=== PATIENT | male | born 1945 | race Caucasian/White ===

== ENCOUNTER 2017-07-11 09:25 | Inpatient (IN) | payer MEDICARE, BC ==
[2017-07-11 11:57] LABS: ABS Basophils 0 10^3/ul (0-0.2); ABS Eosinophils 0 10^3/ul (0-0.6); ABS Lymphocytes 0.8 10^3/ul (1.0-4.8); ABS Monocytes 0.7 10^3/ul (0-0.8); ABS Neutrophils 6.5 10^3/ul (1.5-7.7); ABS Nucleated RBC 0 10^3/ul; Eosinophil % 0.5 % (0-6); Hematocrit 43 % (42-52); Hemoglobin 14.5 g/dl (14.0-18.0); Lymphocyte % 9.9 % (25-47); Mean Corpuscular HGB Conc 34 g/dl (31-36); Mean Corpuscular Hemoglobin 29 pg (27-31); Mean Corpuscular Volume 85 fL (80-94); Mean Platelet Volume 8 um3 (7.4-10.4); Nucleated Red Blood Cells % 0.1; Platelet Count 181 10^3/ul (150-450); Red Blood Count 5.05 10^6/ul (4.0-5.4); Red Cell Distribution Width 15 % (10.5-15); White Blood Count 8.1 10^3/ul (3.5-10.8)
--- NOTE | 2017-07-11 11:59 | RAD ---
HISTORY: Altered mental status, slurred speech COMPARISONS: MRI dated March 06, 2015 TECHNIQUE: Multiple contiguous axial CT scans were obtained of the head without intravenous contrast. FINDINGS: HEMORRHAGE/INFARCT: There is no hemorrhage or acute infarct. MASSES/SHIFT: There is no parenchymal mass or shift. EXTRA-AXIAL SPACES: Again noted is a partially calcified CP angle mass on the right. SULCI AND VENTRICLES: The sulci and ventricles are normal in size and position for the patient's stated age. CEREBRUM: There is hypoattenuation of the periventricular and subcortical white matter. BRAINSTEM: There are no focal parenchymal abnormalities. CEREBELLUM: There is a chronic infarct of the left inferior cerebellum. VESSELS: The vessels are grossly normal. PARANASAL SINUSES: The paranasal sinuses are clear. ORBITS: The orbits are unremarkable. BONES AND SOFT TISSUE: There is post surgical change to the skull. OTHER: None IMPRESSION: 1. POSTSURGICAL CHANGE WITH A PARTIALLY CALCIFIED RIGHT CP ANGLE MASS, SIMILAR TO THE PREVIOUS EXAMINATION. 2. NO ACUTE INTRACRANIAL PATHOLOGY.
[2017-07-11 12:21] LABS: Urine Appearance Clear; Urine Blood Negative (Negative); Urine Color Yellow; Urine Ketones Trace (Negative); Urine Protein Negative (Negative); Urine Specific Gravity 1.023 (1.010-1.030); Urine Urobilinogen Negative (Negative)
[2017-07-11] MEDS ORDERED: Aspirin SUPP* 300 MG PR ONE (12:25)
[2017-07-11] MEDS ORDERED: Iohexol 350* (CONTRAST) 500 ML MDV IV ONE (12:29)
[2017-07-11] MEDS ORDERED: Aspirin TAB* 325 MG PO ONE (12:41)
[2017-07-11] MEDS ORDERED: Ondansetron INJ* 2 MG/ML VIAL IV PRN (13:38)
--- NOTE | 2017-07-11 13:57 | RAD ---
INDICATION: Confusion began yesterday morning. Slurred speech. History of Parkinson's disease. COMPARISON: Noncontrast CT of the same date. TECHNIQUE: Multidetector CT images were obtained from the aortic arch to the vertex of the head with 80 mL Omnipaque 350 IV contrast. Arterial phase of enhancement. Multiplanar reformation including maximum intensity projection. 3-D arterial volume rendering. Stenosis estimations based on denominator of distal arterial diameter. NECK ANGIOGRAM REPORT: Normal configuration of the branch vessels at the aortic arch. Mild atherosclerotic plaque at the RIGHT brachiocephalic and LEFT subclavian origins without hemodynamic significant stenosis resulting. Mild calcific plaque at the RIGHT carotid bulb and proximal internal carotid artery without significant stenosis by NASCET criteria. Mild calcific plaque at the LEFT carotid bulb without significant stenosis by NASCET criteria. Calcific and noncalcific plaque results in approximate 80% short segment ostial stenosis at the LEFT vertebral artery. The proximal LEFT vertebral artery is tortuous. Dominant LEFT vertebral artery and diminutive RIGHT vertebral artery both contribute to the basilar artery. Multilevel cervical degenerative spondylosis and facet joint osteoarthritis. Uncinate process spurring results in osseous foraminal stenosis at C3-C4 through C6-C7 on the RIGHT. Dorsal spondylitic ridging results in mild acquired central canal stenosis at C4-C5 and C5-C6. NECK ANGIOGRAM IMPRESSION: 1. Mild atherosclerotic plaque without significant RIGHT or LEFT carotid stenosis by NASCET criteria. 2. Approximate 80% short segment ostial stenosis at the origin of the LEFT and dominant vertebral artery. HEAD ANGIOGRAM REPORT: Mild calcific plaque at the carotid siphons without hemodynamic significant stenosis resulting. Unremarkable M1 and M2 segments of the middle cerebral arteries. Unremarkable A1 and A2 segments of the anterior cerebral arteries and patent diminutive anterior communicating artery. Unremarkable cerebellar artery origins and basilar artery. Patent posterior cerebral arteries are primarily supplied by the posterior circulation with normal variant hypoplastic posterior communicating arteries. No intracranial aneurysm or vascular malformation evident. No arterial phase enhancing intra or extra-axial lesions evident. HEAD ANGIOGRAM IMPRESSION: No large vessel intracranial arterial stenosis or occlusion. CPT II: CPT II Codes: 3100F
--- NOTE | 2017-07-11 16:28 | RAD ---
Indication: Question CVA. Slurred speech and increased tremors since yesterday morning. History of acoustic neuroma. Comparison: July 11, 2017 CT. March 06, 2015 MRI. Technique: Mobi[employer] 1.5 Chayito [id number] with GEM suite. MRI brain without contrast. Report: There is restricted diffusion at the LEFT precentral gyrus with corresponding decreased signal on ADC map. Negative for appreciable mass effect. The cerebral sulci, ventricles, and basal cisterns are within normal limits. Bilateral periventricular and subcortical white matter T2 hyperintensities are most consistent with chronic small vessel ischemic disease. Old lacunar infarcts noted at the LEFT inferior cerebellar hemisphere. 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 Negative for LEFT side cerebellopontine angle mass. Unremarkable orbital contents. Preserved major intracranial flow-voids. Postsurgical change of RIGHT occipital craniectomy. No suspicious calvarial or skull base lesions evident. Clear paranasal sinuses and mastoid air spaces. IMPRESSION: 1. Restricted diffusion at the LEFT frontal lobe precentral gyrus most consistent with subacute ischemic stroke given presence of corresponding T2 hyperintensity. Negative for significant associated mass effect. 2. Stigmata of chronic small vessel ischemic disease. Old lacunar infarcts at the LEFT inferior cerebellar hemisphere. 3. 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
[2017-07-11] MEDS: Heparin VIAL(*) 5000 UNITS/ML VIAL (FIVE THOUSAND) SUBCUT SCH ×2 (16:43→21:12)
[2017-07-11] MEDS: Carbidopa/Levodop CR 50/200(*) TAB.CR PO SCH (16:44)
[2017-07-11] MEDS: carBAMazepine TAB(*) 200 MG PO SCH (17:47)
[2017-07-11] MEDS: Metoprolol Succinate XL TAB* 200 MG TAB.XL PO SCH (17:47)
--- NOTE | 2017-07-11 20:24 | HP ---
CC: Dr. Beaulieu; Dr. Scruggs; Dr. Grady * HISTORY AND PHYSICAL: DATE OF ADMISSION: 07/11/17 PRIMARY CARE PROVIDER: Dr. Beaulieu. CONSULTING NEUROLOGIST: Dr. Scruggs. ATTENDING PROVIDER: Dr. Kennedy * (DICTATED BY LACEY GREENFIELD NP) CHIEF COMPLAINT: 1. Altered mental status. 2. Slurred speech. HISTORY OF PRESENT ILLNESS: Mr. Monge is a 71-year-old male patient. He has a history of Parkinson's disease, history of skin cancer, he has a history of an acoustic neuroma, hypertension, hyperlipidemia. He comes in to our ER today. It was noticed in the last couple days that the patient has had intermittent confusion and over the last 24 hours, the family and the patient have noted that his speech has been slurred, he has been having difficulty with words, which is not his baseline. There have been no reports of fevers, chills , nausea, or vomiting. No chest pain. There were no reports of a facial droop. No reports of weakness to one side or trouble with his gait. Actually, the family says now while being in the ER, his speech has improved and he is returning to his baseline. There have been no reports of vision changes, double vision, blurry vision. The patient says he has not been having any chest pain. There have been no URI symptoms. No coughing and no trouble with urination. He was concerned, came in to the ED. There was concern for possible TIA versus CVA and we were asked to evaluate for admission. PAST MEDICAL HISTORY: Significant for: 1. Parkinson's disease. 2. Hypertension. 3. Hyperlipidemia. 4. Skin cancer. 5. Acoustic neuroma. PAST SURGICAL HISTORY: 1. He has had acoustic neuroma removed. 2. He has had heart catheterization with no stents. MEDICATIONS: Home meds according to their list include: 1. Crestor, which is new medication in the last 10 days, 20 mg daily. 2. Amlodipine 10 mg daily. 3. Selegiline 5 mg daily. 4. Lisinopril 10 mg daily. 5. Avapro 300 mg daily. 6. Carbidopa and levodopa, he takes one tablet in the morning, he takes one tablet at bedtime around 2200, and he takes one tablet around 1700. 7. Aspirin 81 mg daily. 8. Amantadine 100 mg p.o. b.i.d. 9. Tegretol 200 mg daily. 10. Metoprolol XL 200 mg p.o. q.p.m. ALLERGIES TO MEDICATIONS: Include no known drug allergies. FAMILY HISTORY: His mother had a history of leukemia. Father of a heart attack. SOCIAL HISTORY: He is a former smoker. He quit in 1968. He does not drink alcohol. Surrogate decision maker is his . REVIEW OF SYSTEMS: There is no documented fever. He denied having any significant weight change. There was no double vision. There is no ear discharge. Denied having any rhinorrhea. No sore throat. No thyroid enlargement. Denies having any chest pain. There is no orthopnea. There is no nocturnal dyspnea. There is no abdominal pain. There is no nausea, no vomiting. There is no dysuria, there is no frequency. No seizure, no loss of consciousness. No pruritus and no skin ulcerations. Review of 14 systems completed, all others negative. PHYSICAL EXAMINATION GENERAL: At this time, Mr. Monge is a 71-year-old male patient. He is sitting in the ED stretcher. He does not appear to be in any acute distress. VITAL SIGNS: Blood pressure 111/73, pulse 73, respirations were 20, O2 sat 95% , temperature 98.3. HEENT: Head: Atraumatic. Eyes: EOMs are intact. Sclerae anicteric, not pale. Throat: Oral mucosa appears to be moist. No oropharyngeal erythema. NECK: Supple. LUNGS: Clear to auscultation. No wheezes, rales, or rhonchi. HEART: Sounds S1, S2. Regular rate and rhythm. No murmurs, rubs, or gallops. ABDOMEN: Soft, flat, nontender. Bowel sounds are present. EXTREMITIES: Pulses were 2+ throughout. He does have a resting tremor noted, but he is moving all 4 extremities with 5/5 strength. NEUROLOGIC: The patient is awake. He is alert. Cranial nerves II through XII were intact. His speech to me sounded clear. His family says it is at his baseline. His tongue is midline. He had no facial drooping. Jvrftd-[id number] was intact bilaterally. [id number]-vg-[id number] was intact bilaterally. Sensation intact. No gross focal deficits. SKIN: Intact. DIAGNOSTIC STUDIES/LAB DATA: WBC of 8.1, RBC of 5.05, hemoglobin of 14.5, hematocrit of 43, platelet count of 181. Sodium was 138, potassium 4.2, chloride of 104, bicarb 29, BUN 21, creatinine 1.02, glucose of 113, lactate 1.3 , calcium 9.4. Total bili 0.4, AST 14, ALT 4, alk phos 96. Ammonia 41. Troponin 0. Albumin 4.1. Urine showed trace ketones, 2+ glucose. The patient did have a brain CT obtained today, impression: Postsurgical change with a partially calcified right CP angle mass similar to previous examination, no acute intracranial pathology. He had an EKG obtained today, it is a difficult tracing, it is read as aflutter ; however, the patient was tremulous during exam. He had a lot of artifact. In the telemetry, he was noted to be in sinus rhythm and all the leads in this EKG are showing aflutter, V2, V4, clearly sinus rhythm. So, again, I think this is a normal sinus rhythm, rate of 74, no ST elevations, T-wave inversions. Old medical records were reviewed. ASSESSMENT AND PLAN: Mr. Monge is a 71-year-old male patient with multiple medical problems coming in to our ER today with complaints of troubled speech. He will be admitted under observation status for: 1. Transient ischemic attack versus cerebrovascular accident. Again, at this point, he will continue aspirin. I am going to hold the Crestor, as certainly the Crestor may have been contributing the altered mental status. So, we will hold this. We will go ahead and check neuro checks every 4 hours. We will check an MRI of the brain. CTA is pending. Dr. Scruggs will evaluate. We will get the echo with bubble study. The patient can eat. He passed the bedside swallow eval. I ordered PT/OT. We will get lipid panel and an A1c in the morning and we will follow closely. 2. Hypertension. In the setting of a possible acute cerebrovascular accident and transient ischemic attack, I will allow for permissive hypertension, I am just going to continue the beta nicole for the time being. 3. Parkinson's. Continue meds as prescribed. 4. Hyperlipidemia. Checking lipid panel. May consider going back on the simvastatin as he tolerated this well, but we will hold off on statins for the time being. 5. History of schwannoma and acoustic neuroma. He can follow with his primary. 6. DVT prophylaxis. He will be placed on heparin subcu. 7. Code status. He is a DNR. 8. Fluid, electrolytes, and nutrition. Heart-healthy diet. TIME SPENT: On admission 60 minutes, greater than half of the time spent face- to- face with the patient obtaining my history and physical, the other half of the time was spent going over the plan of care with the patient and implementing the plan of care. I did discuss the plan of care with my attending, Dr. Kennedy; she is in agreement. LACEY GREENFIELD NP [id number]/[facility] #: [id number] DAMARI
[2017-07-11] MEDS: Amantadine CAP* 100 MG PO SCH (21:11)
[2017-07-11] MEDS ORDERED: Carbidopa/Levodop CR 50/200(*) TAB.CR PO SCH (22:00)
--- NOTE | 2017-07-11 22:39 | CONS ---
CC: Dr. Grady * CONSULTATION REPORT: DATE OF CONSULT: 07/11/17 PATIENT OF: Dr. Beaulieu. HISTORY OF PRESENT ILLNESS: This is a 71-year-old man who I am asked to evaluate for a possible stroke. The symptoms have been present since Monday, where he had difficulty speaking, confused, and he had significant problems with word finding, this has improved to some degree, but he is still having trouble with word finding and fluidity of speech, this is a change he had. No change in his medicines other than he was switched to Crestor about 10 days ago and they stopped this yesterday. He has had no weakness, numbness. No headache. No droopy mouth. No visual symptoms. There is no family history for stroke. His father has had an NC. He has been followed by Dr. Grady for ongoing Parkinson's symptoms, which has not changed recently. He also has hypertension, status post an acoustic neuroma with surgery in 2012 and stereotactic radiotherapy the following year. He has some mild cognitive disorder. 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 He has benign essential hypertension, hyperlipidemia, and coronary atherosclerosis. He quit smoking in 1968. He drinks an occasional beer. He has no insomnia. His Parkinson's has been unchanged recently and there has been no recent change in his Parkinson's medications. MEDICATIONS: Include: 1. Amantadine 100 mg twice a day. 2. At home, he was on 81 mg of aspirin. 3. Tegretol 200 mg at bedtime. 4. Carbidopa/levodopa 5200 CR 3 times a day. 5. Metoprolol 200 mg a day. 6. Selegiline 5 mg a day. REVIEW OF SYSTEMS: Negative in all 14 spheres other than the HPI. PHYSICAL EXAM: Temperature 98.6, pulse 78, respirations 20, blood pressure 147/ 91. He was alert and oriented x3. He had some naming difficulties. He could not name knuckles, but could name elbow. He could have relatively good spontaneous generation of speech, but his speech was somewhat hesitant and he had hypophonia. The hypophonia was old, but his hesitancy in his speech and his mild word-finding problems was new. Cranial nerves II through XII were intact. There was no facial droop. No visual field deficit noted. Discs were sharp. Motor exam revealed cogwheeling bilaterally with rapid tremor. There was bradykinesia. There was no pronator drift and strength was 5/5 and symmetric. Reflexes 1 and equal. Toes were downgoing. Chest: Clear. Cardiovascular: Regular rate. Abdomen: Soft with positive bowel sounds. DIAGNOSTIC STUDIES/LAB DATA: I reviewed his studies. His MRI scan shows a small subacute left precentral gyrus, probable stroke. There is some diffuse small- vessel chronic white matter disease. His CTA showed some mild plaque, but without any stenosis in his carotids. He had 80% stenosis of his left vertebral artery. Head angiogram showed some plaque, but no major stenosis. CT scan showed no acute findings. His EKG showed atrial flutter. Labs include normal CBC. Chemistry shows a glucose of 113. UA was negative. His ammonia was normal. IMPRESSION: Kavon has had a subacute stroke in his speech area, which is mostly likely secondary to his atrial flutter. For now, he will be on aspirin, but in about a week he will need a repeat scan to make sure there is no bleeding and then would be started on anticoagulation. He also has some white matter disease, most likely secondary to his hypertension. Fasting lipids and PT/PTT need to be done and I will speak to Himanshu Heller about these things. [id number]/[facility] #: [id number] [facility] CENTERRickey
[2017-07-12] MEDS: Heparin VIAL(*) 5000 UNITS/ML VIAL (FIVE THOUSAND) SUBCUT SCH ×2 (05:07→14:14)
[2017-07-12 05:27] LABS: ABS Basophils 0.1 10^3/ul (0-0.2); ABS Eosinophils 0.1 10^3/ul (0-0.6); ABS Lymphocytes 1.2 10^3/ul (1.0-4.8); ABS Monocytes 0.6 10^3/ul (0-0.8); ABS Neutrophils 5.2 10^3/ul (1.5-7.7); ABS Nucleated RBC 0 10^3/ul; Eosinophil % 1.1 % (0-6); Hematocrit 44 % (42-52); Hemoglobin 14.9 g/dl (14.0-18.0); Lymphocyte % 16.7 % (25-47); Mean Corpuscular HGB Conc 34 g/dl (31-36); Mean Corpuscular Hemoglobin 29 pg (27-31); Mean Corpuscular Volume 85 fL (80-94); Mean Platelet Volume 8 um3 (7.4-10.4); Nucleated Red Blood Cells % 0.1; Platelet Count 174 10^3/ul (150-450); Red Blood Count 5.21 10^6/ul (4.0-5.4); Red Cell Distribution Width 15 % (10.5-15); White Blood Count 7.2 10^3/ul (3.5-10.8)
[2017-07-12 05:43] LABS: EGFR Non-African American 75.4 (>60)
[2017-07-12] MEDS: Amantadine CAP* 100 MG PO SCH (08:18)
[2017-07-12] MEDS ORDERED: amLODIPine TAB* 5 MG PO SCH (09:00)
[2017-07-12] MEDS ORDERED: Carbidopa/Levodop CR 50/200(*) TAB.CR PO SCH (09:00)
[2017-07-12] MEDS ORDERED: Selegiline TAB* 5 MG PO SCH (09:00)
[2017-07-12] MEDS ORDERED: Aspirin Low Dose CHEW TAB* 81 MG PO SCH (09:00)
--- NOTE | 2017-07-12 14:17 | ECHO ---
Patient: EBENEZER CLEANING [facility] Rec#: [id number] : 1945 Date: 07/12/2017 Age: 71y Height: 182.88 cm / 72.0 in Weight: 92.53 kg / 203.9 lbs Sex: M BSA: 2.17 Room#: [facility] Admit Date#: 07/11/2017 Type: Inpatient Referring: Himanshu Heller NP Reading: Yi Ng MD [employer] Director: Chantell Escobar,WADECS,RDMS CC: Darin Beaulieu MD Transthoracic Echocardiogram Indication: TIA BP: 126/79 HR: 63 Rhythm: NSR Findings History: HTN, HLD, Parkinsons Technical Comments: The study quality is good. Left Ventricle: The left ventricular chamber size is normal. Mild concentric left ventricular hypertrophy is observed. There is a prominent septal knuckle. Global left ventricular wall motion and contractility are within normal limits. There is normal left ventricular systolic function. The estimated ejection fraction is 55-60%. There is an E to A reversal in the mitral valve flow pattern suggestive of diastolic dysfunction. Left Atrium: The left atrial chamber size is normal. Right Ventricle: The right ventricular chamber size and systolic function are within normal limits. Right Atrium: The right atrial cavity size is normal. A patent foramen ovale is not demonstrated with color Doppler and agitated contrast. Aortic Valve: The aortic valve structure is not well visualized. There is no evidence of aortic valve thickening. There is a trace of aortic regurgitation. There is no evidence of aortic stenosis. Mitral Valve: There is mitral annular calcification. The mitral valve leaflets are mildly thickened. There is a trace of mitral regurgitation. There is no evidence of mitral stenosis. Tricuspid Valve: The tricuspid valve leaflets are normal. There is no evidence of tricuspid valve regurgitation. Unable to estimate the right ventricular systolic pressure. Pulmonic Valve: There is no evidence of pulmonic valve thickening. There is no evidence of pulmonic regurgitation. Pericardium: There is no significant pericardial effusion. Aorta: The aortic root appears normal. There is no dilatation of the aortic arch. Pulmonary Artery: The main pulmonary artery is not well visualized. Venous: The inferior vena cava appears normal in size. There is a greater than 50% respiratory change in the inferior vena cava dimension. Contrast: Intravenous agitated saline contrast was used to assess intracardiac shunting. Images 1 and 2 Conclusions Mild concentric left ventricular hypertrophy is observed. Global left ventricular wall motion and contractility are within normal limits. The estimated ejection fraction is 55-60%. There is an E to A reversal, e' and and E/e' suggestive of diastolic dysfunction. The right ventricular chamber size and systolic function are within normal limits. A patent foramen ovale is not demonstrated with color Doppler and agitated contrast. All valves show good excursion and function. There is a trace of aortic regurgitation. There is a trace of mitral regurgitation. No prior study to compare. Measurements Name Value Normal Range RVIDd (AP) 2D 2.5 cm (0.9 - 2.6) RVDdMajor (2D) 3.5 cm (2.2 - 4.4) RAd ISD 4CH 4.7 cm (3.4 - 4.9) RA (A4C)W 4.1 cm (2.9 - 4.6) IVSd (2D) 1.5 cm (0.6 - 1) LVPWd (2D) 1.2 cm (0.6 - 1) LVIDd (2D) 3.9 cm (3.6 - 5.4) LVIDs (2D) 3.1 cm - LV FS (2D) 20 % (25 - 45) Aortic Annulus 2 cm (1.4 - 2.6) Ao root diameter (2D) 3.4 cm (2.1 - 3.5) Ascending Ao 3 cm (2.1 - 3.4) LA dimension (AP) 2D 3.8 cm (2.3 - 3.8) LAd ISD 4CH 4.9 cm (2.9 - 5.3) LA ISD 4CH W 4.1 cm (2.5 - 4.5) Name Value Normal Range LA ESV SP 4CH (A/L) 39.84 ml - LA ESV SP 2CH (A/L) 45.15 ml - LA ESV BP (A/L) 43.29 ml - LA ESV BP (A/L) index 20 ml/m2 - LA ESV SP 4CH (MOD) 36.73 ml - LA ESV SP 2CH (MOD) 42.99 ml - LV EDV SP 4CH (MOD) 70.26 ml - LV ESV SP 4CH (MOD) 22.03 ml - EF SP 4CH (MOD) 68.64 % - LV EDV SP 2CH (MOD) 54.11 ml - LV ESV SP 2CH (MOD) 22.81 ml - EF SP 2CH (MOD) 57.84 % - LV EDV BP 61.94 ml - LV ESV BP 22.49 ml - BP EF (MOD) 64 % - Name Value Normal Range MV E-wave Vmax 0.8 m/sec - MV deceleration time 232 msec - MV A-wave Vmax 0.9 m/sec - MV E:A ratio 0.9 ratio - LV septal e' Vmax 0.06 m/sec - LV lateral e' Vmax 0.1 m/sec - LV E:e' septal ratio 13 ratio - LV E:e' lateral ratio 8 ratio - Name Value Normal Range AV Vmax 1 m/sec - AV VTI 25 cm - AV peak gradient 4 mmHg - AV mean gradient 2.6 mmHg - LVOT Vmax 0.8 m/sec - LVOT VTI 19 cm - LVOT peak gradient 2.6 mmHg - LVOT mean gradient 1.3 mmHg - Name Value Normal Range RAP 8 mmHg - IVC diameter 1.4 cm - Name Value Normal Range PV Vmax 0.7 m/sec - PV peak gradient 2 mmHg -
[2017-07-12 16:00] VITALS: BP 143/97
[2017-07-12] MEDS: carBAMazepine TAB(*) 200 MG PO SCH (16:18)
[2017-07-12] MEDS: Carbidopa/Levodop CR 50/200(*) TAB.CR PO SCH (16:18)
[2017-07-12] MEDS: Metoprolol Succinate XL TAB* 200 MG TAB.XL PO SCH (16:18)
--- NOTE | 2017-07-12 22:04 | PN ---
Subjective Date of Service: 07/12/17 Interval History: Patient states that his speech is improved. Denies and chest pain or shortness of breath. Denies abd pain or N/V/D. denies ext weakness Family History: Unchanged from Admission Social History: Unchanged from Admission Past Medical History: Unchanged from Admission Objective Vital Signs - 8 hr 07/12/17 15:15 Temperature 97.7 F Pulse Rate 72 Respiratory 14 Rate Blood Pressure 143/97 (mmHg) O2 Sat by Pulse 100 Oximetry Oxygen Devices in Use Now: None Appearance: appears comfortable Eyes: No Scleral Icterus Ears/Nose/Mouth/Throat: Clear Oropharnyx, Mucous Membranes Moist Neck: NL Appearance and Movements; NL JVP, Trachea Midline Respiratory: Symmetrical Chest Expansion and Respiratory Effort, Clear to Auscultation Cardiovascular: NL Sounds; No Murmurs; No JVD, RRR, No Edema Abdominal: NL Sounds; No Tenderness; No Distention Extremities: No Edema, No Clubbing, Cyanosis Skin: No Rash or Ulcers Neurological: Alert and Oriented x 3 Nutrition: Taking PO's Result Diagrams: 07/12/17 05:15 07/12/17 05:15 Assess/Plan/Problems-Billing Assessment: Mr. Monge is an 71 y.o male with a history Parkinson's disease, Hypertension , Hyperlipidemia., Skin cancer and Acoustic neuroma, who presented to the ER with difficulty with speech and confusion for 2-3 days . He was found to have CVA in the speech area.
--- NOTE | 2017-07-13 03:24 | PN ---
NEUROLOGY FOLLOWUP NOTE: DATE OF VISIT: 07/12/17 HISTORY: This is a neurological followup on this 71-year-old with Parkinson's and aphasia. His speech is somewhat better now and he has been walking in his usual ability. I have spoken to him and his , and they say he falls about once a month. MEDICATIONS: His medications continued to be: 1. Aspirin. 2. Tegretol. 3. Levodopa/carbidopa. 4. Metoprolol. PHYSICAL EXAMINATION: Temperature 97.7, pulse 72, respirations 14, blood pressure 143/97. He was alert and oriented. Cranial nerves II through XII were intact. He still had some minor word finding problems, but they were less pronounced than yesterday. He had his bilateral resting tremor and he has had a stigmata of Parkinson's. Chest: Clear. Cardiovascular: Regular rate and rhythm. His echo did not show PFO or other source of clot. Labs included LDL of 81 and he will need to be started on a statin. I reviewed his EKG with the hospitalist , who spoke to the javascript ui developer and I spoke to the javascript ui developer. The A-flutter that was read on his initial EKG was most likely artifact due to his tremor, but he is having some brief runs of SVT which puts him at risk for atrial arrhythmias according to Dr. Ng, who recommended cardiac followup as an outpatient, so at this point it is not clear how much of a risk he is at for having cardioembolic stroke and this needs to be sorted out further through his javascript ui developer. if the javascript ui developer thinks he is at risk for cardioembolic stroke. then if he is not a fall risk, this should be started within 7 to 10 days of the initial stroke or after once it is established that he is having atrial arrhythmia. I will be speaking with Dr. Grady today about his fall risk and the hospitalist will check with the physical therapist in terms of whether his gait can be improved so that he would be safe enough to receive anticoagulation if need be. Otherwise, he will be on aspirin and statin with followup with Dr. Grady. [id number]/[facility] #: [id number] [facility] CENTERRickey
--- NOTE | 2017-07-13 18:17 | DS ---
DISCHARGE SUMMARY: DATE OF ADMISSION: 07/11/17 DATE OF DISCHARGE: 07/12/17 ATTENDING PHYSICIAN WHILE IN THE HOSPITAL: Dr. Gabbie Nicholson * (dictated by Jessica Edouard NP). PRIMARY CARE PROVIDER: Dr. Beaulieu. PRIMARY DIAGNOSES: 1. Cerebrovascular accident. 2. Irregular heart rate. SECONDARY DIAGNOSES: 1. Parkinson's disease. 2. Hypertension. 3. Hyperlipidemia. 4. Skin cancer. 5. Acoustic neuroma. STUDIES WHILE IN THE HOSPITAL: He had a CT of the brain on 07/11/17. Radiologist's impression: 1. Postsurgical changes with partial calcified right CP angle mass similar to the previous examination. 2. No acute intracranial pathology. He had a CTA of the head, neck angiogram. Impression: 1. Mild atherosclerotic plaque without significant right or left carotid stenosis by NASCET criteria. 2. Approximately 80% short segment ostial stenosis at the origin of the left and dominant vertebral artery. angiogram: Mild calcific plaque at the carotid siphon without hemodynamic significant stenosis resulting. Head angiogram, impression: No large vessel intracranial arterial stenosis or occlusion. He had an MRI of the brain on 07/11/17. Radiologist's impression: 1. Restricted diffusion at the left frontal lobe precentral gyrus most consistent with subacute ischemic stroke given the presence of corresponding T2 hypersensitivity. Negative for significant associated mass effect. 2. Stigmata of chronic small vessel ischemic disease, old lacunar infarct at the left inferior cerebral hemisphere. 3. 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 He had an EKG on admission, which was sinus rhythm with a rate of 74. It did show some motion artifact due to his Parkinson's. DISCHARGE MEDICATIONS: He will continue his: 1. Crestor 20 mg p.o. daily. 2. Amlodipine 10 mg p.o. daily. 3. Lisinopril 10 mg p.o. daily. 4. Avapro 300 mg p.o. daily. 5. Eldepryl 5 mg p.o. q.a.m. 6. Lisinopril 10 mg p.o. daily. 7. Sinemet CR 50/200 one tab p.o. q.a.m. 8. Aspirin 81 mg p.o. daily. 9. Sinemet 50/200 one tab p.o. at bedtime. 10. Sinemet 50/200 mg 1 tablet p.o. in the evening. 11. Amantadine HCl 100 mg p.o. b.i.d. 12. Tegretol 200 mg p.o. q.p.m. 13. Metoprolol 200 mg p.o. q.p.m. 14. Aspirin 81 mg p.o. daily. HISTORY OF PRESENT ILLNESS AND HOSPITAL COURSE: Mr. Monge is a 71-year-old male with history of Parkinson's disease and history of skin cancer, and history of acoustic neuroma, hypertension, hyperlipidemia, he comes into the ER today. He noticed over the last couple of days that he had intermittent confusion over the last 24 hours. The family and patient have noted that his speech has been slurred and he has been having difficulty with his words, which is not his baseline. There have been no reports of fever, chills, nausea, or vomiting. No chest pain. There have been no reports of facial droop, no reports of weakness, one-sided trouble with his gait. Family actually noted that while the patient was in the emergency room that his speech was improving and returning to baseline. There have been no reports of visual changes, double vision, blurry vision. The patient says that he has not been having any chest pain. There have been no URI symptoms. No cough or trouble with urination. We were asked to evaluate for possible TIA versus CVA and the patient was admitted to the hospital. While in the hospital, the patient did receive a consult from Neurology, Dr. Scruggs. His impression was that Mr. Monge had a subacute stroke in his speech area, which is most likely secondary to his atrial flutter. For now, he will be on aspirin, but in about a week he needs to have a repeat scan to make sure there is no bleeding and then would be started on anticoagulation. He noted that he also had some white matter disease, most likely secondary to his hypertension, fasting lipids were completed as his recommendation. The patient was monitored during his hospitalization. He was found to have approximately 2 - to 3-second pauses. He also had an irregular rhythm throughout his stay. His rhythm appeared to be SVT and the possibility of having some atrial fibrillation. 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 He was generally in sinus rhythm during his hospitalization but did have these periods of arrhythmias. This case was discussed with Dr. Ng and due to neurology's recommendation of not placing the patient on anticoagulants at this time, she felt he could be managed as an outpatient with followup with his college administrator and neurologist. Routine laboratory work was obtained. His CBC was essentially normal. His BMP was also normal. His potassium was 4.0. His triglycerides were 172, cholesterol was 153, LDL was 82 , and HDL was 37.2. On evaluation of Mr. Monge, he states that he is feeling better, his speech has improved. He denies any difficulty swallowing. The patient was evaluated by Physical Therapy and was able to ambulate and perform all activities without assistance. He was also evaluated by Occupational Therapy, he was able to complete all tasks of daily living. At this time I feel that Mr. Monge is stable for discharge home. Mr. Monge will be discharged home with his . Vital signs are as follows : Temperature was 97.7, heart rate was 72, respirations 14, oxygen saturation was 100% on room air, blood pressure 143/97. DISCHARGE PLAN: 1. Mr. Monge will be discharged back home with his . Activity as tolerated. 2. He should follow up with Dr. Beaulieu in 4 to 7 days. He needs to have a repeat CAT scan of his brain in 1 week. He was given a prescription for the CAT scan and instructed to call central scheduling to schedule this CAT scan for 1 week. I contacted his primary care provider to obtain appointment and they will call the patient with appointment date and time. I have also instructed him to follow up with his college administrator, Dr. Martinez, in 1 to 2 weeks. He was also instructed to follow up with his neurologist, Dr. Grady, in 4 to 7 days to review his repeat CAT scan results and recommendations for anticoagulation. Mr. Monge and his were instructed to return to the emergency room if he developed any dizziness, severe headache, any one unilateral weakness, chest pain or shortness of breath. They both verbalized understanding. He was also instructed not to travel or fly for the next 2 to 3 weeks until his evaluation was completed by his neurologist, college administrator, and primary care provider. This is a summary of his hospitalization. For further details, please see the entire medical record. TIME SPENT: Time spent on this discharge was approximately 60 minutes, greater than half that time was spent with the patient and his discussing his discharge plans and implementing the instructions. CONDITION ON DISCHARGE: Stable. JESSICA EDOUARD, STEPHIE [id number]/[facility] #: [id number] DAMARI
== END 2017-07-12 18:00 | disposition home or self-care (01) | DRG 66 ==
LOC: ED 09:25 → MEDTELE 12:47
PROVIDERS: ADMIT Internal Medicine; ATTEND Internal Medicine
DX: I63.8 Other cerebral infarction (principal); G20 Parkinson's disease; I10 Essential (primary) hypertension; E78.5 Hyperlipidemia, unspecified; C44.90 Unspecified malignant neoplasm of skin, unspecified; Z66 Do not resuscitate; Z79.82 Long term (current) use of aspirin; Z79.899 Other long term (current) drug therapy; Z80.6 Family history of leukemia; Z82.49 Family history of ischemic heart disease and other diseases of the circulatory system; Z87.891 Personal history of nicotine dependence
CPT/HCPCS: 36415; 70450; 70496; 70498; 70551; 80048; 80053; 80061; 81003; 82140; 83036; 83605; 84484; 85025; 93005; 93306; A9270-GY; J1644; Q9967

== ENCOUNTER 2018-08-16 16:35 | Inpatient (IN) | payer MEDICARE, BC ==
--- OUTSIDE RECORDS SUMMARY | 2018-08-16 19:35 | XMS REPORT | Continuity of Care Document ---
:1945 External Reference #:[id number] Author Name Dinorah Dykes Care Team Providers Name Role Phone Darin Chew MD Primary Care Physician Unavailable Payers Type Date Identification Numbers Payment Provider Subscriber Policy Number: [id number] Medicare Ebenezer Monge PayID: [id number] [address] [place] [address] Policy Number: [id number] [facility] Sandra Monge PayID: [id number] [address] [place] [address] Advance Directives Description No Information Available Problems Date Description Provider Status Onset: 11/04/2011 Coronary arteriosclerosis Gabbi Rogel M.D. Onset: 11/04/2011 Hyperlipidemia Regi Martinez Active Jefry Onset: 11/04/2011 Benign essential hypertension Regi Martinez Active Jefry Onset: 11/04/2011 Tricuspid valve disorder, Regi Martinez Active non-rheumatic M.DAyleen Onset: 10/20/2014 Parkinson's disease Chantell Grady M.D. Active Onset: 10/20/2014 Seizure Chantell Grady M.D. Active Onset: 09/22/2015 Essential hypertension Gabbi Rogel M.D. 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 Polk; stereotactic radiotherapy 10/[address] Whipple ([facility]) Onset: 02/01/2017 Mild cognitive disorder Chantell Grady M.D. Active Note: MoCA 02/01/17: Onset: 02/01/2017 Dyskinesia Chantell Grady M.D. Active Note: jaw: on amantadine Family History Date Family Member(s) Problem(s) Comments : (age 63 Father due to [place] hypertension Years) : (age 70 Mother due to Leukemia Years) Paternal Uncles Coronary Artery Disease diabetes at age (CAD) 82 Social History Type Date Description Comments Sex Unknown Marital Status Lives With Occupation Retired Tobacco Use Start: Unknown End: Former Cigarette Smoker Unknown Smoking Status Reviewed: 07/20/18 Former Cigarette Smoker ETOH Use Denies alcohol use Tobacco Use Start: Unknown End: Patient is a former quit in 1968 Unknown smoker Recreational Drug Use Denies Drug Use Exercise Type/Frequency Exercises regularly physical therapy weekly and member of [employer] Allergies, Adverse Reactions, Alerts Date Description Reaction Status Severity Comments 07/13/2018 Lisinopril Cough Active 08/16/2005 NKDA Inactive Medications Medication Date Status Form Strength Qnty SIG Indications Ordering Provider Carbidopa-Levodopa 03/14 Active Tablets 25-100mg 720ta take 2 G20 bs tablets Cowdery, by mouth M.D. four times a day at: 8am, noon, 4pm, and 8 pm. Carbidopa-Levodopa 10/03 Active Tablets 50-200mg 90tab take 1 ER s tablet by Ysabel, mouth at M.D. bedtime as needed Eliquis 07/20 Active Tablets 5mg 180ta Take 1 po Merle S. bs bid (once Foster, Tegretol N.P. stopped) Amantadine HCL Active Capsules 100mg 270ca 1 cap by Chantell / ps mouth bid Jefry Grady Irbesartan Active Tablets 300mg 90tab 1/2 tab s po qd, Patient had been taking one tablet daily. Miralax Active Powder 3350NF 17 gm Unknown /0000 every day mixed w/ 8 oz water/jui ce Vimpat Active Tablets 100mg 90tab 1/2 tab Chantell /0000 s by mouth Ysabel, twice a M.D. day Code C Senna-Tabs Active Tablets 8.6mg 1 tabs Unknown /0000 by mouth twice a day Simvastatin 00 Active Tablets 40mg take 1 Unknown /0000 tablet by mouth at bedtime Levetiracetam 07/21 Hx Tablets 250mg 180ta take 1 by bs mouth Ysabel, - twice a M.D. (this replaces carbamaze pine) Carbidopa-Levodopa 09/28 Hx Tablets 25-100mg 90tab take 1 G20 s tablet by Ysabel, - mouth in M.D. 11/01 am ( extended release) Carbidopa-Levodopa 03/25 Hx Tablets 50-200mg 270ta 1 tab by Chantell ER bs mouth sYabel, - three M.D. 09/14 times day Selegiline 11/28 Hx Capsules 5mg 1cap po qd Ordering - Provider 09/14 Zocor 04/26 Hx Tablets 80mg 90tab 1 PO QHS Qutayb s S. - Maghaydah 07/11 , .D. Toprol XL 12/04 Hx Tablets 200mg 1 tab PO Qutayb ER 24HR qd S. - Maghaydah 03/13 , .D. Lisinopril 10/02 Hx Tablets 10mg 1 PO bid Qutayb S. - Maghaydah 10/02 , .D. Lisinopril 10/02 Hx Tablets 20mg 180ta 1 PO Qutayb bs daily S. - Maghaydah 07/11 , .D. Lisinopril 08/24 Hx Tablets 20mg 1 PO qd Qutayb S. - Maghaydah 10/02 , .D. Clonidine 07/31 Hx Tablets 0.3mg 1 po Qutaybeh S. - Maghaydah 10/02 , .D. Lisinopril 07/31 Hx Tablets 10mg 30tab 1 PO qd Qutayb s S. - Maghaydah 08/24 , .D. /2006 Clonidine 06/27 Hx Tablets 0.3mg 180ta 1 po bid Qutayb bs S. - Maghaydah 07/31 , M.D. /2006 Hydrochlorothiazide 05/30 Hx Tablets 25mg 90tab 1 po qd [facility] /2013 Tricor 05/22 Hx Tablets 145mg 30tab 1 PO qd [facility] /2006 Clonidine 05/22 Hx Tablets 0.2mg 60tab 1 po bid [facility]b [facility] , M.D[facility] /2006 Clonidine 01/18 Hx Tablets 0.2mg 1 po qd [facility] . [facility] , M.D. /2005 Avapro 10/31 Hx Tablets 300mg 90tab 1 po qd [facility]b [facility] , M.D. /2013 Norvasc 10/31 Hx Tablets 10mg 30tab 1 tab po Qutayb s qd S[facility] , M.D. /2016 Niaspan 10/31 Hx Capsules 500mg 30cap 1 po q pm Qutayb [facility] , M.D. /2005 Toprol XL 09/28 Hx Tablets 150mg 1 po qd [facility] S[facility] 12/04 , M.D. /2006 Clonidine 09/28 Hx Tablets 0.2mg 120ta 1 po bid [facility]b [facility] 01/18 , M.D. /2005 Clonidine 08/17 Hx Tablets 0.1mg 120ta 1 po bid [facility] , [facility] /2005 Tegretol 08/16 Hx Tablets 200mg 90tab 1 po qd Qutayb s . [facility] 07/11 , M.D. /2013 Zocor 08/16 Hx Tablets 40mg 90tab 1 PO qd Qutayb [facility] 04/26 , M.D. /2006 Toprol XL 08/16 Hx Tablets 100mg 30tab 1 po qd Qutaybeh 2006 s S[facility] , M.D. Avalide 08/16 Hx Tablets 300mg;12. 30tab 1 po qd 5 mg s S[facility] , M.D. [facility] CR 08/16 Hx Tablets 5mg 30tab 1 po tid [facility]b s S[facility] , M.D. [facility] CR 08/16 Hx Tablets 15mg 1 po qd Quta S. [facility] 10/[facility] , M.D. Selegiline HCL Hx Tablets 5mg 60tab 1 tab by Unknown /0000 s mouth - every 11/28 Zocor Hx Tablets 40mg 1 tab po Unknown /0000 qhs - 03/13 Lisinopril Hx Tablets 10mg 1 tab po Unknown /0000 qd - 09/14 Colace Hx Capsules 100mg 40cap 1cap po Unknown /0000 s bid prn - 09/[address] Hx Tablets 81mg 1 tab po Unknown /0000 DR qd - 07/20 Carbamazepine ER Hx Caps ER 200mg 60cap 1 cap po Unknown /0000 12HR s daily - 09/14 Pantoprazole Sodium Hx Tablets 40mg 90tab 1 po qd Unknown /0000 DR s - 10/17 Miralax Hx Powder 3350NF 500un 17 gm qd Unknown /0000 its mixed w/ - 8 oz 10/17 water/ ce Melatonin CR Hx Tablets 3mg 1 tablet Unknown /0000 ER po at - bedtime 09/27 prn Carbidopa/Levodopa Hx Tablets 50-200mg 90tab 1 tab po Unknown ER /0000 ER s bid - 03/25 Amlodipine Besylate Hx Tablets 10mg Take One Unknown /0000 Tablet By - Mouth 09/14 Every Day /2017 Mederma PM Hx Cream 2% use on Unknown /0000 feet bid - as needed 07/19 Benzonatate Hx Capsules 100mg one by Unknown /0000 mouth - three 09/14 daily as needed for cough Rytary 00 Hx Capsules 48.75-195 360ca 1 by G20 Chantell /0000 ER mg ps mouth 4 Cowdery, - times a M.D. Lorazepam 00 Hx Tablets 1mg 1 by Unknown /0000 mouth up - to three 10/29 times day as needed for anxiety.. Immunizations Description No Information Available Vital Signs Date Vital Result Comment 07/20/2018 2:59pm Height 73 inches 6'1" Weight 195.25 lb with shoes Heart Rate 68 /min BP Systolic 170 mmHg Lue BP Diastolic 100 mmHg Lue BP Systolic Sitting 160 mmHg Rue BP Diastolic Sitting 100 mmHg Rue BMI (Body Mass Index) 25.8 kg/m2 Ejection Fraction 55-60% ECHO 07/12/17 07/13/2018 2:08pm Height 73 inches 6'1" Weight 200.00 lb Heart Rate 64 /min BP Systolic Sitting 140 mmHg BP Diastolic Sitting 80 mmHg Respiratory Rate 18 /min BMI (Body Mass Index) 26.4 kg/m2 03/14/2018 11:33am Height 73 inches 6'1" Weight 194.50 lb Heart Rate 74 /min BP Systolic 124 mmHg BP Diastolic 78 mmHg BMI (Body Mass Index) 25.7 kg/m2 12/07/2017 9:30am Height 73 inches 6'1" Weight 190.00 lb Heart Rate 68 /min BP Systolic 108 mmHg BP Diastolic 60 mmHg Respiratory Rate 16 /min BMI (Body Mass Index) 25.1 kg/m2 10/30/2017 4:05pm Height 73 inches 6'1" Weight 190.25 lb w/shoes Heart Rate 72 /min BP Systolic Sitting 118 mmHg L/A Reg Cuff BP Diastolic Sitting 64 mmHg L/A Reg Cuff BMI (Body Mass Index) 25.1 kg/m2 Ejection Fraction 55-60% echo 07/12/2017 09/15/2017 11:43am Height 73 inches 6'1" Weight 187.00 lb Heart Rate 64 /min BP Systolic 126 mmHg BP Diastolic 68 mmHg Respiratory Rate 16 /min BMI (Body Mass Index) 24.7 kg/m2 07/20/2017 8:26am Height 73 inches 6'1" Weight 199.25 lb with shoes Heart Rate 70 /min BP Systolic Sitting 120 mmHg LA, reg cuff BP Diastolic Sitting 68 mmHg LA, reg cuff BMI (Body Mass Index) 26.3 kg/m2 Ejection Fraction 55%-60% echo 03/29/17 07/19/2017 8:09am Height 73 inches 6'1" Weight 201.38 lb Heart Rate 68 /min BP Systolic Sitting 140 mmHg BP Diastolic Sitting 72 mmHg Respiratory Rate 15 /min BMI (Body Mass Index) 26.6 kg/m2 03/01/2017 2:43pm Height 72 inches 6'0" Weight 200.00 lb with shoes Heart Rate 68 /min BP Systolic Sitting 124 mmHg LA reg cuff BP Diastolic Sitting 62 mmHg LA reg cuff BMI (Body Mass Index) 27.1 kg/m2 Ejection Fraction 55-60% date 08/08/13 ECHO 02/01/2017 8:35am Height 72 inches 6'0" Weight 200.00 lb Heart Rate 64 /min BP Systolic Sitting 122 mmHg BP Diastolic Sitting 64 mmHg Respiratory Rate 14 /min BMI (Body Mass Index) 27.1 kg/m2 09/28/2016 8:56am Height 72 inches 6'0" Weight 207.00 lb Heart Rate 56 /min BP Systolic Sitting 128 mmHg BP Diastolic Sitting 62 mmHg Respiratory Rate 14 /min BMI (Body Mass Index) 28.1 kg/m2 06/08/2016 1:39pm Height 72 inches 6'0" Weight 203.00 lb with shoes Heart Rate 72 /min BP Systolic Sitting 140 mmHg LA lrg cuff BP Diastolic Sitting 68 mmHg LA lrg cuff BMI (Body Mass Index) 27.5 kg/m2 Ejection Fraction 55% - 60% echo 08/08/13 10/21/2015 10:56am Height 72 inches 6'0" Weight 200.25 lb Heart Rate 74 /min BP Systolic Sitting 122 mmHg BP Diastolic Sitting 64 mmHg Respiratory Rate 16 /min BMI (Body Mass Index) 27.2 kg/m2 09/22/2015 1:29pm Height 72 inches 6'0" Weight 210.50 lb with shoes Heart Rate 66 /min apical BP Systolic Sitting 124 mmHg LA, regular BP Diastolic Sitting 80 mmHg LA, regular BMI (Body Mass Index) 28.5 kg/m2 Ejection Fraction 55-60% 08/08/13 echo 04/13/2015 11:18am Height 72 inches 6'0" Weight 205.00 lb Heart Rate 64 /min BP Systolic Sitting 122 mmHg BP Diastolic Sitting 80 mmHg Respiratory Rate 14 /min BMI (Body Mass Index) 27.8 kg/m2 10/28/2014 3:52pm Height 72 inches 6'0" Weight 206.75 lb w/ shoes Heart Rate 76 /min apical BP Systolic Sitting 130 mmHg LA, reg BP Diastolic Sitting 86 mmHg LA, reg BMI (Body Mass Index) 28.0 kg/m2 Ejection Fraction 55-60% 08/08/13 echo 10/20/2014 1:14pm Height 72 inches 6'0" Weight 209.00 lb Heart Rate 56 /min BP Systolic Sitting 122 mmHg BP Diastolic Sitting 64 mmHg Respiratory Rate 16 /min BMI (Body Mass Index) 28.3 kg/m2 07/09/2014 1:14pm Height 72 inches 6'0" Weight 204.00 lb Heart Rate 80 /min BP Systolic Sitting 110 mmHg BP Diastolic Sitting 60 mmHg Respiratory Rate 16 /min BMI (Body Mass Index) 27.7 kg/m2 04/03/2014 1:53pm Height 72 inches 6'0" Weight 204.00 lb Heart Rate 64 /min BP Systolic Sitting 124 mmHg BP Diastolic Sitting 72 mmHg Respiratory Rate 16 /min BMI (Body Mass Index) 27.7 kg/m2 03/06/2014 2:04pm Height 73 inches 6'1" Weight 201.12 lb Heart Rate 72 /min BP Systolic Sitting 118 mmHg BP Diastolic Sitting 62 mmHg Respiratory Rate 16 /min BMI (Body Mass Index) 26.5 kg/m2 10/30/2013 9:07am Height 73 inches 6'1" Weight 194.00 lb Heart Rate 60 /min BP Systolic Sitting 120 mmHg BP Diastolic Sitting 64 mmHg Respiratory Rate 16 /min BMI (Body Mass Index) 25.6 kg/m2 07/11/2013 3:24pm Height 73 inches 6'1" Weight 199.00 lb Heart Rate 80 /min BP Systolic Sitting 140 mmHg BP Diastolic Sitting 90 mmHg Respiratory Rate 16 /min BMI (Body Mass Index) 26.3 kg/m2 11/28/2012 8:37am Height 73 inches 6'1" Weight 209.00 lb Heart Rate 72 /min BP Systolic 128 mmHg BP Diastolic 70 mmHg BMI (Body Mass Index) 27.6 kg/m2 04/26/2012 10:25am Height 73 inches 6'1" Weight 208.00 lb Heart Rate 68 /min BP Systolic 142 mmHg BP Diastolic 80 mmHg Respiratory Rate 16 /min BMI (Body Mass Index) 27.4 kg/m2 11/04/2011 9:34am Height 73 inches 6'1" Weight 214.00 lb Heart Rate 79 /min BP Systolic 138 mmHg BP Diastolic 72 mmHg BMI (Body Mass Index) 28.2 kg/m2 11/01/2010 8:41am Height 73 inches 6'1" Weight 217.00 lb Heart Rate 88 /min BP Systolic Sitting 170 mmHg BP Diastolic Sitting 78 mmHg BP Diastolic Standing 0 mmHg BMI (Body Mass Index) 28.6 kg/m2 11/05/2009 2:51pm Height 73 inches 6'1" Weight 222.00 lb Heart Rate 78 /min BP Systolic Sitting 180 mmHg L BP Diastolic Sitting 72 mmHg L BMI (Body Mass Index) 29.3 kg/m2 12/25/2008 2:01pm Weight 224.00 lb Heart Rate 72 /min BP Systolic Sitting 122 mmHg BP Diastolic Sitting 66 mmHg Respiratory Rate 16 /min 05/20/2008 8:58am Height 73 inches 6'1" Weight 228.00 lb Heart Rate 76 /min BP Systolic Sitting 144 mmHg BP Diastolic Sitting 60 mmHg BMI (Body Mass Index) 30.1 kg/m2 10/11/2007 8:29am Height 73 inches 6'1" Weight 222.00 lb Heart Rate 72 /min BP Systolic Sitting 170 mmHg L BP Diastolic Sitting 64 mmHg L BMI (Body Mass Index) 29.3 kg/m2 04/11/2007 11:16am Height 73 inches 6'1" Weight 217.00 lb Heart Rate 62 /min BP Systolic Sitting 160 mmHg BP Diastolic Sitting 80 mmHg Respiratory Rate 16 /min BMI (Body Mass Index) 28.6 kg/m2 12/04/2006 8:55am Height 73 inches 6'1" Weight 200.00 lb Heart Rate 62 /min BP Systolic Sitting 160 mmHg BP Diastolic Sitting 70 mmHg Respiratory Rate 16 /min BMI (Body Mass Index) 26.4 kg/m2 10/02/2006 10:11am Height 73 inches 6'1" Weight 222.00 lb Heart Rate 85 /min BP Systolic Sitting 150 mmHg BP Diastolic Sitting 80 mmHg BMI (Body Mass Index) 29.3 kg/m2 08/24/2006 8:23am Height 73 inches 6'1" Weight 222.00 lb Heart Rate 80 /min BP Systolic Sitting 164 mmHg L BP Diastolic Sitting 80 mmHg L BMI (Body Mass Index) 29.3 kg/m2 07/31/2006 8:57am Height 73 inches 6'1" Heart Rate 78 /min BP Systolic Sitting 170 mmHg BP Diastolic Sitting 80 mmHg 06/27/2006 11:08am Height 73 inches 6'1" Weight 220.00 lb Heart Rate 70 /min reg BP Systolic Sitting 146 mmHg BP Diastolic Sitting 80 mmHg BMI (Body Mass Index) 29.0 kg/m2 05/30/2006 2:55pm Height 73 inches 6'1" Weight 219.00 lb Heart Rate 80 /min BP Systolic Sitting 170 mmHg BP Diastolic Sitting 80 mmHg BP Systolic Standing 170 mmHg BP Diastolic Standing 78 mmHg Respiratory Rate 18 /min BMI (Body Mass Index) 28.9 kg/m2 05/22/2006 1:26pm Height 73 inches 6'1" Weight 222.00 lb Heart Rate 84 /min BP Systolic Sitting 180 mmHg BP Diastolic Sitting 80 mmHg BMI (Body Mass Index) 29.3 kg/m2 01/18/2006 9:15am Height 73 inches 6'1" Heart Rate 72 /min reg BP Systolic Sitting 140 mmHg BP Diastolic Sitting 80 mmHg 12/26/2005 9:36am Height 73 inches 6'1" Weight 216.00 lb Heart Rate 68 /min BP Systolic Sitting 140 mmHg BP Diastolic Sitting 80 mmHg Respiratory Rate 18 /min BMI (Body Mass Index) 28.5 kg/m2 10/31/2005 8:43am Height 73 inches 6'1" Weight 222.00 lb Heart Rate 58 /min reg BP Systolic Sitting 146 mmHg BP Diastolic Sitting 70 mmHg BMI (Body Mass Index) 29.3 kg/m2 09/28/2005 8:51am Height 73 inches 6'1" Weight 224.00 lb Heart Rate 78 /min BP Systolic Sitting 150 mmHg BP Diastolic Sitting 80 mmHg BP Systolic Standing 154 mmHg BP Diastolic Standing 80 mmHg BMI (Body Mass Index) 29.6 kg/m2 08/16/2005 8:42am Height 73 inches 6'1" Weight 225.00 lb Heart Rate 86 /min BP Systolic Sitting 200 mmHg R 198/80 L BP Diastolic Sitting 80 mmHg R 198/80 L BP Systolic Standing 180 mmHg L BP Diastolic Standing 80 mmHg L BMI (Body Mass Index) 29.7 kg/m2 Results Test Date Facility Test Result H/L Range Note Urinalysis Profile 03/14/2018 [facility] Urine Color [place] [address] [place] [address] [phone] Urine Appearance Cloudy Urine Specific [place] 1.026 N 1.010-1.030 Urine pH 5.0 N 5-9 Urine Urobilinogen Positive Abnormal Negative Urine Ketones Trace Abnormal Negative Urine Protein Negative Negative Urine Leukocytes Negative Negative Urine Blood Negative Negative Urine Nitrite Negative Negative Urine Bilirubin Negative Negative Urine Glucose Negative Negative Urine Culture And 03/14/2018 [facility] Urine Culture SEE RESULT [address] [place] [address] [phone] Basic Metabolic 12/26/2005 [facility] One Over 1.[address] [place] [address] [phone] Anion Gap 5.0 mmol/L 2-11 2 BUN 19 mg/dL 6-24 Calcium 9.3 mg/dL 8.7-10.2 Chloride 105 mmol/L 101-111 Co2 (Carbon Dioxide) 28.0 mmol/L 22-32 Glucose 91 mg/dL 70-105 Potassium 4.3 mmol/L 3.5-5.0 Sodium 138 mmol/L 135-145 BUN/Creatinine Ratio 19.0 8-20 Creatinine 1.0 mg/dL 0.5-1.4 1 SEE RESULT BELOW Name: EBENEZER MONGE : [address]: Chantell Grady MD Acct: [id number] Unit: [id number] AGE: 72 Location: LAB Re03/14/18 SEX: M Status: REG REF SPEC: [id number] [place]: 03/14/18-1258 [facility] DR: Chantell Grady MD REQ: [id number] RECD: 03/14/18 STATUS: YAMILETH CARLSON DR: Darin Chew MD _ SOURCE: URINE SPDESC: ORDERED: Urine Culture COMMENTS: Copy Result to: DARIN CHEW ([id number]) Procedure Result Reported Site Urine Culture Final 03/15/18- 1255 ML Mixed khadijah; possible contamination. Suggest resubmission. * [facility] - Main Lab . END OF REPORT DEPARTMENT OF PATHOLOGY, [address] [place] [address] Singh Landaverde M.D. Director [facility] # [id number] 2 Anion gap measurement may be of limited value in the presence of any alkalosis, especially in a combined acid base disorder. . Procedures Date Code Description Status 07/20/2018 47237 EKG Tracing & Interpretation Completed 07/20/2017 51225 EKG Tracing & Interpretation Completed 07/12/2017 07322 ECHO Transthorasic Realtime 2D W Doppler & Color Flow Hosp Completed 03/29/2017 47733 ECHO Transthoracic, Real-Time 2D With Doppler And Color Completed Flow 03/29/2017 51764 ECHO Transthoracic, Real-Time 2D With Doppler And Color Completed Flow 03/01/2017 53698 EKG Tracing & Interpretation Completed 06/08/2016 17346 EKG Tracing & Interpretation Completed 09/22/2015 00436 EKG Tracing & Interpretation Completed 10/28/2014 86128 EKG Tracing & Interpretation Completed 06/23/2014 73658 EEG Recording Awake & Drowsy Completed 04/03/2014 95896 EKG Tracing & Interpretation Completed 03/18/2014 90615 EEG Recording Awake & Asleep Completed 08/08/2013 55664 ECHO Transthoracic, Real-Time 2D With Doppler And Color Completed Flow 07/11/2013 68461 EKG Tracing & Interpretation Completed 11/04/2011 45254 EKG Tracing & Interpretation Completed 11/05/2009 68020 EKG Tracing & Interpretation Completed 08/25/2009 13463 ECHO Stress Test Incl Perf Contiuous ekg Monitoring W/Phys Completed Superv 08/25/2009 41283 ECHO Transthoracic, Real-Time 2D With Doppler And Color Completed Flow 08/25/2009 46400 ECHO Transthoracic, Real-Time 2D With Doppler And Color Completed Flow 12/25/2008 37708 EKG Tracing & Interpretation Completed 05/20/2008 22194 EKG Tracing & Interpretation Completed 04/15/2008 64906 Stress Test Completed 04/15/2008 42303 Stress Test Completed 04/15/2008 36282 ECHO/Stress Completed 04/15/2008 81991 ECHO/Stress Completed 04/15/2008 00775 ECHO/Stress Completed 03/07/2008 77124 Color Doppler Completed 03/07/2008 00090 Color Doppler Completed 03/07/2008 41039 Pulse Doppler & Continuous Wave Completed 03/07/2008 33804 Pulse Doppler & Continuous Wave Completed 03/07/2008 72053 Pulse Doppler & Continuous Wave Completed 03/07/2008 73594 Echocardiogram Completed 03/07/2008 60535 Echocardiogram Completed 05/24/2006 54059 Left Heart Catheterization Completed 05/24/2006 19739 Left Heart Catheterization Completed 05/24/2006 41256 Inj Proc LFT Vent/LFT Atrl Angio Completed 05/24/2006 97597 Coronary Angiography Completed 05/24/2006 05387 Coronary Angiography Completed 05/24/2006 56975 S/I/R Inj Proc Vent And Or Atrial Completed 05/24/2006 49018 Selective Coronary Angioplasty Completed 05/24/2006 53213 Selective Coronary Angioplasty Completed 05/22/2006 82357 EKG Tracing & Interpretation Completed 12/26/2005 14480 EKG Tracing & Interpretation Completed 08/30/2005 74390 ECHO/Stress Completed 08/30/2005 57681 Stress Test Completed 08/24/2005 95219 Color Doppler Completed 08/24/2005 40916 Pulse Doppler & Continuous Wave Completed 08/24/2005 41043 Echocardiogram Completed 08/17/2005 54790 EKG Tracing & Interpretation Completed Encounters Type Date Location Provider Dx Diagnosis Office Visit 07/13/2018 [facility] Sonu Cooper Parkinson's 2:30p [facility] disease D33.3 Benign neoplasm of cranial nerves G40.89 Other seizures Office Visit 03/14/2018 [facility] Sonu Cooper Parkinson's 11:15a [facility] Jefry disease D33.3 Benign neoplasm of cranial nerves R35.0 Frequency of micturition Z86.73 Prsnl hx of TIA (TIA), and cereb infrc w/o resid deficits I48.91 Unspecified atrial fibrillation Z79.01 [facility] (current) use of anticoagulants Office Visit 12/07/2017 9:30a [facility] Sonu Cooper [facility] disease Z86.73 Prsnl hx of TIA (TIA), and cereb infrc w/o resid deficits D33.3 Benign neoplasm of cranial nerves G40.89 Other seizures Office Visit 10/30/2017 4:00p [facility] Regi SAyleen I10 Essential Jefry Martinez (primary) hypertension I25.10 Athscl heart disease of ione coronary artery w/o ang pctrs I48.91 Unspecified atrial fibrillation I51.7 Cardiomegaly Z86.73 Prsnl hx of TIA (TIA), and cereb infrc w/o resid deficits Office Visit 09/15/2017 11:30a [facility] Chantell Grady, G20 [facility] Jefry disease D33.3 Benign neoplasm of cranial nerves G40.89 Other seizures Office Visit 07/20/2017 8:30a [facility] Merle SAyleen I63.9 Cerebral Foster, N.P. 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 infarction, Hospitalists unspecified G20 Parkinson's disease I10 Essential (primary) hypertension E78.5 Hyperlipidemia, unspecified Office Visit 07/11/2017 [facility] Ebenezer I63.9 Cerebral 7:00a Clinic MD Kael infarction, unspecified I10 Essential (primary) hypertension I48.92 Unspecified atrial flutter G20 Parkinson's disease Office Visit 03/01/2017 3:00p [facility] Regi Aguayo I10 Essential Jefry Martinez (primary) hypertension I25.10 Athscl heart disease of ione coronary artery w/o ang pctrs E78.4 Other hyperlipidemia I36.1 Nonrheumatic tricuspid (valve) insufficiency I34.0 Nonrheumatic mitral (valve) insufficiency R06.02 Shortness of breath Office Visit 02/01/2017 8:30a [facility] Chantell Grady, G20 [facility] Jefry disease R29.6 Repeated falls D33.3 Benign neoplasm of cranial nerves G40.909 Epilepsy, unsp, not intractable, without status epilepticus G31.84 Mild cognitive impairment, so stated Office Visit 09/28/2016 9:00a [facility] Chantell Grady, G20 [facility] Jefry disease G40.909 Epilepsy, unsp, not intractable, without status epilepticus D33.3 Benign neoplasm of cranial nerves Office Visit 06/08/2016 2:00p [facility] Qutaybeh S. I10 Ramos Martinez M.D. (primary) hypertension I25.10 Athscl heart disease of ione coronary artery w/o ang pctrs E78.4 Other hyperlipidemia I36.1 Nonrheumatic tricuspid (valve) insufficiency Office Visit 10/21/2015 11:00a [facility] Chantell Grady G20 [facility] Jefry disease G40.909 Epilepsy, unsp, not intractable, without status epilepticus D33.3 Benign neoplasm of cranial nerves Office Visit 09/22/2015 1:40p [facility] Regi S. I10 Essential Jefry Martinez (primary) hypertension I25.10 Athscl heart disease of ione coronary artery w/o ang pctrs E78.4 Other hyperlipidemia I36.1 Nonrheumatic tricuspid (valve) insufficiency Office Visit 04/13/2015 11:00a [facility] Chantell Grady G20 [facility] Jefry disease G40.909 Epilepsy, unsp, not intractable, without status epilepticus D33.3 Benign neoplasm of cranial nerves R20.2 Paresthesia of skin Office Visit 10/28/2014 [facility] Regi S. 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 401.1 Hypertension 2:20p Cardiology Victorino Martinez M.D. 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 401.1 Hypertension 3:00p Cardiology Jefry Martinez Benign 272.4 Hyperlipidemia Other Unspec 414.01 Coronary Atherosclerosis [place] Office Visit 11/28/2012 [facility] Ramirezybeh S. 414.01 Coronary 9:00a Cardiology Jefry Martinez Atherosclerosis [place] 401.1 Hypertension Benign 272.4 Hyperlipidemia Other Unspec 424.2 Tricuspid Valve Disorder Spec as Nonrheumatic Office Visit 04/26/2012 Negro Abdul 414.01 Coronary 10:30a Cardiology Jeff, N.PAyleen Atherosclerosis [place] 401.1 Hypertension Benign 272.4 Hyperlipidemia Other Unspec Office Visit 11/04/2011 [facility] Deluna S. 414.01 Coronary 10:00a Cardiology eJfry Martinez Atherosclerosis [place] 272.4 Hyperlipidemia Other Unspec 401.1 Hypertension Benign 424.2 Tricuspid Valve Disorder Spec as Nonrheumatic Office Visit 11/01/2010 [facility] Deluna S. 414.01 Coronary 9:00a Cardiology Jefry Martinez Atherosclerosis [place] 272.4 Hyperlipidemia Other Unspec 401.1 Hypertension Benign Office Visit 11/05/2009 [facility] Qubessyybeh S. 414.01 Coronary 3:00p Cardiology Jefry Martinez Atherosclerosis [place] 401.1 Hypertension Benign 272.4 Hyperlipidemia Other Unspec Office Visit 12/25/2008 [facility] Qutaybeh S. 414.01 Coronary 2:00p Violet Martinez M.D. Atherosclerosis [place] 272.4 Hyperlipidemia Other Unspec 401.1 Hypertension Benign Office Visit 05/20/2008 [facility] Qutaybeh S. 401.0 Hypertension 9:00a Violet Martinez M.D. Malignant 414.01 Coronary Atherosclerosis [place] 272.4 Hyperlipidemia Other Unspec Office Visit 10/11/2007 [facility] Qutaybeh S. 401.0 Hypertension 8:40a Violet Martinez M.D. Malignant 414.01 Coronary Atherosclerosis [place] 272.4 Hyperlipidemia Other Unspec Office Visit 04/11/2007 [facility] Qutaybeh S. 401.0 Hypertension 11:20a Violet Martinez M.D. Malignant 414.01 Coronary Atherosclerosis [place] 272.4 Hyperlipidemia Other Unspec 427.69 Premature Beats Other Office Visit 12/04/2006 [facility] Qutaybeh S. 401.0 Hypertension 9:00a Violet Martinez M.D. Malignant 414.01 Coronary Atherosclerosis [place] 272.4 Hyperlipidemia Other Unspec Office Visit 10/02/2006 [facility] Qutaybeh S. 401.0 Hypertension 10:00a Violet Martinez M.D. 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 401.0 Hypertension 8:20a Violet Martinez M.D. Malignant 414.01 Coronary Atherosclerosis [place] 272.4 Hyperlipidemia Other Unspec Office Visit 07/31/2006 [facility] Qutaybeh S. 401.0 Hypertension 9:00a Violet Martinez M.D. Malignant 414.01 Coronary Atherosclerosis [place] 272.4 Hyperlipidemia Other Unspec Office Visit 06/27/2006 [facility] Qutaybeh S. 401.0 Hypertension 11:10a Violet Martinez M.D. Malignant 414.01 Coronary Atherosclerosis [place] 272.4 Hyperlipidemia Other Unspec Office Visit 05/30/2006 [facility] Qutaybeh S. 401.0 Hypertension 3:00p Violet Martinez M.D. Malignant Office Visit 05/22/2006 [facility] Qutaybeh S. 786.50 Pain Chest Unspec 1:20p Violet Martinez M.D. 401.0 Hypertension Malignant 272.4 Hyperlipidemia Other Unspec Office Visit 01/18/2006 9:00a [facility] Regi S. 786.50 Pain Chest Jefry Martinez Unspec 427.69 Premature Beats Other 401.0 Hypertension Malignant Office Visit 12/26/2005 [facility] Qutaybeh S. 401.0 Hypertension 9:20a Cardiology Jefry Martinez Malignant 427.69 Premature Beats Other 794.31 Electrocardiogram (ECG) (EKG) Abnormal Office Visit 10/31/2005 [facility] Qubessyybeh S. 401.0 Hypertension 8:40a Cardiology Jefry Martinez Malignant 272.4 Hyperlipidemia Other Unspec Office Visit 09/28/2005 [facility] Qujackelin S. 401.0 Hypertension 8:40a Cardiology Jefry Martinez Malignant 272.4 Hyperlipidemia Other Unspec Office Visit 08/17/2005 9:00a [facility] Regi S. 786.50 Pain Chest Jefry Martinez Unspec 401.0 Hypertension Malignant 272.4 Hyperlipidemia Other Unspec Plan of Treatment Future Appointment(s):01/18/2019 1:30 pm - Chantell Grady M.D. at [facility]07/20/2018 - Regi Martinez M.D.I10 Essential (primary) [id number] Unspecified atrial fibrillationFollow up:9 months ov
[2018-08-16] MEDS ORDERED: NS 0.9% 1000 ML** 1,000 ML IV SCH ×2 (20:00→23:45)
[2018-08-16] MEDS ORDERED: Ondansetron INJ* 2 MG/ML VIAL IV PRN (20:00)
[2018-08-16] MEDS ORDERED: Acetaminophen SUPP* 650 MG SUPP PR PRN (20:35)
[2018-08-16] MEDS ORDERED: cefTRIAXone(*) 1 GM in NS 0.9% 50 ML* 50 ML IVPB SCH (21:00)
[2018-08-16] MEDS ORDERED: Lacosamide TAB* 100 MG TAB PO SCH (21:00)
[2018-08-16] MEDS ORDERED: LEVODOPA PO ONE (21:00)
[2018-08-16] MEDS ORDERED: CARBIDOPA PO ONE (21:00)
[2018-08-16] MEDS ORDERED: Azithromycin IV(*) 500 MG in NS 0.9% 250 ML* 250 ML IVPB SCH (22:00)
[2018-08-16] MEDS ORDERED: Heparin VIAL(*) 5000 UNITS/ML VIAL (FIVE THOUSAND) SUBCUT SCH (22:00)
[2018-08-16 22:32] LABS: Influenza A Molecular NEGATIVE (Negative); Influenza B Molecular NEGATIVE (Negative)
[2018-08-16 22:58] LABS: Urine Appearance Cloudy; Urine Bacteria Absent (Absent); Urine Bilirubin Negative (Negative); Urine Blood 3+ (Negative); Urine Color Amber; Urine Glucose Negative (Negative); Urine Ketones Trace (Negative); Urine Nitrite Negative (Negative); Urine Protein 1+(30 mg/dL) (Negative); Urine Red Blood Cell 3+(>10/hpf) (Absent); Urine Specific Gravity 1.027 (1.010-1.030); Urine Urobilinogen Positive (Negative); Urine White Blood Cell 1+(6-10/hpf) (Absent)
[2018-08-16] MEDS: Lacosamide TAB* 50 MG TAB PO SCH (23:02)
[2018-08-16] MEDS: oxyCODONE/Acetamin 5/325 MG* TAB PO PRN (23:20)
[2018-08-16] MEDS ORDERED: Enoxaparin(*) 100 MG/ML SYR SUBCUT SCH (23:30)
[2018-08-16] MEDS ORDERED: Metoprolol Tartrate IV* 1 MG/ML 5 ML VIAL IV ONE (23:55)
[2018-08-16] MEDS ORDERED: Metoprolol Tartrate IV* 1 MG/ML 5 ML VIAL ONE (23:55)
[2018-08-16] MEDS ORDERED: NS 0.9% 1000 ML** 1,000 ML IV.FLUID IV ONE (23:57)
--- NOTE | 2018-08-17 00:10 | HP ---
CC: Dr. Darin Beaulieu; Dr. Chantell Grady; Dr. Regi Martinez * HISTORY AND PHYSICAL: DATE OF ADMISSION: 08/16/18 PRIMARY CARE PROVIDER: Dr. Darin Beaulieu. NEUROLOGIST: Dr. Chantell Grady. SPRAY DYER: Dr. Regi Martinez. ATTENDING PHYSICIAN: Dr. Monalisa Merrill * (dictated by Ella Azevedo NP). CHIEF COMPLAINT: 1. Left hip fracture. 2. Spastic movements. HISTORY OF PRESENT ILLNESS: Mr. Spencer is a 73-year-old male with past medical history of Parkinson's, atrial fibrillation, CVA in 2018, hypertension, hyperlipidemia and seizure disorder who presents to [facility] today as a direct admission from [facility]. The patient is unable to provide any history at this time and so all the history is obtained from his and from records from [facility]. According to the patient's , the patient was leaving a restaurant earlier this week when he slipped on the ice and fell on his left hip. They presented to [facility] ER, where he was found to have a displaced left femoral neck fracture. He was admitted to [facility] with plans for surgery. The patient had been on Eliquis for his atrial fibrillation, so surgery was postponed for washout. His last dose was reportedly on 08/14/18 in the a.m. According to the discharge summary from [facility], the provider was called this afternoon due to concerns from nursing of seizure-like activity. The patient was noted to be having very spastic movements with severe rigidity in flexing of all 4 extremities. He was alert and conscious through these episodes and was able to speak during at least one of the episodes. The case was discussed with [facility] Neurology who advised that the patient should be transferred to [facility] for further neurological evaluation prior to the surgery. The discharge summary also notes that the patient developed a fever earlier this morning around 3 a.m. of 101.6. He had blood cultures drawn at that point. He did have a chest x-ray on admission to [facility] on 08/14/18, which did not show any pneumonia. He was given a dose of ceftriaxone in the retail merchandising specialist hours. The patient's reports that he typically has tremors at baseline, which are relatively mild. She notes that he has had spastic movements like this in the past, notably when he was hospitalized at this facility in 2018 when he had a stroke. She reports occasional confusion, though is usually oriented and able to verbalize his needs. She is concerned because the patient did not receive any of his typical medications today such as his Sinemet or Vimpat. On my exam, the patient was noted to have an episode of spastic movement, which lasted less than 5 seconds. He was conscious during this episode and able to maintain eye contact with his nurse. On arrival, he was noted to be febrile with a temp of 101.5. Initially, he was thought to be tachycardic, though once a tele pack was placed, he appears to be in normal sinus rhythm in the 90s. Because of his neurological concerns and the need for orthopedic surgery, he was referred to the hospitalist service. PAST MEDICAL HISTORY: 1. Parkinson's. 2. Atrial fibrillation, on chronic anticoagulation with Eliquis. 3. CVA in 2018 without residual deficits. 4. Hypertension. 5. Hyperlipidemia. 6. Seizure disorder. PAST SURGICAL HISTORY: 1. Acoustic neuroma removal. 2. Cardiac catheterization with no stents placed. HOME MEDICATIONS: His home medication list is not entirely clear as the records from [facility] are somewhat confusing, though from what I can decipher the patient was taking the following medications prior to hospitalization: 1. Amantadine 100 mg p.o. at 0800 and 1200. 2. Eliquis 5 mg p.o. b.i.d. 3. Sinemet 25/100 2 tablets p.o. 4 times a day. 4. Irbesartan 150 mg p.o. daily. 5. Lacosamide 50 mg p.o. b.i.d. 6. Metoprolol succinate 100 mg p.o. daily. 7. Simvastatin 40 mg p.o. daily. ALLERGIES: No known drug allergies. FAMILY HISTORY: Reportedly, the patient's mother of leukemia and his father of an HI. SOCIAL HISTORY: The patient is a former smoker. His denies any alcohol or recreational drug use. He lives at home with his Sandra, who will be his surrogate decision maker in the event he is unable to make his own decisions. REVIEW OF SYSTEMS: An 11-point review of systems was performed to the best of my ability and all the pertinent positive and negative findings are in the HPI. All other systems are negative. PHYSICAL EXAMINATION GENERAL: Mr. Monge is a well-developed, well-nourished elderly white male, lying in bed, tremorous, but in no acute distress. He appears his stated age. VITAL SIGNS: Undocumented at this time, but nursing reports they are stable. HEENT: Head is atraumatic, normocephalic. Pupils are equal, round, and reactive to light and accommodation. Hearing grossly intact. Oral mucous membranes are moist. NECK: Full range of motion. Trachea midline. RESPIRATORY: Symmetrical chest expansion. No chest wall deformities. Lungs clear to auscultation throughout. No rhonchi, wheezes, or rubs. CARDIOVASCULAR: Regular rate and rhythm. S1, S2 present. No murmurs, rubs, or gallops. No JVD. ABDOMEN: Soft, slightly tender to palpation throughout. Bowel sounds normoactive. EXTREMITIES: Skin warm and smooth bilaterally. No edema. No clubbing or cyanosis. Pedal pulses 1+ bilaterally. NEURO: Awake, alert. Orientation is unable to be determined. Moves all extremities. He is noted to have a moderate baseline tremor and occasional episodes of significant spastic movements, during which he is conscious. SKIN: Grossly intact without lesions. There is a bruise to the left hip. DIAGNOSTIC STUDIES/LABORATORY DATA: According to records from [facility], lab work this morning is as follows. WBC 6.9, RBC 5.31, hemoglobin 15.1, hematocrit 45, platelets 163,000. INR 1.1. Sodium 134, potassium 4.0, chloride 101, carbon dioxide 25, BUN 30, creatinine 1.3, glucose 159. There was reportedly a lacosamide level pending as well as pending blood cultures at [facility]. Pelvis x-ray on 08/14/18 at [facility] reads as left femoral neck fracture deformity is seen with moderate displacement. No additional fracture is identified. Mild osteoarthritic changes are noted in bilateral hips. Chest x-ray on 08/14/18 at [facility] reads as there is no focal lung consolidation, pneumothorax or pleural effusion seen. The cardiac and mediastinal silhouettes are unremarkable. ASSESSMENT AND PLAN: Mr. Monge is a 73-year-old male with past medical history of Parkinson's, atrial fibrillation, cerebrovascular accident, hypertension, hyperlipidemia and seizures who presents to [facility] today with a known left hip fracture and concern for spastic movements and need for neurology consultation. The patient will be admitted inpatient for: 1. Spastic episodes. The patient's reports that she has seen with one episode like this in the past around the time when the patient had his stroke, though she notes that he is definitely worse than his baseline. This certainly does not appear to be seizure-like activity as the patient is conscious and able to follow direction during these episodes including maintaining eye contact. There is no postictal state. I think it is likely that this represents a flare of his Parkinson's symptoms. According to records from [facility], the patient last received his Sinemet on 08/15/18 at 2100, so he has not received any Sinemet today and I feel as though this could certainly be a contributing factor to these spastic movements as he typically takes Sinemet 4 times a day. The patient unfortunately is unable to swallow safely at this point. I spoke with the pharmacy and was able to secure 1 dose of orally disintegrating Sinemet, which the patient will get tonight. I would hope that this improves his symptoms to some extent and hopefully, he would be able to tolerate p.o. meds at that point so that he can take his other medications such as Vimpat. Dr. Scruggs from Neurology is aware of this case and will consult on the patient. 2. Sepsis. The patient is meeting sepsis criteria on admission with fever, leukocytosis and tachycardia. The source is unclear at this point. The patient did have clear chest x-ray on 08/14/18 at [facility]. At this point, I will repeat the chest x-ray and check a urinalysis. As noted above, he did receive a dose of ceftriaxone around 3 a.m. this morning. Tentatively, I will start the patient on ceftriaxone and azithromycin, which would cover for pneumonia and urinary tract infection. I have timed the ceftriaxone to start tomorrow at 3 a.m. and he will receive a dose of azithromycin now. I will also start him on IV fluids and we will check a flu swab. 3. Left hip fracture. As noted above, the patient has a displaced left femoral neck fracture. At this point, pain appears to be well controlled. The patient has been off of his Eliquis since 08/14/18 a.m. Orthopedics will be consulted, though I will not call them tonight as these neurological issues will need to be evaluated prior to proceeding with any surgical intervention. 4. Parkinson's disease. I will continue the patient's amantadine and Sinemet as noted above. I hope that he is able to swallow later tonight after a dose of Sinemet so that he is able to take his other medications. Otherwise, we will await recommendations from Neurology. I have asked pharmacy to order additional ODT Sinemet in the event that his swallowing abilities remain an issue. 5. Atrial fibrillation. I have ordered an EKG, which is pending at this point. The patient has been placed on telemetry and at this point, he is in normal sinus rhythm in the 90s. There was some concern when he arrived here about tachycardia, though, again, the patient did not receive any of his typical medications this morning, so he did miss a dose of metoprolol. We will continue to monitor him on telemetry and resume his metoprolol tomorrow. As noted above, his Eliquis will be held at this point. He does have a CHADS2- VASc score of 4 and was started on full dose Lovenox at [facility] for bridging. I have spoken with my attending, and we will continue Lovenox at 1mg per kg every 12 hours at this point. 6. Hypertension. At this point, nursing reports that the patient's pressure is soft. We will continue to monitor this, though we will continue his irbesartan and metoprolol if blood pressure is improved. 7. Hyperlipidemia. I will continue simvastatin. 8. Seizure disorder. The patient reports that he has had one seizure in his lifetime, though he does typically take Vimpat. Again, I do not think that these spastic episodes represent seizure activity. I will continue the patient on his typical dosing of Vimpat and await any further recommendations from Neurology. 9. FEN: As noted above, I will rehydrate the patient with IV fluids. Electrolytes this morning in [facility] were within normal limits. I will recheck tomorrow. I have ordered a regular diet if and when the patient is able to swallow safely. 10. Code status: The patient will be a full code. 11. DVT prophylaxis: According to the DVT Risk Assessment, the patient scores a 3, putting him at high risk. I have placed him on Lovenox as discussed above. TIME SPENT: Approximately 75 minutes were spent on this admission, greater than half of that time spent [id number] with the patient and his obtaining my history, performing my physical exam, and reviewing the plan of care. This case has been reviewed with my attending, Dr. Merrill, who is in agreement with the plan of care. ELLA AZEVEDO, PRE SALES TECHNICAL ENGINEER [id number]/[facility] #: [id number] DAMARI
[2018-08-17 02:27] LABS: ABS Basophils 0.1 10^3/ul (0-0.2); ABS Eosinophils 0 10^3/ul (0-0.6); ABS Lymphocytes 0.7 10^3/ul (1.0-4.8); ABS Monocytes 1.2 10^3/ul (0-0.8); ABS Neutrophils 11.3 10^3/ul (1.5-7.7); ABS Nucleated RBC 0 10^3/ul; Eosinophil % 0.1 %; Hematocrit 41 % (42-52); Hemoglobin 13.2 g/dl (14.0-18.0); Lymphocyte % 5.4 %; Mean Corpuscular HGB Conc 33 g/dl (31-36); Mean Corpuscular Hemoglobin 28 pg (27-31); Mean Corpuscular Volume 85 fL (80-94); Mean Platelet Volume 8.6 fL (7.4-10.4); Nucleated Red Blood Cells % 0; Platelet Count 123 10^3/ul (150-450); Red Blood Count 4.75 10^6/ul (4.00-5.40); Red Cell Distribution Width 16 % (10.5-15); White Blood Count 13.3 10^3/ul (3.5-10.8)
[2018-08-17 02:31] LABS: INR 1.35 (0.77-1.02)
[2018-08-17 02:48] LABS: Albumin 3.2 g/dL (3.2-5.2); Albumin/Globulin Ratio 1.3 (1-3); BUN/Creatinine Ratio 28.4 (8-20); Calcium 8.3 mg/dL (8.6-10.3); EGFR African American 41.3 (>60); EGFR Non-African American 34.1 (>60); Globulin 2.5 g/dL (2-4); Potassium 4.4 mmol/L (3.5-5.0); Total Bilirubin 0.8 mg/dL (0.2-1.0); Total Protein 5.7 g/dL (6.4-8.9)
[2018-08-17] MEDS ORDERED: cefTRIAXone(*) 1 GM in NS 0.9% 50 ML* 50 ML IVPB SCH (03:00)
[2018-08-17] MEDS: NS 0.9% 1000 ML** 1,000 ML IV SCH ×3 (06:50→21:44)
[2018-08-17] MEDS ORDERED: Vancomycin per Pharmacy* NOTE FOLLOW UP PRN (07:07)
[2018-08-17] MEDS ORDERED: cefTRIAXone(*) 2 GM in NS 0.9% 50 ML* 50 ML IVPB SCH (07:30)
[2018-08-17] MEDS ORDERED: cefTRIAXone(*) 1 GM in NS 0.9% 50 ML* 50 ML IVPB ONE (07:30)
[2018-08-17] MEDS: Amantadine CAP* 100 MG PO SCH ×2 (07:40→12:30)
[2018-08-17] MEDS: Metoprolol Succinate XL TAB* 100 MG PO SCH (07:40)
[2018-08-17] MEDS: Lacosamide TAB* 50 MG TAB PO SCH ×2 (07:40→21:40)
[2018-08-17] MEDS: LEVODOPA PO SCH ×4 (07:40→21:35)
[2018-08-17] MEDS: CARBIDOPA PO SCH ×4 (07:40→21:35)
[2018-08-17] MEDS: oxyCODONE/Acetamin 5/325 MG* TAB PO PRN ×2 (07:40→22:13)
[2018-08-17] MEDS ORDERED: Vancomycin(*) 1,250 MG in NS 0.9% 250 ML* 250 ML IVPB ONE (08:00)
[2018-08-17] MEDS ORDERED: Atorvastatin* 20 MG TAB PO SCH (09:00)
[2018-08-17] MEDS ORDERED: Losartan TAB* 25 MG PO SCH (09:00)
[2018-08-17] MEDS: NS 0.9% IVPB SCH ×2 (11:24→22:11)
[2018-08-17] MEDS: ACYCLOVIR IVPB SCH ×2 (11:24→22:11)
--- NOTE | 2018-08-17 11:39 | CONS ---
CONSULTATION REPORT: DATE OF CONSULT: 08/17/18 HISTORY OF PRESENT ILLNESS: Mr. Monge is a very pleasant 73-year-old gentleman who has had long-term and quite aggressive parkinsonism. He fell exiting the [employer] on Monday, which is basically 3 days ago in [place]. He fell and broke his right femoral neck. He was admitted to [facility]. They noted that he had AFib and some increased involuntary spastic behavior and some loss of verbal expression, which may represent stroke versus some underlying seizure activity, so he has been transferred here to [facility] for more intensive neurological evaluation, which the admitting team feels needs to have some resolution prior to fixing the hip. In the meantime, Mr. Monge is lying in bed, having excellent nursing care, and really does not have any significant complaints of hip pain even when I lightly move the hip in the bed. He is seen today with the who is very supportive, very knowledgeable. He is otherwise in good health. The AFib is newly diagnosed, but she denies smoking, significant chest pain, history of heart attack, and again of course has been on the medications for the Parkinson's on an ongoing basis. PHYSICAL EXAMINATION: Mr. Monge is in bed for the examination. He has difficulty expressing himself, so there is a mechanical component slurring his speech and being very faint of voice. He is really unintelligible, but the reinforces the observation that he is also not thinking clearly and that what he is trying to say does not make any sense as well. He does have involuntary tremor of both upper extremities. Lower extremities are quiet. He has a thready pulse of his right foot and is able to move the toes up and down. He does have some fixed hammertoe deformity, but the skin is intact. He has minimal pain in the right lower extremity with logroll. DIAGNOSTIC STUDIES: His films are reported to display a femoral neck fracture of the right side, but we do not have those films from [place], so we will be ordering new hip films. PLAN: He has been on Eliquis and this is being transitioned to heparin subcutaneous, so in a day or so he should be able to go to the operating room if neurology is comfortable with that plan. Plan at this point tentatively would be a right hemiarthroplasty. [id number]/[facility] #: [id number] [facility]
[2018-08-17] MEDS: Vancomycin(*) 750 MG in NS 0.9% 250 ML* 250 ML IVPB SCH (19:35)
--- NOTE | 2018-08-17 19:52 | CONS ---
NEUROLOGICAL CONSULTATION REPORT: DATE OF CONSULT: 08/17/18 PATIENT OF: Dr. Beaulieu, Dr. Grady, and hospitalist. HISTORY: This is a 73-year-old man whom I asked to evaluate for both altered mental status with Parkinson's and abnormal movements. He also has a remote history of seizures as well as prior stroke. He on this Monday, 3 days ago, while leaving a diner with his brother, he fell and he broke his right femoral neck. He was admitted to the [facility], but then he developed worsening confusion over Monday, he was speaking incoherently on , and early Monday morning, he was not speaking at all, but saying at least back to his baseline. His notes that he has been somewhat confused at home in the past few months time, but nothing where his daily routine has been affected by his confusion. He also had some quick jerks when he was at [place]. Apparently, the [place] attending who saw him described to me that he was awake and alert while he was having these jerks and it did not look rhythmic and did not appear to be seizures, but he was not 100% sure. Of note, his states that he is much more awake and alert this morning when I saw him than he had been in the past day or two. He follows with Dr. Grady, last seen on 07/13/18, and again, he follows up for his Parkinson's. He is on Eliquis for atrial fibrillation with a left precentral gyral stroke; remote history of seizures, on Vimpat; and a history of a right acoustic neuroma. At that visit, he was felt to be medically stable and Dr. Grady only made adjustment with his amantadine, moving his dosages around but not changing dose of his anti-Parkinson medicine otherwise. PAST MEDICAL HISTORY: His medical problems included hypertension, seizure disorder, hypercholesterolemia, diverticulosis, prostatic hypertrophy, melanoma , hemorrhoids, Parkinson disease, stroke, atrial fibrillation, acoustic neuroma , coronary atherosclerosis. MEDICATIONS: Medicines at home include: 1. Simvastatin 40 mg at bedtime. 2. Senna 8.6 one tablet twice a day. 3. Vimpat 100 mg half pill twice a day. 4. MiraLAX 17 g every day. 5. Irbesartan 300 mg pill half a tablet daily. 6. Amantadine 100 mg b.i.d. 7. Eliquis 5 mg twice a day. 8. Carbidopa/levodopa 25/100 two tabs 4 times a day and additional 50/200 as needed at bedtime. 9. He has been started on vancomycin, ceftriaxone, and acyclovir given his confusion and fever that he had at the outside hospital. ALLERGIES: He is allergic to LISINOPRIL. REVIEW OF SYSTEMS: Per is negative other than his HPI. PHYSICAL EXAM: Temperature 100.1 currently, pulse 86, respirations 16, blood pressure 120/50. He was resting when I saw him, but he opened his eyes quickly and he knew his name, that he lived in [place]. He knew the month, knew Junior Pinto is president. He spoke in short explosive speech, which is his typical with a soft voice consistent with his Parkinson's. He had diffuse cogwheel rigidity. He had some mild dyskinesias. At this point, gait was not tested. Tone is 1+. He moves both extremities with good strength 5/5. Reflexes were 1. Chest: Clear. Cardiovascular: Regular rate and rhythm. Abdomen: Soft. DIAGNOSTIC STUDIES/LAB DATA: His CT scan is reviewed and is negative for acute findings, it was done at 3:00 this morning and he had no symptoms . His labs include the white count is 13.3, platelets of 123, hematocrit of 41. INR is 1.35. Chemistries were normal other than BUN of 55, creatinine 1.94, calcium of 8.3, AST of 62, total protein of 5.7. UA had 1+ protein, 3+ blood, white cells 1+, hyaline casts present, leukocyte esterase is negative. Influenza A and B serologies were negative. IMPRESSION: I discussed with Dr. Merrill earlier this morning that he should be treated with meningitic doses of antibiotics until a source is identified or it could be tapped. I discussed at that time that if she thought speech was effective clinically herpes was a concern that acyclovir could be considered. I do not think that his fever and change in mental status is due to herpes because within less than 6 hours of getting his initial acyclovir, he was clinically back to his normal mental status. I think that most likely this happened as he has had a systemic infection, in that he had some baseline cognitive issues that worsened when he developed this infection from a systemic effect and that is unlikely that this is primary [employer] problem. I think that as described his twitching does not like seizures but he is to get an EEG, is conceivable that he had a stroke. In addition, I think is unlikely since I think it is more likely that his infection caused change in his speech. It would be reasonable to get an echo and carotid Doppler at this point, but I would not change his therapy. When he could be more cooperative, sitting still for an MRI scan, then we can get that to see his baseline. Dr. Gutierrez will be following him up tomorrow. Thank you for sharing his case. [id number]/[facility] #: [id number] DAMARI
--- NOTE | 2018-08-17 20:17 | PN ---
Subjective Date of Service: 08/17/18 Interval History: Patient seen this morning in the room with his at bedside. He is responding appropriately to all questions. His agrees that his mentation improved and his "shaking" has subsided. His fever improved was 101.2 on presentations down to 99.2 this morning. Neurology input appreciated. Ortho consult appreciated Past Medical History: Unchanged from Admission Objective Active Medications: Acetaminophen (Tylenol Tab*) 650 mg PO Q4H PRN PRN Reason: FEVER/PAIN Acetaminophen (Tylenol Supp*) 650 mg DE Q4H PRN PRN Reason: FEVER/PAIN Amantadine HCl (Symmetrel Cap*) 100 mg PO 0800,1200 [facility] Last Admin: 08/17/18 12:30 Dose: 100 mg Atorvastatin Calcium (Lipitor*) 20 mg PO DAILY [facility] Last Admin: 08/17/18 07:40 Dose: 20 mg Carbidopa/Levodopa (Carbidopa/Levodopa Odt (Nf)) 2 tab PO QID [facility] Last Admin: 08/17/18 17:18 Dose: 2 tab Sodium Chloride (Ns 0.9% 1000 Ml) 1,000 mls @ 75 mls/hr IV PER RATE [facility] Last Admin: 08/16/18 20:53 Dose: 75 mls/hr Acyclovir Sodium 770 mg/ (Sodium Chloride) 265.4 mls @ 0 mls/hr IVPB Q12H [facility] Last Admin: 08/17/18 11:24 Dose: 265 mls/hr Sodium Chloride (Ns 0.9% 1000 Ml) 1,000 mls @ 150 mls/hr IV PER RATE [facility] Last Admin: 08/17/18 17:57 Dose: 150 mls/hr Ceftriaxone Sodium 2 gm/ (Sodium Chloride) 100 mls @ 200 mls/hr IVPB Q24H [facility] Vancomycin HCl 750 mg/ Sodium (Chloride) 250 mls @ 166.667 mls/hr IVPB Q12H [facility] Last Admin: 08/17/18 19:35 Dose: 166.667 mls/hr Lacosamide (Vimpat Tab*) 50 mg PO BID [facility] Last Admin: 08/17/18 07:40 Dose: 50 mg Metoprolol Succinate (Toprol Xl Tab*) 100 mg PO DAILY [facility] Last Admin: 08/17/18 07:40 Dose: 100 mg Ondansetron HCl (Zofran Inj*) 4 mg IV Q4H PRN PRN Reason: NAUSEA/VOMITING Oxycodone/Acetaminophen (Percocet 5/325 Tab*) 1 tab PO Q4H PRN PRN Reason: Pain Last Admin: 08/17/18 07:40 Dose: 1 tab Pharmacy Consult (Vancomycin Per Pharmacy*) 1 note FOLLOW UP . PRN PRN Reason: PER PROTOCOL Pharmacy Profile Note (Vancomycin Trough Check) 1 note FOLLOW UP ONCE ONE Stop: 08/18/18 07:31 Vital Signs - 8 hr 08/17/18 08/17/18 08/17/18 15:39 15:51 19:38 Temperature 98.4 F Pulse Rate 75 Respiratory 20 18 Rate Blood Pressure 97/41 112/64 (mmHg) O2 Sat by Pulse 89 Oximetry 08/17/18 19:50 Temperature Pulse Rate Respiratory Rate Blood Pressure 124/56 (mmHg) O2 Sat by Pulse Oximetry Oxygen Devices in Use Now: None Appearance: Awake, alert. respond to questions appropriately. Eyes: No Scleral Icterus Ears/Nose/Mouth/Throat: NL Teeth, Lips, Gums Neck: NL Appearance and Movements; NL JVP, Trachea Midline Respiratory: Symmetrical Chest Expansion and Respiratory Effort, Clear to Auscultation Cardiovascular: NL Sounds; No Murmurs; No JVD Abdominal: NL Sounds; No Tenderness; No Distention Extremities: No Edema, - - increase rigidity and tonicity Neurological: - - oriented to place, person not to time Result Diagrams: 08/17/18 02:18 08/17/18 02:18 Microbiology and Other Data: Microbiology 08/16/18 21:28 Influenza Types A,B Antigen - Final Nasal Specimen received for Influenza A/B Molecular testing Assess/Plan/Problems-Billing Assessment: 73 year old male admitted from [facility] for altered mental status, with fever after a fall with left femur fracture and increase involuntary muscular movement transferred to our facility for neuro service - Patient Problems (1) Parkinson disease Current Visit: Yes Status: Acute Code(s): G20 - PARKINSON'S DISEASE SNOMED Code(s): 94032820 Comment: - Continue Amantadine 100 mg bid, and sinemet 2 tabs QID (2) Altered mental status Current Visit: Yes Status: Acute Code(s): R41.82 - ALTERED MENTAL STATUS, UNSPECIFIED SNOMED Code(s): 697531711 Comment: - Etiology unclear. - Neurology on board. at this time the theory to treat for meningitis given his fever. He is currently covered with Vanco/Ceftriazone/Acyclovir - I will defer LP at this time as he was on eliquis. - I think his altered mental status and his involuntary movement could have been due to a systemic infectins (follow up BC, UC) and in addition to that his movement could have been worsened by delay in his parkinsons's medication, with fall. - I will continue with neurology recommendations (3) Femoral neck fracture Current Visit: Yes Status: Acute Code(s): S72.009A - FRACTURE OF UNSP PART OF NECK OF UNSP FEMUR, INIT SNOMED Code(s): 6448666 Comment: - Ortho consult appreciated - Hold Eliquis. - Heparin SQ for DVT prophylaxis (4) Hypertension Current Visit: No Status: Acute Code(s): I10 - ESSENTIAL (PRIMARY) HYPERTENSION SNOMED Code(s): 96846652 Comment: - continue metoprolol 100 mg daily (5) History of atrial fibrillation Current Visit: No Status: Acute Code(s): Z86.79 - PERSONAL HISTORY OF OTHER DISEASES OF THE CIRCULATORY SYSTEM SNOMED Code(s): 436520161 Comment: - history for a-fib - continue metoprolol 100 mg daily - Eliquis on hold - Will repeat EKG in am as he is having intermittent RVR (6) DVT prophylaxis Current Visit: No Status: Acute Code(s): QCN6770 - SNOMED Code(s): 746911592 Comment: - heparin SQ now that Eliquis is on hold
[2018-08-18] MEDS: oxyCODONE/Acetamin 5/325 MG* TAB PO PRN ×3 (04:09→23:15)
[2018-08-18] MEDS: NS 0.9% 1000 ML** 1,000 ML IV SCH (06:08)
[2018-08-18 06:10] LABS: ABS Basophils 0 10^3/ul (0-0.2); ABS Eosinophils 0.2 10^3/ul (0-0.6); ABS Lymphocytes 0.6 10^3/ul (1.0-4.8); ABS Monocytes 0.9 10^3/ul (0-0.8); ABS Neutrophils 7.9 10^3/ul (1.5-7.7); ABS Nucleated RBC 0 10^3/ul; Eosinophil % 1.9 %; Hematocrit 36 % (42-52); Lymphocyte % 6.2 %; Mean Corpuscular HGB Conc 34 g/dl (31-36); Mean Corpuscular Hemoglobin 28 pg (27-31); Mean Corpuscular Volume 85 fL (80-94); Mean Platelet Volume 8.4 fL (7.4-10.4); Nucleated Red Blood Cells % 0; Platelet Count 131 10^3/ul (150-450); Red Blood Count 4.22 10^6/ul (4.00-5.40); Red Cell Distribution Width 15 % (10.5-15); White Blood Count 9.7 10^3/ul (3.5-10.8)
[2018-08-18 06:26] LABS: BUN/Creatinine Ratio 27.8 (8-20); Calcium 8.1 mg/dL (8.6-10.3); EGFR African American 100.1 (>60); EGFR Non-African American 82.7 (>60); Magnesium 1.8 mg/dL (1.9-2.7); Phosphorus 2.6 mg/dL (2.5-5.0)
[2018-08-18] MEDS: Metoprolol Succinate XL TAB* 100 MG PO SCH (07:09)
[2018-08-18] MEDS: cefTRIAXone(*) 2 GM in NS 0.9% 100 ML* 100 ML IVPB SCH (07:11)
[2018-08-18] MEDS: Amantadine CAP* 100 MG PO SCH ×2 (08:35→12:44)
[2018-08-18] MEDS: Lacosamide TAB* 50 MG TAB PO SCH ×2 (08:35→21:13)
[2018-08-18] MEDS: CARBIDOPA PO SCH ×4 (09:35→21:02)
[2018-08-18] MEDS: LEVODOPA PO SCH ×4 (09:35→21:02)
[2018-08-18] MEDS: Vancomycin(*) 750 MG in NS 0.9% 250 ML* 250 ML IVPB SCH (09:35)
[2018-08-18] MEDS: Vancomycin(*) 1,000 MG in NS 0.9% 250 ML* 250 ML IVPB SCH ×2 (09:35→20:58)
[2018-08-18] MEDS: Acetaminophen TAB* 325 MG PO PRN (10:32)
[2018-08-18] MEDS ORDERED: Metoprolol Tartrate IV* 1 MG/ML 5 ML VIAL IV ONE (10:46)
--- NOTE | 2018-08-18 11:18 | PN ---
Subjective Date of Service: 08/18/18 Interval History: Patient seen, at bedside with and other family member in the room. He is much more awake and alert. Oriented to time and person. He is little confused in regard to time. But able to converse and he is less tremulous as per family and staff. He did have brief episode of Afib resolved with his po troprol and IV Lopressor. He remains afebrile. No events overnight Past Medical History: Unchanged from Admission Objective Active Medications: Acetaminophen (Tylenol Tab*) 650 mg PO Q4H PRN PRN Reason: FEVER/PAIN Last Admin: 08/18/18 10:32 Dose: 650 mg Acetaminophen (Tylenol Supp*) 650 mg [place] Q4H PRN PRN Reason: FEVER/PAIN Amantadine HCl (Symmetrel Cap*) 100 mg PO 0800,1200 [facility] Last Admin: 08/18/18 08:35 Dose: 100 mg Carbidopa/Levodopa (Carbidopa/Levodopa Odt (Nf)) 2 tab PO QID [facility] Last Admin: 08/18/18 09:35 Dose: 2 tab Acyclovir Sodium 770 mg/ (Sodium Chloride) 265.4 mls @ 0 mls/hr IVPB Q12H [facility] Last Admin: 08/17/18 22:11 Dose: 265 mls/hr Ceftriaxone Sodium 2 gm/ (Sodium Chloride) 100 mls @ 200 mls/hr IVPB Q24H [facility] Last Admin: 08/18/18 07:11 Dose: 200 mls/hr Sodium Chloride (Ns 0.9% 1000 Ml) 1,000 mls @ 75 mls/hr IV PER RATE [facility] Last Admin: 08/18/18 06:08 Dose: 75 mls/hr Vancomycin HCl 1,000 mg/ (Sodium Chloride) 250 mls @ 166.667 mls/hr IVPB Q12H [facility] Last Admin: 08/18/18 09:35 Dose: 166.667 mls/hr Lacosamide (Vimpat Tab*) 50 mg PO BID [facility] Last Admin: 08/18/18 08:35 Dose: 50 mg Metoprolol Succinate (Toprol Xl Tab*) 100 mg PO DAILY [facility] Last Admin: 08/18/18 07:09 Dose: 100 mg Ondansetron HCl (Zofran Inj*) 4 mg IV Q4H PRN PRN Reason: NAUSEA/VOMITING Oxycodone/Acetaminophen (Percocet 5/325 Tab*) 1 tab PO Q4H PRN PRN Reason: Pain Last Admin: 08/18/18 04:09 Dose: 1 tab Pharmacy Consult (Vancomycin Per Pharmacy*) 1 note FOLLOW UP . PRN PRN Reason: PER PROTOCOL Pharmacy Profile Note (Vancomycin Trough Check) 1 note FOLLOW UP ONCE ONE Stop: 08/19/18 07:31 Vital Signs - 8 hr 08/18/18 08/18/18 08/18/18 03:43 04:09 06:14 Temperature 99.2 F Pulse Rate 90 Respiratory 17 18 16 Rate Blood Pressure 141/65 (mmHg) O2 Sat by Pulse 94 Oximetry 08/18/18 08:15 Temperature 98.7 F Pulse Rate 86 Respiratory 18 Rate Blood Pressure 132/72 (mmHg) O2 Sat by Pulse 93 Oximetry Oxygen Devices in Use Now: None, Nasal Cannula Appearance: awake alert no distress Eyes: No Scleral Icterus, - - EOMI Ears/Nose/Mouth/Throat: Clear Oropharnyx, - - dry oral mucosa Neck: NL Appearance and Movements; NL JVP Respiratory: Symmetrical Chest Expansion and Respiratory Effort Cardiovascular: RRR, No Edema Abdominal: NL Sounds; No Tenderness; No Distention Extremities: No Edema, - - Left lower extremety, shortened and laterally rotated Result Diagrams: 08/18/18 05:55 08/18/18 05:55 Microbiology and Other Data: Microbiology 08/16/18 21:28 Influenza Types A,B Antigen - Final Nasal Specimen received for Influenza A/B Molecular testing Assess/Plan/Problems-Billing Assessment: 73 year old male admitted from [facility] for altered mental status, with fever after a fall with left femur fracture and increase involuntary muscular movement transferred to our facility for neuro service - Patient Problems (1) Femoral neck fracture Current Visit: Yes Status: Acute Code(s): S72.009A - FRACTURE OF UNSP PART OF NECK OF UNSP FEMUR, INIT SNOMED Code(s): 8697999 Comment: - Ortho consult appreciated - Hold Eliquis. - Heparin SQ for DVT prophylaxis - Medically is optimized to proceed for surgery pending neuro clearance. - I do recommend to continue his broad spectrum coverage gita-op and minimize anesthesia as he is at very high risk for post op/anesthesia delerium. family are aware of that (2) Altered mental status Current Visit: Yes Status: Acute Code(s): R41.82 - ALTERED MENTAL STATUS, UNSPECIFIED SNOMED Code(s): 290605535 Comment: - Etiology is unclear, however Neurology on board. - At this time; I strongly believe that he does not have any evidence of meningitis and or encephalitis. His altered mental status on presentation to the outside facility could have been triggered by lack of taking his parkinson' s medication as scheduled, exacerbated by the fall and the trauma itself, Rhabdomyolysis (I ordered CPK added on and it was elevated in our facility) - I am not sure if they did check CPK at the outside facility which can also cause fever. - I agreed with broad spectrum antibiotics gita-op due to several variable and the benefit of antibiotic/Ativiral coverage outweight the risk. Will continue his Vanco; Ceftriazone and Acyclovir - I do not think LP at this time is warranted. I did reach out to neurology for further discussion and input - I will continue with neurology recommendations (3) Parkinson disease Current Visit: Yes Status: Acute Code(s): G20 - PARKINSON'S DISEASE SNOMED Code(s): 33193011 Comment: - Continue Amantadine 100 mg bid, and sinemet 2 tabs QID - I explained to his family that despite maximal effort to minimize altered mental status, given the current situation and the possible general anesthesia, I did alert them to expect some degree of post op and post anesthesia Delerium "altered mental status" which is normally short lived. not to be alarmed for the first 24-48 hrs post anesthesia if his mentations would be altered. They verbalized understanding. (4) Hypertension Current Visit: No Status: Acute Code(s): I10 - ESSENTIAL (PRIMARY) HYPERTENSION SNOMED Code(s): 14432488 Comment: - Continue Metoprolol-XL 100 mg daily - I will add Tropol 50 at HS due to his intermittent afib (5) History of atrial fibrillation Current Visit: No Status: Acute Code(s): Z86.79 - PERSONAL HISTORY OF OTHER DISEASES OF THE CIRCULATORY SYSTEM SNOMED Code(s): 064617384 Comment: - History for A-fib, he did have intermittent afib reverted into sinus. - Continue Metoprolol-XL 100 mg daily - I will add Tropol 50 at HS due to his intermittent afib - Eliquis on hold - Will repeat EKG in am as he is having intermittent RVR (6) Rhabdomyolysis Current Visit: Yes Status: Acute Code(s): M62.82 - RHABDOMYOLYSIS SNOMED Code(s): 246088084 Comment: - I did check CPK this morning labs given fall, and fever and it was reported at 1431 (day # 4 post fall). I asked to add CPK from yesterday. - I am not sure if they did have CPK at his outisde facility. - continue IVF and I held his statins (7) DVT prophylaxis Current Visit: No Status: Acute Code(s): DYW6031 - SNOMED Code(s): 021676653 Comment: - heparin SQ now that Eliquis is on hold
[2018-08-18] MEDS ORDERED: Magnesium Sulfate 1 GM IV* 1 GM/100 ML BAG IV ONE (11:30)
[2018-08-18] MEDS: ACYCLOVIR IVPB SCH ×2 (12:06→23:15)
[2018-08-18] MEDS: NS 0.9% IVPB SCH ×2 (12:06→23:15)
[2018-08-19] MEDS: NS 0.9% 1000 ML** 1,000 ML IV SCH ×2 (03:06→23:27)
[2018-08-19] MEDS ORDERED: Vancomycin Trough Check NOTE FOLLOW UP ONE (07:30)
[2018-08-19 07:49] LABS: EGFR African American 119.8 (>60)
--- NOTE | 2018-08-19 08:53 | PN ---
Progress Note - Progress Note Date of Service: 08/19/18 SOAP: Subjective: [Pt was seen laying in bed this am. Pt was slow to respond. Did not answer questions directly this morning. States that he does not have any chest pain or SOB. ] Objective: [General: Awake and alert. Does not appear oriented to place. MSK, LLE: inspection reveals no erythema present. +df/pf. calf is soft and non tender. Sensation intact distally to touch. 2+ DP pulse present. ] Vital Signs Temp 98.9 F 08/19/18 07:45 Pulse 101 08/19/18 07:45 Resp 16 08/19/18 07:45 BP 152/80 08/19/18 07:45 Pulse Ox 93 08/19/18 03:22 Intake & Output 08/18/18 08/19/18 08/19/18 18:59 06:59 18:59 Intake Total 290 540 Output Total 750 850 Balance -460 -310 Intake: Oral 290 540 Output: [place] 750 850 Assessment: [Left femoral neck fracture ] Plan: NPO after midnight tonight. We are medically optimized according to hospitalist medicine but are currently awaiting neuro clearance. Heparin SQ for DVT prophylaxis Per hospitalists will continue with broad spectrum abx and acyclovir, although low possibility of meningitis or encephalitis is being covered We will await neuro clearance for possible surgical intervention.
[2018-08-19] MEDS: cefTRIAXone(*) 2 GM in NS 0.9% 100 ML* 100 ML IVPB SCH (09:42)
[2018-08-19] MEDS: LEVODOPA PO SCH ×4 (09:52→20:52)
[2018-08-19] MEDS: CARBIDOPA PO SCH ×4 (09:52→20:52)
[2018-08-19] MEDS: Amantadine CAP* 100 MG PO SCH (09:52)
[2018-08-19] MEDS: Acetaminophen TAB* 325 MG PO PRN ×2 (09:53→16:27)
[2018-08-19] MEDS: Lacosamide TAB* 50 MG TAB PO SCH ×2 (09:53→20:52)
[2018-08-19] MEDS: Vancomycin(*) 1,000 MG in NS 0.9% 250 ML* 250 ML IVPB SCH ×3 (09:54→17:31)
[2018-08-19] MEDS: Metoprolol Succinate XL TAB* 100 MG PO SCH (09:55)
[2018-08-19] MEDS ORDERED: Heparin VIAL(*) 5000 UNITS/ML VIAL (FIVE THOUSAND) SUBCUT SCH ×2 (10:24→18:00)
[2018-08-19 11:07] LABS: ABS Basophils 0 10^3/ul (0-0.2); ABS Eosinophils 0.1 10^3/ul (0-0.6); ABS Lymphocytes 0.5 10^3/ul (1.0-4.8); ABS Monocytes 0.6 10^3/ul (0-0.8); ABS Neutrophils 7.7 10^3/ul (1.5-7.7); ABS Nucleated RBC 0 10^3/ul; Eosinophil % 0.8 %; Hematocrit 37 % (42-52); Hemoglobin 12.4 g/dl (14.0-18.0); Lymphocyte % 5.7 %; Mean Corpuscular HGB Conc 34 g/dl (31-36); Mean Corpuscular Hemoglobin 28 pg (27-31); Mean Corpuscular Volume 84 fL (80-94); Mean Platelet Volume 8.4 fL (7.4-10.4); Nucleated Red Blood Cells % 0; Platelet Count 157 10^3/ul (150-450); Red Blood Count 4.43 10^6/ul (4.00-5.40); Red Cell Distribution Width 15 % (10.5-15); White Blood Count 8.9 10^3/ul (3.5-10.8)
[2018-08-19 11:17] LABS: Activated Partial Thrombo Time 27.7 seconds (26.0-36.3); INR 1.16 (0.77-1.02)
[2018-08-19 11:27] LABS: EGFR African American 123.5 (>60); EGFR Non-African American 102.1 (>60)
--- NOTE | 2018-08-19 15:35 | PN ---
Subjective Date of Service: 08/19/18 Interval History: Patient seen today, He was awake, had his glasses on. I did speak with neurology Dr. Gutierrez and he is in agreement that the patient is neurological stable and can proceed with surgery. It was advised to stop the acyclovir which I did this morning. I placed him on heparin SQ for DVT prophylaxis to stop at midnight. NPO after midnight for surgery in am pending OR schedule. Past Medical History: Unchanged from Admission Objective Active Medications: Acetaminophen (Tylenol Tab*) 650 mg PO Q4H PRN PRN Reason: FEVER/PAIN Last Admin: 08/19/18 09:53 Dose: 650 mg Acetaminophen (Tylenol Supp*) 650 mg IL Q4H PRN PRN Reason: FEVER/PAIN Carbidopa/Levodopa (Carbidopa/Levodopa Odt (Nf)) 2 tab PO QID [facility] Last Admin: 08/19/18 13:45 Dose: 2 tab Heparin Sodium (Porcine) (Heparin Vial(*)) 5,000 units SUBCUT Q8H [facility] Stop: 08/20/18 00:00 Ceftriaxone Sodium 2 gm/ (Sodium Chloride) 100 mls @ 200 mls/hr IVPB Q24H [facility] Last Admin: 08/19/18 09:42 Dose: 200 mls/hr Sodium Chloride (Ns 0.9% 1000 Ml) 1,000 mls @ 75 mls/hr IV PER RATE [facility] Last Admin: 08/19/18 03:06 Dose: 75 mls/hr Vancomycin HCl 1,000 mg/ (Sodium Chloride) 250 mls @ 166.667 mls/hr IVPB Q8H [facility] Last Admin: 08/19/18 10:57 Dose: 166.667 mls/hr Lacosamide (Vimpat Tab*) 50 mg PO BID [facility] Last Admin: 08/19/18 09:53 Dose: 50 mg Metoprolol Succinate (Toprol Xl Tab*) 100 mg PO DAILY [facility] Last Admin: 08/19/18 09:55 Dose: 100 mg Ondansetron HCl (Zofran Inj*) 4 mg IV Q4H PRN PRN Reason: NAUSEA/VOMITING Oxycodone/Acetaminophen (Percocet 5/325 Tab*) 1 tab PO Q4H PRN PRN Reason: Pain Last Admin: 08/18/18 23:15 Dose: 1 tab Pharmacy Consult (Vancomycin Per Pharmacy*) 1 note FOLLOW UP . PRN PRN Reason: PER PROTOCOL Pharmacy Profile Note (Vancomycin Trough Check) 1 note FOLLOW UP ONCE ONE Stop: 08/21/18 09:31 Vital Signs - 8 hr 08/19/18 08/19/18 08/19/18 07:45 08:00 11:49 Temperature 98.9 F 98.6 F Pulse Rate 101 84 Respiratory 16 16 16 Rate Blood Pressure 152/80 145/71 (mmHg) O2 Sat by Pulse 95 Oximetry Oxygen Devices in Use Now: None Appearance: Awake, drowzy but he was seen at 8:30 this am. no distress. Ears/Nose/Mouth/Throat: Mucous Membranes Moist Neck: NL Appearance and Movements; NL JVP Respiratory: Symmetrical Chest Expansion and Respiratory Effort, Clear to Auscultation Cardiovascular: NL Sounds; No Murmurs; No JVD, - - irregularly irregular Extremities: No Edema Result Diagrams: 08/19/18 10:58 08/19/18 10:58 Microbiology and Other Data: Microbiology 08/16/18 21:28 Influenza Types A,B Antigen - Final Nasal Specimen received for Influenza A/B Molecular testing Assess/Plan/Problems-Billing Assessment: 73 year old male admitted from [facility] for altered mental status, with fever after a fall with left femur fracture and increase involuntary muscular movement transferred to our facility for neuro service - Patient Problems (1) Femoral neck fracture Current Visit: Yes Status: Acute Code(s): S72.009A - FRACTURE OF UNSP PART OF NECK OF UNSP FEMUR, INIT SNOMED Code(s): 6501164 Comment: - Ortho consult appreciated - Hold Eliquis. - Heparin SQ for DVT prophylaxis until midnight, off at midgnight for OR in am - Medically is optimized to proceed for surgery. I spoke to Dr. Gutierrez and he is in agreement. Acyclovir off - I do recommend to continue his broad spectrum coverage gita-op and minimize anesthesia as he is at very high risk for post op/anesthesia delerium. family are aware of that. continue Rocephin and vanco and re-evaluate 24-48 hrs post. - He needs to get his parkinsons and toprol in am with sip of water. Not to be witheld (2) Altered mental status Current Visit: Yes Status: Acute Code(s): R41.82 - ALTERED MENTAL STATUS, UNSPECIFIED SNOMED Code(s): 101405857 Comment: - Etiology is unclear, however Neurology on board. - At this time; I strongly believe that he does not have any evidence of meningitis and or encephalitis. His altered mental status on presentation to the outside facility could have been triggered by lack of taking his parkinson' s medication as scheduled, exacerbated by the fall and the trauma itself, Rhabdomyolysis (I ordered CPK added on and it was elevated in our facility) - I am not sure if they did check CPK at the outside facility which can also cause fever. - I agreed with broad spectrum antibiotics gita-op due to several variable and the benefit of antibiotic coverage outweight the risk. Will continue his Vanco ; Ceftriazone - I do not think LP at this time is warranted. I did reach out to neurology (3) Parkinson disease Current Visit: Yes Status: Acute Code(s): G20 - PARKINSON'S DISEASE SNOMED Code(s): 72312534 Comment: - Continue Amantadine 100 mg bid, and sinemet 2 tabs QID - I explained to his family that despite maximal effort to minimize altered mental status, given the current situation and the possible general anesthesia, I did alert them to expect some degree of post op and post anesthesia Delerium "altered mental status" which is normally short lived. not to be alarmed for the first 24-48 hrs post anesthesia if his mentations would be altered. They verbalized understanding. (4) Hypertension Current Visit: No Status: Acute Code(s): I10 - ESSENTIAL (PRIMARY) HYPERTENSION SNOMED Code(s): 54733927 Comment: - Continue Metoprolol-XL 100 mg daily - I will add Tropol 50 at HS due to his intermittent afib (5) History of atrial fibrillation Current Visit: No Status: Acute Code(s): Z86.79 - PERSONAL HISTORY OF OTHER DISEASES OF THE CIRCULATORY SYSTEM SNOMED Code(s): 238752116 Comment: - History for A-fib, he did have intermittent afib reverted into sinus. - Continue Metoprolol-XL 100 mg daily - I will add Tropol 50 at HS due to his intermittent afib - Eliquis on hold (6) Rhabdomyolysis Current Visit: Yes Status: Acute Code(s): M62.82 - RHABDOMYOLYSIS SNOMED Code(s): 145788836 Comment: - I did check CPK this morning labs given fall, and fever and it was reported at 1431 (day # 4 post fall). I asked to add CPK from yesterday. - I am not sure if they did have CPK at his outisde facility. - continue IVF and I held his statins (7) DVT prophylaxis Current Visit: No Status: Acute Code(s): NLH9081 - SNOMED Code(s): 494435214 Comment: - heparin SQ now that Eliquis is on hold
[2018-08-19] MEDS: oxyCODONE/Acetamin 5/325 MG* TAB PO PRN (16:28)
[2018-08-19] MEDS ORDERED: Metoprolol Succinate XL TAB* 50 MG PO ONE (19:00)
[2018-08-19] MEDS ORDERED: Metoprolol Tartrate IV* 1 MG/ML 5 ML VIAL IV ONE (19:01)
[2018-08-19] MEDS: Metoprolol Succinate XL TAB* 50 MG PO SCH (19:09)
--- NOTE | 2018-08-19 20:22 | CONS ---
CC: Dr. Grady; Dr. Beaulieu * NEUROLOGY CONSULTATION: DATE OF FOLLOWUP: 08/19/18 HOSPITALIST: Dr. Gardiner. LOCATION: He is an inpatient in room 349. CHIEF COMPLAINT: Femur fracture, Parkinson disease. INTERVAL HISTORY: Since Dr. Scruggs's initial consultation on 08/16/18, Kavon is doing somewhat better. He remains confused, but he is interactive. He is not having the excessive movements that were reported when he first came here. His and 2 daughters are present today. They report that he fell on Monday and spent 2 days at [facility]. He did not get any of his Parkinson medications. He developed a fever and excessive movements. He was transferred here on . He had a temperature of about 100 degrees which was pretty persistent. Dr. Scruggs's examination noted diffuse cogwheel rigidity and some mild dyskinesias. He was on Eliquis and a lumbar puncture was not performed. He was treated with antibiotics as well as as acyclovir for possible meningitis or encephalitis. He had been doing quite well on Monday having breakfast or lunch at the local diner with his brother and apparently his too. He was in good spirits and ambulated independently into the diner. Coming out, he slipped in the parking lot and fell. It took several men to get him into the car. When they got him home, they could not get him out of the car. He had a lot of leg pain. Ambulance was summoned. He was taken to [facility] where the femur fracture was diagnosed. In reviewing records, also Dr. Scruggs noted that after 6 hours of getting his first acyclovir, his mental status was pretty close to normal. PAST MEDICAL HISTORY: Also notable for seizures and prior left hemisphere stroke, presenting with language difficulties. He has had an acoustic neuroma resected many years ago. MEDICATIONS: Medications are reviewed and he is currently on, 1. Amantadine 100 mg twice per day at 8 a.m. and noon. 2. Carbidopa/levodopa 25/100 two tablets 4 times per day. 3. Ceftriaxone 2 g IV q.24 hours. 4. Subcutaneous heparin 5000 units q.8 hours. 5. Lacosamide 50 mg p.o. b.i.d. 6. Metoprolol 100 mg p.o. daily. 7. Zofran 4 mg IV q.4 hours p.r.n. nausea. 8. Percocet 5/325 one p.o. q.4 hours as needed for pain. 9. Vancomycin per pharmacy protocol. ALLERGIES: He has no known drug allergies. PHYSICAL EXAM: He is awake and alert. Most recent temperature is 98.9, it was 100.4 early this morning. Blood pressure is running about 150/80, heart rate is in the 90s and irregular, respiratory rate is 16, and oxygen saturation is 93 % on room air. Heart tones are distant and sound to be fairly regular to me. His neck is supple. Oral mucosa is moist, and there is no oral trauma. Eye movements are bit jerky but full. Visual zaman are full to confrontation. Facial musculature is symmetric with grade 3 hypomimia. Speech is soft and a little bit stuttering, but intelligible. He has some myoclonic twitching in the upper extremities and trunk intermittently. He has modest cogwheel rigidity of both arms. He has symmetrical strength in both arms. I did not test his legs. Finger taps are irregular but symmetrical in the hands. DIAGNOSTIC STUDIES/LAB DATA: Reviewed from today notable for a stable CBC with mild anemia with hemoglobin 12.4. His INR this morning is 1.16 and PTT 27.7. Chemistries today notable for BUN 13 and creatinine 0.77. I should note his creatinine when he came in on 08/17/18 was 1.94. Glucose 104 yesterday. His CPK yesterday was 1431, and there were no prior values to compare it to. AST on 08/17/18 was 62, which is a little bit high while ALT was low at 4. His calcium is a little bit low at 8.1 yesterday, albumin 3.2 the day before. Urinalysis on 08/16/18 was 3+ blood, 3+ red blood cells, 1+ white blood cells, positive urobilinogen but negative esterase and nitrite. Blood cultures day 2 are no growth. Influenza A and B testing was negative. Urine culture, no growth from 08/16/18. IMPRESSION AND PLAN: CT scan of the brain was interpreted as showing old craniotomy changes and some microvascular changes. To my review, there is clearly an old left parietal infarction as well. I do not see any acute changes. Impression is that of Parkinson disease with a fall and fracture. He developed delirium and abnormal movements probably in part because of Sinemet withdrawal as well as pain medications. He developed fever and there is no source. The likelihood of him developing viral encephalitis while in the hospital after falling and fracturing his femur seems extremely unlikely. I recommended stopping acyclovir to Dr. Gardiner yesterday. I think continuing broad spectrum antibiotics is fine, but it is possible his fever is actually from levodopa withdrawal. I think he should go ahead tomorrow and have his surgery. I explained to the family there is a pretty high likelihood of postoperative delirium, but if we do not do something about his fracture, we will never get him on his feet again. They asked questions and understand and agree. I would recommend stopping amantadine for now as well. It is the agent most likely to cause hallucinations and increased risk of delirium that we used to treat Parkinson disease. We will continue Sinemet right up to and after the surgery. A nasogastric tube needs to be placed and it should be done. His anticonvulsant lacosamide can be given intravenously at the same milligram dosage as the oral dose if he is otherwise not taking oral medications. In regards to stroke prophylaxis, he should be put back on his anticoagulant as soon as he is cleared by Surgery. With his atrial fibrillation and history of prior stroke, he is clearly at risk of stroke the longer he is not anticoagulated. I will sign him off to Dr. Maza who will be on service next week to follow up on him postoperatively. I will discuss my impression with Dr. Gardiner today. [id number]/[facility] #: [id number] DAMARI
[2018-08-20] MEDS: Vancomycin(*) 1,000 MG in NS 0.9% 250 ML* 250 ML IVPB SCH ×3 (02:38→18:23)
[2018-08-20 05:07] LABS: ABS Basophils 0 10^3/ul (0-0.2); ABS Eosinophils 0.2 10^3/ul (0-0.6); ABS Lymphocytes 0.6 10^3/ul (1.0-4.8); ABS Monocytes 0.7 10^3/ul (0-0.8); ABS Neutrophils 6.7 10^3/ul (1.5-7.7); ABS Nucleated RBC 0 10^3/ul; Hematocrit 38 % (42-52); Hemoglobin 12.3 g/dl (14.0-18.0); Mean Corpuscular HGB Conc 33 g/dl (31-36); Mean Corpuscular Hemoglobin 28 pg (27-31); Mean Corpuscular Volume 84 fL (80-94); Mean Platelet Volume 8.2 fL (7.4-10.4); Nucleated Red Blood Cells % 0; Platelet Count 155 10^3/ul (150-450); Red Blood Count 4.46 10^6/ul (4.00-5.40); Red Cell Distribution Width 15 % (10.5-15); White Blood Count 8.1 10^3/ul (3.5-10.8)
[2018-08-20 05:43] LABS: BUN/Creatinine Ratio 15.4 (8-20); EGFR African American 118.1 (>60); EGFR Non-African American 97.6 (>60); Phosphorus 2.7 mg/dL (2.5-5.0); Potassium 4.2 mmol/L (3.5-5.0)
[2018-08-20] MEDS: cefTRIAXone(*) 2 GM in NS 0.9% 100 ML* 100 ML IVPB SCH (07:59)
[2018-08-20] MEDS: Metoprolol Succinate XL TAB* 100 MG PO SCH (08:00)
[2018-08-20] MEDS: LEVODOPA PO SCH ×5 (08:00→22:05)
[2018-08-20] MEDS: CARBIDOPA PO SCH ×5 (08:00→22:05)
[2018-08-20] MEDS: Lacosamide TAB* 50 MG TAB PO SCH ×2 (08:00→22:04)
--- NOTE | 2018-08-20 08:45 | ECHO ---
Patient: EBENEZER CLEANING [facility] Rec#: [id number] : 1945 Date: 08/20/2018 Age: 73y Height: 185 cm / 72.8 in Weight: 90 kg / 198.4 lbs Sex: M BSA: 2.14 Room#: [facility] Admit Date#: 08/16/2018 Type: Inpatient Referring: Brad Gardiner MD Reading: Blade Bhagat MD Senior Hr Manager: Krysten RestrepoCORY CC: Darin Beaulieu MD Transthoracic Echocardiogram Indication: TIA BP: 164/86 HR: 91 Rhythm: A-Fib Findings History: Parkinson's, CVA, A-fib, HTN, HLD, former smoker. Technical Comments: The study quality is fair. Completed at 0800. Left Ventricle: The left ventricular chamber size is normal. Mild to moderate concentric left ventricular hypertrophy is observed. Global left ventricular wall motion and contractility are within normal limits. Left ventricular systolic function is at the lower limits of normal. The estimated ejection fraction is 50-55%. There is a left ventricular septal wall motion abnormality observed, possibly due to the presence of a right bundle branch block. The assessment of diastolic function is non-diagnostic. Left Atrium: The left atrial chamber size is normal. Right Ventricle: Moderator Band present. The right ventricle is mild to moderately dilated. The right ventricular global systolic function is mildly reduced. Right Atrium: The right atrium is mildly dilated. A patent foramen ovale is not demonstrated by color Doppler. Aortic Valve: The aortic valve is trileaflet. The aortic valve leaflets are mildly thickened. There is a trace of aortic regurgitation. There is no evidence of aortic stenosis. Mitral Valve: There is mitral annular calcification. The mitral valve leaflets are mildly thickened. There is trace to mild mitral regurgitation. There is no evidence of mitral stenosis. Tricuspid Valve: The tricuspid valve leaflets are normal. There is trace tricuspid regurgitation. The right ventricular systolic pressure is estimated at 26 mmHg. There is evidence that pulmonary hypertension may be underestimated. There is no tricuspid stenosis. Pulmonic Valve: The pulmonic valve structure is not well visualized. There is no pulmonic stenosis. Pericardium: There is no significant pericardial effusion. A pericardial fat pad is visualized. Aorta: There is mild dilatation of the ascending aorta.3.8 cm The aortic arch is not well visualized. There is mild dilatation of the aortic root. Pulmonary Artery: The main pulmonary artery is not well visualized. Venous: The inferior vena cava is dilated. There is a greater than 50% respiratory change in the inferior vena cava dimension. Summary: There are no significant changes when compared to the previous study done on 07/12/17 Conclusions Mild to moderate concentric left ventricular hypertrophy is observed. Global left ventricular wall motion and contractility are within normal limits. Left ventricular systolic function is at the lower limits of normal. The estimated ejection fraction is 50-55%. There is a left ventricular septal wall motion abnormality observed, possibly due to the presence of a right bundle branch block. The right ventricular global systolic function is mildly reduced. A patent foramen ovale is not demonstrated by color Doppler. There is a trace of aortic regurgitation. There is trace to mild mitral regurgitation. There is trace tricuspid regurgitation. The right ventricular systolic pressure is estimated at 26 mmHg. There is mild dilatation of the ascending aorta.3.8 cm There are no significant changes when compared to the previous study done on 07/12/17 Measurements Name Value Normal Range RVIDd (AP) 2D 2.8 cm (0.9 - 2.6) RVDdMajor (2D) 5.3 cm (2.2 - 4.4) RAd ISD 4CH 5.1 cm (3.4 - 4.9) RA (A4C)W 4.3 cm (2.9 - 4.6) IVSd (2D) 1.3 cm (0.6 - 1) LVPWd (2D) 1.2 cm (0.6 - 1) LVIDd (2D) 4 cm (3.6 - 5.4) LVIDs (2D) 2.6 cm - LV FS (2D) 35 % (25 - 45) Aortic Annulus 2.2 cm (1.4 - 2.6) Ao root diameter (2D) 3.8 cm (2.1 - 3.5) Ascending Ao 3.8 cm (2.1 - 3.4) LA dimension (AP) 2D 3.6 cm (2.3 - 3.8) LAd ISD 4CH 5.3 cm (2.9 - 5.3) LA ISD 4CH W 4.1 cm (2.5 - 4.5) Name Value Normal Range LA ESV BP (A/L) index 25 ml/m2 - Name Value Normal Range MV E-wave Vmax 0.9 m/sec - MV deceleration time 173 msec - LV septal e' Vmax 0.09 m/sec - LV lateral e' Vmax 0.13 m/sec - LV E:e' septal ratio 10 ratio - LV E:e' lateral ratio 6.9 ratio - Name Value Normal Range AV Vmax 1.1 m/sec - AV VTI 21 cm - AV peak gradient 5 mmHg - AV mean gradient 3 mmHg - LVOT Vmax 0.9 m/sec - LVOT VTI 18 cm - LVOT peak gradient 4 mmHg - LVOT mean gradient 2 mmHg - RAHEEL Vmax 0.5 m/sec - Name Value Normal Range TR Vmax 2.1 m/sec - TR peak gradient 18 mmHg - RAP 8 mmHg - RVSP 26 mmHg - IVC diameter 2.2 cm - Name Value Normal Range PV Vmax 0.8 m/sec - PV peak gradient 3 mmHg -
[2018-08-20] MEDS ORDERED: Buffered Lidocaine 1% SYRIN* 1 ML/SYRINGE INTRADERM ONE (10:48)
[2018-08-20] MEDS ORDERED: Lactated Ringers 1000 ML Bag* 1,000 ML IV SCH (11:00)
[2018-08-20] MEDS ORDERED: fentaNYL* 50 MCG/ML 2 ML VIAL (100 MCG VIAL) ONE (11:31)
[2018-08-20] MEDS ORDERED: LORazepam INJ* 2 MG/ML 1 ML VIAL IV PUSH ONE (14:22)
--- NOTE | 2018-08-20 14:53 | PN ---
Subjective Date of Service: 08/20/18 Length of Stay: 4 Days Neurology is following Mr. Monge for the evaluation and management of acute encephalopathy. Interval History: Review of the medical history: Mr. Monge was seen and evaluated by Dr. Scruggs on 08/17/[address] Gutierrez on 08/19/2018. He has history of Parkinson's disease and remote history of abnormal movements, thought to be related to seizures. The patient has never had an actual convulsion according to Dr. Grady and Ayleen Saleem. The patient was in normal state of health Monday08/14/2018. He fell after coming out of the diner and was hospitalized at [place]. He was found to have broken his right femoral neck. He became confused on Monday, speaking incoherently on and early Monday. As a result, he did not take his Sinemet for about 24 hours. He was transferred to [facility] [place] and orthopedic intervention. He was given his Sinemet last night and this morning. Yesterday, he was evaluated by Dr. Gutierrez who noted the patient's delirium and abnormal movements. It was thought the patient may have been in Sinimet withdrawal. He also had developed fevers and elevated CK level. 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 His anti-viral medication was discontinued because viral encephalitis after the patient's fall is unlikely to happen. He was cleared for hip surgery. Today, the patient was awake and took his Sinemet PO this morning. He took 2 tablets of 25-100 mg tablets. He usually takes 1 tablet four times daily. S: At approximately 11 a.m. today, I was contacted by the anesthesia team as the patient is unresponsive, has his eyes closed, and will not participate with the examiner. I evaluated the patient at 1310 today. The patient has high amplitude tremors of both upper extremity, closing his eyes tightly, and is not verbalizing. He would not open his eyes. According to the bedside nurse, the patient was able to cooperate and take his Sinemet this morning at 8 A.M. The patient does not verbalize. His daughter and spouse are at bedside extremely concerned. There has been no sedation on narcotics provided this morning. Amantadine is the only medication the patient has not received since the hospitalization. He was taking amantadine 100 mg twice daily. Review of Systems: Unable to participate in a ROS. Past Medical History: Unchanged from Admission Objective Active Medications: Acetaminophen (Tylenol Tab*) 650 mg PO Q4H PRN PRN Reason: FEVER/PAIN Last Admin: 08/19/18 16:27 Dose: 650 mg Acetaminophen (Tylenol Supp*) 650 mg CA Q4H PRN PRN Reason: FEVER/PAIN Amantadine HCl (Symmetrel Cap*) 100 mg PO DAILY [facility] Carbidopa/Levodopa (Carbidopa/Levodopa Odt (Nf)) 2 tab PO QID [facility] Last Admin: 08/20/18 08:00 Dose: 2 tab Ceftriaxone Sodium 2 gm/ (Sodium Chloride) 100 mls @ 200 mls/hr IVPB Q24H [facility] Last Admin: 08/20/18 07:59 Dose: 200 mls/hr Sodium Chloride (Ns 0.9% 1000 Ml) 1,000 mls @ 75 mls/hr IV PER RATE [facility] Last Admin: 08/19/18 23:27 Dose: 75 mls/hr Vancomycin HCl 1,000 mg/ (Sodium Chloride) 250 mls @ 166.667 mls/hr IVPB Q8H [facility] Last Admin: 08/20/18 10:13 Dose: 166.667 mls/hr Lactated Ringer's (Lactated Ringers 1000 Ml Bag*) 1,000 mls @ 125 mls/hr IV PER RATE [facility] Lacosamide (Vimpat Tab*) 50 mg PO BID [facility] Last Admin: 08/20/18 08:00 Dose: 50 mg Metoprolol Succinate (Toprol Xl Tab*) 100 mg PO DAILY [facility] Last Admin: 08/20/18 08:00 Dose: 100 mg Metoprolol Succinate (Toprol Xl Tab*) 50 mg PO BEDTIME [facility] Last Admin: 08/19/18 19:09 Dose: 50 mg Ondansetron HCl (Zofran Inj*) 4 mg IV Q4H PRN PRN Reason: NAUSEA/VOMITING Oxycodone/Acetaminophen (Percocet 5/325 Tab*) 1 tab PO Q4H PRN PRN Reason: Pain Last Admin: 08/19/18 16:28 Dose: 1 tab Pharmacy Consult (Vancomycin Per Pharmacy*) 1 note FOLLOW UP . PRN PRN Reason: PER PROTOCOL Pharmacy Profile Note (Vancomycin Trough Check) 1 note FOLLOW UP ONCE ONE Stop: 03/05/19 09:31 Vital Signs 08/19/18 08/19/18 08/19/18 16:07 16:28 19:33 Temperature 99.3 F Pulse Rate 96 104 Respiratory 22 18 20 Rate Blood Pressure 147/77 125/65 (mmHg) O2 Sat by Pulse 94 95 Oximetry 08/19/18 08/19/18 08/20/18 20:50 23:26 03:13 Temperature 99.3 F 99.4 F Pulse Rate 94 105 Respiratory 18 16 18 Rate Blood Pressure 126/62 123/65 (mmHg) O2 Sat by Pulse 96 94 Oximetry 08/20/18 08/20/18 08/20/18 07:58 08:00 14:15 Temperature 98.2 F Pulse Rate 78 85 Respiratory 16 16 18 Rate Blood Pressure 127/56 167/72 (mmHg) O2 Sat by Pulse 90 97 Oximetry Intake and Output Last 24 Hours 08/18/18 08/19/18 08/20/18 08/21/18 06:59 06:59 06:59 06:59 Intake Total 4510 830 1591 437 Output Total 202 1600 2500 Balance 2085 770 -909 437 Intake: IV Fluids 3440 1541 437 ABX - CEFTRIAXONE 110 ABX - VANCOMYCIN 260 529 327 NS (0.9%) 2915 1012 acyclovir 265 Oral 1070 830 50 Output: Urine 1375 900 Clancy 650 1600 1600 Other: Estimated Void Small # Bowel Movements 0 0 Oxygen Devices in Use Now: None Neurology Exam: General: Ill appearing elderly man in no distress. Forceful eye closure. HEENT: Normocephelic/atraumatic, sclera anicteric, mucous membranes moist Neck: Supple Chest: Clear to auscultation bilaterally Cardiovascular: Regular rate and rhythm without murmurs, rubs, gallops Extremities: no hammer toes or high arches Neurological Findings: Seems to be awake but unresponsive. He does not open eyes or follow simple commands. Cannot assess for aphasia or dysarthria. He moved towards the contralateral side with nasal stimulation Cranial Nerve: PERRL, EOM intact, VFF, no nystagmus, face symmetric bilaterally , facial sensation intact, hearing intact to finger rub bilaterally, palate elevates symmetrically, tongue midline, SCM and Trapezius s/s. Motor: high amplitude, resting tremor involving the right > left upper extremities. Tremors reduce when patient falls asleep but return with stimuli. He withdrew to distal noxious stimuli. He does not follow command. Sensation: does not localize to pain Deep Tendon Reflex: 1+ throughout, absent at the ankles bilaterally. Coordination: n/a Gait: n/a Result Diagrams: 08/20/18 05:02 08/20/18 05:02 Microbiology and Other Data: Microbiology 08/16/18 21:28 Influenza Types A,B Antigen - Final Nasal Specimen received for Influenza A/B Molecular testing Assessment/Plan 1. Acute encephalopathy manifesting as hypoactive delirium- The etiology is unclear. His cognition seems to have rapidly deteriorated within hours. Rapid neurological changes are typically associated with stroke or seizures. I don't think he had a vascular phenomenon such as stroke since his examination is non-focal, although he is at risk since he's off anti- coagulation therapy. We will evaluate for non-convulsive seizures. Other differential diagnosis include Amantadine withdrawal syndrome or still dopamine withdrawal since he still has significant tremors and rigidity despite being back on a higher dose of Sinemet for the past 3 days (less likely). I don't think he has meningo-encephalitis given the clinical history but he may need to have a lumbar puncture if he does not improve. Recommendation: 1. Small dose of Ativan 0.5 mg IV to help his rigidity 2. Continue Sinemet and restart Amantadine 100 mg daily via NG tube 3. Ordered a CT head without contrast to assess for any intracranial lesions, mass effect, stroke. 4. Obtain an EEG to evaluate for non-convulsive status epilepticus 5. Continue neuro-checks every 1 hour. He may need to be transferred to the ICU for closer monitoring 6. Continue supportive care Time spent: 40 minutes of which > 50 % was spent reviewing the history, examining the patient, and discussing the treatment plan with the patient's spouse, daughter, and bedside nurse.
[2018-08-20 16:35] LABS: TSH (Thyroid Stimulating Horm) 1.77 mcIU/mL (0.34-5.60)
[2018-08-20] MEDS: NS 0.9% 1000 ML** 1,000 ML IV SCH (17:17)
[2018-08-20] MEDS: Amantadine CAP* 100 MG PO SCH (18:03)
[2018-08-20] MEDS: Acetaminophen TAB* 325 MG PO PRN ×2 (18:25→22:12)
--- NOTE | 2018-08-20 18:31 | PN ---
Subjective Date of Service: 08/20/18 Interval History: Seen this AM Lethargic, hard to wake, mostly grunts or groans Decision to hold off on surgery until mental status is further evaluated/stable NG placed after seen by neurology Receive ativan later in day per neurology and mental status improved Past Medical History: Unchanged from Admission Objective Active Medications: Acetaminophen (Tylenol Tab*) 650 mg PO Q4H PRN PRN Reason: FEVER/PAIN Last Admin: 08/19/18 16:27 Dose: 650 mg Acetaminophen (Tylenol Supp*) 650 mg MD Q4H PRN PRN Reason: FEVER/PAIN Amantadine HCl (Symmetrel Cap*) 100 mg PO DAILY [facility] Last Admin: 08/20/18 18:03 Dose: Not Given Carbidopa/Levodopa (Carbidopa/Levodopa Odt (Nf)) 1 tab PO QID [facility] Ceftriaxone Sodium 2 gm/ (Sodium Chloride) 100 mls @ 200 mls/hr IVPB Q24H [facility] Last Admin: 08/20/18 07:59 Dose: 200 mls/hr Sodium Chloride (Ns 0.9% 1000 Ml) 1,000 mls @ 75 mls/hr IV PER RATE [facility] Last Admin: 08/20/18 17:17 Dose: 75 mls/hr Vancomycin HCl 1,000 mg/ (Sodium Chloride) 250 mls @ 166.667 mls/hr IVPB Q8H [facility] Last Admin: 08/20/18 10:13 Dose: 166.667 mls/hr Lacosamide (Vimpat Tab*) 50 mg PO BID [facility] Last Admin: 08/20/18 08:00 Dose: 50 mg Metoprolol Succinate (Toprol Xl Tab*) 100 mg PO DAILY [facility] Last Admin: 08/20/18 08:00 Dose: 100 mg Metoprolol Succinate (Toprol Xl Tab*) 50 mg PO BEDTIME [facility] Last Admin: 08/19/18 19:09 Dose: 50 mg Ondansetron HCl (Zofran Inj*) 4 mg IV Q4H PRN PRN Reason: NAUSEA/VOMITING Oxycodone/Acetaminophen (Percocet 5/325 Tab*) 1 tab PO Q4H PRN PRN Reason: Pain Last Admin: 08/19/18 16:28 Dose: 1 tab Pharmacy Consult (Vancomycin Per Pharmacy*) 1 note FOLLOW UP . PRN PRN Reason: PER PROTOCOL Pharmacy Profile Note (Vancomycin Trough Check) 1 note FOLLOW UP ONCE ONE Stop: 08/21/18 09:31 Vital Signs - 8 hr 08/20/18 08/20/18 08/20/18 14:15 16:04 16:14 Temperature 98.2 F 99.2 F Pulse Rate 85 81 Respiratory 18 15 18 Rate Blood Pressure 167/72 166/82 (mmHg) O2 Sat by Pulse 97 100 Oximetry 08/20/18 18:03 Temperature Pulse Rate Respiratory 18 Rate Blood Pressure (mmHg) O2 Sat by Pulse Oximetry Oxygen Devices in Use Now: None Appearance: lying flat, NAD Eyes: PERRLA Ears/Nose/Mouth/Throat: NL Teeth, Lips, Gums, Clear Oropharnyx Neck: NL Appearance and Movements; NL JVP, Trachea Midline Respiratory: Symmetrical Chest Expansion and Respiratory Effort, Clear to Auscultation Cardiovascular: RRR Abdominal: NL Sounds; No Tenderness; No Distention, No Hepatosplenomegaly Lymphatic: No Cervical Adenopathy Extremities: - - pain in right leg if moved Neurological: - - AOx0 this AM, withdraws and localize to pain, moves all extremities; oriented to self after receiving ativan Result Diagrams: 08/20/18 05:02 08/20/18 05:02 Microbiology and Other Data: Microbiology 08/16/18 21:28 Influenza Types A,B Antigen - Final Nasal Specimen received for Influenza A/B Molecular testing Assess/Plan/Problems-Billing 73 yo M admitted from [facility] for femural fracture and AMS - Patient Problems (1) Altered mental status Comment: Decline in level of alertness today Agree hypoactive delerium is high on the differential Pt improved throughout the day and with ativan this evening EEG report from neuro pending repeat CTH wnl (2) Femoral neck fracture Current Visit: Yes Status: Acute Code(s): S72.009A - FRACTURE OF UNSP PART OF NECK OF UNSP FEMUR, INIT SNOMED Code(s): 2264206 Comment: - Ortho consult appreciated - Hold Eliquis. - on broad spectrum abx gita op plan to narrow soon if no other source of infection (3) Parkinson disease Comment: - Continue Amantadine 100 mg bid, and sinemet 2 tabs QID -NG in place and verified by this author to administer medications above (4) Rhabdomyolysis Comment: repeat CK in AM (5) History of atrial fibrillation Status: Acute Comment: - History for A-fib, he did have intermittent afib reverted into sinus. - Continue Metoprolol-XL 100 mg daily - added Tropol 50 at HS due to his intermittent afib - Eliquis on hold -hep gtt tomorrow if no surgery (6) Hypertension Comment: metoprolol (7) DVT prophylaxis Comment: - heparin SQ now that Eliquis is on hold
[2018-08-20] MEDS: Metoprolol Succinate XL TAB* 50 MG PO SCH (22:04)
--- NOTE | 2018-08-20 23:09 | EEG ---
ELECTROENCEPHALOGRAPHY: DATE OF STUDY: 08/20/18 - ROOM #349 DATE READ: 08/20/18 ORDERING PROVIDER: Donald Maza M.D. CLINICAL PROBLEM: Mr. Monge is a 73-year-old man with a history of Parkinson disease, who is status post fall with right hip fracture, who developed sudden onset unresponsive state. This EEG was obtained to evaluate for epileptiform abnormalities or electrographic seizures. MEDICATIONS: 1. Carbidopa/levodopa. 2. Vancomycin. 3. Vimpat. 4. Toprol. 5. Rocephin. 6. Tylenol. 7. Zofran. 8. Percocet. CLINICAL STATE: Walking and drowsy. REPORT: The background lacked organization of clearly defined anterior- posterior voltage and frequency gradients. There was no discernible posterior dominant rhythm. Instead the background consisted of diffuse medium amplitude, polymorphic, 3-6 Hz delta and theta range slowing. At times, the delta slowing became sharply contoured and took on a triphasic morphology. There was some emergence of faster frequencies with verbal and tactile stimulation. Attenuation of occipital rhythm also accompanied drowsiness. There was some reported right arm twitching and head movements throughout the recording that did not correlate with any electrographic seizures. However, the most prominent feature of this recording were sharply contoured waves in the left temporal region that accompanied predominantly drowsy state. This was maximum seen at T5. There were no clear electrographic seizures. I should say the epileptiform discharges were rarely seen at T5. Hyperventilation and photic stimulation were not performed. Single electrode EKG showed an irregular rate and rhythm suggestive of atrial fibrillation. Throughout the recording, there were no electrographic seizures. CLINICAL IMPRESSION: This is an abnormal EEG due to the presence of diffuse, but reactive slowing with sharply contoured waves in the left temporal region and rare triphasic waves seen throughout the recording. These findings are suggestive of a nonspecific, moderate diffuse encephalopathy with potential increase epileptogenic potentials emanating from the left temporal region. Clinical correlation is recommended. [id number]/[facility] #: [id number] [facility]
[2018-08-21] MEDS: Vancomycin(*) 1,000 MG in NS 0.9% 250 ML* 250 ML IVPB SCH ×2 (02:28→10:40)
[2018-08-21 05:59] LABS: EGFR African American 119.8 (>60)
[2018-08-21] MEDS: cefTRIAXone(*) 2 GM in NS 0.9% 100 ML* 100 ML IVPB SCH (07:35)
[2018-08-21] MEDS ORDERED: Vancomycin Trough Check NOTE FOLLOW UP ONE (09:30)
[2018-08-21] MEDS: Amantadine CAP* 100 MG PO SCH (10:03)
[2018-08-21] MEDS: Metoprolol Succinate XL TAB* 100 MG PO SCH (10:04)
[2018-08-21] MEDS: CARBIDOPA PO SCH ×4 (10:04→21:31)
[2018-08-21] MEDS: Lacosamide TAB* 50 MG TAB PO SCH ×2 (10:04→21:31)
[2018-08-21] MEDS: LEVODOPA PO SCH ×4 (10:04→21:31)
[2018-08-21] MEDS: oxyCODONE/Acetamin 5/325 MG* TAB PO PRN ×3 (10:05→21:31)
[2018-08-21] MEDS: NS 0.9% 1000 ML** 1,000 ML IV SCH (10:11)
[2018-08-21] MEDS: Acetaminophen TAB* 325 MG PO PRN (13:11)
--- NOTE | 2018-08-21 14:43 | PN ---
Subjective Date of Service: 08/21/18 Length of Stay: 5 Days Neurology is following Mr. Monge for episode of encephalopathy. Interval History: He is awake and cooperative this morning. He is eager to have the right hip surgery. Family at bedside were updated that the surgery won't take place until tomorrow afternoon. His diet was advanced. He pulled out the NG tube overnight, which he clearly did not need. He is tolerating his medication PO. He has no evidence of aspiration. Review of Systems: Denied CP, SOB, or palpitations. Past Medical History: Unchanged from Admission Objective Active Medications: Acetaminophen (Tylenol Tab*) 650 mg PO Q4H PRN PRN Reason: FEVER/PAIN Last Admin: 08/21/18 13:11 Dose: 650 mg Acetaminophen (Tylenol Supp*) 650 mg [place] Q4H PRN PRN Reason: FEVER/PAIN Amantadine HCl (Symmetrel Cap*) 100 mg PO DAILY [facility] Last Admin: 08/21/18 10:03 Dose: 100 mg Carbidopa/Levodopa (Carbidopa/Levodopa Odt (Nf)) 1 tab PO QID [facility] Last Admin: 08/21/18 13:11 Dose: 1 tab Ceftriaxone Sodium 2 gm/ (Sodium Chloride) 100 mls @ 200 mls/hr IVPB Q24H [facility] Last Admin: 08/21/18 07:35 Dose: 200 mls/hr Sodium Chloride (Ns 0.9% 1000 Ml) 1,000 mls @ 75 mls/hr IV PER RATE [facility] Last Admin: 08/21/18 10:11 Dose: 75 mls/hr Vancomycin HCl 1,000 mg/ (Sodium Chloride) 250 mls @ 166.667 mls/hr IVPB Q8H [facility] Last Admin: 08/21/18 10:40 Dose: 166.667 mls/hr Lacosamide (Vimpat Tab*) 50 mg PO BID [facility] Last Admin: 08/21/18 10:04 Dose: 50 mg Metoprolol Succinate (Toprol Xl Tab*) 100 mg PO DAILY [facility] Last Admin: 08/21/18 10:04 Dose: 100 mg Metoprolol Succinate (Toprol Xl Tab*) 50 mg PO BEDTIME [facility] Last Admin: 08/20/18 22:04 Dose: 50 mg Ondansetron HCl (Zofran Inj*) 4 mg IV Q4H PRN PRN Reason: NAUSEA/VOMITING Oxycodone/Acetaminophen (Percocet 5/325 Tab*) 1 tab PO Q4H PRN PRN Reason: Pain Last Admin: 08/21/18 14:17 Dose: 1 tab Pharmacy Consult (Vancomycin Per Pharmacy*) 1 note FOLLOW UP . PRN PRN Reason: PER PROTOCOL Vital Signs 08/20/18 08/20/18 08/20/18 16:04 16:14 18:03 Temperature 99.2 F Pulse Rate 81 Respiratory 15 18 18 Rate Blood Pressure 166/82 (mmHg) O2 Sat by Pulse 100 Oximetry 08/20/18 08/20/18 08/20/18 19:47 20:18 20:20 Temperature 97.2 F Pulse Rate 78 Respiratory 15 20 Rate Blood Pressure 152/60 (mmHg) O2 Sat by Pulse 99 Oximetry 08/20/18 08/21/18 08/21/18 23:42 04:31 08:00 Temperature 99.2 F 98.9 F Pulse Rate 79 81 Respiratory 17 17 19 Rate Blood Pressure 139/67 126/64 (mmHg) O2 Sat by Pulse 93 96 Oximetry 08/21/18 08/21/18 08/21/18 08:01 10:05 11:33 Temperature 99 F 98.8 F Pulse Rate 79 78 Respiratory 19 16 20 Rate Blood Pressure 146/58 145/74 (mmHg) O2 Sat by Pulse 95 95 Oximetry 08/21/18 08/21/18 13:10 14:17 Temperature Pulse Rate Respiratory 16 18 Rate Blood Pressure (mmHg) O2 Sat by Pulse Oximetry Intake and Output Last 24 Hours 08/19/18 08/20/18 08/21/18 08/22/18 06:59 06:59 06:59 06:59 Intake Total 830 1591 1164 1393 Output Total 1600 2500 1925 900 Balance -770 -909 -761 493 Intake: IV Fluids 1541 1014 1393 ABX - CEFTRIAXONE 110 105 ABX - VANCOMYCIN 529 582 530 LR 322 NS (0.9%) 1012 758 Oral 830 50 150 Output: Urine 900 0 Clancy 1600 1600 1925 900 Other: Estimated Void Small # Bowel Movements 0 Oxygen Devices in Use Now: None Neurology Exam: General: Ill-appearing frail man in no distress. HEENT: Normocephelic/atraumstic, sclera anicteric, mucous membranes moist Neck: Supple Chest: Clear to auscultation bilaterally Cardiovascular: Regular rate and rhythm without murmurs, rubs, gallops Abdomen: Soft, nontender/nondistended Extremities: No clubbing, cyanosis, or edema Neurological Findings: Awake, alert, and oriented to person, place, and time. He has hypophonia, hypokinesia, but no aphasia. Masked facies. Cranial Nerve: PERRL, EOM intact, VFF, no nystagmus, face symmetric bilaterally , facial sensation intact, hearing intact to finger rub bilaterally, palate elevates symmetrically, tongue midline, SCM and Trapezius s/s. Motor: mild bilateral cogwheel rigidity. Mild resting tremor, right more than left hand. He moves all extremities against gravity (except for the right lower extremity which was not assessed). Sensation: intact to LT/PP bilaterally upper and lower extremities Deep Tendon Reflex: 1+ symmetric in the upper/lower extremities, Babinski - down going Finger to nose, rapid alternating movements intact without tremor, no dysdiadochokinesia Gait: not assessed Result Diagrams: 08/20/18 05:02 08/21/18 05:15 Microbiology and Other Data: Microbiology 08/16/18 21:28 Influenza Types A,B Antigen - Final Nasal Specimen received for Influenza A/B Molecular testing Assessment/Plan Assessment/Plan 1. Acute encephalopathy manifesting as hypoactive delirium- much improved. I suspect he was most likely receiving a higher dose of Sinemet as he typically takes 1 tablet four times a day, but was taking 2 tablets 4 times a day (double his home dose). Another possible cause would be amantadine withdrawal. He seems to be tolerating the current regiment. Recommendation: 1 Continue Sinemet and amantadine with the current dose 2. Neuro checks every 4 hour 3. Monitor for post-op delirium (hip surgery to hopefully be done tomorrow). 4. Supportive care d/w the bedside nurse.
--- NOTE | 2018-08-21 16:50 | PN ---
Progress Note - Progress Note Date of Service: 08/21/18 Note: Patient was seen at bedside. He is somewhat more coherent than he was yesterday , he is able to provide location but unable to identify year. . He is unable to follow commands. He does DF/PF though not on demand. DP2+. He will require a hemiarthroplasty for fixation of left femoral neck fracture. This is scheduled for tomorrow with Dr Platt at 4 pm. His family is at bedside and understands and agrees to hemiarthroplasty.
--- NOTE | 2018-08-21 17:10 | PN ---
Subjective Date of Service: 08/21/18 Interval History: Seen with family at bedside Events from last 24 hrs reviewed Pt much more alert since yesterday afternoon, at least aox2 Everyone in agreement pt is close to baseline mental status NG out overnight Past Medical History: Unchanged from Admission Objective Active Medications: Acetaminophen (Tylenol Tab*) 650 mg PO Q4H PRN PRN Reason: FEVER/PAIN Last Admin: 08/21/18 13:11 Dose: 650 mg Acetaminophen (Tylenol Supp*) 650 mg CO Q4H PRN PRN Reason: FEVER/PAIN Amantadine HCl (Symmetrel Cap*) 100 mg PO DAILY [facility] Last Admin: 08/21/18 10:03 Dose: 100 mg Carbidopa/Levodopa (Carbidopa/Levodopa Odt (Nf)) 1 tab PO QID [facility] Last Admin: 08/21/18 13:11 Dose: 1 tab Ceftriaxone Sodium 2 gm/ (Sodium Chloride) 100 mls @ 200 mls/hr IVPB Q24H [facility] Last Admin: 08/21/18 07:35 Dose: 200 mls/hr Lacosamide (Vimpat Tab*) 50 mg PO BID [facility] Last Admin: 08/21/18 10:04 Dose: 50 mg Metoprolol Succinate (Toprol Xl Tab*) 100 mg PO DAILY [facility] Last Admin: 08/21/18 10:04 Dose: 100 mg Metoprolol Succinate (Toprol Xl Tab*) 50 mg PO BEDTIME [facility] Last Admin: 08/20/18 22:04 Dose: 50 mg Ondansetron HCl (Zofran Inj*) 4 mg IV Q4H PRN PRN Reason: NAUSEA/VOMITING Oxycodone/Acetaminophen (Percocet 5/325 Tab*) 1 tab PO Q4H PRN PRN Reason: Pain Last Admin: 08/21/18 14:17 Dose: 1 tab Vital Signs - 8 hr 08/21/18 08/21/18 08/21/18 10:05 11:33 13:10 Temperature 98.8 F Pulse Rate 78 Respiratory 16 20 16 Rate Blood Pressure 145/74 (mmHg) O2 Sat by Pulse 95 Oximetry 08/21/18 14:17 Temperature Pulse Rate Respiratory 18 Rate Blood Pressure (mmHg) O2 Sat by Pulse Oximetry Oxygen Devices in Use Now: None Appearance: NAD, sitting up Eyes: No Scleral Icterus Ears/Nose/Mouth/Throat: NL Teeth, Lips, Gums, Clear Oropharnyx Neck: NL Appearance and Movements; NL JVP, Trachea Midline Respiratory: Symmetrical Chest Expansion and Respiratory Effort, Clear to Auscultation Cardiovascular: RRR Abdominal: NL Sounds; No Tenderness; No Distention, No Hepatosplenomegaly Lymphatic: No Cervical Adenopathy Neurological: - - Aox2 to self and hospital, year is 1899, follows simple commands Result Diagrams: 08/20/18 05:02 08/21/18 05:15 Microbiology and Other Data: Microbiology 08/16/18 21:28 Influenza Types A,B Antigen - Final Nasal Specimen received for Influenza A/B Molecular testing Assess/Plan/Problems-Billing 73 yo M transferred from [place] with hip fxr and fevers with stay complicated by acute encephalopathy - Patient Problems (1) Encephalopathy Comment: Acute Differential includes hypoactive delerium, amantadine withdrawal and/or toxic in setting of double home dose sinemet Improved with ativan x 1 then resumption of home doses of medications Discussed frequent reorientation and correction of underlying problem with family Narrow abx to CTX, d/c vanco (2) Femoral neck fracture Current Visit: Yes Status: Acute Code(s): S72.009A - FRACTURE OF UNSP PART OF NECK OF UNSP FEMUR, INIT SNOMED Code(s): 0392955 Comment: - Ortho consult appreciated - Hold Eliquis. - plan OR tomorrow -restart eliquis after surgery per primary team (3) Parkinson disease Comment: - Continue Amantadine 100 mg bid, and sinemet 1 tabs QID (4) Rhabdomyolysis Comment: resolved (5) History of atrial fibrillation Status: Acute Comment: - History for A-fib, he did have intermittent afib reverted into sinus. - Continue Metoprolol-XL 100 mg daily - added Tropol 50 at HS due to his intermittent afib - Eliquis on hold (6) Hypertension Comment: metoprolol (7) DVT prophylaxis Comment: - heparin SQ now that Eliquis is on hold
[2018-08-21] MEDS: Metoprolol Succinate XL TAB* 50 MG PO SCH (21:31)
[2018-08-22 05:43] LABS: Hematocrit 38 % (42-52); Mean Corpuscular HGB Conc 34 g/dl (31-36); Mean Corpuscular Hemoglobin 28 pg (27-31); Mean Corpuscular Volume 84 fL (80-94); Mean Platelet Volume 7.6 fL (7.4-10.4); Platelet Count 176 10^3/ul (150-450); Red Cell Distribution Width 15 % (10.5-15); White Blood Count 7.2 10^3/ul (3.5-10.8)
[2018-08-22 05:49] LABS: INR 1.16 (0.77-1.02)
[2018-08-22 06:00] LABS: BUN/Creatinine Ratio 20.5 (8-20); Calcium 8.1 mg/dL (8.6-10.3); EGFR African American 127.4 (>60); EGFR Non-African American 105.3 (>60); Potassium 3.8 mmol/L (3.5-5.0)
[2018-08-22 06:03] LABS: ABS Basophils 0.1 10^3/ul (0-0.2); ABS Eosinophils 0.2 10^3/ul (0-0.6); ABS Lymphocytes 0.5 10^3/ul (1.0-4.8); ABS Monocytes 0.5 10^3/ul (0-0.8); ABS Nucleated RBC 0 10^3/ul; Eosinophil % 2.4 %; Lymphocyte % 7.1 %; Nucleated Red Blood Cells % 0
[2018-08-22] MEDS: cefTRIAXone(*) 2 GM in NS 0.9% 100 ML* 100 ML IVPB SCH (07:13)
[2018-08-22] MEDS: Metoprolol Succinate XL TAB* 100 MG PO SCH ×2 (08:36→09:46)
[2018-08-22] MEDS ORDERED: Lactated Ringers 1000 ML Bag* 1,000 ML IV SCH ×2 (08:44→09:00)
[2018-08-22] MEDS ORDERED: Famotidine IV* 10 MG/ML 2 ML (20 mg) IV ONE (08:50)
[2018-08-22] MEDS ORDERED: Buffered Lidocaine 1% SYRIN* 1 ML/SYRINGE INTRADERM ONE (08:50)
[2018-08-22] MEDS: Amantadine CAP* 100 MG PO SCH (09:45)
[2018-08-22] MEDS: Lacosamide TAB* 50 MG TAB PO SCH ×2 (09:45→22:34)
[2018-08-22] MEDS: LEVODOPA PO SCH ×4 (09:46→22:34)
[2018-08-22] MEDS: CARBIDOPA PO SCH ×4 (09:46→22:34)
--- NOTE | 2018-08-22 13:18 | PN ---
Progress Note - Progress Note Date of Service: 08/22/18 SOAP: Subjective: []Pt seen at bedside. His communication with me is improved today. He answers questions approprately and follows commands. Denies CP, SOB, dizziness or nausea Objective: []General: Well appearing, NAD LLE: left thigh soft, DF/PF intact, DP2+, sensation intact to light touch distally Calves supple and nontender without erythema, edema or palpable cords Assessment: []Left femoral neck fracture Plan: []NWB LLE OR today for left hemiarthroplasty with Dr Platt. Family at bedside agreeable to stated procedure, all questions were answered Vital Signs Temp 99.2 F 08/22/18 11:20 Pulse 74 08/22/18 11:20 Resp 21 08/22/18 11:20 BP 161/73 08/22/18 11:20 Pulse Ox 97 08/22/18 11:20 Intake & Output 08/21/18 08/22/18 08/22/18 18:59 06:59 18:59 Intake Total 1972 350 Output Total 900 975 Balance 1072 -625 Intake: IV Fluids 1971 ABX - CEFTRIAXONE 105 ABX - VANCOMYCIN 530 NS (0.9%) 1337 Oral 350 Output: Urine 0 Clancy 900 975 Laboratory Last Values WBC 7.2 10^3/ul (3.5-10.8) 08/22/18 05:36 RBC 4.60 10^6/ul (4.00-5.40) 08/22/18 05:36 Hgb 13.0 g/dl (14.0-18.0) L 08/22/18 05:36 Hct 38 % (42-52) L 08/22/18 05:36 MCV 84 fL (80-94) 08/22/18 05:36 MCH 28 pg (27-31) 08/22/18 05:36 MCHC 34 g/dl (31-36) 08/22/18 05:36 RDW 15 % (10.5-15) 08/22/18 05:36 Plt Count 176 10^3/ul (150-450) 08/22/18 05:36 MPV 7.6 fL (7.4-10.4) 08/22/18 05:36 Neut % (Auto) 83.0 % 08/22/18 05:36 Lymph % (Auto) 7.1 % 08/22/18 05:36 [place] % (Auto) 6.6 % 08/22/18 05:36 Eos % (Auto) 2.4 % 08/22/18 05:36 Baso % (Auto) 0.9 % 08/22/18 05:36 Absolute Neuts (auto) 6.0 10^3/ul (1.5-7.7) 08/22/18 05:36 Absolute Lymphs (auto) 0.5 10^3/ul (1.0-4.8) L 08/22/18 05:36 Absolute Monos (auto) 0.5 10^3/ul (0-0.8) 08/22/18 05:36 Absolute Eos (auto) 0.2 10^3/ul (0-0.6) 08/22/18 05:36 Absolute Basos (auto) 0.1 10^3/ul (0-0.2) 08/22/18 05:36 Absolute Nucleated RBC 0 10^3/ul 08/22/18 05:36 Nucleated RBC % 0 08/22/18 05:36 INR (Anticoag Therapy) 1.16 (0.77-1.02) H 08/22/18 05:36 APTT 27.7 seconds (26.0-36.3) 08/19/18 10:58 Sodium 134 mmol/L (135-145) L 08/22/18 05:36 Potassium 3.8 mmol/L (3.5-5.0) 08/22/18 05:36 Chloride 104 mmol/L (101-111) 08/22/18 05:36 Carbon Dioxide 23 mmol/L (22-32) 08/22/18 05:36 Anion Gap 7 mmol/L (2-11) 08/22/18 05:36 BUN 15 mg/dL (6-24) 08/22/18 05:36 Creatinine 0.73 mg/dL (0.67-1.17) 08/22/18 05:36 Est GFR ( Amer) 127.4 (>60) 08/22/18 05:36 Est GFR (Non-Af Amer) 105.3 (>60) 08/22/18 05:36 BUN/Creatinine Ratio 20.5 (8-20) H 08/22/18 05:36 Glucose 101 mg/dL (70-100) H 08/22/18 05:36 Lactic Acid 0.8 mmol/L (0.5-2.0) 08/17/18 02:18 Calcium 8.1 mg/dL (8.6-10.3) L 08/22/18 05:36 Phosphorus 2.7 mg/dL (2.5-5.0) 08/20/18 05:02 Magnesium 2.0 mg/dL (1.9-2.7) 08/20/18 05:02 Total Bilirubin 0.80 mg/dL (0.2-1.0) 08/17/18 02:18 AST 62 U/L (13-39) H 08/17/18 02:18 ALT 4 U/L (7-52) L 08/17/18 02:18 Alkaline Phosphatase 64 U/L (34-104) 08/17/18 02:18 Ammonia 45 mcmol/L (16-53) 08/20/18 15:48 Total Creatine Kinase 180 U/L (10-223) 08/21/18 05:15 Total Protein 5.7 g/dL (6.4-8.9) L 08/17/18 02:18 Albumin 3.2 g/dL (3.2-5.2) 08/17/18 02:18 Globulin 2.5 g/dL (2-4) 08/17/18 02:18 Albumin/Globulin Ratio 1.3 (1-3) 08/17/18 02:18 Vitamin B12 477 pg/mL (180-914) 08/20/18 15:48 TSH 1.77 mcIU/mL (0.34-5.60) 08/20/18 15:48 Urine Color [place] 08/16/18 22:30 Urine Appearance Cloudy 08/16/18 22:30 Urine pH 5.0 (5-9) 08/16/18 22:30 Ur Specific [place] 1.027 (1.010-1.030) 08/16/18 22:30 Urine Protein 1+(30 mg/dl) (Negative) A 08/16/18 22:30 Urine Ketones Trace (Negative) A 08/16/18 22:30 Urine Blood 3+ (Negative) A 08/16/18 22:30 Urine Nitrate Negative (Negative) 08/16/18 22:30 Urine Bilirubin Negative (Negative) 08/16/18 22:30 Urine Urobilinogen Positive (Negative) A 08/16/18 22:30 Ur Leukocyte Esterase Negative (Negative) 08/16/18 22:30 Urine WBC (Auto) 1+(6-10/hpf) (Absent) A 08/16/18 22:30 Urine RBC (Auto) 3+(>10/hpf) (Absent) A 08/16/18 22:30 Urine Bacteria Absent (Absent) 08/16/18 22:30 Hyaline Casts Present (Absent) A 08/16/18 22:30 Urine Sperm Present (Absent) A 08/16/18 22:30 Urine Glucose Negative (Negative) 08/16/18 22:30 Vancomycin Trough 15.5 mcg/mL 08/21/18 09:38 Influenza A (Rapid) Negative (Negative) 08/16/18 22:20 Influenza B (Rapid) Negative (Negative) 08/16/18 22:20 Blood Type O Positive 08/22/18 05:33 Antibody Screen Negative 08/22/18 05:33
--- NOTE | 2018-08-22 14:07 | CONSULT ---
Subjective Date of Service: 08/22/18 Interval History: Mr. Monge is a 73 yo male with PMH significant for Parkinson's disease, afib , CVA, HTN, HLD, and seizure disorder. Mr. Monge presented to [facility] as a direct admission from [facility] for concerns of seizure. He initially presented to [facility] for a left hip pain after falling on ice. The fall resulted in a left femoral neck fracture. Mr. Monge is still awaiting surgery to repair his hip fracture. According to the NS notes, he presented to the hospital with bilateral buttock redness, that was blanchable. Patient seen and examined at bedside. Family History: Unchanged from Admission Social History: Unchanged from Admission Past Medical History: Unchanged from Admission Review of Systems - Measurements Intake and Output: Intake and Output Last 24 Hours 08/20/18 08/21/18 08/22/18 08/23/18 06:59 06:59 06:59 06:59 Intake Total 1591 1164 2322 Output Total 2500 1925 1875 Balance -909 -761 447 Intake: IV Fluids 1541 1014 1972 ABX - CEFTRIAXONE 110 105 ABX - VANCOMYCIN 529 582 530 LR 322 NS (0.9%) 1012 1337 Oral 50 150 350 Output: Urine 900 0 Clancy 1600 192 1875 Other: Estimated Void Small # Bowel Movements 0 - Review of Systems Constitutional Symptoms: Negative: Fever, Other - Chills Musculoskeletal: Positive: Other - Left hip pain Objective Active Medications: Acetaminophen (Tylenol Tab*) 650 mg PO Q4H PRN Reason: FEVER/PAIN Acetaminophen (Tylenol Supp*) 650 mg [place] Q4H PRN Reason: FEVER/PAIN Amantadine HCl (Symmetrel Cap*) 100 mg PO DAILY [facility] Carbidopa/Levodopa (Carbidopa/Levodopa Odt (Nf)) 1 tab PO QID [facility] Ceftriaxone Sodium 2 gm/ (Sodium Chloride) 100 mls @ 200 mls/hr IVPB Q24H [facility] Lactated Ringer's (Lactated Ringers 1000 Ml Bag*) 1,000 mls @ 80 mls/hr IV .PER RATE [facility] Lactated Ringer's (Lactated Ringers 1000 Ml Bag*) 1,000 mls @ 125 mls/hr IV PER RATE [facility] Lacosamide (Vimpat Tab*) 50 mg PO BID [facility] Metoprolol Succinate (Toprol Xl Tab*) 100 mg PO DAILY [facility] Metoprolol Succinate (Toprol Xl Tab*) 50 mg PO BEDTIME [facility] Ondansetron HCl (Zofran Inj*) 4 mg IV Q4H PRN Reason: NAUSEA/VOMITING Oxycodone/Acetaminophen (Percocet 5/325 Tab*) 1 tab PO Q4H PRN Reason: Pain Vital Signs - 8 hr 08/22/18 08/22/18 08/22/18 07:34 07:53 08:00 Temperature 97.3 F Pulse Rate 83 Respiratory 22 22 Rate Blood Pressure 152/70 (mmHg) O2 Sat by Pulse 92 Oximetry 08/22/18 08/22/18 08:59 11:20 Temperature 99.2 F Pulse Rate 77 74 Respiratory 21 Rate Blood Pressure 150/63 161/73 (mmHg) O2 Sat by Pulse 94 97 Oximetry Oxygen Devices in Use Now: None Appearance: NAD, laying in bed Ears/Nose/Mouth/Throat: Mucous Membranes Moist Skin: - - See skin note below Neurological: - - Alert and Oriented to Person Nutrition: Taking PO's Result Diagrams: 08/25/18 05:41 08/25/18 05:41 Additional Lab and Data: Laboratory Tests 08/17/18 02:18 Albumin 3.2 Microbiology and Other Data: Microbiology 08/16/18 21:28 Influenza Types A,B Antigen - Final Nasal Specimen received for Influenza A/B Molecular testing Skin Deviation Note - Skin Deviation Findings Right buttock - Deep purplish discoloration, area measures 1 cm x 3.2 cm. Left buttock with blister, area measures 0.5 cm x 2 cm. Surrounding skin to both areas with slight erythema, that is blanchable. Assessment/Plan: Mr. Monge is a 73 yo male with PMH significant for Parkinson's disease, afib , CVA, HTN, HLD, and seizure disorder. Mr. Monge presented to [facility] as a direct admission from [facility] for concerns of seizure and a left hip fracture. He presented to the hospital with bilateral buttock redness, that was blanchable. 1. Right buttock deep tissue injury. Frequent turn and repositioning. 2. Left buttock shearing injury. Frequent turn and repositioning. Caution should be used when moving in bed to prevent further injury to the skin. Barrier cream may be used for protection of the skin. Consider checking a prealbumin to evaluate nutritional status. 3. Left hip fracture. Management per Orthopedic surgery. 4. Diet. Regular diet. 5. Code Status. Full Code Status. 6. Disposition. Per Primary Medicine Team. TIME SPENT: Time for this wound consultation was 25 minutes, and 15 minutes was spent with the patient and discussing past medical history; assessing, measuring, and photographing the wounds. Wound Problem/Plan Is Patient a Wound Clinic Patient: No Attending: Ying Gonzalez
[2018-08-22] MEDS ORDERED: fentaNYL* 50 MCG/ML 2 ML VIAL (100 MCG VIAL) ONE ×2 (14:48→18:45)
[2018-08-22] MEDS ORDERED: Midazolam* 1 MG/ML 5 ML VIAL (5 MG) ONE (14:48)
[2018-08-22] MEDS ORDERED: KETAMINE HCL* 50 MG/ML 10 ML VIAL ONE (14:49)
[2018-08-22] MEDS: Lactated Ringers 1000 ML Bag* 1,000 ML IV SCH ×2 (17:38→22:56)
[2018-08-22] MEDS ORDERED: ceFAZolin 2 GM PREMIX in ORs 2 GM/50 ML BAG IVPB ONE (17:46)
--- NOTE | 2018-08-22 18:30 | PN ---
Subjective Date of Service: 08/22/18 Interval History: Seen with at bedside pt feels much better, closer to himself Pain well controlled feels his mental status is now baseline Past Medical History: Unchanged from Admission Objective Active Medications: Acetaminophen (Tylenol Tab*) 650 mg PO Q4H PRN PRN Reason: FEVER/PAIN Last Admin: 08/21/18 13:11 Dose: 650 mg Acetaminophen (Tylenol Supp*) 650 mg [place] Q4H PRN PRN Reason: FEVER/PAIN Amantadine HCl (Symmetrel Cap*) 100 mg PO DAILY [facility] Last Admin: 08/22/18 09:45 Dose: 100 mg Carbidopa/Levodopa (Carbidopa/Levodopa Odt (Nf)) 1 tab PO QID [facility] Last Admin: 08/22/18 15:47 Dose: Not Given Ceftriaxone Sodium 2 gm/ (Sodium Chloride) 100 mls @ 200 mls/hr IVPB Q24H [facility] Last Admin: 08/22/18 07:13 Dose: 200 mls/hr Lactated Ringer's (Lactated Ringers 1000 Ml Bag*) 1,000 mls @ 80 mls/hr IV .PER RATE [facility] Last Admin: 08/22/18 09:49 Dose: 80 mls/hr Lactated Ringer's (Lactated Ringers 1000 Ml Bag*) 1,000 mls @ 125 mls/hr IV PER RATE [facility] Last Admin: 08/22/18 17:38 Dose: 125 mls/hr Lacosamide (Vimpat Tab*) 50 mg PO BID [facility] Last Admin: 08/22/18 09:45 Dose: 50 mg Metoprolol Succinate (Toprol Xl Tab*) 100 mg PO DAILY [facility] Last Admin: 08/22/18 09:46 Dose: 100 mg Metoprolol Succinate (Toprol Xl Tab*) 50 mg PO BEDTIME [facility] Last Admin: 08/21/18 21:31 Dose: 50 mg Ondansetron HCl (Zofran Inj*) 4 mg IV Q4H PRN PRN Reason: NAUSEA/VOMITING Oxycodone/Acetaminophen (Percocet 5/325 Tab*) 1 tab PO Q4H PRN PRN Reason: Pain Last Admin: 08/21/18 21:31 Dose: 1 tab Vital Signs - 8 hr 08/22/18 08/22/18 11:20 15:07 Temperature 99.2 F 97.5 F Pulse Rate 74 80 Respiratory 21 20 Rate Blood Pressure 161/73 179/85 (mmHg) O2 Sat by Pulse 97 95 Oximetry Oxygen Devices in Use Now: None Appearance: NAD Eyes: No Scleral Icterus, PERRLA Ears/Nose/Mouth/Throat: NL Teeth, Lips, Gums, Clear Oropharnyx Neck: NL Appearance and Movements; NL JVP, Trachea Midline Respiratory: Symmetrical Chest Expansion and Respiratory Effort Cardiovascular: NL Sounds; No Murmurs; No JVD, RRR Abdominal: NL Sounds; No Tenderness; No Distention, No Hepatosplenomegaly Neurological: Alert and Oriented x 3 Result Diagrams: 08/22/18 05:36 08/22/18 05:36 Additional Lab and Data: Laboratory Tests 08/17/18 02:18 Albumin 3.2 Microbiology and Other Data: Microbiology 08/16/18 21:28 Influenza Types A,B Antigen - Final Nasal Specimen received for Influenza A/B Molecular testing Assess/Plan/Problems-Billing 73 yo M transferred from [place] with hip fxr and fevers with stay complicated by acute encephalopathy - Patient Problems (1) Encephalopathy Comment: Acute Differential includes hypoactive delerium, amantadine withdrawal and/or toxic in setting of double home dose sinemet Improved with ativan x 1 then resumption of home doses of medications Discussed frequent reorientation and correction of underlying problem with family d/c abx Rapid improvement argues against delerium. Suspect medication toxicity (2) Femoral neck fracture Current Visit: Yes Status: Acute Code(s): S72.009A - FRACTURE OF UNSP PART OF NECK OF UNSP FEMUR, INIT SNOMED Code(s): 7719348 Comment: - Ortho consult appreciated - Hold Eliquis. - plan OR this evening -restart eliquis after surgery as soon as possible (3) Parkinson disease Comment: - Continue Amantadine 100 mg bid, and sinemet 1 tabs QID (4) Rhabdomyolysis Comment: resolved (5) History of atrial fibrillation Status: Acute Comment: - History for A-fib, he did have intermittent afib reverted into sinus. - Continue Metoprolol-XL 100 mg daily - added Tropol 50 at HS due to his intermittent afib - Eliquis on hold (6) Hypertension Comment: metoprolol (7) DVT prophylaxis Comment: - heparin SQ now that Eliquis is on hold
[2018-08-22] MEDS ORDERED: Naloxone* 0.4 MG/ML 1 ML VIAL IV PRN (18:52)
[2018-08-22] MEDS ORDERED: HYDROmorphone INJ1* 1 MG/ML SYRINGE IV PRN (18:52)
[2018-08-22] MEDS ORDERED: Acetaminophen IV 1GM/100ML * 1,000 MG/100 ML VIAL IVPB ONE (18:52)
[2018-08-22] MEDS ORDERED: Ketorolac INJ* 30 MG/ML 1 ML VIAL ONE (19:05)
[2018-08-22] MEDS ORDERED: Propofol* 10 MG/ML 20 ML BTL ONE ×2 (19:05→19:06)
[2018-08-22] MEDS ORDERED: Lidocaine 2% PF * 5 ML VIAL ONE (19:05)
[2018-08-22] MEDS ORDERED: Dexamethasone IV* 4 MG/ML 1 ML (4 MG) ONE (19:05)
[2018-08-22] MEDS ORDERED: Succinylcholine* 20 MG/ML 10 ML VIAL ONE (19:05)
[2018-08-22] MEDS ORDERED: Ondansetron INJ* 2 MG/ML VIAL ONE (19:05)
[2018-08-22] MEDS ORDERED: Bupivacaine 0.5% W/EPI SDV* 30 ML VIAL ONE (20:18)
[2018-08-22] MEDS ORDERED: traMADol TAB* 50 MG PO PRN (20:45)
[2018-08-22] MEDS ORDERED: oxyCODONE/Acetamin 5/325 MG* TAB PO PRN (20:45)
[2018-08-22] MEDS ORDERED: Acetaminophen IV 1GM/100ML * 100 ML ONE (21:01)
[2018-08-22] MEDS ORDERED: HYDROmorphone INJ1* 1 MG/ML SYRINGE ONE (21:28)
[2018-08-22] MEDS: Metoprolol Succinate XL TAB* 50 MG PO SCH (22:34)
[2018-08-23] MEDS ORDERED: oxyCODONE TAB* 5 MG TAB PO PRN (00:14)
[2018-08-23] MEDS: ceFAZolin 1 GM in Dextrose (*) 1 GM/50 ML BAG IVPB SCH ×3 (02:08→18:40)
[2018-08-23] MEDS: Lactated Ringers 1000 ML Bag* 1,000 ML IV SCH ×2 (06:39→15:20)
[2018-08-23] MEDS: Amantadine CAP* 100 MG PO SCH ×2 (08:39→21:05)
[2018-08-23] MEDS: Metoprolol Succinate XL TAB* 100 MG PO SCH (08:39)
[2018-08-23] MEDS: Apixaban* 2.5 MG TAB PO SCH ×2 (08:39→21:04)
[2018-08-23] MEDS: Lacosamide TAB* 50 MG TAB PO SCH ×2 (08:39→21:05)
[2018-08-23] MEDS: LEVODOPA PO SCH ×4 (08:40→21:05)
[2018-08-23] MEDS: CARBIDOPA PO SCH ×4 (08:40→21:05)
--- NOTE | 2018-08-23 11:02 | PN ---
Subjective Date of Service: 08/23/18 Length of Stay: 7 Days Neurology is following for the treatment of Parkinson's disease. Interval History: He is s/p left hip replacement. He is doing well except for some mild drowsiness and left hip pain. He tolerated his breakfast this morning. He denied any worsening tremors. He denied any visual or auditory hallucination. He is receiving Toradol for pain. Review of Systems: Denied CP, SOB, or palpitations. Past Medical History: Unchanged from Admission Objective Active Medications: Acetaminophen (Tylenol Tab*) 650 mg PO Q4H PRN PRN Reason: FEVER/PAIN Last Admin: 08/21/18 13:11 Dose: 650 mg Acetaminophen (Tylenol Supp*) 650 mg [place] Q4H PRN PRN Reason: FEVER/PAIN Amantadine HCl (Symmetrel Cap*) 100 mg PO BID [facility] Apixaban (Eliquis*) 2.5 mg PO BID [facility] Last Admin: 08/23/18 08:39 Dose: 2.5 mg Carbidopa/Levodopa (Carbidopa/Levodopa Odt (Nf)) 1 tab PO QID [facility] Last Admin: 08/23/18 08:40 Dose: 1 tab Cefazolin Sodium/Dextrose (Kefzol 1 Gm In Dextrose Duplex (*)) 1 gm in 50 mls @ 200 mls/hr IVPB Q8H [facility] Stop: 08/23/18 18:44 Last Admin: 08/23/18 10:19 Dose: 200 mls/hr Lactated Ringer's (Lactated Ringers 1000 Ml Bag*) 1,000 mls @ 125 mls/hr IV PER RATE [facility] Last Admin: 08/23/18 06:39 Dose: 125 mls/hr Lacosamide (Vimpat Tab*) 50 mg PO BID [facility] Last Admin: 08/23/18 08:39 Dose: 50 mg Metoprolol Succinate (Toprol Xl Tab*) 100 mg PO DAILY [facility] Last Admin: 08/23/18 08:39 Dose: 100 mg Metoprolol Succinate (Toprol Xl Tab*) 50 mg PO BEDTIME [facility] Last Admin: 08/22/18 22:34 Dose: 50 mg Ondansetron HCl (Zofran Inj*) 4 mg IV Q4H PRN PRN Reason: NAUSEA/VOMITING Oxycodone HCl (Roxycodone Tab*) 10 mg PO Q4H PRN PRN Reason: PAIN - MODERATE TO SEVERE Last Admin: 08/23/18 08:26 Dose: 10 mg Oxycodone/Acetaminophen (Percocet 5/325 Tab*) 1 tab PO Q4H PRN PRN Reason: Pain Last Admin: 08/21/18 21:31 Dose: 1 tab Tramadol HCl (Ultram*) 50 mg PO Q4H PRN PRN Reason: PAIN - MILD Last Admin: 08/23/18 04:17 Dose: 50 mg Tramadol HCl (Ultram*) 100 mg PO Q4H PRN PRN Reason: PAIN - MODERATE Vital Signs 08/23/18 08/23/18 08/23/18 04:17 06:17 07:51 Temperature Pulse Rate 88 Respiratory 18 17 Rate Blood Pressure (mmHg) O2 Sat by Pulse 96 Oximetry 08/23/18 08/23/18 08:26 09:00 Temperature Pulse Rate Respiratory 20 Rate Blood Pressure 152/60 (mmHg) O2 Sat by Pulse 98 Oximetry Intake and Output Last 24 Hours 08/21/18 08/22/18 08/23/18 08/24/18 06:59 06:59 06:59 06:59 Intake Total 1164 2322 3402 Output Total 1925 1875 2835 Balance -761 447 567 Intake: IV Fluids 1014 1972 3250 ABX - CEFTRIAXONE 110 105 ABX - VANCOMYCIN 582 530 LR 322 3250 NS (0.9%) 1337 IVPB 52 ABX - CEFAZOLIN 52 Oral 150 350 100 Output: Urine 0 Clancy 1924 1875 2635 Estimated Blood Loss 200 Oxygen Devices in Use Now: Nasal Cannula Neurology Exam: General: Ill-appearing frail man in no distress. HEENT: Normocephelic/atraumstic, sclera anicteric, mucous membranes moist Extremities: No clubbing, cyanosis, or edema Neurological Findings: Awake, alert, and oriented to person, place, and time. He has hypophonia, hypokinesia, but no aphasia. Masked facies. Cranial Nerve: PERRL, EOM intact, VFF, no nystagmus. Motor: mild bilateral cogwheel rigidity. Mild resting tremor, right more than left hand. He moves all extremities against gravity (except for the right lower extremity which was not assessed). Sensation: intact to LT/PP bilaterally upper and lower extremities Deep Tendon Reflex: 1+ symmetric in the upper/lower extremities, Babinski - down going Gait: not assessed Result Diagrams: 08/22/18 05:36 08/22/18 05:36 Additional Lab and Data: Laboratory Tests 08/17/18 02:18 Albumin 3.2 Microbiology and Other Data: Microbiology 08/16/18 21:28 Influenza Types A,B Antigen - Final Nasal Specimen received for Influenza A/B Molecular testing Assessment/Plan Assessment/Plan 1. Acute encephalopathy manifesting as hypoactive delirium-improving but currently has drowsiness related to pain medications. 2. Parkinson's Disease 3. Left hip fracture s/p surgery Recommendation: 1. Continue Sinemet 1 tablet four times a day and amantadine 100 mg (increased to his home dose of twice daily). 2. Neuro checks every 4 hour 3. Pain control per primary team 4. Supportive care d/w the bedside nurse
[2018-08-23] MEDS: traMADol TAB* 50 MG PO PRN (11:32)
--- NOTE | 2018-08-23 12:50 | PN ---
Progress Note - Progress Note Date of Service: 08/23/18 SOAP: Subjective: []Pt seen at bedside. He is feeling well without report of left hip pain. Denies CP, SOB, dizziness, nausea. Objective: [] General: awake, alert, well appearing, NAD, able to answer questions appropriately today LLE: dressing CDI, left thigh soft, DF/PF intact, DP2+, sensation intact to light touch distally Calves supple and nontender without erythema, edema or palpable cords Assessment: []Left femoral neck fracture pod 1 sp hemiarthroplasty Plan: []WBAT LLE PT/OT eliquis 2.5 mg po bid x 30 days first dressing change 08/25/18 Vital Signs Temp 98.1 F 08/23/18 04:08 Pulse 88 08/23/18 07:51 Resp 16 08/23/18 11:32 BP 152/60 08/23/18 09:00 Pulse Ox 98 08/23/18 09:00 Intake & Output 08/22/18 08/23/18 08/23/18 18:59 06:59 18:59 Intake Total 3402 Output Total 1725 1110 Balance -1725 2292 Intake: IV Fluids 3250 LR 3250 IVPB 52 ABX - CEFAZOLIN 52 Oral 100 Output: Clancy 1725 910 Estimated Blood Loss 200 Laboratory Last Values WBC 7.2 10^3/ul (3.5-10.8) 08/22/18 05:36 RBC 4.60 10^6/ul (4.00-5.40) 08/22/18 05:36 Hgb 13.0 g/dl (14.0-18.0) L 08/22/18 05:36 Hct 38 % (42-52) L 08/22/18 05:36 MCV 84 fL (80-94) 08/22/18 05:36 MCH 28 pg (27-31) 08/22/18 05:36 MCHC 34 g/dl (31-36) 08/22/18 05:36 RDW 15 % (10.5-15) 08/22/18 05:36 Plt Count 176 10^3/ul (150-450) 08/22/18 05:36 MPV 7.6 fL (7.4-10.4) 08/22/18 05:36 Neut % (Auto) 83.0 % 08/22/18 05:36 Lymph % (Auto) 7.1 % 08/22/18 05:36 [place] % (Auto) 6.6 % 08/22/18 05:36 Eos % (Auto) 2.4 % 08/22/18 05:36 Baso % (Auto) 0.9 % 08/22/18 05:36 Absolute Neuts (auto) 6.0 10^3/ul (1.5-7.7) 08/22/18 05:36 Absolute Lymphs (auto) 0.5 10^3/ul (1.0-4.8) L 08/22/18 05:36 Absolute Monos (auto) 0.5 10^3/ul (0-0.8) 08/22/18 05:36 Absolute Eos (auto) 0.2 10^3/ul (0-0.6) 08/22/18 05:36 Absolute Basos (auto) 0.1 10^3/ul (0-0.2) 08/22/18 05:36 Absolute Nucleated RBC 0 10^3/ul 08/22/18 05:36 Nucleated RBC % 0 08/22/18 05:36 INR (Anticoag Therapy) 1.16 (0.77-1.02) H 08/22/18 05:36 APTT 27.7 seconds (26.0-36.3) 08/19/18 10:58 Sodium 134 mmol/L (135-145) L 08/22/18 05:36 Potassium 3.8 mmol/L (3.5-5.0) 08/22/18 05:36 Chloride 104 mmol/L (101-111) 08/22/18 05:36 Carbon Dioxide 23 mmol/L (22-32) 08/22/18 05:36 Anion Gap 7 mmol/L (2-11) 08/22/18 05:36 BUN 15 mg/dL (6-24) 08/22/18 05:36 Creatinine 0.73 mg/dL (0.67-1.17) 08/22/18 05:36 Est GFR ( Amer) 127.4 (>60) 08/22/18 05:36 Est GFR (Non-Af Amer) 105.3 (>60) 08/22/18 05:36 BUN/Creatinine Ratio 20.5 (8-20) H 08/22/18 05:36 Glucose 101 mg/dL (70-100) H 08/22/18 05:36 Lactic Acid 0.8 mmol/L (0.5-2.0) 08/17/18 02:18 Calcium 8.1 mg/dL (8.6-10.3) L 08/22/18 05:36 Phosphorus 2.7 mg/dL (2.5-5.0) 08/20/18 05:02 Magnesium 2.0 mg/dL (1.9-2.7) 08/20/18 05:02 Total Bilirubin 0.80 mg/dL (0.2-1.0) 08/17/18 02:18 AST 62 U/L (13-39) H 08/17/18 02:18 ALT 4 U/L (7-52) L 08/17/18 02:18 Alkaline Phosphatase 64 U/L (34-104) 08/17/18 02:18 Ammonia 45 mcmol/L (16-53) 08/20/18 15:48 Total Creatine Kinase 180 U/L (10-223) 08/21/18 05:15 Total Protein 5.7 g/dL (6.4-8.9) L 08/17/18 02:18 Albumin 3.2 g/dL (3.2-5.2) 08/17/18 02:18 Globulin 2.5 g/dL (2-4) 08/17/18 02:18 Albumin/Globulin Ratio 1.3 (1-3) 08/17/18 02:18 Vitamin B12 477 pg/mL (180-914) 08/20/18 15:48 TSH 1.77 mcIU/mL (0.34-5.60) 08/20/18 15:48 Urine Color Lore[place] 08/16/18 22:30 Urine Appearance Cloudy 08/16/18 22:30 Urine pH 5.0 (5-9) 08/16/18 22:30 Ur Specific [place] 1.027 (1.010-1.030) 08/16/18 22:30 Urine Protein 1+(30 mg/dl) (Negative) A 08/16/18 22:30 Urine Ketones Trace (Negative) A 08/16/18 22:30 Urine Blood 3+ (Negative) A 08/16/18 22:30 Urine Nitrate Negative (Negative) 08/16/18 22:30 Urine Bilirubin Negative (Negative) 08/16/18 22:30 Urine Urobilinogen Positive (Negative) A 08/16/18 22:30 Ur Leukocyte Esterase Negative (Negative) 08/16/18 22:30 Urine WBC (Auto) 1+(6-10/hpf) (Absent) A 08/16/18 22:30 Urine RBC (Auto) 3+(>10/hpf) (Absent) A 08/16/18 22:30 Urine Bacteria Absent (Absent) 08/16/18 22:30 Hyaline Casts Present (Absent) A 08/16/18 22:30 Urine Sperm Present (Absent) A 08/16/18 22:30 Urine Glucose Negative (Negative) 08/16/18 22:30 Vancomycin Trough 15.5 mcg/mL 08/21/18 09:38 Influenza A (Rapid) Negative (Negative) 08/16/18 22:20 Influenza B (Rapid) Negative (Negative) 08/16/18 22:20 Blood Type O Positive 08/22/18 05:33 Antibody Screen Negative 08/22/18 05:33
--- NOTE | 2018-08-23 13:17 | PN ---
Subjective Date of Service: 08/23/18 Interval History: Pt feels well. Limited conversation with pt with by the bedside. As per , pt is occasionally confused likely due to narcotic pain meds, but otherwise close to baseline Past Medical History: Unchanged from Admission Objective Active Medications: Acetaminophen (Tylenol Tab*) 650 mg PO Q4H PRN PRN Reason: FEVER/PAIN Last Admin: 08/21/18 13:11 Dose: 650 mg Acetaminophen (Tylenol Supp*) 650 mg [place] Q4H PRN PRN Reason: FEVER/PAIN Amantadine HCl (Symmetrel Cap*) 100 mg PO BID [facility] Apixaban (Eliquis*) 2.5 mg PO BID [facility] Last Admin: 08/23/18 08:39 Dose: 2.5 mg Carbidopa/Levodopa (Carbidopa/Levodopa Odt (Nf)) 1 tab PO QID [facility] Last Admin: 08/23/18 08:40 Dose: 1 tab Cefazolin Sodium/Dextrose (Kefzol 1 Gm In Dextrose Duplex (*)) 1 gm in 50 mls @ 200 mls/hr IVPB Q8H [facility] Stop: 08/23/18 18:44 Last Admin: 08/23/18 10:19 Dose: 200 mls/hr Lactated Ringer's (Lactated Ringers 1000 Ml Bag*) 1,000 mls @ 125 mls/hr IV PER RATE [facility] Last Admin: 08/23/18 06:39 Dose: 125 mls/hr Lacosamide (Vimpat Tab*) 50 mg PO BID [facility] Last Admin: 08/23/18 08:39 Dose: 50 mg Metoprolol Succinate (Toprol Xl Tab*) 100 mg PO DAILY [facility] Last Admin: 08/23/18 08:39 Dose: 100 mg Metoprolol Succinate (Toprol Xl Tab*) 50 mg PO BEDTIME [facility] Last Admin: 08/22/18 22:34 Dose: 50 mg Ondansetron HCl (Zofran Inj*) 4 mg IV Q4H PRN PRN Reason: NAUSEA/VOMITING Oxycodone HCl (Roxycodone Tab*) 10 mg PO Q4H PRN PRN Reason: PAIN - MODERATE TO SEVERE Last Admin: 08/23/18 08:26 Dose: 10 mg Oxycodone/Acetaminophen (Percocet 5/325 Tab*) 1 tab PO Q4H PRN PRN Reason: Pain Last Admin: 08/21/18 21:31 Dose: 1 tab Tramadol HCl (Ultram*) 50 mg PO Q4H PRN PRN Reason: PAIN - MILD Last Admin: 08/23/18 04:17 Dose: 50 mg Tramadol HCl (Ultram*) 100 mg PO Q4H PRN PRN Reason: PAIN - MODERATE Last Admin: 08/23/18 11:32 Dose: 100 mg Vital Signs - 8 hr 08/23/18 08/23/18 08/23/18 06:17 07:51 08:26 Pulse Rate 88 Respiratory 17 20 Rate Blood Pressure (mmHg) O2 Sat by Pulse 96 Oximetry 08/23/18 08/23/18 08/23/18 09:00 10:25 11:32 Pulse Rate Respiratory 16 16 Rate Blood Pressure 152/60 (mmHg) O2 Sat by Pulse 98 Oximetry Oxygen Devices in Use Now: Nasal Cannula Appearance: 73 yo M in nAD, AAOx2 Eyes: No Scleral Icterus, PERRLA Ears/Nose/Mouth/Throat: NL Teeth, Lips, Gums, Mucous Membranes Moist, - - mask facies Neck: NL Appearance and Movements; NL JVP Respiratory: Symmetrical Chest Expansion and Respiratory Effort Cardiovascular: NL Sounds; No Murmurs; No JVD, RRR Abdominal: NL Sounds; No Tenderness; No Distention, No Hepatosplenomegaly Lymphatic: No Cervical Adenopathy Extremities: No Clubbing, Cyanosis, - - left post op thigh-mild edema , post op dressings not removed Skin: No Nodules or Sclerosis Neurological: - - rigidity and mask facies noted, speech clear, problems recalling date Result Diagrams: 08/22/18 05:36 08/22/18 05:36 Additional Lab and Data: Laboratory Tests 08/17/18 02:18 Albumin 3.2 Microbiology and Other Data: Microbiology 08/16/18 21:28 Influenza Types A,B Antigen - Final Nasal Specimen received for Influenza A/B Molecular testing Assess/Plan/Problems-Billing 73 yo M transferred from [place] with hip fxr and fevers with stay complicated by acute encephalopathy - Patient Problems (1) Encephalopathy Comment: Acute, resolving with hypoactive delerium differential incudes: amantadine withdrawal and/or toxic in setting of double home dose sinemet Improved with ativan x 1 then resumption of home doses of medications (2) Femoral neck fracture Comment: - s/p left hip ORIF 08/22/18 (3) History of atrial fibrillation Comment: - History for A-fib, he did have intermittent afib reverted into sinus. - Continue Metoprolol-XL 100 mg daily - added Tropol 50 at HS due to his intermittent afib (4) Hypertension Comment: metoprolol (5) Parkinson disease Comment: - Continue Amantadine 100 mg bid, and sinemet 1 tabs QID (6) Rhabdomyolysis Current Visit: Yes Status: Acute Comment: resolved (7) DVT prophylaxis Comment: Eliquis Status and Disposition: inpatient
[2018-08-23] MEDS: Metoprolol Succinate XL TAB* 50 MG PO SCH (21:05)
--- NOTE | 2018-08-24 02:19 | OP ---
OPERATIVE REPORT: DATE OF OPERATION: 08/22/18 DATE OF : 45 SURGEON: Julio C Platt M.D. VB DEVELOPER: KSIP Shane. A physician assistance was required for the length of procedure for assistance with positioning, jonathan pulation, retraction, and closure. ANESTHESIOLOGIST: Nury Mancilla M.D. ANESTHESIA: General anesthesia, 10 cc of local anesthesia Marcaine 0.5% with epinephrine. PRE-OP DIAGNOSIS: Displaced left hip femoral neck fracture. POST-OP DIAGNOSIS: Displaced left hip femoral neck fracture. OPERATIVE PROCEDURE: Left hip bipolar hemiarthroplasty for fracture, open treatment of femoral neck fracture. ANTIBIOTICS: Ancef 2 g IV. IV FLUIDS: 2300 cc crystalloids. SKIN TO SKIN TIME: 93 minutes. SPECIMENS: Femoral head and neck. IMPLANTS: Shelby bipolar hemiarthroplasty, left. Stem was size 12.5, extended offset, M/L taper. I nternal diameter head 28 with a +35 mm in length. Outer bipolar head was size 52 mm. COMPLICATIONS: None. INDICATIONS FOR PROCEDURE: The patient is a 73-year-old man with alf, chronic and aggressive P arkinson's disease, who fell in a diner 8 days preoperatively on 08/14/18. The patient was first adm itted to [facility]. The patient had atrial fibrillation and there were concerns that the laurel ent had stroke symptoms versus seizure activity. The patient was transferred to [facility] for neurology arguelles pport. X-rays at [place] had demonstrated a left hip femoral neck fracture, displaced. Preoperative medical optimization and clearance was delayed for sometime and the patient was finally cleared and optimized for surgery on 08/21/18. The operating room was only available late that night , so we decided to take the patient to the operating room the following afternoon, 08/22/18. Because the patient was slightly confused, I obtained preoperative consent from his . Also, spok e to the patient's 2 daughters prior to the procedure. Discussed risks and protectional complications of both the surgery and of the postoperative course, r elated to surgery and related to accompanying medical problems that can occur with patients recoverin g from hip fracture and hip fracture surgery. The patient's and the patient opted to go forward with surgery. DESCRIPTION OF PROCEDURE: By telephone earlier in the day, the patient's had consented verbally to procedure. Again, later in the day, I discussed with the patient and his . I marked the pat dean's left hip when he was still on the floor. The patient was brought to the operating room and kept on stretcher. The patient was sedated and int ubated. The patient was transferred to the operating room table and positioned in the lateral decubi tus position on top of a peg-board. Axillary roll was placed. Four pegs were placed, 2 anterior and 2 posterior. An impermeable U drape was placed the left hip area from the perineum, anus and penis. Th e patient had previously had a Clancy catheter placed. It should be noted that prior to the procedure while positioning the patient, we noticed some dried s kin about his left buttock. We also noticed some slight darken discoloration to the left end to the right buttocks, which we thought might consist of some very early pressure damage to the subcutaneous tissue. The skin about the left lower extremity was noted to be very dry. This was prepped very thoroughly w ith a chlorhexidine scrub and then ChloraPrep. Left hip was then draped. A surgical time-out was pe rformed. I made a standard skin incision for a Villafana posterior approach to the hip. Dissected from skin to the iliotibial band and gluteus ruma fascia. I revealed that fascial layer. With the hip abducted, I incised this layer. This dissection curved posterior with the proximal end of the incision. I fol lowed the direction of the fibers of the underlying gluteus ruma muscle. I divided the gluteus ma ximus muscles then. There were no bleeders. I next placed a Charnley retractor to retract the fasci al layer. I next was exposed to the greater trochanter. I extended the hip and internally rotated it maximally. I removed bursal tissue with cautery and a Cherie pinzon tonsil pickup. I then placed 2 Cobra retractors for exposure. I identified the piriformis te ndon. I tagged that with a figure-of- eight stitch using the FiberWire #2 suture. I debrided the ex ternal rotators and then the capsule off of the bone with electrocautery. I have placed 3 additional tagging stitches to these tissues. This were all with #2 FiberWire. I next placed a vertical cut in the capsule from lateral to medial, which allowed excellent mobilizat ion of the posterior flap of capsule. I protected the sciatic nerve throughout the case and was able to nicely visualize it. I next flexed and internally rotated the hip, and used an oscillating saw to cut the femoral neck 1 c m proximal to the lesser trochanter. I removed the portion of the cut femoral neck. I placed and then extracted the femoral head. We sized the femoral head to be either 52 or 53 . I then used a sample size of femoral heads in the paimiut acetabulum and decided that a 52 was the best fit. I debrided a minimal amount of pulvinar. There was some bleeding and I stopped it with a Bovie elect rocautery. We placed the hip into a flexed internally rotated position. I removed with cookie cutters some bone from the femoral neck and then placed a canal finder and then used a lateralizing reamer. I next br oached the femur, slightly anteverting as compared to the paimiut anatomy. I broached up to a size 12 .5. I had excellent fit with the canal. I trialed with several head and neck sizes. I found there was too much shuck from medial to lateral, so I decided to use an extended offset stem. I used this extended offset setting. I trialed my trial trial implants and decided that this was a good start. We opened up the final implant 12.5 size femoral stem, extended offset. I placed that in the femur. I then re-trialed several different sizes. I decided that the +3.5 neck gave the proper length of t he lower extremity as compared to the contralateral. I found the hip was stable with 90 degrees of f lexion, 10 degrees of adduction, and up to approximately 70 degrees of internal rotation. I removed trials, irrigated, placed final inner and outer head implants. I irrigated. I located hip . I closed my posterior tissues using my stitches placed previously along with 2 holes in the posterior aspect of the greater trochanter made with a 2.0 mm drill bit. I tied my sutures that were placed t hrough those holes with a hip in an externally rotated extended position. Irrigation. I placed 1 ad ditional stitch through some distal external rotators and periosteum about the greater tuberosity dis tally. I next performed closure of the fascial layer with multiple running stitches using Ethibond 1 suture. Closure of the subcutaneous tissue was done in 2 discrete layers, deep and subcutaneous using burie d simple stitches using Vicryl 2-0 suture. Closure of the skin with lino. 10 cc of local was plac ed about the subcutaneous tissue. Xeroform, 4x4s, ABDs, foam tape. The patient was placed in an abd uction pillow. The patient was awakened and extubated, placed back on the stretcher and transferred to the PACU. DISPOSITION: The patient is readmitted to the medical service. The patient is to be weightbearing a s tolerated and start physical therapy on postoperative day 1. The patient is to be on posterior hip precautions. The patient is to receive Ancef 1 g IV q.8 hours x24 hours postoperatively in addition to any ceftriaxone he is being placed on by Internal Medicine. Physical therapy. Pain control with IV and oral narcotics. Neurology and medicine management of the patient's Parkinson's and any other medical problems. The patient will follow up with me approximately 17 days postoperatively for a wou nd check, staple removal, and x-rays of the left hip. The patient had x-rays of the left hip in the P ACU. These show components well placed. No fracture. Difficult to determine how much if at all the left lower extremity has been lengthened due to the poor quality of the AP of the pelvis. The patie nt, it would be my preference, will be placed on Eliquis for DVT prophylaxis. If the patient is on harpreetic Eliquis, I defer the dosing of that to medical staff as long as it is at or greater than the le cyn of Eliquis 2.5 mg p.o. b.i.d. [id number]/[facility] #: [id number]
[2018-08-24 05:57] LABS: Hematocrit 32 % (42-52); Hemoglobin 10.9 g/dl (14.0-18.0); Mean Corpuscular HGB Conc 34 g/dl (31-36); Mean Corpuscular Hemoglobin 29 pg (27-31); Mean Corpuscular Volume 84 fL (80-94); Mean Platelet Volume 7.7 fL (7.4-10.4); Platelet Count 195 10^3/ul (150-450); Red Blood Count 3.79 10^6/ul (4.00-5.40); Red Cell Distribution Width 15 % (10.5-15); White Blood Count 9.9 10^3/ul (3.5-10.8)
[2018-08-24 06:13] LABS: Calcium 7.7 mg/dL (8.6-10.3); EGFR African American 104.1 (>60)
[2018-08-24 06:24] LABS: Immature Granulocytes 3 % (0-9); Lymphocytes % 4 %; Monocytes % 6 %; Myelocytes % 2 % (0-1); Neutrophil % 85 %; Variant Lymph % 1 % (0-6)
[2018-08-24 06:25] LABS: ABS Neutrophils 8.71 10^3/ul (1.5-7.7)
[2018-08-24] MEDS: Amantadine CAP* 100 MG PO SCH ×2 (09:25→21:26)
[2018-08-24] MEDS: Metoprolol Succinate XL TAB* 100 MG PO SCH (09:25)
[2018-08-24] MEDS: Lacosamide TAB* 50 MG TAB PO SCH ×2 (09:26→21:29)
[2018-08-24] MEDS: Apixaban* 2.5 MG TAB PO SCH ×2 (09:26→21:25)
[2018-08-24] MEDS: LEVODOPA PO SCH ×4 (09:26→21:30)
[2018-08-24] MEDS: CARBIDOPA PO SCH ×4 (09:26→21:30)
[2018-08-24] MEDS: traMADol TAB* 50 MG PO PRN (09:27)
[2018-08-24] MEDS ORDERED: Magnesium Hydroxide LIQ* 30 ML UDC PO PRN (12:14)
[2018-08-24] MEDS: Acetaminophen TAB* 325 MG PO PRN ×2 (12:34→23:26)
[2018-08-24] MEDS: Polyethylene Glycol 3350* 17 GM PACKET PO PRN (12:34)
[2018-08-24] MEDS: Senna TAB PO PRN (12:34)
--- NOTE | 2018-08-24 14:38 | PN ---
Progress Note - Progress Note Date of Service: 08/24/18 SOAP: Subjective: []Patient seen this am. He is less drowsy, sitting in chair. present. Denies significant left hip pain. Objective: [] Vital Signs Temp 97.5 F 08/24/18 11:30 Pulse 77 08/24/18 11:30 Resp 16 08/24/18 12:12 BP 108/58 08/24/18 11:35 Pulse Ox 93 08/24/18 11:30 Intake & Output 08/23/18 08/24/18 08/24/18 18:59 06:59 18:59 Intake Total 1222 100 320 Output Total 375 450 450 Balance 847 -350 -130 Intake: IV Fluids 982 LR 982 Oral 240 100 320 Output: Urine 0 Clancy 375 450 450 Other: Date of Last Bowel 08/15/18 Movement Laboratory Results - last 24 hr 08/24/18 08/24/18 05:44 05:45 WBC 9.9 RBC 3.79 L Hgb 10.9 L Hct 32 L MCV 84 MCH 29 MCHC 34 RDW 15 Plt Count 195 MPV 7.7 Neut % (Auto) Not Reportable Lymph % (Auto) Not Reportable [place] % (Auto) Not Reportable Eos % (Auto) Not Reportable Baso % (Auto) Not Reportable Absolute Neuts (auto) Not Reportable Absolute Lymphs (auto) Not Reportable Absolute Monos (auto) Not Reportable Absolute Eos (auto) Not Reportable Absolute Basos (auto) Not Reportable Absolute Nucleated RBC Not Reportable Immature Gran % 3 Neutrophils % 85 Band Neutrophils % 1 Lymphocytes % 4 Reactive Lymphs % 1 Monocytes % 6 Eosinophils % 1 Myelocytes % 2 H Nucleated RBC % Not Reportable Abs Neuts (Manual) 8.71 H Abs Lymphs (Manual) 0.50 L Abs Monocytes (Manual) 0.59 Absolute Eos (Manual) 0.10 Normal RBC Morphology Normal Sodium 135 Potassium 4.0 Chloride 105 Carbon Dioxide 26 Anion Gap 4 BUN 27 H Creatinine 0.87 Est GFR ( Amer) 104.1 Est GFR (Non-Af Amer) 86.0 BUN/Creatinine Ratio 31.0 H Glucose 128 H Calcium 7.7 L Left hip dressings are clean and dry +DF left ankle sensation grossly intact distally Assessment: []s/p Left hip hemiarthroplasty for femoral neck fracture POD #2 Plan: []PT/OT WBAT LLE Posterior hip precautions Eliquis for DVT prophylaxis
[2018-08-24] MEDS ORDERED: traMADol TAB* 50 MG PO PRN (17:06)
--- NOTE | 2018-08-24 17:12 | PN ---
Subjective Date of Service: 08/24/18 Interval History: Pt was noted to be sedated after receiving 100 mg of PO Ultram , this PM more awake and conversational, but forgetful. Denies pain currently Family History: Unchanged from Admission Social History: Unchanged from Admission Past Medical History: Unchanged from Admission Objective Active Medications: Acetaminophen (Tylenol Tab*) 650 mg PO Q4H PRN PRN Reason: FEVER/PAIN Last Admin: 08/24/18 12:34 Dose: 650 mg Acetaminophen (Tylenol Supp*) 650 mg [place] Q4H PRN PRN Reason: FEVER/PAIN Amantadine HCl (Symmetrel Cap*) 100 mg PO BID [facility] Last Admin: 08/24/18 09:25 Dose: 100 mg Apixaban (Eliquis*) 2.5 mg PO BID [facility] Last Admin: 08/24/18 09:26 Dose: 2.5 mg Carbidopa/Levodopa (Carbidopa/Levodopa Odt (Nf)) 1 tab PO QID [facility] Last Admin: 08/24/18 12:33 Dose: 1 tab Docusate Sodium (Colace Cap*) 100 mg PO BID [facility] Lacosamide (Vimpat Tab*) 50 mg PO BID [facility] Last Admin: 08/24/18 09:26 Dose: 50 mg Magnesium Hydroxide (Milk Of Magnesia Liq*) 30 ml PO BID [facility] Magnesium Hydroxide (Milk Of Magnesia Liq*) 30 ml PO BID PRN PRN Reason: CONSTIPATION Metoprolol Succinate (Toprol Xl Tab*) 100 mg PO DAILY [facility] Last Admin: 08/24/18 09:25 Dose: 100 mg Metoprolol Succinate (Toprol Xl Tab*) 50 mg PO BEDTIME [facility] Last Admin: 08/23/18 21:05 Dose: 50 mg Ondansetron HCl (Zofran Inj*) 4 mg IV Q4H PRN PRN Reason: NAUSEA/VOMITING Oxycodone HCl (Roxycodone Tab*) 10 mg PO Q4H PRN PRN Reason: PAIN - MODERATE TO SEVERE Last Admin: 08/23/18 08:26 Dose: 10 mg Oxycodone/Acetaminophen (Percocet 5/325 Tab*) 1 tab PO Q4H PRN PRN Reason: Pain Last Admin: 08/21/18 21:31 Dose: 1 tab Polyethylene Glycol/Electrolytes (Miralax*) 17 gm PO DAILY PRN PRN Reason: CONSTIPATION Last Admin: 08/24/18 12:34 Dose: 17 gm Senna (Senokot Tab*) 1 tab PO BEDTIME PRN PRN Reason: CONSTIPATION Last Admin: 08/24/18 12:34 Dose: 1 tab Tramadol HCl (Ultram*) 25 mg PO Q4H PRN PRN Reason: PAIN - MILD Vital Signs - 8 hr 08/24/18 08/24/18 08/24/18 09:27 11:30 11:35 Temperature 97.5 F Pulse Rate 77 Respiratory 16 20 Rate Blood Pressure 108/58 (mmHg) O2 Sat by Pulse 93 Oximetry 08/24/18 08/24/18 12:12 16:24 Temperature 98.1 F Pulse Rate 77 Respiratory 16 16 Rate Blood Pressure 119/44 (mmHg) O2 Sat by Pulse Oximetry Oxygen Devices in Use Now: Nasal Cannula Appearance: 73 yo m in nAD, AAOx2 Eyes: No Scleral Icterus, PERRLA Ears/Nose/Mouth/Throat: NL Teeth, Lips, Gums, Mucous Membranes Moist Neck: NL Appearance and Movements; NL JVP, Trachea Midline Respiratory: Symmetrical Chest Expansion and Respiratory Effort Cardiovascular: NL Sounds; No Murmurs; No JVD, RRR Abdominal: NL Sounds; No Tenderness; No Distention Lymphatic: No Cervical Adenopathy Extremities: No Clubbing, Cyanosis, - - left thigh-mild edema Skin: No Nodules or Sclerosis, - - post op dressing on left thigh -not uncovered Neurological: - - mask facies noted, mild increased rigidity-at baseline Result Diagrams: 08/24/18 05:44 08/24/18 05:45 Additional Lab and Data: Laboratory Tests 08/17/18 02:18 Albumin 3.2 Microbiology and Other Data: Microbiology 08/16/18 21:28 Influenza Types A,B Antigen - Final Nasal Specimen received for Influenza A/B Molecular testing Assess/Plan/Problems-Billing 73 yo M transferred from [place] with hip fxr and fevers with stay complicated by acute encephalopathy - Patient Problems (1) Encephalopathy Comment: Acute, resolving with hypoactive delerium differential incudes: amantadine withdrawal and/or toxic in setting of double home dose sinemet Improved with ativan x 1 then resumption of home doses of medications (2) Femoral neck fracture Comment: - s/p left hip ORIF 08/22/18 (3) History of atrial fibrillation Comment: - History for A-fib, he did have intermittent afib reverted into sinus. - Continue Metoprolol-XL 100 mg daily - added Tropol 50 at HS due to his intermittent afib (4) Hypertension Comment: metoprolol (5) Parkinson disease Comment: - Continue Amantadine 100 mg bid, and sinemet 1 tabs QID (6) Rhabdomyolysis Current Visit: Yes Status: Acute Comment: resolved (7) DVT prophylaxis Comment: Eliquis Status and Disposition: inpatient, medically ready for STR
[2018-08-24] MEDS ORDERED: Docusate CAP* 100 MG PO SCH (21:00)
[2018-08-24] MEDS: Metoprolol Succinate XL TAB* 50 MG PO SCH (21:28)
[2018-08-24] MEDS: Magnesium Hydroxide LIQ* 30 ML UDC PO SCH (21:31)
[2018-08-25 06:35] LABS: ABS Neutrophils 8.9 10^3/ul (1.5-7.7); Hematocrit 31 % (42-52); Hemoglobin 10.3 g/dl (14.0-18.0); Mean Corpuscular HGB Conc 33 g/dl (31-36); Mean Corpuscular Hemoglobin 28 pg (27-31); Mean Corpuscular Volume 85 fL (80-94); Platelet Count 214 10^3/ul (150-450); Red Blood Count 3.65 10^6/ul (4.00-5.40); Red Cell Distribution Width 15 % (10.5-15); White Blood Count 10.9 10^3/ul (3.5-10.8)
[2018-08-25 07:10] LABS: ABS Basophils 0 10^3/ul (0-0.2); ABS Eosinophils 0.2 10^3/ul (0-0.6); ABS Lymphocytes 0.9 10^3/ul (1.0-4.8); ABS Monocytes 0.8 10^3/ul (0-0.8); ABS Nucleated RBC 0 10^3/ul; Eosinophil % 1.7 %; Lymphocyte % 8.3 %; Nucleated Red Blood Cells % 0
[2018-08-25 07:58] LABS: Calcium 7.9 mg/dL (8.6-10.3); EGFR African American 111.4 (>60); EGFR Non-African American 92.1 (>60); Potassium 4.1 mmol/L (3.5-5.0)
[2018-08-25] MEDS: Amantadine SOLN* ORALSYR 10 MG/ML ML PO SCH ×2 (08:33→21:32)
[2018-08-25] MEDS: Apixaban* 2.5 MG TAB PO SCH (08:34)
[2018-08-25] MEDS: Metoprolol Tartrate TAB* 50 mg PO SCH ×2 (08:35→21:31)
[2018-08-25] MEDS: CARBIDOPA PO SCH ×4 (08:35→21:32)
[2018-08-25] MEDS: LEVODOPA PO SCH ×4 (08:35→21:32)
[2018-08-25] MEDS: Senna TAB PO PRN (08:36)
[2018-08-25] MEDS: Lacosamide TAB* 50 MG TAB PO SCH ×2 (08:36→21:30)
[2018-08-25] MEDS: Polyethylene Glycol 3350* 17 GM PACKET PO PRN (08:37)
[2018-08-25] MEDS: Acetaminophen ADULT LIQ* 650 MG/20.3 ML UDC PO PRN (08:51)
[2018-08-25] MEDS: Docusate LIQ* 100 MG/10 ML UDC PO SCH ×2 (08:51→21:32)
[2018-08-25] MEDS: Magnesium Hydroxide LIQ* 30 ML UDC PO SCH (08:52)
--- NOTE | 2018-08-25 10:42 | PN ---
Progress Note - Progress Note Date of Service: 08/25/18 SOAP: Subjective: [Pt Denies significant L hip pain. Denies CP, SOB, nausea.] Objective: [Alert, seated in chair. NAD Nurses attending to bathe and change patient. L hip dressing changed. Incision benign. No drainage or erythema. Calf soft, [place]. Distal gross motor, NV function intact. Vital Signs: Temp Pulse Resp BP Pulse Ox 98.4 F 78 18 116/60 92 08/25/18 07:24 08/25/18 07:24 08/25/18 07:24 08/25/18 07:39 08/25/18 07:24 Laboratory Results - last 24 hr 08/25/18 08/25/18 05:41 05:41 WBC 10.9 H RBC 3.65 L Hgb 10.3 L Hct 31 L MCV 85 MCH 28 MCHC 33 RDW 15 Plt Count 214 MPV 8.0 Neut % (Auto) 82.2 Lymph % (Auto) 8.3 Howell % (Auto) 7.4 Eos % (Auto) 1.7 Baso % (Auto) 0.4 Absolute Neuts (auto) 8.9 H Absolute Lymphs (auto) 0.9 L Absolute Monos (auto) 0.8 Absolute Eos (auto) 0.2 Absolute Basos (auto) 0 Absolute Nucleated RBC 0 Nucleated RBC % 0 Sodium 137 Potassium 4.1 Chloride 105 Carbon Dioxide 27 Anion Gap 5 BUN 23 Creatinine 0.82 Est GFR ( Amer) 111.4 Est GFR (Non-Af Amer) 92.1 BUN/Creatinine Ratio 28.0 H Glucose 127 H Calcium 7.9 L ] Assessment: [s/p L hip hemiarthroplasty for femoral neck fx POD #3] Plan: [PT/OT WBAT LLE Posterior hip precautions Eliquis for DVT prophylaxis Likely PMRU placement]
--- NOTE | 2018-08-25 14:40 | PN ---
Subjective Date of Service: 08/25/18 Length of Stay: 9 Days Neurology is following for the management of Parkinson's disease. Interval History: He is more awake today. The family were concerned as he was drowsy and not making sense yesterday. He is much more clear today. He is able to converse with family. It may have been the higher dose of Tramadol that was causing his sedated state. He still has mild-moderate right upper extremity tremor. He would like to feel more loose and would be interested in raising the Sinemet. He is tolerating Amantadine without any evidence of hallucinations. He is not in pain. He is taking a lower dose of Eliquis for DVT but he has history of atrial fibrillation. Review of Systems: Denied CP, SOB, or palpitations. Family History: Unchanged from Admission Social History: Unchanged from Admission Past Medical History: Unchanged from Admission Objective Active Medications: Acetaminophen (Tylenol Supp*) 650 mg [place] Q4H PRN PRN Reason: FEVER/PAIN Acetaminophen (Tylenol Adult Liq*) 650 mg PO Q4H PRN PRN Reason: FEVER/PAIN Last Admin: 08/25/18 08:51 Dose: 650 mg Amantadine HCl (Symmetrel Liq*) 100 mg PO BID [facility] Last Admin: 08/25/18 08:33 Dose: 100 mg Apixaban (Eliquis*) 2.5 mg PO BID [facility] Last Admin: 08/25/18 08:34 Dose: 2.5 mg Carbidopa/Levodopa (Carbidopa/Levodopa Odt (Nf)) 1.5 tab PO QID [facility] Docusate Sodium (Colace Liq*) 100 mg PO BID [facility] Last Admin: 08/25/18 08:51 Dose: 100 mg Lacosamide (Vimpat Tab*) 50 mg PO BID [facility] Last Admin: 08/25/18 08:36 Dose: 50 mg Magnesium Hydroxide (Milk Of Magnesia Liq*) 30 ml PO BID [facility] Last Admin: 08/25/18 08:52 Dose: 30 ml Magnesium Hydroxide (Milk Of Magnesia Liq*) 30 ml PO BID PRN PRN Reason: CONSTIPATION Metoprolol Tartrate (Lopressor Tab*) 75 mg PO Q12HR [facility] Last Admin: 08/25/18 08:35 Dose: 75 mg Ondansetron HCl (Zofran Inj*) 4 mg IV Q4H PRN PRN Reason: NAUSEA/VOMITING Oxycodone HCl (Roxycodone Tab*) 10 mg PO Q4H PRN PRN Reason: PAIN - MODERATE TO SEVERE Last Admin: 08/23/18 08:26 Dose: 10 mg Oxycodone/Acetaminophen (Percocet 5/325 Tab*) 1 tab PO Q4H PRN PRN Reason: Pain Last Admin: 08/21/18 21:31 Dose: 1 tab Polyethylene Glycol/Electrolytes (Miralax*) 17 gm PO DAILY PRN PRN Reason: CONSTIPATION Last Admin: 08/25/18 08:37 Dose: 17 gm Senna (Senokot Tab*) 1 tab PO BEDTIME PRN PRN Reason: CONSTIPATION Last Admin: 08/25/18 08:36 Dose: 1 tab Tramadol HCl (Ultram*) 25 mg PO Q4H PRN PRN Reason: PAIN - MILD Vital Signs 08/25/18 08/25/18 08/25/18 07:50 12:16 12:18 Temperature 98.3 F Pulse Rate 65 Respiratory 16 16 Rate Blood Pressure 115/64 (mmHg) O2 Sat by Pulse 97 Oximetry Intake and Output Last 24 Hours 08/23/18 08/24/18 08/25/18 08/26/18 06:59 06:59 06:59 07:59 Intake Total 3402 1322 1310 710 Output Total 2835 825 450 Balance 567 497 860 710 Intake: IV Fluids 3250 982 LR 3250 982 IVPB 52 ABX - CEFAZOLIN 52 Oral 708 669 8968 710 Output: Urine 0 Clancy 2635 825 450 Estimated Blood Loss 200 Other: Estimated Void Large Medium Date of Last Bowel 08/15/18 08/25/18 Movement # Bowel Movements 1 Estimated Stool Amount Medium # Voids 1 Oxygen Devices in Use Now: None Neurology Exam: General: Well nourished man in no acute distress. He is sitting in a chair comfortably near family. HEENT: Normocephelic/atraumatic, sclera anicteric, mucous membranes moist Extremities: No clubbing, cyanosis, or edema Neurological Findings: Awake, alert, and oriented to person, place, and time. He has hypophonia, hypokinesia, but no aphasia. Masked facies. Cranial Nerve: PERRL, EOM intact, VFF, no nystagmus. Motor: Mod bilateral cogwheel rigidity. Mild resting tremor, right more than left hand. He moves all extremities against gravity (except for the right lower extremity which was not assessed). Sensation: intact to LT/PP bilaterally upper and lower extremities Deep Tendon Reflex: 1+ symmetric in the upper/lower extremities, Babinski - down going Gait: not assessed Result Diagrams: 08/25/18 05:41 08/25/18 05:41 Additional Lab and Data: Laboratory Tests 08/17/18 02:18 Albumin 3.2 Microbiology and Other Data: Microbiology 08/16/18 21:28 Influenza Types A,B Antigen - Final Nasal Specimen received for Influenza A/B Molecular testing Assessment/Plan Assessment/Plan 1. Parkinson's Disease- slight increase in tremor and rigidity today. 2. Left hip fracture s/p surgery 3. Parxoysmal atrial fibrillation Recommendation: - Increased Sinemet to 1.5 tablet four times a day. - Continue amantadine 100 mg twice daily - When can the patient be restarted on full dose Eliquis for atrial fibrillation ? - Continue supportive care - He will benefit from short term rehabilitation ( may be going tomorrow or Monday) - Neurology will sign off but please contact us for any questions or concerns. Discussed with the patient and spouse at bedside.
--- NOTE | 2018-08-25 15:02 | PN ---
Subjective Date of Service: 08/25/18 Interval History: pt is noted with increased tremor today. Sinemet was just increased Family History: Unchanged from Admission Social History: Unchanged from Admission Past Medical History: Unchanged from Admission Objective Active Medications: Acetaminophen (Tylenol Supp*) 650 mg [place] Q4H PRN PRN Reason: FEVER/PAIN Acetaminophen (Tylenol Adult Liq*) 650 mg PO Q4H PRN PRN Reason: FEVER/PAIN Last Admin: 08/25/18 08:51 Dose: 650 mg Amantadine HCl (Symmetrel Liq*) 100 mg PO BID [facility] Last Admin: 08/25/18 08:33 Dose: 100 mg Apixaban (Eliquis*) 5 mg PO BID [facility] Carbidopa/Levodopa (Carbidopa/Levodopa Odt (Nf)) 1.5 tab PO QID [facility] Docusate Sodium (Colace Liq*) 100 mg PO BID [facility] Last Admin: 08/25/18 08:51 Dose: 100 mg Lacosamide (Vimpat Tab*) 50 mg PO BID [facility] Last Admin: 08/25/18 08:36 Dose: 50 mg Magnesium Hydroxide (Milk Of Magnesia Liq*) 30 ml PO BID [facility] Last Admin: 08/25/18 08:52 Dose: 30 ml Magnesium Hydroxide (Milk Of Magnesia Liq*) 30 ml PO BID PRN PRN Reason: CONSTIPATION Metoprolol Tartrate (Lopressor Tab*) 75 mg PO Q12HR [facility] Last Admin: 08/25/18 08:35 Dose: 75 mg Ondansetron HCl (Zofran Inj*) 4 mg IV Q4H PRN PRN Reason: NAUSEA/VOMITING Oxycodone HCl (Roxycodone Tab*) 10 mg PO Q4H PRN PRN Reason: PAIN - MODERATE TO SEVERE Last Admin: 08/23/18 08:26 Dose: 10 mg Oxycodone/Acetaminophen (Percocet 5/325 Tab*) 1 tab PO Q4H PRN PRN Reason: Pain Last Admin: 08/21/18 21:31 Dose: 1 tab Polyethylene Glycol/Electrolytes (Miralax*) 17 gm PO DAILY PRN PRN Reason: CONSTIPATION Last Admin: 08/25/18 08:37 Dose: 17 gm Senna (Senokot Tab*) 1 tab PO BEDTIME PRN PRN Reason: CONSTIPATION Last Admin: 08/25/18 08:36 Dose: 1 tab Tramadol HCl (Ultram*) 25 mg PO Q4H PRN PRN Reason: PAIN - MILD Vital Signs - 8 hr 08/25/18 08/25/18 08/25/18 07:24 07:39 07:50 Temperature 98.4 F Pulse Rate 78 Respiratory 18 16 Rate Blood Pressure 116/60 (mmHg) O2 Sat by Pulse 92 Oximetry 08/25/18 08/25/18 12:16 12:18 Temperature 98.3 F Pulse Rate 65 Respiratory 16 Rate Blood Pressure 115/64 (mmHg) O2 Sat by Pulse 97 Oximetry Oxygen Devices in Use Now: None Appearance: 73 yo M in nAD, AAOx2 Eyes: No Scleral Icterus, PERRLA Ears/Nose/Mouth/Throat: NL Teeth, Lips, Gums, Mucous Membranes Moist Neck: NL Appearance and Movements; NL JVP, Trachea Midline Respiratory: Symmetrical Chest Expansion and Respiratory Effort, Clear to Auscultation Cardiovascular: NL Sounds; No Murmurs; No JVD, RRR Abdominal: NL Sounds; No Tenderness; No Distention Lymphatic: No Cervical Adenopathy Extremities: No Edema, No Clubbing, Cyanosis Skin: No Nodules or Sclerosis, - - left thigh dressings not removed Neurological: NL Muscle Strength and Tone, - - increased trmor in b/l UE's today Result Diagrams: 08/25/18 05:41 08/25/18 05:41 Additional Lab and Data: Laboratory Tests 08/17/18 02:18 Albumin 3.2 Microbiology and Other Data: Microbiology 08/16/18 21:28 Influenza Types A,B Antigen - Final Nasal Specimen received for Influenza A/B Molecular testing Assess/Plan/Problems-Billing 73 yo M transferred from [place] with hip fxr and fevers with stay complicated by acute encephalopathy - Patient Problems (1) Encephalopathy Comment: Acute, resolving with hypoactive delirium differential incuded: amantadine withdrawal and/or toxic in setting of double home dose sinemet Improved with ativan x 1 then resumption of home doses of medications (2) Femoral neck fracture Comment: - s/p left hip ORIF 08/22/18 (3) History of atrial fibrillation Comment: - History for A-fib, he did have intermittent afib reverted into sinus. - Continue Metoprolol-XL 100 mg daily - added Tropol 50 at HS due to his intermittent afib -eliquis restarted post op (4) Hypertension Comment: metoprolol (5) Parkinson disease Comment: - Continue Amantadine 100 mg bid, and sinemet was increased to 1.5 tabs QID on 08/25/18 due to increased tremor (6) Rhabdomyolysis Comment: resolved (7) Anemia Comment: acute post op , Hb as expected (8) DVT prophylaxis Comment: Eliquis Status and Disposition: inpatient, medically ready for STR
[2018-08-25] MEDS: Apixaban* 5 MG TAB PO SCH (21:30)
[2018-08-26] MEDS: oxyCODONE/Acetamin 5/325 MG* TAB PO PRN (04:22)
--- NOTE | 2018-08-26 08:04 | PN ---
Progress Note - Progress Note Date of Service: 08/26/18 SOAP: Subjective: [Pt reports minimal to no pain L hip. Denies CP, SOB, nausea] Objective: [Sleeping in bed, easily awakened. NAD L hip dressing C/D/I. Distal gross motor, NV function intact. calf soft, NT Vital Signs: Temp Pulse Resp BP Pulse Ox 99.3 F 73 15 128/46 94 08/26/18 07:40 08/26/18 07:40 08/26/18 07:40 08/26/18 07:40 08/26/18 07:40 Laboratory Results - last 24 hr 08/25/18 08/25/18 05:41 05:41 Neut % (Auto) 82.2 Lymph % (Auto) 8.3 Becker % (Auto) 7.4 Eos % (Auto) 1.7 Baso % (Auto) 0.4 Absolute Lymphs (auto) 0.9 L Absolute Monos (auto) 0.8 Absolute Eos (auto) 0.2 Absolute Basos (auto) 0 Absolute Nucleated RBC 0 Nucleated RBC % 0 Sodium 137 Potassium 4.1 Chloride 105 Carbon Dioxide 27 Anion Gap 5 BUN 23 Creatinine 0.82 Est GFR ( Amer) 111.4 Est GFR (Non-Af Amer) 92.1 BUN/Creatinine Ratio 28.0 H Glucose 127 H Calcium 7.9 L ] Assessment: [s/p L hip hemiarthroplasty POD #4 Parkinson's] Plan: [PT/OT - WBAT LLE Posterior hip precautions Pain management Eliquis for DVT prophylaxis Likely PMRU placement Neuro and medicine following ]
[2018-08-26] MEDS: LEVODOPA PO SCH ×2 (08:42→13:00)
[2018-08-26] MEDS: CARBIDOPA PO SCH ×2 (08:42→13:00)
[2018-08-26] MEDS: Amantadine SOLN* ORALSYR 10 MG/ML ML PO SCH (08:43)
[2018-08-26] MEDS: Lacosamide TAB* 50 MG TAB PO SCH (08:43)
[2018-08-26] MEDS: Docusate LIQ* 100 MG/10 ML UDC PO SCH (08:43)
[2018-08-26] MEDS: Apixaban* 5 MG TAB PO SCH (08:43)
[2018-08-26] MEDS: Metoprolol Tartrate TAB* 50 mg PO SCH (08:43)
--- NOTE | 2018-08-26 09:51 | PN ---
Subjective Date of Service: 08/26/18 Interval History: Pt feels well. still c/o hand tremor and needs to be fed. Family History: Unchanged from Admission Social History: Unchanged from Admission Past Medical History: Unchanged from Admission Objective Active Medications: Acetaminophen (Tylenol Supp*) 650 mg [place] Q4H PRN PRN Reason: FEVER/PAIN Acetaminophen (Tylenol Adult Liq*) 650 mg PO Q4H PRN PRN Reason: FEVER/PAIN Last Admin: 08/25/18 08:51 Dose: 650 mg Amantadine HCl (Symmetrel Liq*) 100 mg PO BID [facility] Last Admin: 08/26/18 08:43 Dose: 100 mg Apixaban (Eliquis*) 5 mg PO BID [facility] Last Admin: 08/26/18 08:43 Dose: 5 mg Carbidopa/Levodopa (Carbidopa/Levodopa Odt (Nf)) 1.5 tab PO QID [facility] Last Admin: 08/26/18 08:42 Dose: 1.5 tab Docusate Sodium (Colace Liq*) 100 mg PO BID [facility] Last Admin: 08/26/18 08:43 Dose: 100 mg Lacosamide (Vimpat Tab*) 50 mg PO BID [facility] Last Admin: 08/26/18 08:43 Dose: 50 mg Magnesium Hydroxide (Milk Of Magnesia Liq*) 30 ml PO BID PRN PRN Reason: CONSTIPATION Metoprolol Tartrate (Lopressor Tab*) 75 mg PO Q12HR [facility] Last Admin: 08/26/18 08:43 Dose: 75 mg Ondansetron HCl (Zofran Inj*) 4 mg IV Q4H PRN PRN Reason: NAUSEA/VOMITING Oxycodone HCl (Roxycodone Tab*) 10 mg PO Q4H PRN PRN Reason: PAIN - MODERATE TO SEVERE Last Admin: 08/23/18 08:26 Dose: 10 mg Oxycodone/Acetaminophen (Percocet 5/325 Tab*) 1 tab PO Q4H PRN PRN Reason: Pain Last Admin: 08/26/18 04:22 Dose: 1 tab Polyethylene Glycol/Electrolytes (Miralax*) 17 gm PO DAILY PRN PRN Reason: CONSTIPATION Last Admin: 08/25/18 08:37 Dose: 17 gm Senna (Senokot Tab*) 1 tab PO BEDTIME PRN PRN Reason: CONSTIPATION Last Admin: 08/25/18 08:36 Dose: 1 tab Tramadol HCl (Ultram*) 25 mg PO Q4H PRN PRN Reason: PAIN - MILD Vital Signs - 8 hr 08/26/18 08/26/18 08/26/18 03:10 04:22 06:19 Temperature 97.9 F Pulse Rate 76 Respiratory 17 18 17 Rate Blood Pressure 117/52 (mmHg) O2 Sat by Pulse 99 Oximetry 08/26/18 08/26/18 07:40 07:57 Temperature 99.3 F Pulse Rate 73 Respiratory 15 16 Rate Blood Pressure 128/46 (mmHg) O2 Sat by Pulse 94 Oximetry Oxygen Devices in Use Now: None Appearance: 73 yo M in nAD, aAOx2 Eyes: No Scleral Icterus, PERRLA Ears/Nose/Mouth/Throat: NL Teeth, Lips, Gums, Mucous Membranes Moist Neck: NL Appearance and Movements; NL JVP, Trachea Midline Respiratory: Symmetrical Chest Expansion and Respiratory Effort, Clear to Auscultation Cardiovascular: NL Sounds; No Murmurs; No JVD, RRR Abdominal: NL Sounds; No Tenderness; No Distention, No Hepatosplenomegaly Lymphatic: No Cervical Adenopathy Extremities: No Clubbing, Cyanosis Skin: No Rash or Ulcers, No Nodules or Sclerosis, - - post op left hip dressing not uncovered Neurological: - - resting tremor in b/l LE's, mask facies noted Result Diagrams: 08/25/18 05:41 08/25/18 05:41 Additional Lab and Data: Laboratory Tests 08/17/18 02:18 Albumin 3.2 Microbiology and Other Data: Microbiology 08/16/18 21:28 Influenza Types A,B Antigen - Final Nasal Specimen received for Influenza A/B Molecular testing Assess/Plan/Problems-Billing 73 yo M transferred from [place] with hip fxr and fevers with stay complicated by acute encephalopathy - Patient Problems (1) Encephalopathy Comment: Acute, resolved with hypoactive delirium differential incuded:amantadine withdrawal and/or toxic in setting of double home dose sinemet Improved with ativan x 1 then resumption of home doses of medications (2) Femoral neck fracture Comment: - s/p left hip ORIF 08/22/18 (3) History of atrial fibrillation Comment: - History for A-fib, he did have intermittent afib reverted into sinus. - Continue Metoprolol-XL 100 mg daily - added Tropol 50 at HS due to his intermittent afib -eliquis restarted post op (4) Hypertension Comment: metoprolol (5) Parkinson disease Comment: - Continue Amantadine 100 mg bid, and sinemet was increased to 1.5 tabs QID on 08/25/18 due to increased tremor (6) Rhabdomyolysis Comment: resolved (7) Anemia Comment: acute post op , Hb as expected (8) DVT prophylaxis Comment: Eliquis Status and Disposition: inpatient, medically ready for STR
[2018-08-26] MEDS: Acetaminophen ADULT LIQ* 650 MG/20.3 ML UDC PO PRN (14:46)
[2018-08-26 16:40] VITALS: BP 125/48
--- NOTE | 2018-08-26 22:51 | DS ---
CC: Dr. Darin Beaulieu; Dr. Maza, Neurology; Dr. Platt, Orthopedic Surgery; Dr. Gutierrez; Dr. Scruggs, Neurology; Dr. Martinez; Dr. Grady * DISCHARGE SUMMARY: DATE OF ADMISSION: 08/16/18 DATE OF DISCHARGE AND TRANSFER: To our physiotherapy unit at [facility] 08/26/18. PRIMARY CARE PROVIDER: Dr. Darin Beaulieu. DISCHARGE DIAGNOSES: 1. Status post fall and left hip fracture. The patient had a surgical repair of the left hip fracture on 08/23/[address] Platt and bipolar hemiarthroplasty was performed at that point. 2. Acute, likely medication related encephalopathy, possibly due to amantadine withdrawal and toxic encephalopathy in the setting of double dose of home dose Sinemet, that resolved. 3. Rhabdomyolysis, posttraumatic, postfall, that resolved. 4. Anemia, postoperative, stable. SECONDARY DIAGNOSES: 1. History of paroxysmal atrial fibrillation. 2. History of Parkinson's. 3. History of mild memory impairment. 4. History of cerebrovascular accident in 2018 without residual deficits. 5. Hypertension. 6. Hyperlipidemia. 7. History of seizure disorder. 8. Status post acoustic neuroma removal. MEDICATIONS AT DISCHARGE: Include: 1. Senna 1 tablet at bedtime. 2. MiraLAX 17 g daily. 3. Sinemet a tablet and a half 4 times a day. 4. Acetaminophen on a p.r.n. basis. 5. Zocor 40 mg daily. 6. Toprol-XL 100 mg daily. 7. Vimpat 50 mg b.i.d. 8. Eliquis 5 mg b.i.d. 9. Amantadine 100 mg b.i.d. LABORATORY DATA AND STUDIES PERFORMED DURING THE HOSPITAL STAY: Laboratory data obtained on 08/25/18 showed white blood cell count of 10.9, hemoglobin of 10.3, hematocrit of 31, and platelets 214. Sodium 137, potassium 4.1, chloride 105, carbon dioxide 27, BUN 26, creatinine 0.82. Blood cultures obtained at admission were negative. Transthoracic echocardiogram obtained on 08/18/18 showed mild to moderate LVH with EF of 55% to 60%, with left ventricular septal wall motion abnormality due to right bundle-branch block. There was no patent foramen ovale demonstrated. There was trace mitral regurgitation and mild dilatation of the ascending aorta at 3.8 cm. Carotid Dopplers obtained on 08/20/18, impression: "There is a mild to moderate plaque within the carotid bulbs and proximal internal carotid artery on both sides. There was no evidence for hemodynamically significant stenosis." Brain CT obtained on 08/20/18, impression: "No acute intracranial process evident. Stable exam." CONSULTATIONS DURING THE HOSPITAL STAY: Included Dr. Gutierrez, Dr. Maza, and Dr. Scruggs from Neurology and Dr. Platt from Orthopedic Surgery. HOSPITALIZATION COURSE: Mr. Monge is a 73-year-old male with history of Parkinson's who was transferred from [facility] to our facility on . The patient was admitted to [place] after a fall with a hip fracture couple of days prior. During those couple of days, his Eliquis was discontinued and the patient was being prepared for hip surgery. Apparently, he had been in his usual state of health for a couple of days at [facility] until 08/16/18 when he was noted to have generalized tremors and spastic movements of all of his extremities. The patient also appeared to be in hypoxic delirium. Due to no neurology service at [facility], the patient was transferred to our facility for further evaluation by neurologist. Here, he was seen by our neurology service and it was noted that his dose of Sinemet was inadvertently doubled at [facility] and the patient had not gotten his amantadine for a day or two. The patient's medications were restarted and he received a dose of Ativan, which improved his tremors greatly. Nevertheless, he continued to have hypoxic delirium with encephalopathy for the next few days. He was eventually able to have a surgery done on 08/23/[address] Platt performed ORIF of the left hip without any major difficulties. Postoperatively, the patient developed tremors, worse so than his baseline and his Sinemet was increased to a tablet and a half 4 times a day with improvement the patient still has tremors by the time of discharge to physiotherapy unit. Initially, the patient was febrile and he was placed on broad-spectrum antibiotics. No source of infection was identified and the patient's antibiotics were discontinued preoperatively. Please also note that the patient had rhabdomyolysis on admission to our facility and his CPK level on 08/18/18 was 1431. That improved after a couple of days and resolved. It was thought to be due to tremor sustained after the fall. Postoperatively, the patient did rather well. His mental state is almost back to his baseline. He is pleasant and cooperative, but with masked face noted due to his Parkinson's. Once again, he does have significant bilateral upper extremity tremors still and he is unable to feed himself. Our physiotherapy unit evaluated the patient and accepted the patient for admission on 08/26/18. For physical exam at discharge, please see daily progress notes. The patient's case was discussed with Dr. Martinez, our physiotherapy unit specialist, who accepted the patient for transfer. Please note that this is a short summary of the patient's hospitalization. Please refer to further medical records for details. TIME SPENT: Approximately 45 minutes was spent on the patient's discharge. [id number]/CPS #: [id number] MTDD
== END 2018-08-26 16:05 | DRG 981 ==
LOC: SSU 19:31
PROVIDERS: ADMIT Internal Medicine; ATTEND Internal Medicine
PROC: 4A00X4Z Measurement of Central Nervous Electrical Activity, External Approach (ICD-10-PCS; 2018-08-17)
PROC: 0SRS0JZ Replacement of Left Hip Joint, Femoral Surface with Synthetic Substitute, Open Approach (ICD-10-PCS; principal; 2018-08-22 16:15)
DX: G92 Toxic encephalopathy (principal); S72.002A Fracture of unspecified part of neck of left femur, initial encounter for closed fracture; F19.231 Other psychoactive substance dependence with withdrawal delirium; T79.6XXA Traumatic ischemia of muscle, initial encounter; W00.0XXA Fall on same level due to ice and snow, initial encounter; Y92.239 Unspecified place in hospital as the place of occurrence of the external cause; G20 Parkinson's disease; G40.909 Epilepsy, unspecified, not intractable, without status epilepticus; I48.0 Paroxysmal atrial fibrillation; E78.5 Hyperlipidemia, unspecified; I45.10 Unspecified right bundle-branch block; I77.819 Aortic ectasia, unspecified site; K57.90 Diverticulosis of intestine, part unspecified, without perforation or abscess without bleeding; N40.0 Benign prostatic hyperplasia without lower urinary tract symptoms; T42.8X5A Adverse effect of antiparkinsonism drugs and other central muscle-tone depressants, initial encounter; Y92.238 Other place in hospital as the place of occurrence of the external cause; G24.9 Dystonia, unspecified; I25.10 Atherosclerotic heart disease of native coronary artery without angina pectoris; K64.9 Unspecified hemorrhoids; D64.9 Anemia, unspecified; Z86.73 Personal history of transient ischemic attack (TIA), and cerebral infarction without residual deficits; Z85.820 Personal history of malignant melanoma of skin; Z88.8 Allergy status to other drugs, medicaments and biological substances; Z82.49 Family history of ischemic heart disease and other diseases of the circulatory system; Z80.6 Family history of leukemia; Z79.01 Long term (current) use of anticoagulants
CPT/HCPCS: 36415; 70450; 71045; 74018; 80048; 80053; 80202; 81003; 81015; 82140; 82550; 82565; 82607; 83605; 83735; 84100; 84443; 84520; 85025; 85610; 85730; 86850; 86900; 86901; 87040; 87086; 88305; 88311; 93005; 93306; 93880; 95816; A9270-GY; C1776; G8978-GP-CM; G8979-GP-CJ; G8987-GO-CN; G8988-GO-CK; J0133; J0330; J0456; J0690; J0696; J1100; J1170; J1644; J1650; J1885; J2060; J2250; J2405; J2704; J3010; J3370; J3475; J3490

== ENCOUNTER 2018-08-26 16:06 | Inpatient (IN) | payer MEDICARE, BC ==
--- OUTSIDE RECORDS SUMMARY | 2018-08-26 16:12 | XMS REPORT | Continuity of Care Document ---
:1945 External Reference #:[id number] Author Name Debra Regalado Care Team Providers Name Role Phone Darin Chew MD Primary Care Physician Unavailable Payers Date Identification Numbers Payment Provider Subscriber Policy Number: [id number] Medicare Ebenezer Monge PayID: [id number] [address] [place] [address] Policy Number: [id number] [facility] Sandra Monge PayID: [id number] [address] [place] [address] Advance Directives Description No Information Available Problems [...] [place]k; stereotactic radiotherapy 10/[address] Whipple ([facility]) Onset: 02/01/2017 Mild cognitive disorder Chantell Grady M.D. 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 Miralax Active Powder 3350NF 17 gm Unknown /0000 every day mixed w/ 8 oz water/jui ce Vimpat Active Tablets 100mg 90tab 1/2 tab Chantell /0000 s by mouth Ysabel, twice a M.D. day Code C Senna-Tabs Active Tablets 8.6mg 1 tabs Unknown /0000 by mouth twice a day Simvastatin 00/00 Active Tablets 40mg take 1 Unknown /0000 tablet by mouth at bedtime Levetiracetam 07/21 Hx Tablets 250mg 180ta take 1 by Chantell bs mouth Ysabel, - twice a M.D. (this replaces carbamaze pine) Carbidopa-Levodopa 09/28 Hx Tablets 25-100mg 90tab take 1 G20 s tablet by Ysabel, - mouth in M.D. 11/01 am (with extended release) Carbidopa-Levodopa 03/25 Hx Tablets 50-200mg 270ta 1 tab by Chantell ER bs mouth Ysabel, - three M.D. 09/14 times day Selegiline [...] qd Qutayb S. - Maghaydah 10/02 , M.D. /2006 Clonidine 07/31 Hx Tablets 0.3mg 1 po Qutayb S. - Maghaydah 10/02 , .D. /2006 Lisinopril 07/31 Hx Tablets 10mg 30tab 1 PO qd Qutaybeh s S. - Maghaydah 08/24 , M.D. /2006 Clonidine 06/27 Hx Tablets 0.3mg 180ta 1 po bid Qutayb bs S. - Maghaydah 07/31 , M.D. /2006 Hydrochlorothiazide 05/30 Hx Tablets 25mg 90tab 1 po qd Qutayb s S. - Maghayd[place] 10/17 , M.D. /2013 Tricor 05/22 Hx Tablets 145mg 30tab 1 PO qd Qutayb s S. - Maghayd[place] 12/04 , M.D. /2006 Clonidine 05/22 Hx Tablets 0.2mg 60tab 1 po bid Qutayb s S. - [place] 06/27 , M.D. /2006 Clonidine 01/18 Hx Tablets 0.2mg 1 po [facility]d [facility] /2005 Avapro 10/31 Hx Tablets 300mg 90tab 1 po qd [facility] 07[facility] , M.D. /2013 Norvasc 10/31 Hx Tablets 10mg 30tab 1 tab po Qutayb s qd S. - [place] 02/01 , M.D. /2016 Niaspan 10/31 Hx Capsules 500mg 30cap 1 po q pm [facility] 05[facility] , M.[facility]. /2005 Toprol XL 09/28 Hx Tablets 150mg 1 po qd Qutayb S. - Maghayd[place] 12/04 , M.D. /2006 Clonidine 09/28 Hx Tablets 0.2mg 120ta 1 po bid Qutayb [facility]. - Maghaydah 01/18 , M.D. /2005 Clonidine 08/17 Hx Tablets 0.1mg 120ta 1 po bid Qutayb S. - [place] 09/28 , M.D. /2005 Tegretol 08/16 Hx Tablets 200mg 90tab 1 po qd Qutayb s S. - [place] 07/11 , M.D. /2013 Zocor 08/16 Hx Tablets 40mg 90tab 1 PO qd [facility] 04/26 , M.D. /2006 Toprol XL 08/16 Hx Tablets 100mg 30tab 1 po qd [facility] 09/28 , M.D. Avalide 08/16 Hx Tablets 300mg;12. 30tab 1 po qd 5 mg s [facility] - [facility] 10[facility] , [facility]. [facility] 08/16 Hx Tablets 5mg 30tab 1 po tid s S. - [facility] 08/17 , [facility]. [facility] 08/16 Hx Tablets 15mg 1 po qd S. - [facility] 10/31 , M.D. Selegiline HCL Hx Tablets [...] /0000 ER po at - bedtime 09/27 pr Carbidopa/Levodopa Hx Tablets 50-200mg 90tab 1 tab po Unknown ER /0000 ER s bid - 03/25 Amlodipine Besylate Hx Tablets 10mg Take One Unknown /0000 Tablet By - Mouth 09/14 Every Day /2017 Mederma PM Hx Cream 2% use on Unknown /0000 feet bid - as needed 07/19 Benzonatate Hx Capsules 100mg one by Unknown /0000 mouth - three 09/14 times daily as needed for cough Rytary Hx Capsules 48.75-195 360ca 1 by G20 Chantell /0000 ER mg ps mouth 4 Cowdery, - times a M.D. Lorazepam Hx Tablets 1mg 1 by Unknown /0000 [...] Result H/L Range Note Urinalysis Profile 03/14/2018 [facility] Urine Color Lorena [address] [place] [address] [phone] Urine Appearance Cloudy Urine Specific [place] 1.026 N 1.010-1.030 Urine pH 5.0 N 5-9 Urine Urobilinogen Positive Abnormal Negative Urine Ketones Trace Abnormal Negative Urine Protein Negative Negative Urine Leukocytes Negative Negative Urine Blood Negative Negative Urine Nitrite Negative Negative Urine Bilirubin Negative Negative Urine Glucose Negative Negative Urine Culture And 03/14/2018 [facility] Urine Culture SEE RESULT [address] [place] [address] [phone] Basic Metabolic 12/26/2005 [facility] One Over 1.[address] [place] [address] [phone] Anion Gap 5.0 mmol/L 2-11 2 BUN 19 mg/dL 6-24 Calcium 9.3 mg/dL 8.7-10.2 Chloride 105 mmol/L 101-111 Co2 (Carbon Dioxide) 28.0 mmol/L 22-32 Glucose 91 mg/dL 70-105 Potassium 4.3 mmol/L 3.5-5.0 Sodium 138 mmol/L 135-145 BUN/Creatinine Ratio 19.0 8-20 Creatinine 1.0 mg/dL 0.5-1.4 1 SEE RESULT BELOW Name: EBENEZER MONGE : [address]: Chantell Grady MD Acct: [id number] Unit: [id number] AGE: 72 Location: LAB Re03/14/18 SEX: M Status: REG REF SPEC: [id number] MALCOLM: 03/14/18-[address]: Chantell Grady MD REQ: [id number] RECD: 03/14/18 STATUS: [facility] DR: Darin Chew MD _ SOURCE: URINE SPDESC: ORDERED: Urine Culture COMMENTS: Copy Result to: DARIN CHEW ([id number]) Procedure Result Reported Site Urine Culture Final 03/15/18- 1255 ML Mixed khadijah; possible contamination. Suggest resubmission. * ML - Main Lab . END OF REPORT DEPARTMENT OF PATHOLOGY, [address] [place] [address] Singh Landaverde M.D. Director [facility] # [id number] 2 Anion gap measurement may be of limited value in the presence of any alkalosis, especially in a combined acid base disorder. . Procedures Date Code Description Status 07/20/2018 25271 EKG Tracing & Interpretation Completed 07/20/2017 09251 EKG Tracing & Interpretation Completed 07/12/2017 78568 ECHO Transthorasic Realtime 2D W Doppler & Color Flow Hosp Completed 03/29/2017 22032 ECHO Transthoracic, Real-Time 2D With Doppler And Color Completed Flow 03/29/2017 62473 ECHO Transthoracic, Real-Time 2D With Doppler And Color Completed Flow 03/01/2017 37826 EKG Tracing & Interpretation Completed 06/08/2016 87994 EKG Tracing & Interpretation Completed 09/22/2015 87689 EKG Tracing & Interpretation Completed 10/28/2014 19552 EKG Tracing & Interpretation Completed 06/23/2014 26786 EEG Recording Awake & Drowsy Completed 04/03/2014 11519 EKG Tracing & Interpretation Completed 03/18/2014 27811 EEG Recording Awake & Asleep Completed 08/08/2013 60180 ECHO Transthoracic, Real-Time 2D With Doppler And Color Completed Flow 07/11/2013 16833 EKG Tracing & Interpretation Completed 11/04/2011 64208 EKG Tracing & Interpretation Completed 11/05/2009 60437 EKG Tracing & Interpretation Completed 08/25/2009 47926 ECHO Stress Test Incl Perf Contiuous ekg Monitoring W/Phys Completed Superv 08/25/2009 39392 ECHO Transthoracic, Real-Time 2D With Doppler And Color Completed Flow 08/25/2009 35992 ECHO Transthoracic, Real-Time 2D With Doppler And Color Completed Flow 12/25/2008 26611 EKG Tracing & Interpretation Completed 05/20/2008 71150 EKG Tracing & Interpretation Completed 04/15/2008 38424 Stress Test Completed 04/15/2008 27735 Stress Test Completed 04/15/2008 45558 ECHO/Stress Completed 04/15/2008 94496 ECHO/Stress Completed 04/15/2008 54955 ECHO/Stress Completed 03/07/2008 66468 Color Doppler Completed 03/07/2008 71958 Color Doppler Completed 03/07/2008 73907 Pulse Doppler & Continuous Wave Completed 03/07/2008 33095 Pulse Doppler & Continuous Wave Completed 03/07/2008 96480 Pulse Doppler & Continuous Wave Completed 03/07/2008 18053 Echocardiogram Completed 03/07/2008 58880 Echocardiogram Completed 05/24/2006 10685 Left Heart Catheterization Completed 05/24/2006 29700 Left Heart Catheterization Completed 05/24/2006 31190 Inj Proc LFT Vent/LFT Atrl Angio Completed 05/24/2006 20014 Coronary Angiography Completed 05/24/2006 20416 Coronary Angiography Completed 05/24/2006 60107 S/I/R Inj Proc Vent And Or Atrial Completed 05/24/2006 52021 Selective Coronary Angioplasty Completed 05/24/2006 12496 Selective Coronary Angioplasty Completed 05/22/2006 99018 EKG Tracing & Interpretation Completed 12/26/2005 21565 EKG Tracing & Interpretation Completed 08/30/2005 97883 ECHO/Stress Completed 08/30/2005 87566 Stress Test Completed 08/24/2005 78091 Color Doppler Completed 08/24/2005 98182 Pulse Doppler & Continuous Wave Completed 08/24/2005 96859 Echocardiogram Completed 08/17/2005 68683 EKG Tracing & Interpretation Completed Encounters Type Date Location Provider Dx Diagnosis Office Visit 07/20/2018 [facility] Regi SAyleen I10 Essential ( primary) 3:20p Jefry Martinez hypertension I51.7 Cardiomegaly I48.91 Unspecified atrial fibrillation Z98.890 Other specified postprocedural states R94.31 Abnormal electrocardiogram [ECG] [EKG] Office Visit 07/13/2018 2:30p [facility] Sonu Cooper [facility] Mary Capps disease D33.3 Benign neoplasm of cranial nerves G40.89 Other seizures Office Visit 03/14/2018 [facility] Sonu Cooper Parkinson's 11:15a [facility] Jefry disease D33.3 Benign neoplasm of cranial nerves R35.0 Frequency of micturition Z86.73 Prsnl hx of TIA (TIA), and cereb infrc w/o resid deficits I48.91 Unspecified atrial fibrillation 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 Office Visit 12/07/2017 9:30a [facility] Sonu Cooper [facility] Of Andrez Capps disease Z86.73 Prsnl hx of TIA (TIA), and cereb infrc w/o resid deficits D33.3 Benign neoplasm of cranial nerves G40.89 Other seizures Office Visit 10/30/2017 4:00p [facility] Regi SAyleen I10 Essential Jefry Martinez (primary) hypertension I25.10 Athscl heart disease of [place] coronary artery w/o ang pctrs I48.91 Unspecified atrial fibrillation I51.7 Cardiomegaly Z86.73 Prsnl hx of TIA (TIA), and cereb infrc w/o resid deficits Office Visit 09/15/2017 11:30a [facility] Chantell Grady, G20 [facility] Andrez Capps disease D33.3 Benign neoplasm of cranial nerves G40.89 Other seizures Office Visit 07/20/2017 8:30a [facility] Merle S. I63.9 Cerebral Foster, N.P. 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 infarction, Hospitalists unspecified G20 Parkinson's disease I10 Essential (primary) hypertension E78.5 Hyperlipidemia, unspecified Office Visit 07/11/2017 [facility] Ebenezer I63.9 Cerebral 7:00a Clinic MD Kael infarction, unspecified I10 Essential (primary) hypertension I48.92 Unspecified atrial flutter G20 Parkinson's disease Office Visit 03/01/2017 3:00p [facility] Regi Aguayo I10 Ramos Martinez M.D. (primary) hypertension I25.10 Athscl heart disease of [place] coronary artery w/o ang pctrs E78.4 Other hyperlipidemia I36.1 Nonrheumatic tricuspid (valve) insufficiency I34.0 Nonrheumatic mitral (valve) insufficiency R06.02 Shortness of breath Office Visit 02/01/2017 8:30a [facility] Chantell Grady, G20 [facility] M.Olya disease R29.6 Repeated falls D33.3 Benign neoplasm of cranial nerves G40.909 Epilepsy, unsp, not intractable, without status epilepticus G31.84 Mild cognitive impairment, so stated Office Visit 09/28/2016 9:00a [facility] Chantell Grady, G20 [facility] MValeri disease G40.909 Epilepsy, unsp, not intractable, without status epilepticus D33.3 Benign neoplasm of cranial nerves Office Visit 06/08/2016 2:00p [facility] Regi S. I10 Ramos Martinez M.D. (primary) hypertension I25.10 Athscl heart disease of [place] coronary artery w/o ang pctrs E78.4 Other hyperlipidemia I36.1 Nonrheumatic tricuspid (valve) insufficiency Office Visit 10/21/2015 11:00a [facility] Chantell Grady G2Gilson [facility] MValeri disease G40.909 Epilepsy, unsp, not intractable, without status epilepticus D33.3 Benign neoplasm of cranial nerves Office Visit 09/22/2015 1:40p [facility] Regi S. I10 Ramos Martinez M.D. (primary) hypertension I25.10 Athscl heart disease of [place] coronary artery w/o ang pctrs E78.4 Other hyperlipidemia I36.1 Nonrheumatic tricuspid (valve) insufficiency Office Visit 04/13/2015 11:00a [facility] Chantell Grady G2Gilson [facility] Jefry disease G40.909 Epilepsy, unsp, not intractable, without status epilepticus D33.3 Benign neoplasm of cranial nerves R20.2 Paresthesia of skin Office Visit 10/28/2014 [facility] Regi S. 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 401.1 Hypertension 2:20p Cardiology Victorino Martinez M.D. Benign [facility] 414.01 Coronary Atherosclerosis [place] 272.4 Hyperlipidemia Other Unspec Office Visit 03/06/2014 2:00p [facility] Chantell Dupontmichelle, 332.0 [facility] [employer] Driver GiorigValeri Flaquitojuanita 225.1 Benign Neoplasm Cranial Nerves 345.90 Epilepsy Unspec W/O Intractable Office Visit 10/30/2013 9:00a [facility] Chantell Dupontmichelle, 332.0 [facility] Andrez RandAyleenRickeyAyleen Flaquitojuanita 225.1 Benign Neoplasm Cranial Nerves Office Visit 07/11/2013 Negro Deluna S. 401.1 Hypertension 3:00p Cardiology Jefry Martinez Benign 272.4 Hyperlipidemia Other Unspec 414.01 Coronary Atherosclerosis [place] Office Visit 11/28/2012 Negro Deluna S. 414.01 Coronary 9:00a Cardiology Jefry Martinez Atherosclerosis [place] 401.1 Hypertension Benign 272.4 Hyperlipidemia Other Unspec 424.2 Tricuspid Valve Disorder Spec as Nonrheumatic Office Visit 04/26/2012 Negro Abdul 414.01 Coronary 10:30a Cardiology Jeff, N.PAyleen Atherosclerosis [place] 401.1 Hypertension Benign 272.4 Hyperlipidemia Other Unspec Office Visit 11/04/2011 [facility] Deluna S. 414.01 Coronary 10:00a Cardiology Jefry Martinez Atherosclerosis [place] 272.4 Hyperlipidemia Other Unspec 401.1 Hypertension Benign 424.2 Tricuspid Valve Disorder Spec as Nonrheumatic Office Visit 11/01/2010 Negro Deluna S. 414.01 Coronary 9:00a Cardiology Juna, M.D. Atherosclerosis [place] 272.4 Hyperlipidemia Other Unspec 401.1 Hypertension Benign Office Visit 11/05/2009 [facility] Qutaybeh S. 414.01 Coronary 3:00p Violet Martinez M.D. Atherosclerosis [place] 401.1 Hypertension Benign 272.4 Hyperlipidemia Other Unspec Office Visit 12/25/2008 [facility] Qutaybeh S. 414.01 Coronary 2:00p Violet Martinez M.D. Atherosclerosis [place] 272.4 Hyperlipidemia Other Unspec 401.1 Hypertension Benign Office Visit 05/20/2008 [facility] Qutaybeh S. 401.0 Hypertension 9:00a Violet Martinez M.D. Malignant 414.01 Coronary Atherosclerosis [place] 272.4 Hyperlipidemia Other Unspec Office Visit 10/11/2007 [facility] Qutaybeh S. 401.0 Hypertension 8:40a Violet Martinez M.D. Malignant 414.01 Coronary Atherosclerosis [place] 272.4 Hyperlipidemia Other Unspec Office Visit 04/11/2007 [facility] Qutaybeh S. 401.0 Hypertension 11:20a Violet Martinez M.D. Malignant 414.01 Coronary Atherosclerosis [place] 272.4 Hyperlipidemia Other Unspec 427.69 Premature Beats Other Office Visit 12/04/2006 [facility] Qutaybeh S. 401.0 Hypertension 9:00a Violet Martinez M.D. Malignant 414.01 Coronary Atherosclerosis [place] 272.4 Hyperlipidemia Other Unspec Office Visit 10/02/2006 [facility] Qutaybeh S. 401.0 Hypertension 10:00a Violet Martinez M.D. 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 401.0 Hypertension 8:20a Violet Martinez M.D. Malignant 414.01 Coronary Atherosclerosis [place] 272.4 Hyperlipidemia Other Unspec Office Visit 07/31/2006 [facility] Qutaybeh S. 401.0 Hypertension 9:00a Violet Martinez M.D. Malignant 414.01 Coronary Atherosclerosis [place] 272.4 Hyperlipidemia Other Unspec Office Visit 06/27/2006 [facility] Qutaybeh S. 401.0 Hypertension 11:10a Violet Martinez M.D. Malignant 414.01 Coronary Atherosclerosis [place] 272.4 Hyperlipidemia Other Unspec Office Visit 05/30/2006 [facility] Qutaybeh S. 401.0 Hypertension 3:00p Cardiology Jefry Martinez Malignant Office Visit 05/22/2006 [facility] Qutaybeh S. 786.50 Pain Chest Unspec 1:20p Violet Martinez M.D. 401.0 Hypertension Malignant 272.4 Hyperlipidemia Other Unspec Office Visit 01/18/2006 9:00a [facility] Regi S. 786.50 Pain Chest Jefry Martinez Unspec 427.69 Premature Beats Other 401.0 Hypertension Malignant Office Visit 12/26/2005 [facility] Qutaybeh S. 401.0 Hypertension 9:20a Violet Martinez M.D. Malignant 427.69 Premature Beats Other 794.31 Electrocardiogram (ECG) (EKG) Abnormal Office Visit 10/31/2005 [facility] Qutaybeh S. 401.0 Hypertension 8:40a Violet Martinez M.D. Malignant 272.4 Hyperlipidemia Other Unspec Office Visit 09/28/2005 [facility] Qutaybeh S. 401.0 Hypertension 8:40a Violet Martinez M.D. Malignant 272.4 Hyperlipidemia Other Unspec Office Visit 08/17/2005 9:00a [facility] Regi S. 786.50 Pain Chest Jefry Martinez Unspec 401.0 Hypertension Malignant 272.4 Hyperlipidemia Other Unspec Plan of Treatment Future Appointment(s):01/18/2019 1:30 pm - Chantell Grady M.D. at [facility]07/20/2018 - Regi Martinez M.D.I10 Essential (primary) ahkjucoqdfozM30.7 DfxvuuraffbzK40.91 Unspecified atrial fibrillationFollow up:9 months ovZ98.890 Other specified postprocedural lcgpvaI95.31 Abnormal electrocardiogram [ECG] [EKG]
--- OUTSIDE RECORDS SUMMARY | 2018-08-26 16:12 | XMS REPORT | Continuity of Care Document ---
:1945 External Reference #:[id number] Author Name Debra Regalado Care Team Providers Name Role Phone Darin Chew MD Primary Care Physician Unavailable Payers Date Identification Numbers Payment Provider Subscriber Policy Number: [id number] Medicare Ebenezer Monge PayID: [id number] [address] [place] [address] Policy Number: [id number] [facility] Sandra Monge PayID: [id number] [address] [place] [address] Advance Directives Description No Information Available Problems [...] Polk; stereotactic radiotherapy 10/[address] Whipple ([facility]) Onset: 02/01/2017 Mild cognitive disorder Chantell Grady M.D. 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. [facility]2005 Avapro 10/31 Hx Tablets 300mg 90tab 1 po qd [facility]. /2013 Norvasc 10/31 Hx Tablets 10mg 30tab 1 tab po Qutayb s qd S. - [facility] 02/01 , M.D. /2016 Niaspan 10/31 Hx Capsules 500mg 30cap 1 po q pm [facility] /2005 Toprol XL 09/28 Hx Tablets 150mg 1 po qd Qutayb S. - [facility] 12/04 , M.D. /2006 Clonidine 09/28 Hx Tablets 0.2mg 120ta 1 po bid Qutayb [facility]. - [place] 01/18 , M.D. /2005 Clonidine 08/17 Hx Tablets 0.1mg 120ta 1 po bid Qutayb S. - [place] 09/28 , M.D. /2005 Tegretol 08/16 Hx Tablets 200mg 90tab 1 po qd Qutayb s S. - [place] 07/11 , M.D. /2013 Zocor 08/16 Hx Tablets 40mg 90tab 1 PO qd [facility] , [facility] /2006 Toprol XL 08/16 Hx Tablets 100mg 30tab 1 po qd [facility] , M.D. Avalide 08/16 Hx Tablets 300mg;12. 30tab 1 po qd [facility] Hx Tablets 5mg 30tab 1 po tid [facility] Hx Tablets 15mg 1 po qd [facility] , [facility] Selegiline HCL Hx [...] Result H/L Range Note Urinalysis Profile 03/14/2018 [facility] Urine Color Lorena [address] [place] [address] [phone] Urine Appearance Cloudy Urine Specific [place] 1.026 N 1.010-1.030 Urine pH 5.0 N 5-9 Urine Urobilinogen Positive Abnormal Negative Urine Ketones Trace Abnormal Negative Urine Protein Negative Negative Urine Leukocytes Negative Negative Urine Blood Negative Negative Urine Nitrite Negative Negative Urine Bilirubin Negative Negative Urine Glucose Negative Negative Urine Culture And 03/14/2018 [facility] Urine Culture SEE RESULT [address] [place] [address] [phone] Basic Metabolic 12/26/2005 [facility] One Over 1.[address] [place] [address] [phone] Anion Gap 5.0 mmol/L 2-11 2 BUN 19 mg/dL 6-24 Calcium 9.3 mg/dL 8.7-10.2 Chloride 105 mmol/L 101-111 Co2 (Carbon Dioxide) 28.0 mmol/L 22-32 Glucose 91 mg/dL 70-105 Potassium 4.3 mmol/L 3.5-5.0 Sodium 138 mmol/L 135-145 BUN/Creatinine Ratio 19.0 8-20 Creatinine 1.0 mg/dL 0.5-1.4 1 SEE RESULT BELOW Name: EBENEZER MOGNE : [address]: Chantell Grady MD Acct: [id number] Unit: [id number] AGE: 72 Location: LAB Re03/14/18 SEX: M Status: REG REF SPEC: [id number] MALCLOM: 03/14/18-[address]: Chantell Grady MD REQ: [id number] RECD: 03/14/18 STATUS: [facility] DR: Darin Chew MD _ SOURCE: URINE SPDESC: ORDERED: Urine Culture COMMENTS: Copy Result to: DARIN CHEW ([id number]) Procedure Result Reported Site Urine Culture Final 03/15/18- 1255 ML Mixed khadijah; possible contamination. Suggest resubmission. * ML - Main Lab . END OF REPORT DEPARTMENT OF PATHOLOGY, [address] [place] [address] Singh Landaverde M.D. Director [facility] # [id number] 2 Anion gap measurement may be of limited value in the presence of any alkalosis, especially in a combined acid base disorder. . Procedures Date Code Description Status 07/20/2018 31665 EKG Tracing & Interpretation Completed 07/20/2017 16790 EKG Tracing & Interpretation Completed 07/12/2017 01890 ECHO Transthorasic Realtime 2D W Doppler & Color Flow Hosp Completed 03/29/2017 89694 ECHO Transthoracic, Real-Time 2D With Doppler And Color Completed Flow 03/29/2017 85441 ECHO Transthoracic, Real-Time 2D With Doppler And Color Completed Flow 03/01/2017 03494 EKG Tracing & Interpretation Completed 06/08/2016 62678 EKG Tracing & Interpretation Completed 09/22/2015 38110 EKG Tracing & Interpretation Completed 10/28/2014 48239 EKG Tracing & Interpretation Completed 06/23/2014 84760 EEG Recording Awake & Drowsy Completed 04/03/2014 94237 EKG Tracing & Interpretation Completed 03/18/2014 19346 EEG Recording Awake & Asleep Completed 08/08/2013 34321 ECHO Transthoracic, Real-Time 2D With Doppler And Color Completed Flow 07/11/2013 01293 EKG Tracing & Interpretation Completed 11/04/2011 95229 EKG Tracing & Interpretation Completed 11/05/2009 89165 EKG Tracing & Interpretation Completed 08/25/2009 70082 ECHO Stress Test Incl Perf Contiuous ekg Monitoring W/Phys Completed Superv 08/25/2009 88214 ECHO Transthoracic, Real-Time 2D With Doppler And Color Completed Flow 08/25/2009 09978 ECHO Transthoracic, Real-Time 2D With Doppler And Color Completed Flow 12/25/2008 88767 EKG Tracing & Interpretation Completed 05/20/2008 53870 EKG Tracing & Interpretation Completed 04/15/2008 76009 Stress Test Completed 04/15/2008 20674 Stress Test Completed 04/15/2008 44296 ECHO/Stress Completed 04/15/2008 06531 ECHO/Stress Completed 04/15/2008 40504 ECHO/Stress Completed 03/07/2008 65105 Color Doppler Completed 03/07/2008 16308 Color Doppler Completed 03/07/2008 29521 Pulse Doppler & Continuous Wave Completed 03/07/2008 02694 Pulse Doppler & Continuous Wave Completed 03/07/2008 47466 Pulse Doppler & Continuous Wave Completed 03/07/2008 26861 Echocardiogram Completed 03/07/2008 21134 Echocardiogram Completed 05/24/2006 38553 Left Heart Catheterization Completed 05/24/2006 14904 Left Heart Catheterization Completed 05/24/2006 08961 Inj Proc LFT Vent/LFT Atrl Angio Completed 05/24/2006 41887 Coronary Angiography Completed 05/24/2006 54070 Coronary Angiography Completed 05/24/2006 83225 S/I/R Inj Proc Vent And Or Atrial Completed 05/24/2006 67198 Selective Coronary Angioplasty Completed 05/24/2006 87364 Selective Coronary Angioplasty Completed 05/22/2006 49073 EKG Tracing & Interpretation Completed 12/26/2005 03651 EKG Tracing & Interpretation Completed 08/30/2005 53179 ECHO/Stress Completed 08/30/2005 88355 Stress Test Completed 08/24/2005 71342 Color Doppler Completed 08/24/2005 54699 Pulse Doppler & Continuous Wave Completed 08/24/2005 58753 Echocardiogram Completed 08/17/2005 82222 EKG Tracing & Interpretation Completed Encounters Type Date Location Provider Dx Diagnosis Office Visit 07/20/2018 [facility] Regi SAyleen I10 Essential ( primary) 3:20p Jefry Martinez hypertension I51.7 Cardiomegaly I48.91 Unspecified atrial fibrillation Z98.890 Other specified postprocedural states R94.31 Abnormal electrocardiogram [ECG] [EKG] Office Visit 07/13/2018 2:30p [facility] Sonu Cooper [facility] Mary Capps disease D33.3 Benign neoplasm of cranial nerves G40.89 Other seizures Office Visit 03/14/2018 [facility] Sonu Cooper Parkinson[facility] 11:15a [facility] Jefry disease D33.3 Benign neoplasm of cranial nerves R35.0 Frequency of micturition Z86.73 Prsnl hx of TIA (TIA), and cereb infrc w/o resid deficits I48.91 Unspecified atrial fibrillation 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 Office Visit 12/07/2017 9:30a [facility] Sonu Cooper [facility] Of Andrez Capps disease Z86.73 Prsnl hx of TIA (TIA), and cereb infrc w/o resid deficits D33.3 Benign neoplasm of cranial nerves G40.89 Other seizures Office Visit 10/30/2017 4:00p [facility] Regi SAyleen I10 Essential Jefry Martinez (primary) hypertension I25.10 Athscl heart disease of [place] coronary artery w/o ang pctrs I48.91 Unspecified atrial fibrillation I51.7 Cardiomegaly Z86.73 Prsnl hx of TIA (TIA), and cereb infrc w/o resid deficits Office Visit 09/15/2017 11:30a [facility] Chantell Grady, G20 [facility] Andrez Capps disease D33.3 Benign neoplasm of cranial nerves G40.89 Other seizures Office Visit 07/20/2017 8:30a [facility] Merle S. I63.9 Cerebral Foster, N.P. 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 infarction, Hospitalists unspecified G20 Parkinson's disease I10 Essential (primary) hypertension E78.5 Hyperlipidemia, unspecified Office Visit 07/11/2017 [facility] Ebenezer I63.9 Cerebral 7:00a Clinic MD Kael infarction, unspecified I10 Essential (primary) hypertension I48.92 Unspecified atrial flutter G20 Parkinson's disease Office Visit 03/01/2017 3:00p [facility] Regi Aguayo I10 Ramos Martinez M.D. (primary) hypertension I25.10 Athscl heart disease of [place] coronary artery w/o ang pctrs E78.4 Other hyperlipidemia I36.1 Nonrheumatic tricuspid (valve) insufficiency I34.0 Nonrheumatic mitral (valve) insufficiency R06.02 Shortness of breath Office Visit 02/01/2017 8:30a [facility] Chantell Grady, G20 [facility] M.Olya disease R29.6 Repeated falls D33.3 Benign neoplasm of cranial nerves G40.909 Epilepsy, unsp, not intractable, without status epilepticus G31.84 Mild cognitive impairment, so stated Office Visit 09/28/2016 9:00a [facility] Chantell Grady, G20 [facility] MValeri disease G40.909 Epilepsy, unsp, not intractable, without status epilepticus D33.3 Benign neoplasm of cranial nerves Office Visit 06/08/2016 2:00p [facility] Regi S. I10 Ramos Martinez M.D. (primary) hypertension I25.10 Athscl heart disease of [place] coronary artery w/o ang pctrs E78.4 Other hyperlipidemia I36.1 Nonrheumatic tricuspid (valve) insufficiency Office Visit 10/21/2015 11:00a [facility] Chantell Grady G2Gilson [facility] MValeri disease G40.909 Epilepsy, unsp, not intractable, without status epilepticus D33.3 Benign neoplasm of cranial nerves Office Visit 09/22/2015 1:40p [facility] Regi S. I10 Ramos Martinez M.D. (primary) hypertension I25.10 Athscl heart disease of [place] coronary artery w/o ang pctrs E78.4 Other hyperlipidemia I36.1 Nonrheumatic tricuspid (valve) insufficiency Office Visit 04/13/2015 11:00a [facility] Chantell Grady G2Gilson [facility] Jefry disease G40.909 Epilepsy, unsp, not intractable, without status epilepticus D33.3 Benign neoplasm of cranial nerves R20.2 Paresthesia of skin Office Visit 10/28/2014 [facility] Regi S. 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 401.1 Hypertension 2:20p Cardiology Victorino Martinez M.D. 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 401.1 Hypertension 3:00p Cardiology Jefry Martinez Benign 272.4 Hyperlipidemia Other Unspec 414.01 Coronary Atherosclerosis Sycuan Office Visit 11/28/2012 [facility] Deluna S. 414.01 Coronary 9:00a Cardiology Jefry Martinez Atherosclerosis Sycuan 401.1 Hypertension Benign 272.4 Hyperlipidemia Other Unspec 424.2 Tricuspid Valve Disorder Spec as Nonrheumatic Office Visit 04/26/2012 Negro Abdul 414.01 Coronary 10:30a Cardiology Jeff, N.PAyleen Atherosclerosis Sycuan 401.1 Hypertension Benign 272.4 Hyperlipidemia Other Unspec Office Visit 11/04/2011 [facility] Deluna S. 414.01 Coronary 10:00a Cardiology Jefry Martinez Atherosclerosis Sycuan 272.4 Hyperlipidemia Other Unspec 401.1 Hypertension Benign 424.2 Tricuspid Valve Disorder Spec as Nonrheumatic Office Visit 11/01/2010 [facility] Deluna S. 414.01 Coronary 9:00a Cardiology Juan, M.D. Atherosclerosis Sycuan 272.4 Hyperlipidemia Other Unspec 401.1 Hypertension Benign Office Visit 11/05/2009 [facility] Qutaybeh S. 414.01 Coronary 3:00p Violet Martinez M.D. Atherosclerosis Sycuan 401.1 Hypertension Benign 272.4 Hyperlipidemia Other Unspec Office Visit 12/25/2008 [facility] Qutaybeh S. 414.01 Coronary 2:00p Violet Martinez M.D. Atherosclerosis Sycuan 272.4 Hyperlipidemia Other Unspec 401.1 Hypertension Benign Office Visit 05/20/2008 [facility] Qutaybeh S. 401.0 Hypertension 9:00a Violet Martinez M.D. Malignant 414.01 Coronary Atherosclerosis Sycuan 272.4 Hyperlipidemia Other Unspec Office Visit 10/11/2007 [facility] Qutaybeh S. 401.0 Hypertension 8:40a Violet Martinez M.D. Malignant 414.01 Coronary Atherosclerosis Sycuan 272.4 Hyperlipidemia Other Unspec Office Visit 04/11/2007 [facility] Qutaybeh S. 401.0 Hypertension 11:20a Violet Martinez M.D. Malignant 414.01 Coronary Atherosclerosis Sycuan 272.4 Hyperlipidemia Other Unspec 427.69 Premature Beats Other Office Visit 12/04/2006 [facility] Qutaybeh S. 401.0 Hypertension 9:00a Violet Martinez M.D. Malignant 414.01 Coronary Atherosclerosis Sycuan 272.4 Hyperlipidemia Other Unspec Office Visit 10/02/2006 [facility] Qutaybeh S. 401.0 Hypertension 10:00a Violet Martinez M.D. 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 401.0 Hypertension 8:20a Violet Martinez M.D. Malignant 414.01 Coronary Atherosclerosis Sycuan 272.4 Hyperlipidemia Other Unspec Office Visit 07/31/2006 [facility] Qutaybeh S. 401.0 Hypertension 9:00a Violet Martinez M.D. Malignant 414.01 Coronary Atherosclerosis Sycuan 272.4 Hyperlipidemia Other Unspec Office Visit 06/27/2006 [facility] Qutaybeh S. 401.0 Hypertension 11:10a Violet Martinez M.D. Malignant 414.01 Coronary Atherosclerosis Sycuan 272.4 Hyperlipidemia Other Unspec Office Visit 05/30/2006 [facility] Qutaybeh S. 401.0 Hypertension 3:00p Cardiology Jefry Martinez Malignant Office Visit 05/22/2006 [facility] Qutaybeh S. 786.50 Pain Chest Unspec 1:20p Violet Martinez M.D. 401.0 Hypertension Malignant 272.4 Hyperlipidemia Other Unspec Office Visit 01/18/2006 9:00a [facility] Regi S. 786.50 Pain Chest Jefry Martinez Unspec 427.69 Premature Beats Other 401.0 Hypertension Malignant Office Visit 12/26/2005 [facility] Qutaybeh S. 401.0 Hypertension 9:20a Violet Martinez M.D. Malignant 427.69 Premature Beats Other 794.31 Electrocardiogram (ECG) (EKG) Abnormal Office Visit 10/31/2005 [facility] Qutaybeh S. 401.0 Hypertension 8:40a Violet Martinez M.D. Malignant 272.4 Hyperlipidemia Other Unspec Office Visit 09/28/2005 [facility] Qutaybeh S. 401.0 Hypertension 8:40a Violet Martinez M.D. Malignant 272.4 Hyperlipidemia Other Unspec Office Visit 08/17/2005 9:00a [facility] Regi S. 786.50 Pain Chest Jefry Martinez Unspec 401.0 Hypertension Malignant 272.4 Hyperlipidemia Other Unspec Plan of Treatment Future Appointment(s):01/18/2019 1:30 pm - Chantell [facility]ady M.D. at [facility]07/20/2018 - Regi Martinez M.D.I10 Essential (primary) mvzyqcdgywutZ97.7 NhchitrvfkhcK84.91 Unspecified atrial fibrillationFollow up:9 months ovZ98.890 Other specified postprocedural nicrooX66.31 Abnormal electrocardiogram [ECG] [EKG]
--- OUTSIDE RECORDS SUMMARY | 2018-08-26 16:12 | XMS REPORT | Continuity of Care Document ---
:1945 External Reference #:[id number] Author Name Debra Regalado Care Team Providers Name Role Phone Darin Chew MD Primary Care Physician Unavailable Payers Date Identification Numbers Payment Provider Subscriber Policy Number: [id number] Medicare Ebenezer Monge PayID: [id number] [address] [place] [address] Policy Number: [id number] [facility] Sandra Monge PayID: [id number] [address] [place] [address] Advance Directives Description No Information Available Problems [...] [place]; stereotactic radiotherapy 10/[address] Whipple ([facility]) Onset: 02/01/2017 Mild cognitive disorder Chantell Grady M.D. 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 - [facility] , M.[facility]. /2005 Avapro 10/31 Hx Tablets 300mg 90tab 1 po qd Qutayb s . - [facility] 07/11 , M.D. /2013 Norvasc 10/31 Hx Tablets 10mg 30tab 1 tab po Qutayb s qd S. - [place] 02/01 , M.D. /2016 Niaspan 10/31 Hx Capsules 500mg 30cap 1 po q pm Qutayb s . - [facility] 05/22 , M.D. /2005 Toprol XL 09/28 Hx Tablets 150mg 1 po qd Qutayb S. - [place] 12/04 , M.D. /2006 Clonidine 09/28 Hx Tablets 0.2mg 120ta 1 po bid Qutayb [facility]. - [place] 01/18 , M.D. /2005 Clonidine 08/17 Hx Tablets 0.1mg 120ta 1 po bid Qutayb S. - [place] 09/28 , M.D. /2005 Tegretol 08/16 Hx Tablets 200mg 90tab 1 po qd Qutayb s S. - [place] 07/11 , M.D. /2013 Zocor 08/16 Hx Tablets 40mg 90tab 1 PO qd Qutayb s . - [facility] 04/26 , M.D. /2006 Toprol XL 08/16 Hx Tablets 100mg 30tab 1 po qd Qutayb s S. - [facility] 09/28 , M.D. Avalide 08/16 Hx Tablets 300mg;12. 30tab 1 po qd 5 mg s S. - [facility] Hx Tablets 5mg 30tab 1 po tid s S. - [facility] 08/17 , [facility] 08[facility]16 Hx Tablets 15mg 1 po qd S. - [facility] 10/31 , M.D. Selegiline HCL Hx Tablets [...] Result H/L Range Note Urinalysis Profile 03/14/2018 [facility] Urine Color [place]orena [address] [place] [address] [phone] Urine Appearance Cloudy Urine Specific [place] 1.026 N 1.010-1.030 Urine pH 5.0 N 5-9 Urine Urobilinogen Positive Abnormal Negative Urine Ketones Trace Abnormal Negative Urine Protein Negative Negative Urine Leukocytes Negative Negative Urine Blood Negative Negative Urine Nitrite Negative Negative Urine Bilirubin Negative Negative Urine Glucose Negative Negative Urine Culture And 03/14/2018 [facility] Urine Culture SEE RESULT [address] [place] [address] [phone] Basic Metabolic 12/26/2005 [facility] One Over 1.[address] [place] [address] [phone] Anion Gap 5.0 mmol/L 2-11 2 BUN 19 mg/dL 6-24 Calcium 9.3 mg/dL 8.7-10.2 [facility] 105 mmol/L 101-111 Co2 (Carbon Dioxide) 28.0 mmol/L 22-32 Glucose 91 mg/dL 70-105 Potassium 4.3 mmol/L 3.5-5.0 Sodium 138 mmol/L 135-145 BUN/Creatinine Ratio 19.0 8-20 Creatinine 1.0 mg/dL 0.5-1.4 1 SEE RESULT BELOW Name: EBENEZER MONGE : [address]: Chantell Grady MD Acct: [id number] Unit: [id number] AGE: 72 Location: LAB Re03/14/18 SEX: M Status: REG REF SPEC: [id number] [place]: 03/14/18-[address]: Chantell Grady MD REQ: [id number] RECD: 03/14/18 [facility]US[facility]: Darin Chew MD _ SOURCE: URINE SPDESC: ORDERED: Urine Culture COMMENTS: Copy Result to: DARIN CHEW ([id number]) Procedure Result Reported Site Urine Culture Final 03/15/18- 1255 ML Mixed khadijah; possible contamination. Suggest resubmission. * ML - Main Lab . END OF REPORT DEPARTMENT OF PATHOLOGY, [address] [place] [address] Singh Landaverde M.D. Director [facility] # [id number] 2 Anion gap measurement may be of limited value in the presence of any alkalosis, especially in a combined acid base disorder. . Procedures Date Code Description Status 07/20/2018 10077 EKG Tracing & Interpretation Completed 07/20/2017 35004 EKG Tracing & Interpretation Completed 07/12/2017 22476 ECHO Transthorasic Realtime 2D W Doppler & Color Flow Hosp Completed 03/29/2017 51144 ECHO Transthoracic, Real-Time 2D With Doppler And Color Completed Flow 03/29/2017 80837 ECHO Transthoracic, Real-Time 2D With Doppler And Color Completed Flow 03/01/2017 05650 EKG Tracing & Interpretation Completed 06/08/2016 06310 EKG Tracing & Interpretation Completed 09/22/2015 56929 EKG Tracing & Interpretation Completed 10/28/2014 14582 EKG Tracing & Interpretation Completed 06/23/2014 02223 EEG Recording Awake & Drowsy Completed 04/03/2014 25741 EKG Tracing & Interpretation Completed 03/18/2014 94012 EEG Recording Awake & Asleep Completed 08/08/2013 31658 ECHO Transthoracic, Real-Time 2D With Doppler And Color Completed Flow 07/11/2013 16826 EKG Tracing & Interpretation Completed 11/04/2011 31950 EKG Tracing & Interpretation Completed 11/05/2009 63996 EKG Tracing & Interpretation Completed 08/25/2009 28207 ECHO Stress Test Incl Perf Contiuous ekg Monitoring W/Phys Completed Superv 08/25/2009 70918 ECHO Transthoracic, Real-Time 2D With Doppler And Color Completed Flow 08/25/2009 81368 ECHO Transthoracic, Real-Time 2D With Doppler And Color Completed Flow 12/25/2008 62021 EKG Tracing & Interpretation Completed 05/20/2008 77211 EKG Tracing & Interpretation Completed 04/15/2008 68831 Stress Test Completed 04/15/2008 90352 Stress Test Completed 04/15/2008 09309 ECHO/Stress Completed 04/15/2008 27063 ECHO/Stress Completed 04/15/2008 33110 ECHO/Stress Completed 03/07/2008 85921 Color Doppler Completed 03/07/2008 10077 Color Doppler Completed 03/07/2008 25006 Pulse Doppler & Continuous Wave Completed 03/07/2008 55416 Pulse Doppler & Continuous Wave Completed 03/07/2008 34066 Pulse Doppler & Continuous Wave Completed 03/07/2008 23426 Echocardiogram Completed 03/07/2008 25149 Echocardiogram Completed 05/24/2006 10108 Left Heart Catheterization Completed 05/24/2006 64959 Left Heart Catheterization Completed 05/24/2006 78165 Inj Proc LFT Vent/LFT Atrl Angio Completed 05/24/2006 66834 Coronary Angiography Completed 05/24/2006 09609 Coronary Angiography Completed 05/24/2006 48813 S/I/R Inj Proc Vent And Or Atrial Completed 05/24/2006 14480 Selective Coronary Angioplasty Completed 05/24/2006 89039 Selective Coronary Angioplasty Completed 05/22/2006 63836 EKG Tracing & Interpretation Completed 12/26/2005 54113 EKG Tracing & Interpretation Completed 08/30/2005 88270 ECHO/Stress Completed 08/30/2005 29739 Stress Test Completed 08/24/2005 53134 Color Doppler Completed 08/24/2005 39694 Pulse Doppler & Continuous Wave Completed 08/24/2005 94014 Echocardiogram Completed 08/17/2005 38424 EKG Tracing & Interpretation Completed Encounters Type Date Location Provider Dx Diagnosis Office Visit 07/20/2018 [facility] Regi SAyleen I10 Essential ( primary) 3:20p Jefry Martinez hypertension I51.7 Cardiomegaly I48.91 Unspecified atrial fibrillation Z98.890 Other specified postprocedural states R94.31 Abnormal electrocardiogram [ECG] [EKG] Office Visit 07/13/2018 2:30p [facility] Sonu Cooper [facility] Mary Capps disease D33.3 Benign neoplasm of cranial nerves G40.89 Other seizures Office Visit 03/14/2018 Neurohospitalist Sonu Cooper Parkinson's 11:15a [facility] Jefry disease D33.3 Benign neoplasm of cranial nerves R35.0 Frequency of micturition Z86.73 Prsnl hx of TIA (TIA), and cereb infrc w/o resid deficits I48.91 Unspecified atrial fibrillation 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 [employer]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 Office Visit 12/07/2017 9:30a [facility] Sonu Cooper [facility] Of Andrez Capps disease Z86.73 Prsnl hx of TIA (TIA), and cereb infrc w/o resid deficits D33.3 Benign neoplasm of cranial nerves G40.89 Other seizures Office Visit 10/30/2017 4:00p [facility] Regi SAyleen I10 Essential Jefry Martinez (primary) hypertension I25.10 Athscl heart disease [place] coronary artery w/o ang pctrs I48.91 Unspecified atrial fibrillation I51.7 Cardiomegaly Z86.73 Prsnl hx of TIA (TIA), and cereb infrc w/o resid deficits Office Visit 09/15/2017 11:30a [facility] Chantell Grady, G20 [facility] Of And[place] Capps disease D33.3 Benign neoplasm of cranial nerves G40.89 Other seizures Office Visit 07/20/2017 8:30a [facility] Merle S. I63.9 Cerebral Foster, N.P. 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 infarction, Hospitalists unspecified G20 Parkinson's disease I10 Essential (primary) hypertension E78.5 Hyperlipidemia, unspecified Office Visit 07/11/2017 Neurohospitalist Ebenezer I63.9 Cerebral 7:00a Clinic MD Kael infarction, unspecified I10 Essential (primary) hypertension I48.92 Unspecified atrial flutter G20 Parkinson's disease Office Visit 03/01/2017 3:00p [facility] Regi Aguayo I10 Ramos Martinez M.D. (primary) hypertension I25.10 Athscl heart disease of [place] coronary artery w/o ang pctrs E78.4 Other hyperlipidemia I36.1 Nonrheumatic tricuspid (valve) insufficiency I34.0 Nonrheumatic mitral (valve) insufficiency R06.02 Shortness of breath Office Visit 02/01/2017 8:30a [facility] Chantell Grady, G20 [facility] Of [facility] M.Olya disease R29.6 Repeated falls D33.3 Benign neoplasm of cranial nerves G40.909 Epilepsy, unsp, not intractable, without status epilepticus G31.84 Mild cognitive impairment, so stated Office Visit 09/28/2016 9:00a [facility] Chantell Grady, G20 [facility] MValeri disease G40.909 Epilepsy, unsp, not intractable, without status epilepticus D33.3 Benign neoplasm of cranial nerves Office Visit 06/08/2016 2:00p [facility] Regi S. I10 Ramos Martinez M.D. (primary) hypertension I25.10 Athscl heart disease of [place] coronary artery w/o ang pctrs E78.4 Other hyperlipidemia I36.1 Nonrheumatic tricuspid (valve) insufficiency Office Visit 10/21/2015 11:00a [facility] Chantell Grady G2Gilson [facility] MValeri disease G40.909 Epilepsy, unsp, not intractable, without status epilepticus D33.3 Benign neoplasm of cranial nerves Office Visit 09/22/2015 1:40p [facility] Regi S. I10 Ramos Martinez M.D. (primary) hypertension I25.10 Athscl heart disease of [place] coronary artery w/o ang pctrs E78.4 Other hyperlipidemia I36.1 Nonrheumatic tricuspid (valve) insufficiency Office Visit 04/13/2015 11:00a [facility] Chantell Grady G2Gilson [facility] Jefry disease G40.909 Epilepsy, unsp, not intractable, without status epilepticus D33.3 Benign neoplasm of cranial nerves R20.2 Paresthesia of skin Office Visit 10/28/2014 [facility] Regi S. 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 401.1 Hypertension 2:20p Cardiology Victorino Martinez M.D. Benign [facility] 414.01 Coronary Atherosclerosis [place] 272.4 Hyperlipidemia Other Unspec Office Visit 03/06/2014 2:00p [facility] Chantell Dupontmichelle, 332.0 Paralysis Services Of Backup Operator GiorgiValeri [place] 225.1 Benign Neoplasm Cranial Nerves 345.90 Epilepsy Unspec W/O Intractable Office Visit 10/30/2013 9:00a [facility] Chantell Dupontmichelle, 332.0 [facility] [place] RandAyleenRickeyAyleen Flaquitojuanita 225.1 Benign Neoplasm Cranial Nerves Office Visit 07/11/2013 Negro Deluna S. 401.1 Hypertension 3:00p Cardiology Jefry Martinez Benign 272.4 Hyperlipidemia Other Unspec 414.01 Coronary Atherosclerosis [place] Office Visit 11/28/2012 Negro Deluna S. 414.01 Coronary 9:00a Cardiology Jefry Martinez Atherosclerosis [place] 401.1 Hypertension Benign 272.4 Hyperlipidemia Other Unspec 424.2 Tricuspid Valve Disorder Spec as Nonrheumatic Office Visit 04/26/2012 Negro Abdul 414.01 Coronary 10:30a Cardiology Jeff, N.PAyleen Atherosclerosis [place] 401.1 Hypertension Benign 272.4 Hyperlipidemia Other Unspec Office Visit 11/04/2011 Negro Deluna S. 414.01 Coronary 10:00a Cardiology Jefry Martinez Atherosclerosis [place] 272.4 Hyperlipidemia Other Unspec 401.1 Hypertension Benign 424.2 Tricuspid Valve Disorder Spec as Nonrheumatic Office Visit 11/01/2010 Negro Deluna S. 414.01 Coronary 9:00a Cardiology Juan, M.D. Atherosclerosis [place] 272.4 Hyperlipidemia Other Unspec 401.1 Hypertension Benign Office Visit 11/05/2009 [facility] Qutaybeh S. 414.01 Coronary 3:00p Violet Martinez M.D. Atherosclerosis [place] 401.1 Hypertension Benign 272.4 Hyperlipidemia Other Unspec Office Visit 12/25/2008 [facility] Qutaybeh S. 414.01 Coronary 2:00p Violet Martinez M.D. Atherosclerosis [place] 272.4 Hyperlipidemia Other Unspec 401.1 Hypertension Benign Office Visit 05/20/2008 [facility] Qutaybeh S. 401.0 Hypertension 9:00a Violet Martinez M.D. Malignant 414.01 Coronary Atherosclerosis [place] 272.4 Hyperlipidemia Other Unspec Office Visit 10/11/2007 [facility] Qutaybeh S. 401.0 Hypertension 8:40a Violet Martinez M.D. Malignant 414.01 Coronary Atherosclerosis [place] 272.4 Hyperlipidemia Other Unspec Office Visit 04/11/2007 [facility] Qutaybeh S. 401.0 Hypertension 11:20a Violet Martinez M.D. Malignant 414.01 Coronary Atherosclerosis [place] 272.4 Hyperlipidemia Other Unspec 427.69 Premature Beats Other Office Visit 12/04/2006 [facility] Qutaybeh S. 401.0 Hypertension 9:00a Violet Martinez M.D. Malignant 414.01 Coronary Atherosclerosis [place] 272.4 Hyperlipidemia Other Unspec Office Visit 10/02/2006 [facility] Qutaybeh S. 401.0 Hypertension 10:00a Violet Martinez M.D. 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 401.0 Hypertension 8:20a Violet Martinez M.D. Malignant 414.01 Coronary Atherosclerosis [place] 272.4 Hyperlipidemia Other Unspec Office Visit 07/31/2006 [facility] Qutaybeh S. 401.0 Hypertension 9:00a Violet Martinez M.D. Malignant 414.01 Coronary Atherosclerosis [place] 272.4 Hyperlipidemia Other Unspec Office Visit 06/27/2006 [facility] Qutaybeh S. 401.0 Hypertension 11:10a Violet Martinez M.D. Malignant 414.01 Coronary Atherosclerosis [place] 272.4 Hyperlipidemia Other Unspec Office Visit 05/30/2006 [facility] Qutaybeh S. 401.0 Hypertension 3:00p Cardiology Jefry Martinez Malignant Office Visit 05/22/2006 [facility] Qutaybeh S. 786.50 Pain Chest Unspec 1:20p Violet Martinez M.D. 401.0 Hypertension Malignant 272.4 Hyperlipidemia Other Unspec Office Visit 01/18/2006 9:00a [facility] Regi S. 786.50 Pain Chest Jefry Martinez Unspec 427.69 Premature Beats Other 401.0 Hypertension Malignant Office Visit 12/26/2005 [facility] Qutaybeh S. 401.0 Hypertension 9:20a Violet Martinez M.D. Malignant 427.69 Premature Beats Other 794.31 Electrocardiogram (ECG) (EKG) Abnormal Office Visit 10/31/2005 [facility] Qutaybeh S. 401.0 Hypertension 8:40a Violet Martinez M.D. Malignant 272.4 Hyperlipidemia Other Unspec Office Visit 09/28/2005 [facility] Qutaybeh S. 401.0 Hypertension 8:40a Violet Martinez M.D. Malignant 272.4 Hyperlipidemia Other Unspec Office Visit 08/17/2005 9:00a [facility] Regi S. 786.50 Pain Chest Jefry Martinez Unspec 401.0 Hypertension Malignant 272.4 Hyperlipidemia Other Unspec Plan of Treatment Future Appointment(s):01/18/2019 1:30 pm - Chantell [facility]ady M.D. at [facility]07/20/2018 - Regi Martinez M.D.I10 Essential (primary) tdbkjrjtdqorM13.7 VpugjacisvtiA07.91 Unspecified atrial fibrillationFollow up:9 months ovZ98.890 Other specified postprocedural pqitxdM34.31 Abnormal electrocardiogram [ECG] [EKG]
[2018-08-26] MEDS ORDERED: oxyCODONE TAB* 5 MG TAB PO PRN (16:46)
[2018-08-26] MEDS: CARBIDOPA PO SCH ×2 (17:12→21:33)
[2018-08-26] MEDS: LEVODOPA PO SCH ×2 (17:12→21:33)
--- NOTE | 2018-08-26 20:46 | HP ---
ADMISSION HISTORY AND PHYSICAL: DATE OF ADMISSION: 08/26/18 REASON FOR ADMISSION: 1. Left hip fracture. 2. Parkinson disease. HISTORY OF PRESENT ILLNESS: Kavon Monge is a 73-year-old male. He has a medical history significant for Parkinson disease, which he has had for about [address] He sees [address] Grady, his neurologist. The patient has a history of seizure disorder as well and takes low-dose Vimpat for that, although he has never actually had a witnessed seizure. The patient apparently was in a diner in [place] on 08/14/18. He was coming out of the diner and walking back to his car when he slipped on some ice and fell. He was put back into his car and driven home to [place], but was unable to get out of the car. He was taken to [facility] and found to have a left femoral neck fracture. Apparently, his Parkinson meds were held while at [facility] and he developed temperatures and rigidity. There was also some concern for seizure activity, so he was transferred to [facility] on 08/16/18. He was transferred because they did not have a neurologist available at [place]. The patient was admitted and seen by Dr. Scruggs. Because of his fevers, there was some concern for viral meningitis and he was started on IV antibiotics as well as acyclovir. However, after his Parkinson meds were restarted, the patient seemed to be getting better. Dr. Gutierrez recommended stopping the acyclovir. His amantadine was held initially, but then restarted. He was taken to the operating room on 08/22/18. He had hemiarthroplasty performed by Dr. Platt. After surgery, there was again some difficulties with his mental status. It was felt that the tramadol may have been confusing him and so that was eliminated. His amantadine was restarted. His Sinemet was increased to 1-1/2 tablets from 1 tablet 4 times a day because he was having increased tremors after his surgery. He was felt to have physical therapy and occupational therapy needs. He is now being admitted for inpatient rehab so that he might return to independent living. PAST MEDICAL HISTORY: Significant for the aforementioned Parkinson disease. He has a history of atrial fibrillation and is on chronic anticoagulation with Eliquis. He had a CVA in 2018. He has a history of hypertension and hyperlipidemia as well as seizure disorder. He had an acoustic neuroma removal and apparently has had a cardiac cath in the past. MEDICATIONS: Current medications include: 1. Amantadine. 2. Tylenol. 3. Eliquis. 4. Sinemet. 5. Vimpat. 6. Lopressor. 7. Oxycodone. 8. Bowel medications. He may have been taking simvastatin at home prior to admission as well as irbesartan. ALLERGIES: No known drug allergies. SOCIAL HISTORY: He lives with his in a 2-story house. There are 13 steps to the second floor. His bedroom and full bathroom are on the second floor, half bath is downstairs. Prior to admission, he was able to ambulate up and down the stairs. There are 2 steps to enter the house. His is home with him full-time. He is a nonsmoker and nondrinker. PHYSICAL EXAMINATION VITAL SIGNS: The patient's temperature is 98.0, blood pressure is 125/48, pulse 72, respirations 22. HEENT: His extraocular movements were intact. He does have Parkinson's like facies. NECK: Supple. LUNGS: Sounded clear to auscultation bilaterally. HEART: Sounds are regular. S1 and S2 are audible. ABDOMEN: Soft and nontender. NEUROLOGIC: He was awake, alert. He was able to move his arms and his legs. He did have a resting tremor in both arms. SKIN: He has a small bed sore over his right butt-cheek. It is about the size of a dime. FUNCTIONAL: He transfers with 2 assists. ASSESSMENT: Left hip fracture, status post hemiarthroplasty of the same in a patient with Parkinson disease. PLAN: Integrate him into a comprehensive and therapeutic rehab program on the following goals: 1. Physical Therapy will work with the patient. They are going to work on functional transfer training, ambulation training with a walker. 2. Occupational Therapy will see the patient, work on his activities of daily living including toileting and toilet transfers. 3. We may have Speech Therapy assess the patient's swallowing. 4. For pain control, right now, we are going to avoid tramadol; we will continue oxycodone, which he was getting upstairs. 5. For his Parkinson's disease, we are going to continue his Sinemet as well as his amantadine. 6. Continue Vimpat for seizure disorder. 7. For atrial fibrillation, we are going to continue his Toprol as well as his Eliquis. 8. We will consider restarting his simvastatin and irbesartan. 9. patient services clerk will be closely involved to make sure that any services and equipment the patient requires are in place prior to discharge. 10. Family training as appropriate. 11. Home with appropriate services. ESTIMATED LENGTH OF STAY: 3 weeks. [id number]/CPS #: [id number] DAMARI
[2018-08-26] MEDS ORDERED: Amantadine LIQ* 50 MG/5 ML UDC PO SCH (21:00)
[2018-08-26] MEDS ORDERED: Metoprolol Tartrate TAB* 50 mg PO SCH (21:00)
[2018-08-26] MEDS: Docusate CAP* 100 MG PO SCH (21:33)
[2018-08-26] MEDS: Lacosamide TAB* 50 MG TAB PO SCH (21:33)
[2018-08-26] MEDS: Apixaban* 5 MG TAB PO SCH (21:33)
[2018-08-26] MEDS: Acetaminophen ADULT LIQ* 650 MG/20.3 ML UDC PO PRN (21:35)
[2018-08-26] MEDS: Amantadine SOLN* ORALSYR 10 MG/ML ML PO SCH (21:44)
[2018-08-27 04:59] LABS: Hematocrit 30 % (42-52); Hemoglobin 10.1 g/dl (14.0-18.0); Mean Corpuscular HGB Conc 33 g/dl (31-36); Mean Corpuscular Hemoglobin 28 pg (27-31); Mean Corpuscular Volume 84 fL (80-94); Mean Platelet Volume 7.7 fL (7.4-10.4); Platelet Count 284 10^3/ul (150-450); Red Cell Distribution Width 15 % (10.5-15); White Blood Count 10.4 10^3/ul (3.5-10.8)
[2018-08-27 05:12] LABS: Albumin 2.7 g/dL (3.2-5.2); Albumin/Globulin Ratio 1.1 (1-3); Calcium 7.9 mg/dL (8.6-10.3); EGFR African American 125.5 (>60); EGFR Non-African American 103.7 (>60); Globulin 2.4 g/dL (2-4); Potassium 4.4 mmol/L (3.5-5.0); Total Bilirubin 0.6 mg/dL (0.2-1.0); Total Protein 5.1 g/dL (6.4-8.9)
[2018-08-27 05:25] LABS: ABS Basophils 0.1 10^3/ul (0-0.2); ABS Eosinophils 0.2 10^3/ul (0-0.6); ABS Lymphocytes 0.9 10^3/ul (1.0-4.8); ABS Monocytes 0.6 10^3/ul (0-0.8); ABS Neutrophils 8.5 10^3/ul (1.5-7.7); ABS Nucleated RBC 0 10^3/ul; Eosinophil % 2.3 %; Lymphocyte % 9.1 %; Nucleated Red Blood Cells % 0
[2018-08-27] MEDS: Apixaban* 5 MG TAB PO SCH ×2 (08:23→21:01)
[2018-08-27] MEDS: Docusate CAP* 100 MG PO SCH ×2 (08:23→21:01)
[2018-08-27] MEDS: Losartan TAB* 25 MG PO SCH (08:23)
[2018-08-27] MEDS: Lacosamide TAB* 50 MG TAB PO SCH ×2 (08:23→21:01)
[2018-08-27] MEDS: CARBIDOPA PO SCH ×4 (08:25→21:01)
[2018-08-27] MEDS: Metoprolol Succinate XL TAB* 100 MG PO SCH (08:25)
[2018-08-27] MEDS: LEVODOPA PO SCH ×4 (08:25→21:01)
[2018-08-27] MEDS: Amantadine SOLN* ORALSYR 10 MG/ML ML PO SCH (08:26)
[2018-08-27] MEDS: Acetaminophen ADULT LIQ* 650 MG/20.3 ML UDC PO PRN ×2 (09:28→16:02)
[2018-08-27] MEDS: Atorvastatin* 20 MG TAB PO SCH (17:19)
--- NOTE | 2018-08-27 18:05 | PN ---
Progress Note Date of Service: 08/27/18 Note: EBENEZER CLEANING was visited. Therapy notes read and reviewed. He is fairly impaired but seems more cognitively intact. He seems to take pills ok. Will d/c liquid Tylenol and Amantadine Current Medications: Active Medications Generic Name Dose Route Start Last Admin Trade Name Freq PRN Reason Stop Dose Admin Acetaminophen 650 mg 08/27/18 18:00 Tylenol Tab* PO Q4H PRN FEVER/PAIN Amantadine HCl 100 mg 08/27/18 21:00 Symmetrel Cap* PO BID SATINDER Apixaban 5 mg 08/26/18 21:00 08/27/18 08:23 Eliquis* PO 5 mg BID SATINDER Administration Atorvastatin Calcium 20 mg 08/27/18 17:00 08/27/18 17:19 Lipitor* PO 20 mg 1700 SATINDER Administration Carbidopa/Levodopa 1.5 tab 08/26/18 17:00 08/27/18 17:19 Carbidopa/Levodopa Odt (Nf) PO 1.5 tab QID SATINDER Administration Docusate Sodium 100 mg 08/26/18 21:00 08/27/18 08:23 Colace Cap* PO 100 mg BID SATINDER Administration Lacosamide 50 mg 08/26/18 21:00 08/27/18 08:23 Vimpat Tab* PO 50 mg BID SATINDER Administration Losartan Potassium 50 mg 08/27/18 09:00 08/27/18 08:23 Cozaar Tab* PO 50 mg DAILY SATINDER Administration Magnesium Hydroxide 30 ml 08/26/18 16:36 Milk Of Magnesia Liq* PO Q6H PRN CONSTIPATION Metoprolol Succinate 100 mg 08/27/18 09:00 08/27/18 08:25 Toprol Xl Tab* PO 100 mg DAILY SATINDER Administration Oxycodone HCl 5 mg 08/26/18 16:45 Roxycodone Tab* PO Q4H PRN PAIN - MODERATE TO SEVERE Oxycodone HCl 10 mg 08/26/18 16:46 Roxycodone Tab* PO Q4H PRN PAIN - SEVERE Polyethylene Glycol/Electrolytes 17 gm 08/26/18 16:46 Miralax* PO DAILY PRN CONSTIPATION Senna 2 tab 08/26/18 16:36 Senokot Tab* PO BEDTIME PRN CONSTIPATION Vital Signs: Vital Signs Temp Pulse Resp BP Pulse Ox 97.4 F 70 18 123/35 98 03/11/19 15:59 08/27/18 15:59 08/27/18 15:59 08/27/18 15:59 08/27/18 15:59 Lab Results: Laboratory Results - last 24 hr 08/27/18 08/27/18 04:49 04:49 WBC 10.4 RBC 3.60 L Hgb 10.1 L Hct 30 L MCV 84 MCH 28 MCHC 33 RDW 15 Plt Count 284 MPV 7.7 Neut % (Auto) 82.0 Lymph % (Auto) 9.1 Hoke % (Auto) 6.0 Eos % (Auto) 2.3 Baso % (Auto) 0.6 Absolute Neuts (auto) 8.5 H Absolute Lymphs (auto) 0.9 L Absolute Monos (auto) 0.6 Absolute Eos (auto) 0.2 Absolute Basos (auto) 0.1 Absolute Nucleated RBC 0 Nucleated RBC % 0 Sodium 133 L Potassium 4.4 Chloride 104 Carbon Dioxide 24 Anion Gap 5 BUN 17 Creatinine 0.74 Est GFR ( Amer) 125.5 Est GFR (Non-Af Amer) 103.7 BUN/Creatinine Ratio 23.0 H Glucose 125 H Calcium 7.9 L Total Bilirubin 0.60 AST 62 H ALT 22 Alkaline Phosphatase 85 Total Protein 5.1 L Albumin 2.7 L Globulin 2.4 Albumin/Globulin Ratio 1.1 Exam: GENERAL: Alert. LUNGS: Clear bilaterally HEART: regular rhythm ABDOMEN: Soft, +BS EXTREMITIES: LLE wound intact NEUROLOGIC: Resting tremor. Muscle strength 5/5 UEs and 4/5 LLE Assessment/Plan: 1. Left Hip Fracture. S/P HAP: WBAT. PT/OT. Dr Platt follow up 2. Parkinson's Disease: Sinemet. Amantadine. Neurology follow up as needed 3. Atrial Fibrillation: Eliquis/Toprol 4. HTN: Cozaar (instead of Avapro) and Toprol 5. DVT Prophylaxis: Eliquis 6. Advance Directives: Full Code. is HCP 08/27/18 18:06 08/27/18 18:08
[2018-08-27] MEDS: Amantadine CAP* 100 MG PO SCH (21:01)
[2018-08-28] MEDS: Acetaminophen TAB* 325 MG PO PRN (05:35)
[2018-08-28] MEDS: Losartan TAB* 25 MG PO SCH (08:25)
[2018-08-28] MEDS: Docusate CAP* 100 MG PO SCH ×2 (08:25→21:11)
[2018-08-28] MEDS: Lacosamide TAB* 50 MG TAB PO SCH ×2 (08:25→21:11)
[2018-08-28] MEDS: Apixaban* 5 MG TAB PO SCH ×2 (08:26→21:11)
[2018-08-28] MEDS: Amantadine CAP* 100 MG PO SCH ×2 (08:27→21:11)
[2018-08-28] MEDS: LEVODOPA PO SCH ×4 (08:39→21:11)
[2018-08-28] MEDS: CARBIDOPA PO SCH ×4 (08:39→21:11)
[2018-08-28] MEDS: Metoprolol Succinate XL TAB* 100 MG PO SCH (08:46)
--- NOTE | 2018-08-28 12:50 | PMRUTEAM ---
PMRU: Team Meeting Current Status: Nursing: Current Status Skin Deviations [L buttock] Other Skin Deviations [torso] Rash Skin Deviations [Coccyx] Other Skin Deviations [Right Other Buttocks] Skin Deviations [Bilateral Other Heel] Skin Deviations [Right Lower Other Leg] Skin Deviations [Left Hip] Incision Skin Deviation Description [L shear, peeling, healing buttock] Skin Deviation Description [ red, pinpoint rash- mainly to back torso] Skin Deviation Description [ pink Coccyx] Skin Deviation Description [ shear, optiplex in place Right Buttocks] Skin Deviation Description [ pink/red/boggy. spanko boots in use Bilateral Heel] Skin Deviation Description [ 2-3 red spots Right Lower Leg] Physical Therapy: Current Status Bed Mobility Assistance Max Assist,2 or More Person Assist Transfer Mobility Assistance Max Assist,2 or More Person Assist Transfer/Bed Mobility Rolling Walker,EZ Stand Recommended Devices Ambulation Assistance Unable Ambulation Assistive Devices Rolling Walker Stairs Assistance Not Tested Stairs Recommended Devices Two Rails Number of Stairs 4 Occupational Therapy: Current Status Upper Body Dressing Max Asst Lower Body Dressing Total Assist,2 Person Assist Bathing Max Asst,2 Person Assist Toileting Total Assist,2 Person Assist Toilet Transfer Total Assist,2 Person Assist Eating Total Assist Rec Therapy: Current Status Summary of Assessment and Recreation Therapy assessment complete and pt. is Clinical Impression aware of services. Pt. was pleasant, cooperative and engaged. Pt. had visitors but is open to continued leisure visits. Treatment Goals Pt. will engage in leisure activities while on the unit. Treatment Plan Provide RT services and encourage involvement. Social Work: Current Status Discharge Plan return home with home care svs and family support Potential for Family Training pt's is involved and attentive Anticipated Discharge Home Destination Discharge With home care svs and family support Nutrition: Current Status Monitoring Nutrition consult triggered due to some weight loss during acute stay, but appears to have reversed this trend. Intake variable but generally 60-100% now so likely meeting needs. Experienced constipation (>1 wk w/o BM) during acute stay, but this is being treated and now w/ daily BMs. Currently requires feeding due to tremors r/t Parkinsons and weakness but hopefully can progress to more independence as he recovers. Goals: Physical Therapy: Initial Goals Bed Mobility Assistance Independent Transfer Mobility Assistance Independent Transfer/Bed Mobility Rolling Walker Recommended Devices Ambulation Independent Ambulation Recommended Devices Rolling Walker Ambulation Distance 150 Stairs Assistance Supervision Stair Recommended Devices Two Rails Number of Stairs 4 Home Exercise Program Independent Assistance Physical Therapy: Updated Goals Transfer/Bed Mobility None Recommended Devices Occupational Therapy: Initial Goals Goals to be Completed in (Days 28 ) Upper Body Bathing Routine Supervision/Set Up Lower Body Bathing Routine Supervision/Set Up Upper Body Dressing Routine Moderate Assist Lower Body Dressing Routine Moderate Assist Toilet Hygeine and Clothing Minimal Contact Assist Management Routine Toilet Transfer Routine Supervision/Set Up Step-In Shower Transfer Supervision/Set Up Routine Functional Transfers for ADL Modified Independent with Grooming Routine Independent Feeding Routine Independent Nutrition: Goals Intervention Goals 1. Maintain adequate oral intake to support weight maintenance, maintenance of lean body mass, support post op rehab. 2. Maintain bowel regularity w/o constipation or diarrhea. 3. Pt receives appropriate assistance w/feeding. Social Work: Goals Discharge Plan return home with home care svs and family support Potential for Family Training pt's is involved and attentive Anticipated Discharge Home Destination Discharge With home care svs and family support Care Plan: Care Plan Coping/Psych-Improve/Maintain Start: 08/27/18 14:31 Freq: QSHIFT Status: Active Target: Protocol: Activity Type Activity Date Activity User E-Sign Co-Sign Detail Recorded Client Recorded Date Recorded By Document 08/28/18 08:00 [id number] 08/28/18 09:26 [id number] 08/28/18 08:00 PMRU Outcome: Coping/Psychosocial Coping Outcome/Goals Verbalization of Acceptance of Rehab Admit Verbalization of Sense of Control Over Health Status Psychosocial Outcome/Goals Maintain/ Improve Emotional Health Cooperate/ Participate in Plan Progression Toward Outcome/Goals - Progressing Coping Progression Toward Outcome/Goals - Progressing Psychosocial DVT Prophylaxis- Improve/Maintain Start: 08/27/18 14:31 Freq: QSHIFT Status: Active Target: Protocol: Activity Type Activity Date Activity User E-Sign Co-Sign Detail Recorded Client Recorded Date Recorded By Document 08/28/18 08:00 [id number] 08/28/18 09:26 [id number] 08/28/18 08:00 PMRU Outcome: DVT Prophylaxis Outcome/Goals Remains Free of DVT Free of complications from current DVT Complies with DVT Prophylaxis /Treatment Demonstrates Knowledge of DVT Prevention/ Treatment TEDS Stockings on Every AM, Off at HS Progression Toward Outcome/Goals Progressing Discharge Planning - Improve/Maintain Start: 08/27/18 14:31 Freq: DAILY Status: Active Target: Protocol: Activity Type Activity Date Activity User E-Sign Co-Sign Detail Recorded Client Recorded Date Recorded By Document 08/28/18 01:14 [id number] 08/28/18 01:15 [id number] 08/28/18 01:14 PMRU Outcome: Discharge Planning Update Patient Family No Outcome/Goals Demonstrates Understanding of Discharge Plan Education-Improve/Maintain Start: 08/27/18 14:31 Freq: QSHIFT Status: Active Target: Protocol: Activity Type Activity Date Activity User E-Sign Co-Sign Detail Recorded Client Recorded Date Recorded By Document 08/28/18 08:00 [id number] 08/28/18 09:26 [id number] 08/28/18 08:00 PMRU Outcome: Education Outcome/Goals Demonstrates Skills Encourage Questions Progression Toward Outcome/Goals Progressing /GI-Improve/Maintain Start: 08/27/18 14:31 Freq: QSHIFT Status: Active Target: Protocol: Activity Type Activity Date Activity User E-Sign Co-Sign Detail Recorded Client Recorded Date Recorded By Document 08/28/18 08:00 [id number] 08/28/18 09:26 [id number] 08/28/18 08:00 PMRU Outcome: Genitourinary/ Gastrointestinal Genitourinary- Outcome/Goals Remain Free of Hospital- Acquired UTI Gastrointestinal-Outcome/Goals Maintain/ Achieve Bowel Regularity in Accordance with Pt's Baseline Prevent Constipation Laxatives as Ordered Progression Toward Outcome/Goals - Progressing Progression Toward Outcome/Goals - GI Progressing Outcome/Goals Met Comment pt changed at beginning of shift Medication Administration Start: 08/27/18 14:31 Freq: QSHIFT Status: Active Target: Protocol: Activity Type Activity Date Activity User E-Sign Co-Sign Detail Recorded Client Recorded Date Recorded By Document 08/28/18 08:00 [id number] 08/28/18 09:26 [id number] 08/28/18 08:00 PMRU Outcome: Medication Administration Assess Patient Knowledge/Teach Med Yes Education for all Meds Outcome/Goals Demonstrates Understanding Progression Towards Outcome/Goals Progressing Is Patient Going Home on Lovenox? No Neurological- Improve/Maintain Start: 08/27/18 14:31 Freq: QSHIFT Status: Active Target: Protocol: Activity Type Activity Date Activity User E-Sign Co-Sign Detail Recorded Client Recorded Date Recorded By Document 08/28/18 08:00 [id number] 08/28/18 09:26 08/28/18 08:00 PMRU Outcome: Neurological Weakness/Aphasia Weakness Outcome/Goals Maintain/ Achieve Baseline Neurological Status Improve Neurological Status Maintain/ Improve Strength/ROM Progression Toward Outcome/Goals Progressing Pain/Comfort- Improve/Maintain Start: 08/27/18 14:31 Freq: QSHIFT Status: Active Target: Protocol: Activity Type Activity Date Activity User E-Sign Co-Sign Detail Recorded Client Recorded Date Recorded By Document 08/28/18 08:00 [id number] 08/28/18 09:26 [id number] 08/28/18 08:00 PMRU Outcome: Pain/Comfort Outcome/Goals Demonstrates Knowledge and Use of Available Comfort Measures Achieves Acceptable Comfort/Pain Level as Determined by Patient/Condit Maintain Comfort Level Allowing Patient to Fully Participate in Rehab Progression Toward Outcome/Goals Progressing Outcome/Goals Met Comment pt denied need for intervention at this time Safety- Improve/Maintain Start: 08/27/18 14:31 Freq: QSHIFT Status: Active Target: Protocol: Activity Type Activity Date Activity User E-Sign Co-Sign Detail Recorded Client Recorded Date Recorded By Document 08/28/18 08:00 [id number] 08/28/18 09:26 [id number] 08/28/18 08:00 PMRU Outcome: Safety Outcome/Goals Remain Free of Injury or Harm Cooperates with Safety Measures for Least Restrictive Environment Prevent Falls/ Injury Progression Toward Outcome/Goals Progressing Outcome/Goals Met Comment BA armed when pt in bed Skin- Improve/Maintain Start: 08/27/18 14:31 Freq: QSHIFT Status: Active Target: Protocol: Activity Type Activity Date Activity User E-Sign Co-Sign Detail Recorded Client Recorded Date Recorded By Document 08/28/18 08:00 [id number] 08/28/18 09:26 [id number] 08/28/18 08:00 PMRU Outcome: Skin Skin Risk Level High Skin Orders Spenco Boots Heels Off Bed Outcome/Goals Maintain/ Improve Skin Intergrity Maintain/ Improve Wound Status Surgical Incisions Healing Progression Toward Outcome/Goals Progressing Medicine Note: Length of Stay: 5 weeks Anticipated Discharge Destination: Home Tentative Discharge Date: October 02, 2018 Discharged to: Home
[2018-08-28] MEDS: Polyethylene Glycol 3350* 17 GM PACKET PO PRN (15:24)
[2018-08-28] MEDS: Atorvastatin* 20 MG TAB PO SCH (17:05)
--- NOTE | 2018-08-28 18:05 | PN ---
Progress Note Date of Service: 08/28/18 Note: EBENEZER CLEANING was visited. Therapy notes read and reviewed. He was discussed in interdisciplinary team rounds. He has made some gains, but has a lot of tremors in his hands, which may not be all new. Current Medications: Active Medications Generic Name Dose Route Start Last Admin Trade Name Freq PRN Reason Stop Dose Admin Acetaminophen 650 mg 08/27/18 18:00 08/28/18 05:35 Tylenol Tab* PO 650 mg Q4H PRN Administration FEVER/PAIN Amantadine HCl 100 mg 08/27/18 21:00 08/28/18 08:27 Symmetrel Cap* PO 100 mg BID SATINDER Administration Apixaban 5 mg 08/26/18 21:00 08/28/18 08:26 Eliquis* PO 5 mg BID SATINDER Administration Atorvastatin Calcium 20 mg 08/27/18 17:00 08/28/18 17:05 Lipitor* PO 20 mg 1700 SATINDER Administration Carbidopa/Levodopa 1.5 tab 08/26/18 17:00 08/28/18 17:05 Carbidopa/Levodopa Odt (Nf) PO 1.5 tab QID SATINDER Administration Docusate Sodium 100 mg 08/26/18 21:00 08/28/18 08:25 Colace Cap* PO 100 mg BID SATINDER Administration Lacosamide 50 mg 08/26/18 21:00 08/28/18 08:25 Vimpat Tab* PO 50 mg BID SATINDER Administration Losartan Potassium 50 mg 08/27/18 09:00 08/28/18 08:25 Cozaar Tab* PO 50 mg DAILY SATINDER Administration Magnesium Hydroxide 30 ml 08/26/18 16:36 Milk Of Magnesia Liq* PO Q6H PRN CONSTIPATION Metoprolol Succinate 100 mg 08/27/18 09:00 08/28/18 08:46 Toprol Xl Tab* PO 100 mg DAILY SATINDER Administration Oxycodone HCl 5 mg 08/26/18 16:45 Roxycodone Tab* PO Q4H PRN PAIN - MODERATE TO SEVERE Oxycodone HCl 10 mg 08/26/18 16:46 Roxycodone Tab* PO Q4H PRN PAIN - SEVERE Polyethylene Glycol/Electrolytes 17 gm 08/26/18 16:46 08/28/18 15:24 Miralax* PO 17 gm DAILY PRN Administration CONSTIPATION Senna 2 tab 08/26/18 16:36 Senokot Tab* PO BEDTIME PRN CONSTIPATION Vital Signs: Vital Signs Temp Pulse Resp BP Pulse Ox 98.5 F 77 18 134/60 100 08/28/18 05:00 08/28/18 05:23 08/27/18 15:59 08/28/18 05:23 08/28/18 05:23 Exam: GENERAL: Alert. LUNGS: Clear bilaterally HEART: regular rhythm ABDOMEN: Soft, +BS EXTREMITIES: LLE wound intact NEUROLOGIC: Resting tremor, especially in arms. Muscle strength 5/5 UEs and 4/5 LLE Assessment/Plan: 1. Left Hip Fracture. S/P HAP: WBAT. PT/OT. Dr Platt follow up 2. Parkinson's Disease: Sinemet. Amantadine. Neurology follow up as needed 3. Atrial Fibrillation: Eliquis/Toprol 4. HTN: Cozaar (instead of Avapro) and Toprol 5. DVT Prophylaxis: Eliquis 6. Advance Directives: Full Code. is HCP 08/28/18 18:06
[2018-08-29] MEDS: Acetaminophen TAB* 325 MG PO PRN ×4 (01:46→21:06)
[2018-08-29] MEDS: Docusate CAP* 100 MG PO SCH ×2 (10:01→21:15)
[2018-08-29] MEDS: Losartan TAB* 25 MG PO SCH (10:01)
[2018-08-29] MEDS: Apixaban* 5 MG TAB PO SCH ×2 (10:01→21:07)
[2018-08-29] MEDS: Lacosamide TAB* 50 MG TAB PO SCH ×2 (10:01→21:07)
[2018-08-29] MEDS: CARBIDOPA PO SCH ×4 (10:02→21:07)
[2018-08-29] MEDS: LEVODOPA PO SCH ×4 (10:02→21:07)
[2018-08-29] MEDS: Amantadine CAP* 100 MG PO SCH ×2 (10:02→21:07)
[2018-08-29] MEDS: Metoprolol Succinate XL TAB* 100 MG PO SCH (10:07)
[2018-08-29] MEDS: Atorvastatin* 20 MG TAB PO SCH (16:48)
--- NOTE | 2018-08-29 19:21 | PN ---
Progress Note Date of Service: 08/29/18 Note: EBENEZER CLEANING was visited. Therapy notes read and reviewed. He has few complaints and seems sharper mentally to me. Still quite impaired physically Current Medications: Active Medications Generic Name Dose Route Start Last Admin Trade Name Freq PRN Reason Stop Dose Admin Acetaminophen 650 mg 08/27/18 18:00 08/29/18 16:47 Tylenol Tab* PO 650 mg Q4H PRN Administration FEVER/PAIN Amantadine HCl 100 mg 08/27/18 21:00 08/29/18 10:02 Symmetrel Cap* PO 100 mg BID SATINDER Administration Apixaban 5 mg 08/26/18 21:00 08/29/18 10:01 Eliquis* PO 5 mg BID SATINDER Administration Atorvastatin Calcium 20 mg 08/27/18 17:00 08/29/18 16:48 Lipitor* PO 20 mg 1700 SATINDER Administration Carbidopa/Levodopa 1.5 tab 08/26/18 17:00 08/29/18 16:48 Carbidopa/Levodopa Odt (Nf) PO 1.5 tab QID SATINDER Administration Docusate Sodium 100 mg 08/26/18 21:00 08/29/18 10:01 Colace Cap* PO 100 mg BID SATINDER Administration Lacosamide 50 mg 08/26/18 21:00 08/29/18 10:01 Vimpat Tab* PO 50 mg BID SATINDER Administration Losartan Potassium 50 mg 08/27/18 09:00 08/29/18 10:01 Cozaar Tab* PO 50 mg DAILY SATINDER Administration Magnesium Hydroxide 30 ml 08/26/18 16:36 Milk Of Magnesia Liq* PO Q6H PRN CONSTIPATION Metoprolol Succinate 100 mg 08/27/18 09:00 08/29/18 10:07 Toprol Xl Tab* PO 100 mg DAILY SATINDER Administration Oxycodone HCl 5 mg 08/26/18 16:45 Roxycodone Tab* PO Q4H PRN PAIN - MODERATE TO SEVERE Oxycodone HCl 10 mg 08/26/18 16:46 Roxycodone Tab* PO Q4H PRN PAIN - SEVERE Polyethylene Glycol/Electrolytes 17 gm 08/26/18 16:46 08/28/18 15:24 Miralax* PO 17 gm DAILY PRN Administration CONSTIPATION Senna 2 tab 08/26/18 16:36 Senokot Tab* PO BEDTIME PRN CONSTIPATION Vital Signs: Vital Signs Temp Pulse Resp BP Pulse Ox 98.3 F 274 20 145/111 77 08/29/18 16:25 08/29/18 16:25 08/29/18 16:25 08/29/18 16:25 08/29/18 16:25 Exam: GENERAL: Alert. LUNGS: Clear bilaterally HEART: regular rhythm ABDOMEN: Soft, +BS EXTREMITIES: LLE wound intact NEUROLOGIC: Resting tremor, especially in arms. Muscle strength 5/5 UEs and 4/5 LLE Assessment/Plan: 1. Left Hip Fracture. S/P HAP: WBAT. PT/OT. Dr Platt follow up 2. Parkinson's Disease: Sinemet. Amantadine. Neurology follow up as needed 3. Atrial Fibrillation: Eliquis/Toprol 4. HTN: Cozaar (instead of Avapro) and Toprol 5. DVT Prophylaxis: Eliquis 6. Advance Directives: Full Code. is HCP 08/29/18 19:21
[2018-08-29] MEDS: Senna TAB PO PRN (21:06)
[2018-08-30] MEDS: Acetaminophen TAB* 325 MG PO PRN ×3 (02:26→21:28)
[2018-08-30] MEDS: CARBIDOPA PO SCH ×4 (09:42→21:21)
[2018-08-30] MEDS: LEVODOPA PO SCH ×4 (09:42→21:21)
[2018-08-30] MEDS: Lacosamide TAB* 50 MG TAB PO SCH ×2 (09:42→21:21)
[2018-08-30] MEDS: Amantadine CAP* 100 MG PO SCH ×2 (09:42→21:21)
[2018-08-30] MEDS: Losartan TAB* 25 MG PO SCH (09:42)
[2018-08-30] MEDS: Docusate CAP* 100 MG PO SCH ×2 (09:42→21:21)
[2018-08-30] MEDS: Apixaban* 5 MG TAB PO SCH ×2 (09:42→21:21)
[2018-08-30] MEDS: Metoprolol Succinate XL TAB* 100 MG PO SCH (09:42)
[2018-08-30] MEDS: Atorvastatin* 20 MG TAB PO SCH (16:52)
--- NOTE | 2018-08-30 18:33 | PN ---
Progress Note Date of Service: 08/30/18 Note: EBENEZER [employer]AN[employer] was visited. Therapy notes read and reviewed. Slowly improving. He has no complaints. 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 Current Medications: Active Medications Generic Name Dose Route Start Last Admin Trade Name Freq PRN Reason Stop Dose Admin Acetaminophen 650 mg 08/27/18 18:00 08/30/18 13:14 Tylenol Tab* PO 650 mg Q4H PRN Administration FEVER/PAIN Amantadine HCl 100 mg 08/27/18 21:00 08/30/18 09:42 Symmetrel Cap* PO 100 mg BID SATINDER Administration Apixaban 5 mg 08/26/18 21:00 08/30/18 09:42 Eliquis* PO 5 mg BID SATINDER Administration Atorvastatin Calcium 20 mg 08/27/18 17:00 08/30/18 16:52 Lipitor* PO 20 mg 1700 SATINDER Administration Carbidopa/Levodopa 1.5 tab 08/26/18 17:00 08/30/18 16:52 Carbidopa/Levodopa Odt (Nf) PO 1.5 tab QID SATINDER Administration Docusate Sodium 100 mg 08/26/18 21:00 08/30/18 09:42 Colace Cap* PO 100 mg BID SATINDER Administration Lacosamide 50 mg 08/26/18 21:00 08/30/18 09:42 Vimpat Tab* PO 50 mg BID SATINDER Administration Losartan Potassium 50 mg 08/27/18 09:00 08/30/18 09:42 Cozaar Tab* PO 50 mg DAILY SATINDER Administration Magnesium Hydroxide 30 ml 08/26/18 16:36 Milk Of Magnesia Liq* PO Q6H PRN CONSTIPATION Metoprolol Succinate 100 mg 08/27/18 09:00 08/30/18 09:42 Toprol Xl Tab* PO 100 mg DAILY SATINDER Administration Oxycodone HCl 5 mg 08/26/18 16:45 Roxycodone Tab* PO Q4H PRN PAIN - MODERATE TO SEVERE Oxycodone HCl 10 mg 08/26/18 16:46 Roxycodone Tab* PO Q4H PRN PAIN - SEVERE Polyethylene Glycol/Electrolytes 17 gm 08/26/18 16:46 08/28/18 15:24 Miralax* PO 17 gm DAILY PRN Administration CONSTIPATION Senna 2 tab 08/26/18 16:36 08/29/18 21:06 Senokot Tab* PO 2 tab BEDTIME PRN Administration CONSTIPATION Vital Signs: Vital Signs Temp Pulse Resp BP Pulse Ox 98.4 F 80 20 118/47 98 08/30/18 06:20 08/30/18 06:25 08/30/18 06:20 08/30/18 06:21 08/30/18 06:20 Exam: GENERAL: Alert. LUNGS: Clear bilaterally HEART: regular rhythm ABDOMEN: Soft, +BS EXTREMITIES: LLE wound intact NEUROLOGIC: Resting tremor, especially in arms. Muscle strength 5/5 UEs and 4/5 LLE Assessment/Plan: 1. Left Hip Fracture. S/P HAP: WBAT. PT/OT. Dr Platt follow up 2. Parkinson's Disease: Sinemet. Amantadine. Neurology follow up as needed 3. Atrial Fibrillation: Eliquis/Toprol 4. HTN: Cozaar (instead of Avapro) and Toprol 5. DVT Prophylaxis: Eliquis 6. Advance Directives: Full Code. is HCP 08/30/18 18:33
[2018-08-30] MEDS ORDERED: Benzocaine/Menthol LOZ* 1 LOZENGE PO PRN (20:20)
[2018-08-31] MEDS: Acetaminophen TAB* 325 MG PO PRN ×2 (08:09→21:01)
[2018-08-31] MEDS: Apixaban* 5 MG TAB PO SCH ×2 (08:09→21:00)
[2018-08-31] MEDS: Lacosamide TAB* 50 MG TAB PO SCH ×2 (08:09→21:00)
[2018-08-31] MEDS: Losartan TAB* 25 MG PO SCH (08:09)
[2018-08-31] MEDS: LEVODOPA PO SCH ×4 (08:10→21:01)
[2018-08-31] MEDS: Amantadine CAP* 100 MG PO SCH ×2 (08:10→21:00)
[2018-08-31] MEDS: Metoprolol Succinate XL TAB* 100 MG PO SCH (08:10)
[2018-08-31] MEDS: CARBIDOPA PO SCH ×4 (08:10→21:01)
[2018-08-31] MEDS: Docusate CAP* 100 MG PO SCH ×2 (08:10→21:01)
--- NOTE | 2018-08-31 10:12 | PN ---
Progress Note Date of Service: 08/31/18 Note: EBENEZER [employer]ANING was visited. Nursing and therapy notes read and reviewed. No chest pain, shortness of breath or abdominal pain. He thinks his tremor may have lessened with increased sinemet. Staff notes rash on back. He says it is better today and was a little itchy. Current Medications: Active Medications Generic Name Dose Route Start Last Admin Trade Name Freq PRN Reason Stop Dose Admin Acetaminophen 650 mg 08/27/18 18:00 08/31/18 08:09 Tylenol Tab* PO 650 mg Q4H PRN Administration FEVER/PAIN Amantadine HCl 100 mg 08/27/18 21:00 08/31/18 08:10 Symmetrel Cap* PO 100 mg BID SATINDER Administration Apixaban 5 mg 08/26/18 21:00 08/31/18 08:09 Eliquis* PO 5 mg BID SATINDER Administration Atorvastatin Calcium 20 mg 08/27/18 17:00 08/30/18 16:52 Lipitor* PO 20 mg 1700 SATINDER Administration Carbidopa/Levodopa 1.5 tab 08/26/18 17:00 08/31/18 08:10 Carbidopa/Levodopa Odt (Nf) PO 1.5 tab QID SATINDER Administration Docusate Sodium 100 mg 08/26/18 21:00 08/31/18 08:10 Colace Cap* PO Not Given BID SATINDER Lacosamide 50 mg 08/26/18 21:00 08/31/18 08:09 Vimpat Tab* PO 50 mg BID SATINDER Administration Losartan Potassium 50 mg 08/27/18 09:00 08/31/18 08:09 Cozaar Tab* PO 50 mg DAILY SATINDER Administration Magnesium Hydroxide 30 ml 08/26/18 16:36 Milk Of Magnesia Liq* PO Q6H PRN CONSTIPATION Metoprolol Succinate 100 mg 08/27/18 09:00 08/31/18 08:10 Toprol Xl Tab* PO 100 mg DAILY SATINDER Administration Oxycodone HCl 5 mg 08/26/18 16:45 Roxycodone Tab* PO Q4H PRN PAIN - MODERATE TO SEVERE Oxycodone HCl 10 mg 08/26/18 16:46 Roxycodone Tab* PO Q4H PRN PAIN - SEVERE Polyethylene Glycol/Electrolytes 17 gm 08/26/18 16:46 03/12/19 15:24 Miralax* PO 17 gm DAILY PRN Administration CONSTIPATION Senna 2 tab 08/26/18 16:36 08/29/18 21:06 Senokot Tab* PO 2 tab BEDTIME PRN Administration CONSTIPATION Throat Lozenges 1 jolynn 08/30/18 20:20 08/30/18 21:26 Chloraseptic Jolynn* PO 1 jolynn Q2H PRN Administration SORE THROAT Vital Signs: Vital Signs Temp Pulse Resp BP Pulse Ox 98.2 F 229 20 136/64 86 08/31/18 06:21 08/31/18 06:21 08/31/18 06:21 08/31/18 06:30 08/31/18 06:21 Exam: GENERAL: Alert and appropriate LUNGS: Clear to auscultation bilaterally HEART: regular rate and rhythm ABDOMEN: +bowel sounds, soft, non-tender, non-distended EXTREMITIES: LLE wound intact. Mild swelling in left operative leg as expected post op. NEUROLOGIC: Resting tremor more in arms. Muscle strength bilateral UE/LE 5/5 except limited testing left hip and knee due to surgery. Sensation intact. SKIN: papular rash on back only. Assessment/Plan: 1. Left Hip Fracture. S/P HAP: WBAT. PT/OT. Dr Platt follow up 2. Parkinson's Disease: Sinemet. Amantadine. Neurology follow up as needed 3. Atrial Fibrillation: Eliquis/Toprol 4. HTN: Cozaar (instead of Avapro) and Toprol 5. DVT Prophylaxis: Eliquis 6. Advance Directives: Full Code. is HCP 7. Rash: probably from contact with bed/pillows/chair. Will order hydrocortisone for itching prn. 08/31/18 10:17
[2018-08-31] MEDS: Atorvastatin* 20 MG TAB PO SCH (16:59)
[2018-09-01] MEDS: Losartan TAB* 25 MG PO SCH (09:49)
[2018-09-01] MEDS: Docusate CAP* 100 MG PO SCH ×2 (09:49→21:05)
[2018-09-01] MEDS: Amantadine CAP* 100 MG PO SCH ×2 (09:49→21:08)
[2018-09-01] MEDS: Lacosamide TAB* 50 MG TAB PO SCH ×2 (09:50→21:08)
[2018-09-01] MEDS: Apixaban* 5 MG TAB PO SCH ×2 (09:50→21:08)
[2018-09-01] MEDS: LEVODOPA PO SCH ×4 (09:51→21:08)
[2018-09-01] MEDS: CARBIDOPA PO SCH ×4 (09:51→21:08)
[2018-09-01] MEDS: Metoprolol Succinate XL TAB* 100 MG PO SCH (09:51)
[2018-09-01] MEDS: Acetaminophen TAB* 325 MG PO PRN ×2 (09:51→21:09)
[2018-09-01] MEDS: Hydrocortisone 1% CREAM* 30 GM TUBE TOPICAL PRN (09:56)
--- NOTE | 2018-09-01 10:32 | PN ---
Progress Note Date of Service: 09/01/18 Note: EBENE[employer]ER [employer] was visited. Nursing and therapy notes read and reviewed. No chest pain, shortness of breath or abdominal pain. No new concerns, but reported yesterday when eating that when he is eating and bringing the fork up and close he loses sight of it. I was in the room at the time with the nurse. He said this has been happening for a while, predating admission. He is followed for macular degeneration and believes he will see his eye doctor in December. This is his only visual complaint. Current Medications: Active Medications Generic Name Dose Route Start Last Admin Trade Name Freq PRN Reason Stop Dose Admin Acetaminophen 650 mg 08/27/18 18:00 09/01/18 09:51 Tylenol Tab* PO 650 mg Q4H PRN Administration FEVER/PAIN Amantadine HCl 100 mg 08/27/18 21:00 09/01/18 09:49 Symmetrel Cap* PO 100 mg BID SATINDER Administration Apixaban 5 mg 08/26/18 21:00 09/01/18 09:50 Eliquis* PO 5 mg BID SATINDER Administration Atorvastatin Calcium 20 mg 08/27/18 17:00 08/31/18 16:59 Lipitor* PO 20 mg 1700 SATINDER Administration Carbidopa/Levodopa 1.5 tab 08/26/18 17:00 09/01/18 09:51 Carbidopa/Levodopa Odt (Nf) PO 1.5 tab QID SATINDER Administration Docusate Sodium 100 mg 08/26/18 21:00 09/01/18 09:49 Colace Cap* PO 100 mg BID SATINDER Administration Hydrocortisone 1 applic 08/31/18 10:19 09/01/18 09:56 Hytone Cream 1%* TOPICAL 1 applic TID PRN Administration itching Lacosamide 50 mg 08/26/18 21:00 09/01/18 09:50 Vimpat Tab* PO 50 mg BID SATINDER Administration Losartan Potassium 50 mg 08/27/18 09:00 09/01/18 09:49 Cozaar Tab* PO 50 mg DAILY SATINDER Administration Magnesium Hydroxide 30 ml 08/26/18 16:36 Milk Of Magnesia Liq* PO Q6H PRN CONSTIPATION Metoprolol Succinate 100 mg 08/27/18 09:00 09/01/18 09:51 Toprol Xl Tab* PO 100 mg DAILY SATINDER Administration Oxycodone HCl 5 mg 08/26/18 16:45 Roxycodone Tab* PO Q4H PRN PAIN - MODERATE TO SEVERE Oxycodone HCl 10 mg 08/26/18 16:46 Roxycodone Tab* PO Q4H PRN PAIN - SEVERE Polyethylene Glycol/Electrolytes 17 gm 08/26/18 16:46 08/28/18 15:24 Miralax* PO 17 gm DAILY PRN Administration CONSTIPATION Senna 2 tab 08/26/18 16:36 08/29/18 21:06 Senokot Tab* PO 2 tab BEDTIME PRN Administration CONSTIPATION Throat Lozenges 1 jolynn 08/30/18 20:20 08/30/18 21:26 Chloraseptic Jolynn* PO 1 jolynn Q2H PRN Administration SORE THROAT Vital Signs: Vital Signs Temp Pulse Resp BP Pulse Ox 97.7 F 69 18 139/70 96 09/01/18 06:38 09/01/18 06:38 09/01/18 06:38 09/01/18 06:46 09/01/18 06:38 Exam: GENERAL: Alert and appropriate LUNGS: Clear to auscultation bilaterally HEART: regular rate and rhythm ABDOMEN: +bowel sounds, soft, non-tender, non-distended EXTREMITIES: left hip lino intact. Mild swelling in left operative leg as expected post op. NEUROLOGIC: CN II-XII intact. Resting tremor more in arms. Muscle strength bilateral UE/LE 5/5 except limited testing left hip and knee due to surgery. Sensation intact. SKIN: Optifoam in place on right buttock. papular rash on back with a few excoriations. Assessment/Plan: 1. Left Hip Fracture. S/P HAP: WBAT. PT/OT. Dr Platt follow up 2. Parkinson's Disease: Sinemet. Amantadine. Neurology follow up as needed 3. Atrial Fibrillation: Eliquis/Toprol 4. HTN: Cozaar (instead of Avapro) and Toprol 5. DVT Prophylaxis: Eliquis 6. Advance Directives: Full Code. is HCP 7. Rash: probably from contact with bed/pillows/chair. Will order hydrocortisone for itching prn. 8. Macular degeneration/vision: f/u with eye doctor after discharge. 09/01/18 10:31
[2018-09-01] MEDS: Atorvastatin* 20 MG TAB PO SCH (17:29)
[2018-09-01] MEDS: Senna TAB PO PRN (21:07)
[2018-09-02] MEDS: Acetaminophen TAB* 325 MG PO PRN ×2 (04:16→20:28)
[2018-09-02] MEDS: Docusate CAP* 100 MG PO SCH ×2 (08:31→20:26)
[2018-09-02] MEDS: Apixaban* 5 MG TAB PO SCH ×2 (08:31→20:26)
[2018-09-02] MEDS: Losartan TAB* 25 MG PO SCH (08:32)
[2018-09-02] MEDS: Metoprolol Succinate XL TAB* 100 MG PO SCH (08:32)
[2018-09-02] MEDS: Amantadine CAP* 100 MG PO SCH ×2 (08:32→20:26)
[2018-09-02] MEDS: LEVODOPA PO SCH ×4 (08:33→20:26)
[2018-09-02] MEDS: CARBIDOPA PO SCH ×4 (08:33→20:26)
[2018-09-02] MEDS: Lacosamide TAB* 50 MG TAB PO SCH ×2 (08:33→20:26)
--- NOTE | 2018-09-02 10:34 | PN ---
Progress Note Date of Service: 09/02/18 Note: EBENE[employer]ER [employer] was visited. Therapy notes read and reviewed. No new issues overnight. No chest pain, shortness of breath or abdominal pain. Current Medications: Active Medications Generic Name Dose Route Start Last Admin Trade Name Freq PRN Reason Stop Dose Admin Acetaminophen 650 mg 08/27/18 18:00 09/02/18 04:16 Tylenol Tab* PO 650 mg Q4H PRN Administration FEVER/PAIN Amantadine HCl 100 mg 08/27/18 21:00 09/02/18 08:32 Symmetrel Cap* PO 100 mg BID SATINDER Administration Apixaban 5 mg 08/26/18 21:00 09/02/18 08:31 Eliquis* PO 5 mg BID SATINDER Administration Atorvastatin Calcium 20 mg 08/27/18 17:00 09/01/18 17:29 Lipitor* PO 20 mg 1700 SATINDER Administration Carbidopa/Levodopa 1.5 tab 08/26/18 17:00 09/02/18 08:33 Carbidopa/Levodopa Odt (Nf) PO 1.5 tab QID SATINDER Administration Docusate Sodium 100 mg 08/26/18 21:00 09/02/18 08:31 Colace Cap* PO 100 mg BID SATINDER Administration Hydrocortisone 1 applic 08/31/18 10:19 09/01/18 09:56 Hytone Cream 1%* TOPICAL 1 applic TID PRN Administration itching Lacosamide 50 mg 08/26/18 21:00 09/02/18 08:33 Vimpat Tab* PO 50 mg BID SATINDER Administration Losartan Potassium 50 mg 08/27/18 09:00 09/02/18 08:32 Cozaar Tab* PO 50 mg DAILY SATINDER Administration Magnesium Hydroxide 30 ml 08/26/18 16:36 Milk Of Magnesia Liq* PO Q6H PRN CONSTIPATION Metoprolol Succinate 100 mg 08/27/18 09:00 09/02/18 08:32 Toprol Xl Tab* PO 100 mg DAILY SATINDER Administration Oxycodone HCl 5 mg 08/26/18 16:45 Roxycodone Tab* PO Q4H PRN PAIN - MODERATE TO SEVERE Oxycodone HCl 10 mg 08/26/18 16:46 Roxycodone Tab* PO Q4H PRN PAIN - SEVERE Polyethylene Glycol/Electrolytes 17 gm 08/26/18 16:46 08/28/18 15:24 Miralax* PO 17 gm DAILY PRN Administration CONSTIPATION Senna 2 tab 08/26/18 16:36 09/01/18 21:07 Senokot Tab* PO 2 tab BEDTIME PRN Administration CONSTIPATION Throat Lozenges 1 jolynn 08/30/18 20:20 08/30/18 21:26 Chloraseptic Jolynn* PO 1 jolynn Q2H PRN Administration SORE THROAT Vital Signs: Vital Signs Temp Pulse Resp BP Pulse Ox 97.7 F 73 18 139/70 99 09/02/18 06:38 09/02/18 06:38 09/02/18 06:38 09/02/18 06:56 09/02/18 06:38 Exam: GENERAL: Alert and appropriate LUNGS: Clear to auscultation bilaterally HEART: regular rate and rhythm ABDOMEN: +bowel sounds, soft, non-tender, non-distended EXTREMITIES: left hip lino intact. Mild swelling in left operative leg as expected post op. NEUROLOGIC: CN II-XII intact. Resting tremor more in arms. Muscle strength bilateral UE/LE 5/5 except limited testing left hip and knee due to surgery. Sensation intact. SKIN: Papular rash on back has lessened. Assessment/Plan: 1. Left Hip Fracture. S/P HAP: WBAT. PT/OT. Dr Platt follow up 2. Parkinson's Disease: Sinemet. Amantadine. Neurology follow up as needed 3. Atrial Fibrillation: Eliquis/Toprol 4. HTN: Cozaar (instead of Avapro) and Toprol 5. DVT Prophylaxis: Eliquis 6. Advance Directives: Full Code. is HCP 7. Rash: probably from contact with bed/pillows/chair. hydrocortisone for itching prn. 8. Macular degeneration/vision: f/u with eye doctor after discharge. 09/02/18 10:34
[2018-09-02] MEDS: Atorvastatin* 20 MG TAB PO SCH (16:45)
[2018-09-02] MEDS: Magnesium Hydroxide LIQ* 30 ML UDC PO PRN (19:00)
[2018-09-02] MEDS: Senna TAB PO PRN (20:26)
[2018-09-02] MEDS: Hydrocortisone 1% CREAM* 30 GM TUBE TOPICAL PRN (20:27)
[2018-09-03] MEDS: Acetaminophen TAB* 325 MG PO PRN ×2 (01:23→08:22)
[2018-09-03 05:27] LABS: Hematocrit 32 % (36-46); Hemoglobin 10.4 g/dL (14.0-18.0); Mean Corpuscular HGB Conc 33 g/dL (31-36); Mean Corpuscular Hemoglobin 27 pg (27-31); Mean Corpuscular Volume 83 fL (80-94); Mean Platelet Volume 7.2 fL (7.4-10.4); Platelet Count 442 10^3/uL (150-450); Red Blood Count 3.82 10^6 /uL (4.18-5.48); Red Cell Distribution Width 16 % (10.5-15); White Blood Count 8.1 10^3/uL (3.5-10.8)
[2018-09-03 05:55] LABS: Albumin 3.1 g/dL (3.2-5.2); Albumin/Globulin Ratio 1.1 (1-3); BUN/Creatinine Ratio 24.4 (8-20); Calcium 8.6 mg/dL (8.6-10.3); EGFR African American 105.5 (>60); EGFR Non-African American 87.2 (>60); Globulin 2.8 g/dL (2-4); Potassium 4.4 mmol/L (3.5-5.0); Total Bilirubin 0.4 mg/dL (0.2-1.0); Total Protein 5.9 g/dL (6.4-8.9)
[2018-09-03 06:14] LABS: ABS Basophils 0 10^3/ul (0-0.2); ABS Eosinophils 0.1 10^3/ul (0-0.6); ABS Lymphocytes 1.4 10^3/ul (1.0-4.8); ABS Monocytes 0.6 10^3/ul (0-0.8); ABS Neutrophils 5.9 10^3/ul (1.5-7.7); ABS Nucleated RBC 0 10^3/ul; Eosinophil % 1.7 %; Lymphocyte % 16.9 %; Nucleated Red Blood Cells % 0
[2018-09-03] MEDS: Amantadine CAP* 100 MG PO SCH ×2 (08:04→21:03)
[2018-09-03] MEDS: Apixaban* 5 MG TAB PO SCH ×2 (08:04→21:03)
[2018-09-03] MEDS: LEVODOPA PO SCH ×4 (08:04→21:03)
[2018-09-03] MEDS: CARBIDOPA PO SCH ×4 (08:04→21:03)
[2018-09-03] MEDS: Docusate CAP* 100 MG PO SCH ×2 (08:05→21:03)
[2018-09-03] MEDS: Lacosamide TAB* 50 MG TAB PO SCH ×2 (08:06→21:03)
[2018-09-03] MEDS: Metoprolol Succinate XL TAB* 100 MG PO SCH (08:06)
[2018-09-03] MEDS: Losartan TAB* 25 MG PO SCH (08:06)
[2018-09-03] MEDS: Atorvastatin* 20 MG TAB PO SCH (17:08)
--- NOTE | 2018-09-03 17:53 | PN ---
Progress Note Date of Service: 09/03/18 Note: EBENEZER CLEANING was visited. Therapy notes read and reviewed. He has no specific complaints. He is mentally clearer. Remains with arm tremors. Current Medications: Active Medications Generic Name Dose Route Start Last Admin Trade Name Freq PRN Reason Stop Dose Admin Acetaminophen 650 mg 08/27/18 18:00 09/03/18 08:22 Tylenol Tab* PO 325 mg Q4H PRN Administration FEVER/PAIN Amantadine HCl 100 mg 08/27/18 21:00 09/03/18 08:04 Symmetrel Cap* PO 100 mg BID SATINDER Administration Apixaban 5 mg 08/26/18 21:00 09/03/18 08:04 Eliquis* PO 5 mg BID SATINDER Administration Atorvastatin Calcium 20 mg 08/27/18 17:00 09/03/18 17:08 Lipitor* PO 20 mg 1700 SATINDER Administration Carbidopa/Levodopa 1.5 tab 08/26/18 17:00 09/03/18 17:09 Carbidopa/Levodopa Odt (Nf) PO 1.5 tab QID SATINDER Administration Docusate Sodium 100 mg 08/26/18 21:00 09/03/18 08:05 Colace Cap* PO 100 mg BID SATINDER Administration Hydrocortisone 1 applic 08/31/18 10:19 09/02/18 20:27 Hytone Cream 1%* TOPICAL 1 applic TID PRN Administration itching Lacosamide 50 mg 08/26/18 21:00 09/03/18 08:06 Vimpat Tab* PO 50 mg BID SATINDER Administration Losartan Potassium 50 mg 08/27/18 09:00 09/03/18 08:06 Cozaar Tab* PO 50 mg DAILY SATINDER Administration Magnesium Hydroxide 30 ml 08/26/18 16:36 09/02/18 19:00 Milk Of Magnesia Liq* PO 30 ml Q6H PRN Administration CONSTIPATION Metoprolol Succinate 100 mg 08/27/18 09:00 09/03/18 08:06 Toprol Xl Tab* PO 100 mg DAILY SATINDER Administration Oxycodone HCl 5 mg 08/26/18 16:45 Roxycodone Tab* PO Q4H PRN PAIN - MODERATE TO SEVERE Oxycodone HCl 10 mg 08/26/18 16:46 Roxycodone Tab* PO Q4H PRN PAIN - SEVERE Polyethylene Glycol/Electrolytes 17 gm 08/26/18 16:46 08/28/18 15:24 Miralax* PO 17 gm DAILY PRN Administration CONSTIPATION Senna 2 tab 08/26/18 16:36 09/02/18 20:26 Senokot Tab* PO 2 tab BEDTIME PRN Administration CONSTIPATION Throat Lozenges 1 jolynn 08/30/18 20:20 08/30/18 21:26 Chloraseptic Jolynn* PO 1 jolynn Q2H PRN Administration SORE THROAT Vital Signs: Vital Signs Temp Pulse Resp BP Pulse Ox 98.0 F 80 14 110/44 96 09/03/18 15:11 09/03/18 15:11 09/03/18 15:11 09/03/18 15:11 09/03/18 16:26 Lab Results: Laboratory Results - last 24 hr 09/03/18 09/03/18 05:10 05:10 WBC 8.1 RBC 3.82 L Hgb 10.4 L Hct 32 L MCV 83 MCH 27 MCHC 33 RDW 16 H Plt Count 442 MPV 7.2 L Neut % (Auto) 73.5 Lymph % (Auto) 16.9 Clay % (Auto) 7.3 Eos % (Auto) 1.7 Baso % (Auto) 0.6 Absolute Neuts (auto) 5.9 Absolute Lymphs (auto) 1.4 Absolute Monos (auto) 0.6 Absolute Eos (auto) 0.1 Absolute Basos (auto) 0 Absolute Nucleated RBC 0 Nucleated RBC % 0 Sodium 135 Potassium 4.4 Chloride 102 Carbon Dioxide 29 Anion Gap 4 BUN 21 Creatinine 0.86 Est GFR ( Amer) 105.5 Est GFR (Non-Af Amer) 87.2 BUN/Creatinine Ratio 24.4 H Glucose 100 Calcium 8.6 Total Bilirubin 0.40 AST 32 ALT 38 Alkaline Phosphatase 117 H Total Protein 5.9 L Albumin 3.1 L Globulin 2.8 Albumin/Globulin Ratio 1.1 Exam: GENERAL: Alert and appropriate LUNGS: Clear to auscultation bilaterally HEART: regular rate and rhythm ABDOMEN: +bowel sounds, soft, non-tender, non-distended EXTREMITIES: left hip lino intact. Mild swelling in left operative leg as expected post op. NEUROLOGIC: CN II-XII intact. Resting tremor more in arms. Muscle strength bilateral UE/LE 5/5 except left hip and knee due to surgery. Sensation intact. SKIN: Papular rash on back has lessened. Assessment/Plan: 1. Left Hip Fracture. S/P HAP: WBAT. PT/OT. Dr Platt follow up 2. Parkinson's Disease: Sinemet. Amantadine. Neurology follow up as needed 3. Atrial Fibrillation: Eliquis/Toprol 4. HTN: Cozaar (instead of Avapro) and Toprol 5. DVT Prophylaxis: Eliquis 6. Advance Directives: Full Code. is HCP 7. Rash: probably from contact with bed/pillows/chair. hydrocortisone for itching prn. 8. Macular degeneration/vision: f/u with eye doctor after discharge. 09/03/18 17:54
[2018-09-04] MEDS: CARBIDOPA PO SCH ×4 (08:43→21:00)
[2018-09-04] MEDS: Amantadine CAP* 100 MG PO SCH ×2 (08:43→20:59)
[2018-09-04] MEDS: Apixaban* 5 MG TAB PO SCH ×2 (08:43→20:59)
[2018-09-04] MEDS: LEVODOPA PO SCH ×4 (08:43→21:00)
[2018-09-04] MEDS: Docusate CAP* 100 MG PO SCH ×2 (08:44→20:59)
[2018-09-04] MEDS: Metoprolol Succinate XL TAB* 100 MG PO SCH (08:44)
[2018-09-04] MEDS: Losartan TAB* 25 MG PO SCH (08:44)
[2018-09-04] MEDS: Lacosamide TAB* 50 MG TAB PO SCH ×2 (08:44→21:00)
--- NOTE | 2018-09-04 12:37 | PMRUTEAM ---
PMRU: Team Meeting Current Status: Nursing: Current Status Skin Deviations [L buttock] Other Skin Deviations [torso] Rash Skin Deviations [Coccyx] Other Skin Deviations [Right Other Buttocks] Skin Deviations [Bilateral Other Heel] Skin Deviations [Right Lower Other Leg] Skin Deviations [Left Hip] Incision Skin Deviation Description [L buttock red, no open areas, cream applied buttock] Skin Deviation Description [ improving torso] Skin Deviation Description [ pink, blanching Coccyx] Skin Deviation Description [ redness improved no open areas noted Right Buttocks] Skin Deviation Description [ spanko boots in place Bilateral Heel] Skin Deviation Description [ mild red spots Right Lower Leg] Skin Deviation Description [ 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] Drain Type [L buttock] None Physical Therapy: Current Status Bed Mobility Assistance Mod Assist,Max Assist,2 or More Person Assist Transfer Mobility Assistance Total Assist Transfer/Bed Mobility EZ Stand Recommended Devices Ambulation Assistance Not Tested Ambulation Assistive Devices Rolling Walker Stairs Assistance Not Tested Stairs Recommended Devices Two Rails Number of Stairs 4 Curb Not Tested Occupational Therapy: Current Status Upper Body Dressing Max Asst Lower Body Dressing Total Assist,2 Person Assist Bathing Max Asst,2 Person Assist Toileting Total Assist,2 Person Assist Toilet Transfer Total Assist,2 Person Assist Shower Transfer Total Assist,2 Person Assist Eating Max Asst Rec Therapy: Current Status Summary of Assessment and Recreation Therapy assessment complete and pt. is Clinical Impression aware of services. Pt. is pleasant, cooperative and engaged. Pt. has been tired during the afternoons but enjoys visits from staff and his family. Treatment Goals Pt. will engage in leisure activities while on the unit. Treatment Plan Provide RT services and encourage involvement. Social Work: Current Status Discharge Plan Return home with home care svs and family support Potential for Family Training pt's is involved and supportive Anticipated Discharge Home Destination Discharge With home care svs and family support Nutrition: Current Status Monitoring Pt is eating well (consistently 100%) and meeting needs. Na now WNL. BG 100 - WNL. BM 08/30, 09/02 X 2, 09/03 so not currently constipated, and this continues to be monitored by nursing. No new skin issues. No changes in intervention. Will remain involved as indicated. Speech: Current Status Assessment Patient demonstrated improved loudness and vocal quality at habitual pitch, high pitch and low pitch, both for trials of loudest sustained vocalization, and for reading and summarizing a printed article. Goals: Physical Therapy: Initial Goals Bed Mobility Assistance Independent Transfer Mobility Assistance Independent Transfer/Bed Mobility Rolling Walker Recommended Devices Ambulation Independent Ambulation Recommended Devices Rolling Walker Ambulation Distance 150 Stairs Assistance Supervision Stair Recommended Devices Two Rails Number of Stairs 4 Home Exercise Program Independent Assistance Physical Therapy: Updated Goals Bed Mobility Assistance Independent Transfer Mobility Assistance Independent Transfer/Bed Mobility Rolling Walker Recommended Devices Ambulation Assistance Independent Ambulation Assistive Devices Rolling Walker Ambulation Distance (ft) 150 Stairs Assistance Independent Stairs Recommended Devices Two Rails Number of Stairs 5 Occupational Therapy: Initial Goals Goals to be Completed in (Days 28 ) Upper Body Bathing Routine Supervision/Set Up Lower Body Bathing Routine Supervision/Set Up Upper Body Dressing Routine Moderate Assist Lower Body Dressing Routine Moderate Assist Toilet Hygeine and Clothing Minimal Contact Assist Management Routine Toilet Transfer Routine Supervision/Set Up Step-In Shower Transfer Supervision/Set Up Routine Functional Transfers for ADL Modified Independent with Grooming Routine Independent Feeding Routine Independent Nutrition: Goals Intervention Goals 1. Maintain adequate oral intake to support weight maintenance, maintenance of lean body mass, support post op rehab. 2. Maintain bowel regularity w/o constipation or diarrhea. 3. Pt receives appropriate assistance w/feeding. Speech: Goals Speech Goal 1 Voice Goal 1 Comments Voice Goals: Long-Term Goal: Pt will use compensatory strategies to increase vocal loudness to moderate and speech to intelligibility to 95-100%, in spontaneous conversational speech, Independently, as observed by therapists, nursing and medical staff. Short-Term Goal: Pt will complete loud voice exercises and use compensatory strategies to increase vocal loudness to moderate and speech to intelligibility to 95%, in structured conversational speech, given minimal cueing, as observed by therapists, nursing and medical staff. Status: Progressing as expected, FILENET ARCHITECT provied skilled instruction in breath support technique, and instructed and provided skilled monitoring of sets of 5 sustained loud "ah" vocalization at normal/habitual pitch, high and low pitches. FILENET ARCHITECT modified instruction and directed patient to increase loudness, then cease vocalizing after shorter duration whenever his loudness decreased. Patient acheived moderately-to -high loud voice with full modal phonation during exercises, and moderate conversational loudness during structed conversation. Patient reported that "it made a big difference." Speech Goal 2 Language Expression Speech Goal 2 Comments Language Expression Goals: Long-Term Goal: Pt will use conversational repair strategies to cooperatively find words in structured conversation, 100% accuracy, given extra time, Independently. Status: Met Short-Term Goal: Pt will use conversational repair strategies to cooperatively find words in structured language activities, 75% accuracy, given Moderate skilled instruction and cueing. Status: Met Patient successfully named 48/51 pictures from the [place] Naming Test; patients vision affected his accuracy. Social Work: Goals Discharge Plan Return home with home care svs and family support Potential for Family Training pt's is involved and supportive Anticipated Discharge Home Destination Discharge With home care svs and family support Care Plan: Care Plan ADL's - Improve/Maintain Start: 08/28/18 14:52 Freq: DAILY Status: Active Target: Protocol: Activity Type Activity Date Activity User E-Sign Co-Sign Detail Recorded Client Recorded Date Recorded By Document 09/03/18 14:31 [id number] 09/03/18 14:31 [id number] 09/03/18 14:31 PMRU Outcome: ADL's/ADL Transfers Orders/Interventions Occupational Therapy Evaluation & Treatment Communication Tool in Patient Room Patient to receive OT 5x/wk for 60-120 Therex min/day Self Care Management Group Therapy Neuromuscular ReEducation UE/LE ADL's with Assist Yes: MOD A ADL Transfers with Assist Yes: S Toileting: Transfers,Clothing Management Yes: MIN A ,Hygeine w/Assist Light Kitchen/Laundry w/Assist No Progression Toward Outcome/Goals Progressing Outcome/Goals Met Pt able to manage drinks and hayden today which is an improvement from last week. Pt continues to require assistance for all other ADLs and EZ stand for transfers. Communication-Improve/Maintain Start: 08/29/18 16:23 Freq: DAILY Status: Active Target: Protocol: Activity Type Activity Date Activity User E-Sign Co-Sign Detail Recorded Client Recorded Date Recorded By Document 09/02/18 23:13 [id number] [id number] 09/02/18 23:14 [id number] 09/02/18 23:13 PMRU Outcome: Communication/Cognitive Status Other Outcomes/Goals Voice Goals: Long-Term Goal: Pt will use compensatory strategies to increase vocal loudness to moderate and speech to intelligibility to 95-100%, in spontaneous conversational speech, Independently, as observed by therapists, nursing and medical staff. Short-Term Goal : PPt will complete loud voice exercises and use compensatory strategies to increase vocal loudness to moderate and speech to intelligibility to 95%, in structured conversational speech, given minimal cueing, as observed by therapists, nursing and medical staff. Status: Progressing as expected Language Expression Goals: Long-Term Goal: Pt will use conversational repair strategies to cooperatively find words in structured conversation, 100% accuracy, given extra time, Independently. Short-Term Goal : Pt will use conversational repair strategies to cooperatively find words in structured language activities, 75% accuracy, given Moderate skilled instruction and cueing. Status: Goals established Progression Toward Outcomes/Goals Progressing Coping/Psych-Improve/Maintain Start: 08/27/18 14:31 Freq: QSHIFT Status: Active Target: Protocol: Activity Type Activity Date Activity User E-Sign Co-Sign Detail Recorded Client Recorded Date Recorded By Document 09/03/18 20:00 [id number] 09/03/18 20:43 [id number] 09/03/18 20:00 PMRU Outcome: Coping/Psychosocial Coping Outcome/Goals Verbalization of Acceptance of Rehab Admit Verbalization of Sense of Control Over Health Status Willingness to Participate in Treatment Plan and Basic Needs Psychosocial Outcome/Goals Maintain/ Improve Emotional Health Cooperate/ Participate in Plan Progression Toward Outcome/Goals - Progressing Coping Progression Toward Outcome/Goals - Progressing Psychosocial DVT Prophylaxis- Improve/Maintain Start: 08/27/18 14:31 Freq: QSHIFT Status: Active Target: Protocol: Activity Type Activity Date Activity User E-Sign Co-Sign Detail Recorded Client Recorded Date Recorded By Document 09/03/18 20:00 [id number] 09/03/18 20:43 [id number] 09/03/18 20:00 PMRU Outcome: DVT Prophylaxis Outcome/Goals Remains Free of DVT Free of complications from current DVT Complies with DVT Prophylaxis /Treatment Demonstrates Knowledge of DVT Prevention/ Treatment TEDS Stockings on Every AM, Off at HS Progression Toward Outcome/Goals Progressing Discharge Planning - Improve/Maintain Start: 08/27/18 14:31 Freq: DAILY Status: Active Target: Protocol: Activity Type Activity Date Activity User E-Sign Co-Sign Detail Recorded Client Recorded Date Recorded By Document 09/03/18 23:00 [id number] 09/04/18 00:20 [id number] 09/03/18 23:00 PMRU Outcome: Discharge Planning Update Patient Family No Outcome/Goals Demonstrates Understanding of Discharge Plan Education-Improve/Maintain Start: 08/27/18 14:31 Freq: QSHIFT Status: Active Target: Protocol: Activity Type Activity Date Activity User E-Sign Co-Sign Detail Recorded Client Recorded Date Recorded By Document 09/03/18 20:00 [id number] [id number] 09/03/18 20:43 [id number] 09/03/18 20:00 PMRU Outcome: Education Outcome/Goals Demonstrates Skills Encourage Questions Progression Toward Outcome/Goals Progressing /GI-Improve/Maintain Start: 08/27/18 14:31 Freq: QSHIFT Status: Active Target: Protocol: Activity Type Activity Date Activity User E-Sign Co-Sign Detail Recorded Client Recorded Date Recorded By Document 09/03/18 20:00 [id number] [email or web address] 09/03/18 20:43 [id number] 09/03/18 20:00 PMRU Outcome: Genitourinary/ Gastrointestinal Genitourinary- Outcome/Goals Remain Free of Hospital- Acquired UTI Gastrointestinal-Outcome/Goals Maintain/ Achieve Bowel Regularity in Accordance with Pt's Baseline Prevent Constipation Laxatives as Ordered Progression Toward Outcome/Goals - Progressing Progression Toward Outcome/Goals - GI Progressing Medication Administration Start: 08/27/18 14:31 Freq: QSHIFT Status: Active Target: Protocol: Activity Type Activity Date Activity User E-Sign Co-Sign Detail Recorded Client Recorded Date Recorded By Document 09/03/18 20:00 [id number] [email or web address] 09/03/18 20:43 [id number] 09/03/18 20:00 PMRU Outcome: Medication Administration Assess Patient Knowledge/Teach Med Yes Education for all Meds Outcome/Goals Demonstrates Understanding Progression Towards Outcome/Goals Progressing Is Patient Going Home on Lovenox? No Neurological- Improve/Maintain Start: 08/27/18 14:31 Freq: QSHIFT Status: Active Target: Protocol: Activity Type Activity Date Activity User E-Sign Co-Sign Detail Recorded Client Recorded Date Recorded By Document 09/03/18 20:00 [id number] 09/03/18 20:43 [id number] 09/03/18 20:00 PMRU Outcome: Neurological Weakness/Aphasia Weakness Outcome/Goals Maintain/ Achieve Baseline Neurological Status Improve Neurological Status Maintain/ Improve Strength/ROM Progression Toward Outcome/Goals Progressing Pain/Comfort- Improve/Maintain Start: 08/27/18 14:31 Freq: QSHIFT Status: Active Target: Protocol: Activity Type Activity Date Activity User E-Sign Co-Sign Detail Recorded Client Recorded Date Recorded By Document 09/03/18 20:00 [id number] 09/03/18 20:43 [id number] 09/03/18 20:00 PMRU Outcome: Pain/Comfort Outcome/Goals Demonstrates Knowledge and Use of Available Comfort Measures Achieves Acceptable Comfort/Pain Level as Determined by Patient/Condit Maintain Comfort Level Allowing Patient to Fully Participate in Rehab Progression Toward Outcome/Goals Progressing Outcome/Goals Met Demonstrates Knowledge and Use of Available Comfort Measures Safety- Improve/Maintain Start: 08/27/18 14:31 Freq: QSHIFT Status: Active Target: Protocol: Activity Type Activity Date Activity User E-Sign Co-Sign Detail Recorded Client Recorded Date Recorded By Document 09/03/18 20:00 [id number] 09/03/18 20:43 [id number] 09/03/18 20:00 PMRU Outcome: Safety Outcome/Goals Remain Free of Injury or Harm Cooperates with Safety Measures for Least Restrictive Environment Prevent Falls/ Injury Progression Toward Outcome/Goals Progressing Outcome/Goals Met Remain Free of Injury or Harm Cooperates with Safety Measures for Least Restrictive Environment Outcome/Goals Met Comment BA armed Skin- Improve/Maintain Start: 08/27/18 14:31 Freq: QSHIFT Status: Active Target: Protocol: Activity Type Activity Date Activity User E-Sign Co-Sign Detail Recorded Client Recorded Date Recorded By Document 09/03/18 20:00 [id number] 09/03/18 20:43 [id number] 09/03/18 20:00 PMRU Outcome: Skin Skin Risk Level High Skin Orders Spenco Boots Heels Off Bed Turn/Position q2hr While in Bed Outcome/Goals Maintain/ Improve Skin Intergrity Maintain/ Improve Wound Status Surgical Incisions Healing Progression Toward Outcome/Goals Progressing Medicine Note: Length of Stay: 4 1/2 weeks Anticipated Discharge Destination: Home Tentative Discharge Date: 10/05/18 Discharged to: Home vs?
[2018-09-04] MEDS: Acetaminophen TAB* 325 MG PO PRN (13:11)
[2018-09-04] MEDS: Atorvastatin* 20 MG TAB PO SCH (16:50)
--- NOTE | 2018-09-04 17:14 | PN ---
Progress Note Date of Service: 09/04/18 Note: EBENEZER CLEANING was visited. Therapy notes read and reviewed. He was discussed in interdisciplinary team rounds. He has a hard time getting out of bed in the morning. Will adjust his Sinemet times to see if this might help. I will try to call his neurologist, Dr. Grady Current Medications: Active Medications Generic Name Dose Route Start Last Admin Trade Name Freq PRN Reason Stop Dose Admin Acetaminophen 650 mg 08/27/18 18:00 09/04/18 13:11 Tylenol Tab* PO 325 mg Q4H PRN Administration FEVER/PAIN Amantadine HCl 100 mg 08/27/18 21:00 09/04/18 08:43 Symmetrel Cap* PO 100 mg BID SATINDER Administration Apixaban 5 mg 08/26/18 21:00 09/04/18 08:43 Eliquis* PO 5 mg BID SATINDER Administration Atorvastatin Calcium 20 mg 08/27/18 17:00 09/04/18 16:50 Lipitor* PO 20 mg 1700 SATINDER Administration Carbidopa/Levodopa 1.5 tab 09/04/18 16:00 09/04/18 16:50 Carbidopa/Levodopa Odt (Nf) PO 1.5 tab 0700,1100,1600,2100 SATINDER Administration Docusate Sodium 100 mg 08/26/18 21:00 09/04/18 08:44 Colace Cap* PO 100 mg BID SATINDER Administration Hydrocortisone 1 applic 08/31/18 10:19 09/02/18 20:27 Hytone Cream 1%* TOPICAL 1 applic TID PRN Administration itching Lacosamide 50 mg 08/26/18 21:00 09/04/18 08:44 Vimpat Tab* PO 50 mg BID SATINDER Administration Losartan Potassium 50 mg 08/27/18 09:00 09/04/18 08:44 Cozaar Tab* PO 50 mg DAILY SATINDER Administration Magnesium Hydroxide 30 ml 08/26/18 16:36 09/02/18 19:00 Milk Of Magnesia Liq* PO 30 ml Q6H PRN Administration CONSTIPATION Metoprolol Succinate 100 mg 08/27/18 09:00 09/04/18 08:44 Toprol Xl Tab* PO 100 mg DAILY SATINDER Administration Oxycodone HCl 5 mg 08/26/18 16:45 Roxycodone Tab* PO Q4H PRN PAIN - MODERATE TO SEVERE Oxycodone HCl 10 mg 08/26/18 16:46 Roxycodone Tab* PO Q4H PRN PAIN - SEVERE Polyethylene Glycol/Electrolytes 17 gm 08/26/18 16:46 08/28/18 15:24 Miralax* PO 17 gm DAILY PRN Administration CONSTIPATION Senna 2 tab 08/26/18 16:36 09/02/18 20:26 Senokot Tab* PO 2 tab BEDTIME PRN Administration CONSTIPATION Throat Lozenges 1 jolynn 08/30/18 20:20 08/30/18 21:26 Chloraseptic Jolynn* PO 1 jolynn Q2H PRN Administration SORE THROAT Vital Signs: Vital Signs Temp Pulse Resp BP Pulse Ox 97.3 F 81 24 107/48 97 09/04/18 16:57 09/04/18 16:57 09/04/18 06:00 09/04/18 16:57 09/04/18 16:57 Exam: GENERAL: Alert and appropriate LUNGS: Clear to auscultation bilaterally HEART: regular rate and rhythm ABDOMEN: +bowel sounds, soft, non-tender, non-distended EXTREMITIES: left hip lino intact. Mild swelling in left operative leg as expected post op. NEUROLOGIC: CN II-XII intact. Resting tremor more in arms. Muscle strength bilateral UE/LE 5/5 except left hip and knee due to surgery. Sensation intact. SKIN: Papular rash on back has lessened. Assessment/Plan: 1. Left Hip Fracture. S/P HAP: WBAT. PT/OT. Dr Platt follow up 2. Parkinson's Disease: Sinemet. Adjust times of Sinemet for therapy. Amantadine. Neurology follow up as needed 3. Atrial Fibrillation: Eliquis/Toprol 4. HTN: Cozaar (instead of Avapro) and Toprol 5. DVT Prophylaxis: Eliquis 6. Advance Directives: Full Code. is HCP 7. Rash: probably from contact with bed/pillows/chair. hydrocortisone for itching prn. 8. Macular degeneration/vision: f/u with eye doctor after discharge. 09/04/18 17:14
[2018-09-04] MEDS: Hydrocortisone 1% CREAM* 30 GM TUBE TOPICAL PRN (19:45)
[2018-09-05] MEDS: LEVODOPA PO SCH ×4 (07:26→20:34)
[2018-09-05] MEDS: CARBIDOPA PO SCH ×4 (07:26→20:34)
[2018-09-05] MEDS: Amantadine CAP* 100 MG PO SCH ×2 (07:39→20:34)
[2018-09-05] MEDS: Apixaban* 5 MG TAB PO SCH ×2 (07:39→20:34)
[2018-09-05] MEDS: Metoprolol Succinate XL TAB* 100 MG PO SCH (07:40)
[2018-09-05] MEDS: Losartan TAB* 25 MG PO SCH (07:40)
[2018-09-05] MEDS: Docusate CAP* 100 MG PO SCH ×2 (07:40→20:34)
[2018-09-05] MEDS: Lacosamide TAB* 50 MG TAB PO SCH ×2 (07:40→20:34)
[2018-09-05] MEDS: Atorvastatin* 20 MG TAB PO SCH (16:17)
--- NOTE | 2018-09-05 18:12 | PN ---
Progress Note Date of Service: 09/05/18 Note: EBENEZER CLEANING was visited. Therapy notes read and reviewed. Requires a lot of assistance to get out of bed. Have revised time for Sinemet. Will contact neurology Current Medications: Active Medications Generic Name Dose Route Start Last Admin Trade Name Freq PRN Reason Stop Dose Admin Acetaminophen 650 mg 08/27/18 18:00 09/04/18 13:11 Tylenol Tab* PO 325 mg Q4H PRN Administration FEVER/PAIN Amantadine HCl 100 mg 08/27/18 21:00 09/05/18 07:39 Symmetrel Cap* PO 100 mg BID SATINDER Administration Apixaban 5 mg 08/26/18 21:00 09/05/18 07:39 Eliquis* PO 5 mg BID SATINDER Administration Atorvastatin Calcium 20 mg 08/27/18 17:00 09/05/18 16:17 Lipitor* PO 20 mg 1700 SATINDER Administration Carbidopa/Levodopa 1.5 tab 09/04/18 16:00 09/05/18 16:17 Carbidopa/Levodopa Odt (Nf) PO 1.5 tab 0700,1100,1600,2100 SATINDER Administration Docusate Sodium 100 mg 08/26/18 21:00 09/05/18 07:40 Colace Cap* PO 100 mg BID SATINDER Administration Hydrocortisone 1 applic 08/31/18 10:19 09/04/18 19:45 Hytone Cream 1%* TOPICAL 1 applic TID PRN Administration itching Lacosamide 50 mg 08/26/18 21:00 09/05/18 07:40 Vimpat Tab* PO 50 mg BID SATINDER Administration Losartan Potassium 50 mg 08/27/18 09:00 09/05/18 07:40 Cozaar Tab* PO 50 mg DAILY SATINDER Administration Magnesium Hydroxide 30 ml 08/26/18 16:36 09/02/18 19:00 Milk Of Magnesia Liq* PO 30 ml Q6H PRN Administration CONSTIPATION Metoprolol Succinate 100 mg 08/27/18 09:00 09/05/18 07:40 Toprol Xl Tab* PO 100 mg DAILY SATINDER Administration Oxycodone HCl 5 mg 08/26/18 16:45 Roxycodone Tab* PO Q4H PRN PAIN - MODERATE TO SEVERE Oxycodone HCl 10 mg 08/26/18 16:46 Roxycodone Tab* PO Q4H PRN PAIN - SEVERE Polyethylene Glycol/Electrolytes 17 gm 08/26/18 16:46 08/28/18 15:24 Miralax* PO 17 gm DAILY PRN Administration CONSTIPATION Senna 2 tab 08/26/18 16:36 09/02/18 20:26 Senokot Tab* PO 2 tab BEDTIME PRN Administration CONSTIPATION Throat Lozenges 1 jolynn 08/30/18 20:20 08/30/18 21:26 Chloraseptic Jolynn* PO 1 jolynn Q2H PRN Administration SORE THROAT Vital Signs: Vital Signs Temp Pulse Resp BP Pulse Ox 98.1 F 67 18 117/50 98 09/05/18 15:38 09/05/18 15:38 09/05/18 15:59 09/05/18 15:38 09/05/18 15:58 Exam: GENERAL: Alert and appropriate LUNGS: Clear to auscultation bilaterally HEART: regular rate and rhythm ABDOMEN: +bowel sounds, soft, non-tender, non-distended EXTREMITIES: left hip lino intact. Mild swelling in left operative leg as expected post op. NEUROLOGIC: CN II-XII intact. Resting tremor more in arms. Muscle strength bilateral UE/LE 5/5 except left hip and knee due to surgery. Sensation intact. Assessment/Plan: 1. Left Hip Fracture. S/P HAP: WBAT. PT/OT. Dr Platt follow up 2. Parkinson's Disease: Sinemet. Adjusted times of Sinemet for therapy. Amantadine. Neurology follow up as needed 3. Atrial Fibrillation: Eliquis/Toprol 4. HTN: Cozaar (instead of Avapro) and Toprol 5. DVT Prophylaxis: Eliquis 6. Advance Directives: Full Code. is HCP 7. Macular degeneration/vision: f/u with eye doctor after discharge. 09/05/18 18:13
[2018-09-06] MEDS: LEVODOPA PO SCH ×4 (06:59→21:03)
[2018-09-06] MEDS: CARBIDOPA PO SCH ×4 (06:59→21:03)
[2018-09-06] MEDS: Amantadine CAP* 100 MG PO SCH ×2 (09:39→21:05)
[2018-09-06] MEDS: Lacosamide TAB* 50 MG TAB PO SCH ×2 (09:40→21:04)
[2018-09-06] MEDS: Apixaban* 5 MG TAB PO SCH ×2 (09:40→21:04)
[2018-09-06] MEDS: Docusate CAP* 100 MG PO SCH ×2 (09:40→21:05)
[2018-09-06] MEDS: Losartan TAB* 25 MG PO SCH (09:43)
[2018-09-06] MEDS: Metoprolol Succinate XL TAB* 100 MG PO SCH (09:44)
[2018-09-06] MEDS: Atorvastatin* 20 MG TAB PO SCH (17:45)
--- NOTE | 2018-09-06 19:28 | PN ---
Progress Note Date of Service: 09/06/18 Note: EBENE[employer]ER CLEANING was visited. Therapy notes read and reviewed. I will try to call his neurologist tomorrow. She was off today. He remains with a lot of trouble moving. Current Medications: Active Medications Generic Name Dose Route Start Last Admin Trade Name Freq PRN Reason Stop Dose Admin Acetaminophen 650 mg 08/27/18 18:00 09/04/18 13:11 Tylenol Tab* PO 325 mg Q4H PRN Administration FEVER/PAIN Amantadine HCl 100 mg 08/27/18 21:00 09/06/18 09:39 Symmetrel Cap* PO 100 mg BID SATINDER Administration Apixaban 5 mg 08/26/18 21:00 09/06/18 09:40 Eliquis* PO 5 mg BID SATINDER Administration Atorvastatin Calcium 20 mg 08/27/18 17:00 09/06/18 17:45 Lipitor* PO 20 mg 1700 SATINDER Administration Carbidopa/Levodopa 1.5 tab 09/04/18 16:00 09/06/18 16:03 Carbidopa/Levodopa Odt (Nf) PO 1.5 tab 0700,1100,1600,2100 SATINDER Administration Docusate Sodium 100 mg 08/26/18 21:00 09/06/18 09:40 Colace Cap* PO 100 mg BID SATINDER Administration Hydrocortisone 1 applic 08/31/18 10:19 09/04/18 19:45 Hytone Cream 1%* TOPICAL 1 applic TID PRN Administration itching Lacosamide 50 mg 08/26/18 21:00 09/06/18 09:40 Vimpat Tab* PO 50 mg BID SATINDER Administration Losartan Potassium 50 mg 08/27/18 09:00 09/06/18 09:43 Cozaar Tab* PO 50 mg DAILY SATINDER Administration Magnesium Hydroxide 30 ml 08/26/18 16:36 09/02/18 19:00 Milk Of Magnesia Liq* PO 30 ml Q6H PRN Administration CONSTIPATION Metoprolol Succinate 100 mg 08/27/18 09:00 09/06/18 09:44 Toprol Xl Tab* PO 100 mg DAILY SATINDER Administration Oxycodone HCl 5 mg 08/26/18 16:45 Roxycodone Tab* PO Q4H PRN PAIN - MODERATE TO SEVERE Oxycodone HCl 10 mg 08/26/18 16:46 Roxycodone Tab* PO Q4H PRN PAIN - SEVERE Polyethylene Glycol/Electrolytes 17 gm 08/26/18 16:46 08/28/18 15:24 Miralax* PO 17 gm DAILY PRN Administration CONSTIPATION Senna 2 tab 08/26/18 16:36 09/02/18 20:26 Senokot Tab* PO 2 tab BEDTIME PRN Administration CONSTIPATION Throat Lozenges 1 jolynn 08/30/18 20:20 08/30/18 21:26 Chloraseptic Jolynn* PO 1 jolynn Q2H PRN Administration SORE THROAT Vital Signs: Vital Signs Temp Pulse Resp BP Pulse Ox 97.9 F 82 24 112/46 97 09/06/18 17:14 09/06/18 17:14 09/06/18 17:14 09/06/18 17:14 09/06/18 17:14 Exam: GENERAL: Alert and appropriate LUNGS: Clear to auscultation bilaterally HEART: regular rate and rhythm ABDOMEN: +bowel sounds, soft, non-tender, non-distended EXTREMITIES: left hip lino intact. Mild swelling in left operative leg as expected post op. NEUROLOGIC: CN II-XII intact. Resting tremor more in arms. Muscle strength bilateral UE/LE 5/5 except left hip and knee due to surgery. Sensation intact. Assessment/Plan: 1. Left Hip Fracture. S/P HAP: WBAT. PT/OT. Dr Platt follow up 2. Parkinson's Disease: Sinemet. Adjusted times of Sinemet for therapy. Amantadine. Neurology follow up as needed 3. Atrial Fibrillation: Eliquis/Toprol 4. HTN: Cozaar (instead of Avapro) and Toprol 5. DVT Prophylaxis: Eliquis 6. Advance Directives: Full Code. is HCP 7. Macular degeneration/vision: f/u with eye doctor after discharge. 09/06/18 19:28
[2018-09-07] MEDS: LEVODOPA PO SCH ×2 (07:24→11:15)
[2018-09-07] MEDS: CARBIDOPA PO SCH ×2 (07:24→11:15)
[2018-09-07] MEDS: Amantadine CAP* 100 MG PO SCH (09:03)
[2018-09-07] MEDS: Apixaban* 5 MG TAB PO SCH ×2 (09:03→20:00)
[2018-09-07] MEDS: Docusate CAP* 100 MG PO SCH ×2 (09:03→20:02)
[2018-09-07] MEDS: Lacosamide TAB* 50 MG TAB PO SCH ×2 (09:03→20:00)
[2018-09-07] MEDS: Losartan TAB* 25 MG PO SCH (09:03)
[2018-09-07] MEDS: Metoprolol Succinate XL TAB* 100 MG PO SCH (09:03)
[2018-09-07] MEDS ORDERED: Carbidopa/Levodopa ODT(NF) TAB.ODT 25/100 PO SCH (16:00)
[2018-09-07] MEDS: Atorvastatin* 20 MG TAB PO SCH (16:18)
[2018-09-07] MEDS: Carbidopa/Levodop 25/100 MG TAB(*) PO SCH ×2 (16:18→19:59)
--- NOTE | 2018-09-07 19:44 | PN ---
Progress Note Date of Service: 09/07/18 Note: EBENEZER CLEANING was visited. Therapy notes read and reviewed. I spoke with his neurologist, Dr. Grady and we have been underdosing his Sinemet. I have since adjusted the dose. Current Medications: Active Medications Generic Name Dose Route Start Last Admin Trade Name Freq PRN Reason Stop Dose Admin Acetaminophen 650 mg 08/27/18 18:00 09/04/18 13:11 Tylenol Tab* PO 325 mg Q4H PRN Administration FEVER/PAIN Amantadine HCl 100 mg 09/08/18 07:00 Symmetrel Cap* PO 0700,1200 SATINDER Apixaban 5 mg 08/26/18 21:00 09/07/18 09:03 Eliquis* PO 5 mg BID SATINDER Administration Atorvastatin Calcium 20 mg 08/27/18 17:00 09/07/18 16:18 Lipitor* PO 20 mg 1700 SATINDER Administration Carbidopa/Levodopa 1 tab.cr 09/08/18 00:00 Sinemet Cr 50/200(*) PO 0000 SATINDER Carbidopa/Levodopa 2 tab 09/07/18 16:00 09/07/18 16:18 Sinemet 25/100 Tab(*) PO 2 tab 0700,1100,1600,2000 SATINDER Administration Docusate Sodium 100 mg 08/26/18 21:00 09/07/18 09:03 Colace Cap* PO 100 mg BID SATINDER Administration Hydrocortisone 1 applic 08/31/18 10:19 09/04/18 19:45 Hytone Cream 1%* TOPICAL 1 applic TID PRN Administration itching Lacosamide 50 mg 08/26/18 21:00 09/07/18 09:03 Vimpat Tab* PO 50 mg BID SATINDER Administration Losartan Potassium 50 mg 08/27/18 09:00 09/07/18 09:03 Cozaar Tab* PO 50 mg DAILY SATINDER Administration Magnesium Hydroxide 30 ml 08/26/18 16:36 09/02/18 19:00 Milk Of Magnesia Liq* PO 30 ml Q6H PRN Administration CONSTIPATION Metoprolol Succinate 100 mg 08/27/18 09:00 09/07/18 09:03 Toprol Xl Tab* PO 100 mg DAILY SATINDER Administration Oxycodone HCl 5 mg 08/26/18 16:45 Roxycodone Tab* PO Q4H PRN PAIN - MODERATE TO SEVERE Polyethylene Glycol/Electrolytes 17 gm 08/26/18 16:46 08/28/18 15:24 Miralax* PO 17 gm DAILY PRN Administration CONSTIPATION Senna 2 tab 08/26/18 16:36 09/02/18 20:26 Senokot Tab* PO 2 tab BEDTIME PRN Administration CONSTIPATION Throat Lozenges 1 jolynn 08/30/18 20:20 08/30/18 21:26 Chloraseptic Jolynn* PO 1 jolynn Q2H PRN Administration SORE THROAT Vital Signs: Vital Signs Temp Pulse Resp BP Pulse Ox 98.1 F 74 16 94/45 97 09/07/18 15:35 09/07/18 15:35 09/07/18 15:35 09/07/18 15:35 09/07/18 15:35 Exam: GENERAL: Alert and appropriate LUNGS: Clear to auscultation bilaterally HEART: regular rate and rhythm ABDOMEN: +bowel sounds, soft, non-tender, non-distended EXTREMITIES: left hip lino intact. Mild swelling in left operative leg as expected post op. NEUROLOGIC: CN II-XII intact. Resting tremor less today in arms. Muscle strength bilateral UE/LE 5/5 except left hip and knee due to surgery. Sensation intact. Assessment/Plan: 1. Left Hip Fracture. S/P HAP: WBAT. PT/OT. Dr Platt follow up 2. Parkinson's Disease: Sinemet. Adjusted dose of Sinemet. Adjusted times for Amantadine. Neurology follow up as needed 3. Atrial Fibrillation: Eliquis/Toprol 4. HTN: Cozaar (instead of Avapro) and Toprol 5. DVT Prophylaxis: Eliquis 6. Advance Directives: Full Code. is HCP 7. Macular degeneration/vision: f/u with eye doctor after discharge. 09/07/18 19:44
[2018-09-07] MEDS: Senna TAB PO PRN (19:59)
[2018-09-08] MEDS: Carbidopa/Levodop CR 50/200(*) TAB.CR PO SCH (00:25)
[2018-09-08] MEDS: oxyCODONE TAB* 5 MG TAB PO PRN (00:25)
[2018-09-08] MEDS: Carbidopa/Levodop 25/100 MG TAB(*) PO SCH ×4 (06:42→20:02)
[2018-09-08] MEDS: Amantadine CAP* 100 MG PO SCH ×2 (06:42→11:39)
[2018-09-08] MEDS: Losartan TAB* 25 MG PO SCH (08:56)
[2018-09-08] MEDS: Lacosamide TAB* 50 MG TAB PO SCH ×2 (08:57→20:59)
[2018-09-08] MEDS: Metoprolol Succinate XL TAB* 100 MG PO SCH (08:57)
[2018-09-08] MEDS: Apixaban* 5 MG TAB PO SCH ×2 (08:57→20:59)
[2018-09-08] MEDS: Docusate CAP* 100 MG PO SCH ×2 (08:57→20:59)
--- NOTE | 2018-09-08 15:51 | PN ---
Progress Note Date of Service: 09/08/18 Note: EBENEZER CLEANING was visited. Therapy notes read and reviewed. He states he feels better today and will see how he does with therapy. Had trouble with frequent incontinence last night Current Medications: Active Medications Generic Name Dose Route Start Last Admin Trade Name Freq PRN Reason Stop Dose Admin Acetaminophen 650 mg 08/27/18 18:00 09/04/18 13:11 Tylenol Tab* PO 325 mg Q4H PRN Administration FEVER/PAIN Amantadine HCl 100 mg 09/08/18 07:00 09/08/18 11:39 Symmetrel Cap* PO 100 mg 0700,1200 SATINDER Administration Apixaban 5 mg 08/26/18 21:00 09/08/18 08:57 Eliquis* PO 5 mg BID SATINDER Administration Atorvastatin Calcium 20 mg 08/27/18 17:00 09/07/18 16:18 Lipitor* PO 20 mg 1700 SATINDER Administration Carbidopa/Levodopa 1 tab.cr 09/08/18 00:00 09/08/18 00:25 Sinemet Cr 50/200(*) PO 1 tab.cr 0000 SATINDER Administration Carbidopa/Levodopa 2 tab 09/07/18 16:00 09/08/18 11:38 Sinemet 25/100 Tab(*) PO 2 tab 0700,1100,1600,2000 SATINDER Administration Docusate Sodium 100 mg 08/26/18 21:00 09/08/18 08:57 Colace Cap* PO 100 mg BID SATINDER Administration Hydrocortisone 1 applic 08/31/18 10:19 09/04/18 19:45 Hytone Cream 1%* TOPICAL 1 applic TID PRN Administration itching Lacosamide 50 mg 08/26/18 21:00 09/08/18 08:57 Vimpat Tab* PO 50 mg BID SATINDER Administration Losartan Potassium 50 mg 08/27/18 09:00 09/08/18 08:56 Cozaar Tab* PO 50 mg DAILY SATINDER Administration Magnesium Hydroxide 30 ml 08/26/18 16:36 09/02/18 19:00 Milk Of Magnesia Liq* PO 30 ml Q6H PRN Administration CONSTIPATION Metoprolol Succinate 100 mg 08/27/18 09:00 09/08/18 08:57 Toprol Xl Tab* PO 100 mg DAILY SATINDER Administration Oxycodone HCl 5 mg 08/26/18 16:45 09/08/18 00:25 Roxycodone Tab* PO 5 mg Q4H PRN Administration PAIN - MODERATE TO SEVERE Polyethylene Glycol/Electrolytes 17 gm 08/26/18 16:46 08/28/18 15:24 Miralax* PO 17 gm DAILY PRN Administration CONSTIPATION Senna 2 tab 08/26/18 16:36 09/07/18 19:59 Senokot Tab* PO 2 tab BEDTIME PRN Administration CONSTIPATION Throat Lozenges 1 jolynn 08/30/18 20:20 08/30/18 21:26 Chloraseptic Jolynn* PO 1 jolynn Q2H PRN Administration SORE THROAT Vital Signs: Vital Signs Temp Pulse Resp BP Pulse Ox 97.8 F 76 18 122/60 94 09/08/18 05:52 09/08/18 05:52 09/08/18 05:52 09/08/18 06:37 09/08/18 05:52 Exam: GENERAL: Alert and appropriate LUNGS: Clear to auscultation bilaterally HEART: regular rate and rhythm ABDOMEN: +bowel sounds, soft, non-tender, non-distended EXTREMITIES: left hip lino intact. Mild swelling in left operative leg as expected post op. NEUROLOGIC: CN II-XII intact. Resting tremor less today in arms. Muscle strength bilateral UE/LE 5/5 except left hip and knee due to surgery. Sensation intact. Assessment/Plan: 1. Left Hip Fracture. S/P HAP: WBAT. PT/OT. Dr Platt follow up 2. Parkinson's Disease: Sinemet. Adjusted dose of Sinemet. Adjusted times for Amantadine. Neurology follow up as needed 3. Atrial Fibrillation: Eliquis/Toprol 4. HTN: Cozaar (instead of Avapro) and Toprol 5. DVT Prophylaxis: Eliquis 6. Advance Directives: Full Code. is HCP 7. Macular degeneration/vision: f/u with eye doctor after discharge. 09/08/18 15:51
[2018-09-08] MEDS: Atorvastatin* 20 MG TAB PO SCH (16:19)
[2018-09-08] MEDS: Acetaminophen TAB* 325 MG PO PRN (20:05)
[2018-09-09] MEDS: Carbidopa/Levodop CR 50/200(*) TAB.CR PO SCH (00:10)
[2018-09-09] MEDS: oxyCODONE TAB* 5 MG TAB PO PRN (00:25)
[2018-09-09] MEDS: Acetaminophen TAB* 325 MG PO PRN ×2 (06:48→20:12)
[2018-09-09] MEDS: Carbidopa/Levodop 25/100 MG TAB(*) PO SCH ×4 (06:48→20:13)
[2018-09-09] MEDS: Amantadine CAP* 100 MG PO SCH ×3 (06:48→16:20)
[2018-09-09] MEDS: Docusate CAP* 100 MG PO SCH ×2 (08:36→20:12)
[2018-09-09] MEDS: Losartan TAB* 25 MG PO SCH (08:36)
[2018-09-09] MEDS: Metoprolol Succinate XL TAB* 100 MG PO SCH (08:37)
[2018-09-09] MEDS: Apixaban* 5 MG TAB PO SCH ×2 (08:37→20:11)
[2018-09-09] MEDS: Lacosamide TAB* 50 MG TAB PO SCH ×2 (08:37→20:11)
[2018-09-09] MEDS ORDERED: LORazepam TAB(*) 0.5 MG PO ONE (10:15)
[2018-09-09] MEDS: Atorvastatin* 20 MG TAB PO SCH (16:20)
--- NOTE | 2018-09-09 17:06 | PN ---
Progress Note Date of Service: 09/09/18 Note: EBENEZER CLEANING was visited. Therapy notes read and reviewed. His lino were removed without incident. Steri-strips applied. Current Medications: Active Medications Generic Name Dose Route Start Last Admin Trade Name Freq PRN Reason Stop Dose Admin Acetaminophen 650 mg 08/27/18 18:00 09/09/18 06:48 Tylenol Tab* PO 650 mg Q4H PRN Administration FEVER/PAIN Amantadine HCl 100 mg 09/09/18 16:00 09/09/18 16:20 Symmetrel Cap* PO 100 mg 0800,1600 SATINDER Administration Apixaban 5 mg 08/26/18 21:00 09/09/18 08:37 Eliquis* PO 5 mg BID SATINDER Administration Atorvastatin Calcium 20 mg 08/27/18 17:00 09/09/18 16:20 Lipitor* PO 20 mg 1700 SATINDER Administration Carbidopa/Levodopa 1 tab.cr 09/08/18 00:00 09/09/18 00:10 Sinemet Cr 50/200(*) PO 1 tab.cr 0000 SATINDER Administration Carbidopa/Levodopa 2 tab 09/07/18 16:00 09/09/18 16:32 Sinemet 25/100 Tab(*) PO 2 tab 0700,1100,1600,2000 SATINDER Administration Docusate Sodium 100 mg 08/26/18 21:00 09/09/18 08:36 Colace Cap* PO 100 mg BID SATINDER Administration Hydrocortisone 1 applic 08/31/18 10:19 09/04/18 19:45 Hytone Cream 1%* TOPICAL 1 applic TID PRN Administration itching Lacosamide 50 mg 08/26/18 21:00 09/09/18 08:37 Vimpat Tab* PO 50 mg BID SATINDER Administration Losartan Potassium 50 mg 08/27/18 09:00 09/09/18 08:36 Cozaar Tab* PO 50 mg DAILY SATINDER Administration Magnesium Hydroxide 30 ml 08/26/18 16:36 09/02/18 19:00 Milk Of Magnesia Liq* PO 30 ml Q6H PRN Administration CONSTIPATION Metoprolol Succinate 100 mg 08/27/18 09:00 09/09/18 08:37 Toprol Xl Tab* PO 100 mg DAILY SATINDER Administration Oxycodone HCl 5 mg 08/26/18 16:45 09/09/18 00:25 Roxycodone Tab* PO 5 mg Q4H PRN Administration PAIN - MODERATE TO SEVERE Polyethylene Glycol/Electrolytes 17 gm 08/26/18 16:46 08/28/18 15:24 Miralax* PO 17 gm DAILY PRN Administration CONSTIPATION Senna 2 tab 08/26/18 16:36 09/07/18 19:59 Senokot Tab* PO 2 tab BEDTIME PRN Administration CONSTIPATION Throat Lozenges 1 jolynn 08/30/18 20:20 08/30/18 21:26 Chloraseptic Jolynn* PO 1 jolynn Q2H PRN Administration SORE THROAT Vital Signs: Vital Signs Temp Pulse Resp BP Pulse Ox 97.8 F 74 18 132/78 97 09/09/18 09:41 09/09/18 06:23 09/09/18 14:14 09/09/18 09:41 09/09/18 08:00 Exam: GENERAL: Alert and appropriate LUNGS: Clear to auscultation bilaterally HEART: regular rate and rhythm ABDOMEN: +bowel sounds, soft, non-tender, non-distended EXTREMITIES: lino intact. Mild swelling in left operative leg as expected post op. NEUROLOGIC: CN II-XII intact. Resting tremor less today in arms. Muscle strength bilateral UE/LE 5/5 except left hip and knee due to surgery. Sensation intact. Assessment/Plan: 1. Left Hip Fracture. S/P HAP: WBAT. PT/OT. Dr Platt follow up 2. Parkinson's Disease: Sinemet. Adjusted dose of Sinemet. Adjusted times for Amantadine. Neurology follow up as needed 3. Atrial Fibrillation: Eliquis/Toprol 4. HTN: Cozaar (instead of Avapro) and Toprol 5. DVT Prophylaxis: Eliquis 6. Advance Directives: Full Code. is HCP 7. Macular degeneration/vision: f/u with eye doctor after discharge. 09/09/18 17:09
[2018-09-09] MEDS: Senna TAB PO PRN (20:17)
[2018-09-09] MEDS: Polyethylene Glycol 3350* 17 GM PACKET PO PRN (20:18)
[2018-09-10] MEDS: Carbidopa/Levodop CR 50/200(*) TAB.CR PO SCH (00:10)
[2018-09-10 06:05] LABS: Hematocrit 35 % (36-46); Hemoglobin 11.2 g/dL (14.0-18.0); Mean Corpuscular HGB Conc 32 g/dL (31-36); Mean Corpuscular Hemoglobin 27 pg (27-31); Mean Corpuscular Volume 83 fL (80-94); Mean Platelet Volume 7.2 fL (7.4-10.4); Platelet Count 329 10^3/uL (150-450); Red Blood Count 4.19 10^6 /uL (4.18-5.48); Red Cell Distribution Width 17 % (10.5-15); White Blood Count 7.5 10^3/uL (3.5-10.8)
[2018-09-10] MEDS: Acetaminophen TAB* 325 MG PO PRN (06:11)
[2018-09-10 06:19] LABS: Albumin 3.5 g/dL (3.2-5.2); Albumin/Globulin Ratio 1.3 (1-3); BUN/Creatinine Ratio 19.8 (8-20); Calcium 9.2 mg/dL (8.6-10.3); EGFR African American 98.8 (>60); EGFR Non-African American 81.7 (>60); Globulin 2.7 g/dL (2-4); Potassium 4.9 mmol/L (3.5-5.0); Total Bilirubin 0.4 mg/dL (0.2-1.0); Total Protein 6.2 g/dL (6.4-8.9)
[2018-09-10] MEDS: Carbidopa/Levodop 25/100 MG TAB(*) PO SCH ×4 (06:49→20:12)
[2018-09-10 07:23] LABS: ABS Basophils 0.1 10^3/ul (0-0.2); ABS Eosinophils 0.2 10^3/ul (0-0.6); ABS Lymphocytes 1.3 10^3/ul (1.0-4.8); ABS Monocytes 0.7 10^3/ul (0-0.8); ABS Neutrophils 5.4 10^3/ul (1.5-7.7); ABS Nucleated RBC 0 10^3/ul; Eosinophil % 2.1 %; Nucleated Red Blood Cells % 0
[2018-09-10] MEDS: Lacosamide TAB* 50 MG TAB PO SCH ×2 (08:15→20:14)
[2018-09-10] MEDS: Docusate CAP* 100 MG PO SCH ×2 (08:15→20:14)
[2018-09-10] MEDS: Magnesium Hydroxide LIQ* 30 ML UDC PO PRN (08:15)
[2018-09-10] MEDS: Amantadine CAP* 100 MG PO SCH ×2 (08:15→15:55)
[2018-09-10] MEDS: Apixaban* 5 MG TAB PO SCH ×2 (08:15→20:13)
[2018-09-10] MEDS: Losartan TAB* 25 MG PO SCH (08:15)
[2018-09-10] MEDS: Metoprolol Succinate XL TAB* 100 MG PO SCH (08:15)
[2018-09-10] MEDS: Atorvastatin* 20 MG TAB PO SCH (16:54)
--- NOTE | 2018-09-10 17:39 | PN ---
Progress Note Date of Service: 09/10/18 Note: EBENEZER CLEANING was visited. Therapy notes read and reviewed. A better day today with feeding himself. Tremors less. Current Medications: Active Medications Generic Name Dose Route Start Last Admin Trade Name Freq PRN Reason Stop Dose Admin Acetaminophen 650 mg 08/27/18 18:00 09/10/18 06:11 Tylenol Tab* PO 650 mg Q4H PRN Administration FEVER/PAIN Amantadine HCl 100 mg 09/09/18 16:00 09/10/18 15:55 Symmetrel Cap* PO 100 mg 0800,1600 SATINDER Administration Apixaban 5 mg 08/26/18 21:00 09/10/18 08:15 Eliquis* PO 5 mg BID SATINDER Administration Atorvastatin Calcium 20 mg 08/27/18 17:00 09/10/18 16:54 Lipitor* PO 20 mg 1700 SATINDER Administration Carbidopa/Levodopa 1 tab.cr 09/08/18 00:00 09/10/18 00:10 Sinemet Cr 50/200(*) PO 1 tab.cr 0000 SATINDER Administration Carbidopa/Levodopa 2 tab 09/07/18 16:00 09/10/18 15:56 Sinemet 25/100 Tab(*) PO 2 tab 0700,1100,1600,2000 SATINDER Administration Docusate Sodium 100 mg 08/26/18 21:00 09/10/18 08:15 Colace Cap* PO 100 mg BID SATINDER Administration Hydrocortisone 1 applic 08/31/18 10:19 09/04/18 19:45 Hytone Cream 1%* TOPICAL 1 applic TID PRN Administration itching Lacosamide 50 mg 08/26/18 21:00 09/10/18 08:15 Vimpat Tab* PO 50 mg BID SATINDER Administration Losartan Potassium 50 mg 08/27/18 09:00 09/10/18 08:15 Cozaar Tab* PO 50 mg DAILY SATINDER Administration Magnesium Hydroxide 30 ml 08/26/18 16:36 09/10/18 08:15 Milk Of Magnesia Liq* PO 30 ml Q6H PRN Administration CONSTIPATION Metoprolol Succinate 100 mg 08/27/18 09:00 09/10/18 08:15 Toprol Xl Tab* PO 100 mg DAILY SATINDER Administration Oxycodone HCl 5 mg 08/26/18 16:45 09/09/18 00:25 Roxycodone Tab* PO 5 mg Q4H PRN Administration PAIN - MODERATE TO SEVERE Polyethylene Glycol/Electrolytes 17 gm 08/26/18 16:46 09/09/18 20:18 Miralax* PO 17 gm DAILY PRN Administration CONSTIPATION Senna 2 tab 08/26/18 16:36 09/09/18 20:17 Senokot Tab* PO 2 tab BEDTIME PRN Administration CONSTIPATION Throat Lozenges 1 jolynn 08/30/18 20:20 08/30/18 21:26 Chloraseptic Jolynn* PO 1 jolynn Q2H PRN Administration SORE THROAT Vital Signs: Vital Signs Temp Pulse Resp BP Pulse Ox 97.7 F 74 18 130/60 98 09/10/18 16:10 09/10/18 16:10 09/10/18 16:10 09/10/18 16:09 09/10/18 16:10 Lab Results: Laboratory Results - last 24 hr 09/10/18 09/10/18 05:51 05:51 WBC 7.5 RBC 4.19 Hgb 11.2 L Hct 35 L MCV 83 MCH 27 MCHC 32 RDW 17 H Plt Count 329 MPV 7.2 L Neut % (Auto) 71.3 Lymph % (Auto) 17.0 [place] % (Auto) 8.8 Eos % (Auto) 2.1 Baso % (Auto) 0.8 Absolute Neuts (auto) 5.4 Absolute Lymphs (auto) 1.3 Absolute Monos (auto) 0.7 Absolute Eos (auto) 0.2 Absolute Basos (auto) 0.1 Absolute Nucleated RBC 0 Nucleated RBC % 0 Sodium 138 Potassium 4.9 Chloride 105 Carbon Dioxide 28 Anion Gap 5 BUN 18 Creatinine 0.91 Est GFR ( Amer) 98.8 Est GFR (Non-Af Amer) 81.7 BUN/Creatinine Ratio 19.8 Glucose 110 H Calcium 9.2 Total Bilirubin 0.40 AST 14 ALT 6 L Alkaline Phosphatase 142 H Total Protein 6.2 L Albumin 3.5 Globulin 2.7 Albumin/Globulin Ratio 1.3 Exam: GENERAL: Alert and appropriate LUNGS: Clear to auscultation bilaterally HEART: regular rate and rhythm ABDOMEN: +bowel sounds, soft, non-tender, non-distended EXTREMITIES: lino intact. Mild swelling in left operative leg as expected post op. NEUROLOGIC: CN II-XII intact. Resting tremor in arms>legs. Muscle strength bilateral UE/LE 5/5 except left hip and knee due to surgery. Sensation intact. Assessment/Plan: 1. Left Hip Fracture. S/P HAP: WBAT. PT/OT. Dr Platt follow up 2. Parkinson's Disease: Sinemet. Adjusted dose of Sinemet. Adjusted times for Amantadine. Neurology follow up as needed 3. Atrial Fibrillation: Eliquis/Toprol 4. HTN: Cozaar (instead of Avapro) and Toprol 5. DVT Prophylaxis: Eliquis 6. Advance Directives: Full Code. is HCP 7. Macular degeneration/vision: f/u with eye doctor after discharge. 09/10/18 17:39
[2018-09-11] MEDS: Carbidopa/Levodop CR 50/200(*) TAB.CR PO SCH (00:13)
[2018-09-11] MEDS: Carbidopa/Levodop 25/100 MG TAB(*) PO SCH ×4 (06:41→20:03)
[2018-09-11] MEDS: Docusate CAP* 100 MG PO SCH ×2 (08:53→20:03)
[2018-09-11] MEDS: Losartan TAB* 25 MG PO SCH (08:53)
[2018-09-11] MEDS: Metoprolol Succinate XL TAB* 100 MG PO SCH (08:53)
[2018-09-11] MEDS: Apixaban* 5 MG TAB PO SCH ×2 (08:53→20:03)
[2018-09-11] MEDS: Lacosamide TAB* 50 MG TAB PO SCH ×2 (08:53→20:03)
[2018-09-11] MEDS: Amantadine CAP* 100 MG PO SCH ×2 (08:53→16:21)
--- NOTE | 2018-09-11 12:53 | PMRUTEAM ---
PMRU: Team Meeting Current Status: Nursing: Current Status Skin Deviations [buttocks] Other Skin Deviations [left lower Other back] Skin Deviations [L buttock] Abrasion Skin Deviations [torso] Rash Skin Deviations [Coccyx] Other Skin Deviations [Right Other Buttocks] Skin Deviations [Bilateral Other Heel] Skin Deviations [Right Lower Abrasion Leg] Skin Deviations [Left Hip] Incision Skin Deviation Description [ redness buttocks] Skin Deviation Description [ rash on upper back appears improved from 09/04; left lower back] small optifoam covering small area on lower left back; buttock reddened, no changes in buttock reported by OT this AM Skin Deviation Description [L red buttock] Skin Deviation Description [ healing torso] Skin Deviation Description [ red, blanchable Coccyx] Skin Deviation Description [ red, blanchable Right Buttocks] Skin Deviation Description [ Spanko boots in place Bilateral Heel] Skin Deviation Description [ mild red spots Right Lower Leg] Skin Deviation Description [ few steri strips in place at proximal end of Left Hip] incision. Well approximated. No drainage noted. Little pink. Drain Type [L buttock] None Physical Therapy: Current Status Bed Mobility Assistance Not Tested Transfer Mobility Assistance Mod Assist,Max Assist Transfer/Bed Mobility Rolling Walker Recommended Devices Ambulation Assistance Mod Assist,2 or More Person Assist Ambulation Assistive Devices Rolling Walker,Railings Number of Feet Patient 20 Ambulated Stairs Assistance Not Tested Stairs Recommended Devices Two Rails Number of Stairs 4 Curb Not Tested Occupational Therapy: Current Status Upper Body Dressing Mod Assist Lower Body Dressing Total Assist,2 Person Assist Bathing Max Asst,2 Person Assist Toileting Total Assist,2 Person Assist Toilet Transfer Total Assist,2 Person Assist Shower Transfer Total Assist,2 Person Assist Eating Min Assist Rec Therapy: Current Status Summary of Assessment and Recreation Therapy assessment complete and pt. is Clinical Impression aware of services. Pt. is pleasant, cooperative and engaged. Pt. has been tired during the afternoons but enjoys visits from staff and his family. Treatment Goals Pt. will engage in leisure activities while on the unit. Treatment Plan Provide RT services and encourage involvement. Social Work: Current Status Discharge Plan return home with home care svs and family support Potential for Family Training pt's is involved and supportive Anticipated Discharge Home Destination Discharge With home care svs and family support Nutrition: Current Status Monitoring Pt continues to eat well (80-100% of meals) and meeting needs. Occ needs containers opened or food cut. Na remains WNL as of 09/10. BG 110 - am 09/10 ; acceptable. Two formed BMs 09/10. No new skin issues per nursing assessments. No changes in intervention. Will remain involved as indicated. Speech: Current Status Assessment Patient is progressing as expected. Patient continues to demonstrate a gap between producing loud, harmonically-rich, modal vocal quality during sustained loud phonation exercises, and quieter, breathy or hoarse vocal quality in conversational speech, with minimally reduced speech intelligibility rquiring some repetition of phrases to be understood. Given maximal cueing, patient was able to recite a poem that was selected for its stressed resonant vowels, with increased loudness and to produce more harmonic vocal quality in those stressed vowels. Goals: Physical Therapy: Initial Goals Bed Mobility Assistance Independent Transfer Mobility Assistance Independent Transfer/Bed Mobility Rolling Walker Recommended Devices Ambulation Independent Ambulation Recommended Devices Rolling Walker Ambulation Distance 150 Stairs Assistance Supervision Stair Recommended Devices Two Rails Number of Stairs 4 Home Exercise Program Independent Assistance Physical Therapy: Updated Goals Bed Mobility Assistance Independent Transfer Mobility Assistance Independent Transfer/Bed Mobility Rolling Walker Recommended Devices Ambulation Assistance Independent Ambulation Assistive Devices Rolling Walker Ambulation Distance (ft) 150 Stairs Assistance Independent Stairs Recommended Devices Two Rails Number of Stairs 5 Occupational Therapy: Initial Goals Goals to be Completed in (Days 28 ) Upper Body Bathing Routine Supervision/Set Up Lower Body Bathing Routine Supervision/Set Up Upper Body Dressing Routine Moderate Assist Lower Body Dressing Routine Moderate Assist Toilet Hygeine and Clothing Minimal Contact Assist Management Routine Toilet Transfer Routine Supervision/Set Up Step-In Shower Transfer Supervision/Set Up Routine Functional Transfers for ADL Modified Independent with Grooming Routine Independent Feeding Routine Independent Nutrition: Goals Intervention Goals 1. Maintain adequate oral intake to support weight maintenance, maintenance of lean body mass, support post op rehab. 2. Maintain bowel regularity w/o constipation or diarrhea. 3. Pt receives appropriate assistance w/feeding. Speech: Goals Speech Goal 1 Voice Goal 1 Comments Voice Goals: Long-Term Goal: Pt will use compensatory strategies to increase vocal loudness to moderate and speech to intelligibility to 95-100%, in spontaneous conversational speech, Independently, as observed by therapists, nursing and medical staff. Short-Term Goal: Pt will complete loud voice exercises and use compensatory strategies to increase vocal loudness to moderate and speech to intelligibility to 95%, in structured conversational speech, given minimal cueing, as observed by therapists, nursing and medical staff. Status: Progressing as expected, BRAKESHOE REPAIRER provided skilled instruction in breath support and voice facilitation exercises. BRAKESHOE REPAIRER modified instruction and introduced torso rotation exercise to promote thoracic extension, ribcage expansion and incresased breath support. BRAKESHOE REPAIRER provided Hand- over-hand cueing and patient achieved minimal extension and rotation; then demonstated increase ribcage expansion during thoraco-diaphragmatic breathig exercise. BRAKESHOE REPAIRER directed patient to produce loud, steady, sustained phonation for 5 or more seconds duration at habitual pitch, at intervals of a third and a fifth higher in pitch, and an interval of a third lower in pitch.Patient produced loudest clear voice at a third higher than habitual, and adequately harmonic voice at a third lower but became hoarse and weak below that interval. Patient read and then repeated auditory models of a poem, selected for its short rhythmic lines with three stressed words containing close resonant vowels such as "ee" and "oh." Patient spoke with his typically hoarse conversation voice, but given maximal cueing, was able to recite the poem with increased loudness and to produce more harmonic vocal quality in those stressed vowels. Speech Goal 2 Language Expression Speech Goal 2 Comments Language Expression Goals: Long-Term Goal: Pt will use conversational repair strategies to cooperatively find words in structured conversation, 100% accuracy, given extra time, Independently. Status: Met Short-Term Goal: Pt will use conversational repair strategies to cooperatively find words in structured language activities, 75% accuracy, given Moderate skilled instruction and cueing. Status: Met Patient successfully named 48/51 pictures from the [place] [employer]aming Test; patients vision affected his accuracy. Social Work: Goals Discharge Plan return home with home care svs and family support Potential for Family Training pt's is involved and supportive Anticipated Discharge Home Destination Discharge With home care svs and family support Care Plan: Care Plan ADL's - Improve/Maintain Start: 08/28/18 14:52 Freq: DAILY Status: Active Target: Protocol: Activity Type Activity Date Activity User E-Sign Co-Sign Detail Recorded Client Recorded Date Recorded By Document 09/05/18 10:31 [id number] [id number] 09/05/18 10:32 [id number] 09/05/18 10:31 PMRU Outcome: ADL's/ADL Transfers Orders/Interventions Occupational Therapy Evaluation & Treatment Communication Tool in Patient Room Patient to receive OT 5x/wk for 60-120 Therex min/day Self Care Management Group Therapy Neuromuscular ReEducation UE/LE ADL's with Assist Yes: MOD A ADL Transfers with Assist Yes: S Toileting: Transfers,Clothing Management Yes: MIN A ,Hygeine w/Assist Light Kitchen/Laundry w/Assist No Progression Toward Outcome/Goals Progressing Outcome/Goals Met Static sitting balance slightly improved today but pt continues to need total A for feeding despite change in medication time. Tremors in pt's legs seem worse today. Communication-Improve/Maintain Start: 08/29/18 16:23 Freq: DAILY Status: Active Target: Protocol: Activity Type Activity Date Activity User E-Sign Co-Sign Detail Recorded Client Recorded Date Recorded By Document 09/11/18 01:55 [id number] [email or web address] 09/11/18 01:56 [id number] 09/11/18 01:55 PMRU Outcome: Communication/Cognitive Status Outcome/Goals Makes Needs Known Effectively Progression Toward Outcomes/Goals Progressing Outcome/Goals Met Makes Needs Known Effectively Coping/Psych-Improve/Maintain Start: 08/27/18 14:31 Freq: QSHIFT Status: Active Target: Protocol: Activity Type Activity Date Activity User E-Sign Co-Sign Detail Recorded Client Recorded Date Recorded By Document 09/11/18 01:55 [id number] [email or web address] 09/11/18 01:56 [id number] 09/11/18 01:55 PMRU Outcome: Coping/Psychosocial Coping Outcome/Goals Verbalization of Acceptance of Rehab Admit Verbalization of Sense of Control Over Health Status Willingness to Participate in Treatment Plan and Basic Needs Psychosocial Outcome/Goals Maintain/ Improve Emotional Health Cooperate/ Participate in Plan Progression Toward Outcome/Goals - Progressing Coping Progression Toward Outcome/Goals - Progressing Psychosocial DVT Prophylaxis- Improve/Maintain Start: 08/27/18 14:31 Freq: QSHIFT Status: Complete Target: Protocol: Activity Type Activity Date Activity User E-Sign Co-Sign Detail Recorded Client Recorded Date Recorded By Document 09/07/18 20:00 [id number] [email or web address] 09/07/18 22:09 [id number] 09/07/18 20:00 PMRU Outcome: DVT Prophylaxis Outcome/Goals Remains Free of DVT Free of complications from current DVT Complies with DVT Prophylaxis /Treatment Demonstrates Knowledge of DVT Prevention/ Treatment TEDS Stockings on Every AM, Off at HS Outcome/Goals Met Remains Free of DVT Discharge Planning - Improve/Maintain Start: 08/27/18 14:31 Freq: DAILY Status: Active Target: Protocol: Activity Type Activity Date Activity User E-Sign Co-Sign Detail Recorded Client Recorded Date Recorded By Document 09/11/18 01:55 [id number] [email or web address] 09/11/18 01:56 [id number] 09/11/18 01:55 PMRU Outcome: Discharge Planning Update Patient Family No Outcome/Goals Demonstrates Understanding of Discharge Plan Progression Toward Outcome/Goals Progressing Education-Improve/Maintain Start: 08/27/18 14:31 Freq: QSHIFT Status: Active Target: Protocol: Activity Type Activity Date Activity User E-Sign Co-Sign Detail Recorded Client Recorded Date Recorded By Document 09/11/18 01:55 [id number] [email or web address] 09/11/18 01:56 [id number] 09/11/18 01:55 PMRU Outcome: Education Outcome/Goals Encourage Questions Progression Toward Outcome/Goals Progressing /GI-Improve/Maintain Start: 08/27/18 14:31 Freq: QSHIFT Status: Active Target: Protocol: Activity Type Activity Date Activity User E-Sign Co-Sign Detail Recorded Client Recorded Date Recorded By Document 09/11/18 01:55 [id number] [email or web address] 09/11/18 01:56 [id number] 09/11/18 01:55 PMRU Outcome: Genitourinary/ Gastrointestinal Genitourinary- Outcome/Goals Remain Free of Hospital- Acquired UTI Gastrointestinal-Outcome/Goals Maintain/ Achieve Bowel Regularity in Accordance with Pt's Baseline Prevent Constipation Laxatives as Ordered Progression Toward Outcome/Goals - Progressing Progression Toward Outcome/Goals - GI Progressing Outcome/Goals Met Comment pt incontinent Medication Administration Start: 08/27/18 14:31 Freq: QSHIFT Status: Active Target: Protocol: Activity Type Activity Date Activity User E-Sign Co-Sign Detail Recorded Client Recorded Date Recorded By Document 09/11/18 01:55 [id number] [email or web address] 09/11/18 01:56 [id number] 09/11/18 01:55 PMRU Outcome: Medication Administration Assess Patient Knowledge/Teach Med Yes Education for all Meds Outcome/Goals Family/ Caregiver Administer Medications at Home Demonstrates Understanding Progression Towards Outcome/Goals Progressing Is Patient Going Home on Lovenox? No Neurological- Improve/Maintain Start: 08/27/18 14:31 Freq: QSHIFT Status: Active Target: Protocol: Activity Type Activity Date Activity User E-Sign Co-Sign Detail Recorded Client Recorded Date Recorded By Document 09/11/18 01:55 [id number] [email or web address] 09/11/18 01:56 [id number] 09/11/18 01:55 PMRU Outcome: Neurological Weakness/Aphasia Weakness Outcome/Goals Maintain/ Achieve Baseline Neurological Status Improve Neurological Status Maintain/ Improve Strength/ROM Progression Toward Outcome/Goals Progressing Pain/Comfort- Improve/Maintain Start: 08/27/18 14:31 Freq: QSHIFT Status: Complete Target: Protocol: Activity Type Activity Date Activity User E-Sign Co-Sign Detail Recorded Client Recorded Date Recorded By Document 09/07/18 20:00 [id number] [email or web address] 09/07/18 22:09 [id number] 09/07/18 20:00 PMRU Outcome: Pain/Comfort Outcome/Goals Demonstrates Knowledge and Use of Available Comfort Measures Achieves Acceptable Comfort/Pain Level as Determined by Patient/Condit Maintain Comfort Level Allowing Patient to Fully Participate in Rehab Outcome/Goals Met Maintain Comfort Level Allowing Patient to Fully Participate in Rehab Safety- Improve/Maintain Start: 08/27/18 14:31 Freq: QSHIFT Status: Active Target: Protocol: Activity Type Activity Date Activity User E-Sign Co-Sign Detail Recorded Client Recorded Date Recorded By Document 09/11/18 01:55 [id number] 09/11/18 01:56 [id number] 09/11/18 01:55 PMRU Outcome: Safety Outcome/Goals Remain Free of Injury or Harm Cooperates with Safety Measures for Least Restrictive Environment Prevent Falls/ Injury Progression Toward Outcome/Goals Progressing Outcome/Goals Met Comment BA armed Skin- Improve/Maintain Start: 08/27/18 14:31 Freq: QSHIFT Status: Active Target: Protocol: Activity Type Activity Date Activity User E-Sign Co-Sign Detail Recorded Client Recorded Date Recorded By Document 09/11/18 01:55 [id number] [email or web address] 09/11/18 01:56 [id number] 09/11/18 01:55 PMRU Outcome: Skin Skin Risk Level High Skin Orders Spenco Boots Heels Off Bed Turn/Position q2hr While in Bed Outcome/Goals Maintain/ Improve Skin Intergrity Maintain/ Improve Wound Status Surgical Incisions Healing Progression Toward Outcome/Goals Progressing Medicine Note: Length of Stay: 3 1/2 weeks Anticipated Discharge Destination: Home Tentative Discharge Date: 10/05/18 Discharged to: Home vs SNF
[2018-09-11] MEDS: Atorvastatin* 20 MG TAB PO SCH (16:21)
--- NOTE | 2018-09-11 16:52 | PN ---
Progress Note Date of Service: 09/11/18 Note: EBENEZER CLEANING was visited. Therapy notes read and reviewed. He was discussed in interdisciplinary team rounds. He is eating better but still with trouble getting dressed and toileting Current Medications: Active Medications Generic Name Dose Route Start Last Admin Trade Name Freq PRN Reason Stop Dose Admin Acetaminophen 650 mg 08/27/18 18:00 09/10/18 06:11 Tylenol Tab* PO 650 mg Q4H PRN Administration FEVER/PAIN Amantadine HCl 100 mg 09/09/18 16:00 09/11/18 16:21 Symmetrel Cap* PO 100 mg 0800,1600 SATINDER Administration Apixaban 5 mg 08/26/18 21:00 09/11/18 08:53 Eliquis* PO 5 mg BID SATINDER Administration Atorvastatin Calcium 20 mg 08/27/18 17:00 09/11/18 16:21 Lipitor* PO 20 mg 1700 SATINDER Administration Carbidopa/Levodopa 1 tab.cr 09/08/18 00:00 09/11/18 00:13 Sinemet Cr 50/200(*) PO 1 tab.cr 0000 SATINDER Administration Carbidopa/Levodopa 2 tab 09/07/18 16:00 09/11/18 16:21 Sinemet 25/100 Tab(*) PO 2 tab 0700,1100,1600,2000 SATINDER Administration Docusate Sodium 100 mg 08/26/18 21:00 09/11/18 08:53 Colace Cap* PO 100 mg BID SATINDER Administration Hydrocortisone 1 applic 08/31/18 10:19 09/04/18 19:45 Hytone Cream 1%* TOPICAL 1 applic TID PRN Administration itching Lacosamide 50 mg 08/26/18 21:00 09/11/18 08:53 Vimpat Tab* PO 50 mg BID SATINDER Administration Losartan Potassium 50 mg 08/27/18 09:00 09/11/18 08:53 Cozaar Tab* PO 50 mg DAILY SATINDER Administration Magnesium Hydroxide 30 ml 08/26/18 16:36 09/10/18 08:15 Milk Of Magnesia Liq* PO 30 ml Q6H PRN Administration CONSTIPATION Metoprolol Succinate 100 mg 08/27/18 09:00 09/11/18 08:53 Toprol Xl Tab* PO 100 mg DAILY SATINDER Administration Oxycodone HCl 5 mg 08/26/18 16:45 09/09/18 00:25 Roxycodone Tab* PO 5 mg Q4H PRN Administration PAIN - MODERATE TO SEVERE Polyethylene Glycol/Electrolytes 17 gm 08/26/18 16:46 09/09/18 20:18 Miralax* PO 17 gm DAILY PRN Administration CONSTIPATION Senna 2 tab 08/26/18 16:36 09/09/18 20:17 Senokot Tab* PO 2 tab BEDTIME PRN Administration CONSTIPATION Throat Lozenges 1 jolynn 08/30/18 20:20 08/30/18 21:26 Chloraseptic Jolynn* PO 1 jolynn Q2H PRN Administration SORE THROAT Vital Signs: Vital Signs Temp Pulse Resp BP Pulse Ox 98.2 F 74 16 90/45 97 09/11/18 15:05 09/11/18 15:05 09/11/18 15:05 09/11/18 15:05 09/11/18 16:37 Exam: GENERAL: Alert and appropriate LUNGS: Clear to auscultation bilaterally HEART: regular rate and rhythm ABDOMEN: +bowel sounds, soft, non-tender, non-distended EXTREMITIES: Suture line healed. Mild swelling in left operative leg as expected post op. NEUROLOGIC: CN II-XII intact. Resting tremor in arms>legs. Muscle strength bilateral UE/LE 5/5 except left hip and knee due to surgery. Sensation intact. Assessment/Plan: 1. Left Hip Fracture. S/P HAP: WBAT. PT/OT. Dr Platt follow up 2. Parkinson's Disease: Sinemet. Adjusted dose of Sinemet. Adjusted times for Amantadine. Neurology follow up as needed 3. Atrial Fibrillation: Eliquis/Toprol 4. HTN: Cozaar (instead of Avapro) and Toprol 5. DVT Prophylaxis: Eliquis 6. Advance Directives: Full Code. is HCP 7. Macular degeneration/vision: f/u with eye doctor after discharge. 09/11/18 16:52
[2018-09-11] MEDS: Acetaminophen TAB* 325 MG PO PRN (19:24)
[2018-09-11] MEDS: Hydrocortisone 1% CREAM* 30 GM TUBE TOPICAL PRN (20:29)
[2018-09-12] MEDS: Carbidopa/Levodop CR 50/200(*) TAB.CR PO SCH ×2 (00:03→23:56)
[2018-09-12] MEDS: Carbidopa/Levodop 25/100 MG TAB(*) PO SCH ×4 (06:47→20:05)
[2018-09-12] MEDS: Amantadine CAP* 100 MG PO SCH ×2 (10:16→16:11)
[2018-09-12] MEDS: Apixaban* 5 MG TAB PO SCH ×2 (10:16→20:05)
[2018-09-12] MEDS: Losartan TAB* 25 MG PO SCH (10:17)
[2018-09-12] MEDS: Docusate CAP* 100 MG PO SCH ×2 (10:17→20:05)
[2018-09-12] MEDS: Lacosamide TAB* 50 MG TAB PO SCH ×2 (10:17→20:05)
[2018-09-12] MEDS: Metoprolol Succinate XL TAB* 100 MG PO SCH (10:17)
[2018-09-12] MEDS: Atorvastatin* 20 MG TAB PO SCH (16:11)
[2018-09-12] MEDS: Senna TAB PO PRN (20:05)
--- NOTE | 2018-09-12 20:35 | PN ---
Progress Note Date of Service: 09/12/18 Note: EBENEZER CLEANING was visited. Therapy notes read and reviewed. He was observed in therapy today. Was standing and trying to sit. Getting stronger Current Medications: Active Medications Generic Name Dose Route Start Last Admin Trade Name Freq PRN Reason Stop Dose Admin Acetaminophen 650 mg 08/27/18 18:00 09/11/18 19:24 Tylenol Tab* PO 650 mg Q4H PRN Administration FEVER/PAIN Amantadine HCl 100 mg 09/09/18 16:00 09/12/18 16:11 Symmetrel Cap* PO 100 mg 0800,1600 SATINDER Administration Apixaban 5 mg 08/26/18 21:00 09/12/18 20:05 Eliquis* PO 5 mg BID SATINDER Administration Atorvastatin Calcium 20 mg 08/27/18 17:00 09/12/18 16:11 Lipitor* PO 20 mg 1700 SATINDER Administration Carbidopa/Levodopa 1 tab.cr 09/08/18 00:00 09/12/18 00:03 Sinemet Cr 50/200(*) PO 1 tab.cr 0000 SATINDER Administration Carbidopa/Levodopa 2 tab 09/07/18 16:00 09/12/18 20:05 Sinemet 25/100 Tab(*) PO 2 tab 0700,1100,1600,2000 SATINDER Administration Docusate Sodium 100 mg 08/26/18 21:00 09/12/18 20:05 Colace Cap* PO 100 mg BID SATINDER Administration Hydrocortisone 1 applic 08/31/18 10:19 09/11/18 20:29 Hytone Cream 1%* TOPICAL 1 applic TID PRN Administration itching Lacosamide 50 mg 08/26/18 21:00 09/12/18 20:05 Vimpat Tab* PO 50 mg BID SATINDER Administration Losartan Potassium 50 mg 08/27/18 09:00 09/12/18 10:17 Cozaar Tab* PO 50 mg DAILY SATINDER Administration Magnesium Hydroxide 30 ml 08/26/18 16:36 09/10/18 08:15 Milk Of Magnesia Liq* PO 30 ml Q6H PRN Administration CONSTIPATION Metoprolol Succinate 100 mg 08/27/18 09:00 09/12/18 10:17 Toprol Xl Tab* PO 100 mg DAILY SATINDER Administration Oxycodone HCl 5 mg 08/26/18 16:45 09/09/18 00:25 Roxycodone Tab* PO 5 mg Q4H PRN Administration PAIN - MODERATE TO SEVERE Polyethylene Glycol/Electrolytes 17 gm 08/26/18 16:46 09/09/18 20:18 Miralax* PO 17 gm DAILY PRN Administration CONSTIPATION Senna 2 tab 08/26/18 16:36 09/12/18 20:05 Senokot Tab* PO 2 tab BEDTIME PRN Administration CONSTIPATION Throat Lozenges 1 jolynn 08/30/18 20:20 08/30/18 21:26 Chloraseptic Jolynn* PO 1 jolynn Q2H PRN Administration SORE THROAT Vital Signs: Vital Signs Temp Pulse Resp BP Pulse Ox 97.6 F 68 22 136/61 99 09/12/18 16:17 09/12/18 16:17 09/12/18 16:17 09/12/18 16:17 09/12/18 16:41 Exam: GENERAL: Alert and appropriate LUNGS: Clear to auscultation bilaterally HEART: regular rate and rhythm ABDOMEN: +bowel sounds, soft, non-tender, non-distended EXTREMITIES: Suture line healed. Mild swelling in left operative leg as expected post op. NEUROLOGIC: CN II-XII intact. Resting tremor in arms>legs. Muscle strength bilateral UE/LE 5/5 except left hip and knee due to surgery. Sensation intact. Assessment/Plan: 1. Left Hip Fracture. S/P HAP: WBAT. PT/OT. Dr Platt follow up 2. Parkinson's Disease: Sinemet. Adjusted dose of Sinemet. Adjusted times for Amantadine. Neurology follow up as needed 3. Atrial Fibrillation: Eliquis/Toprol 4. HTN: Cozaar (instead of Avapro) and Toprol 5. DVT Prophylaxis: Eliquis 6. Advance Directives: Full Code. is HCP 7. Macular degeneration/vision: f/u with eye doctor after discharge. 09/12/18 20:35
[2018-09-13] MEDS: Carbidopa/Levodop 25/100 MG TAB(*) PO SCH ×4 (06:42→20:19)
[2018-09-13] MEDS: Amantadine CAP* 100 MG PO SCH ×2 (08:03→16:33)
[2018-09-13] MEDS: Docusate CAP* 100 MG PO SCH ×2 (08:03→20:21)
[2018-09-13] MEDS: Apixaban* 5 MG TAB PO SCH ×2 (08:03→20:21)
[2018-09-13] MEDS: Metoprolol Succinate XL TAB* 100 MG PO SCH (08:04)
[2018-09-13] MEDS: Lacosamide TAB* 50 MG TAB PO SCH ×2 (08:04→20:21)
[2018-09-13] MEDS: Losartan TAB* 25 MG PO SCH (08:04)
[2018-09-13] MEDS: Atorvastatin* 20 MG TAB PO SCH (16:34)
--- NOTE | 2018-09-13 20:27 | PN ---
Progress Note Date of Service: 09/13/18 Note: EBENEZER CLEANING was visited. Therapy notes read and reviewed. He thinks he is moving a little better but his ADLs are still requiring assist. Tremors seem to be lessening Current Medications: Active Medications Generic Name Dose Route Start Last Admin Trade Name Freq PRN Reason Stop Dose Admin Acetaminophen 650 mg 08/27/18 18:00 09/11/18 19:24 Tylenol Tab* PO 650 mg Q4H PRN Administration FEVER/PAIN Amantadine HCl 100 mg 09/09/18 16:00 09/13/18 16:33 Symmetrel Cap* PO 100 mg 0800,1600 SATINDER Administration Apixaban 5 mg 08/26/18 21:00 09/13/18 08:03 Eliquis* PO 5 mg BID SATINDER Administration Atorvastatin Calcium 20 mg 08/27/18 17:00 09/13/18 16:34 Lipitor* PO 20 mg 1700 SATINDER Administration Carbidopa/Levodopa 1 tab.cr 09/08/18 00:00 09/12/18 23:56 Sinemet Cr 50/200(*) PO 1 tab.cr 0000 SATINDER Administration Carbidopa/Levodopa 2 tab 09/07/18 16:00 09/13/18 16:01 Sinemet 25/100 Tab(*) PO 2 tab 0700,1100,1600,2000 SATINDER Administration Docusate Sodium 100 mg 08/26/18 21:00 09/13/18 08:03 Colace Cap* PO 100 mg BID SATINDER Administration Hydrocortisone 1 applic 08/31/18 10:19 09/11/18 20:29 Hytone Cream 1%* TOPICAL 1 applic TID PRN Administration itching Lacosamide 50 mg 08/26/18 21:00 09/13/18 08:04 Vimpat Tab* PO 50 mg BID SATINDER Administration Losartan Potassium 50 mg 08/27/18 09:00 09/13/18 08:04 Cozaar Tab* PO 50 mg DAILY SATINDER Administration Magnesium Hydroxide 30 ml 08/26/18 16:36 09/10/18 08:15 Milk Of Magnesia Liq* PO 30 ml Q6H PRN Administration CONSTIPATION Metoprolol Succinate 100 mg 08/27/18 09:00 09/13/18 08:04 Toprol Xl Tab* PO 100 mg DAILY SATINDER Administration Oxycodone HCl 5 mg 08/26/18 16:45 09/09/18 00:25 Roxycodone Tab* PO 5 mg Q4H PRN Administration PAIN - MODERATE TO SEVERE Polyethylene Glycol/Electrolytes 17 gm 08/26/18 16:46 09/09/18 20:18 Miralax* PO 17 gm DAILY PRN Administration CONSTIPATION Senna 2 tab 08/26/18 16:36 09/12/18 20:05 Senokot Tab* PO 2 tab BEDTIME PRN Administration CONSTIPATION Throat Lozenges 1 jolynn 08/30/18 20:20 08/30/18 21:26 Chloraseptic Jolynn* PO 1 jolynn Q2H PRN Administration SORE THROAT Vital Signs: Vital Signs Temp Pulse Resp BP Pulse Ox 97.8 F 72 20 110/54 99 09/13/18 16:10 09/13/18 18:24 09/13/18 16:10 09/13/18 16:29 09/13/18 16:10 Exam: GENERAL: Alert and appropriate LUNGS: Clear to auscultation bilaterally HEART: regular rate and rhythm ABDOMEN: +bowel sounds, soft, non-tender, non-distended EXTREMITIES: Suture line healed. Mild swelling in left operative leg as expected post op. NEUROLOGIC: CN II-XII intact. Resting tremor in arms>legs. Muscle strength bilateral UE/LE 5/5 except left hip and knee due to surgery. Sensation intact. Assessment/Plan: 1. Left Hip Fracture. S/P HAP: WBAT. PT/OT. Dr Platt follow up 2. Parkinson's Disease: Sinemet. Adjusted dose of Sinemet. Adjusted times for Amantadine. Neurology follow up as needed 3. Atrial Fibrillation: Eliquis/Toprol 4. HTN: Cozaar (instead of Avapro) and Toprol 5. DVT Prophylaxis: Eliquis 6. Advance Directives: Full Code. is HCP 7. Macular degeneration/vision: f/u with eye doctor after discharge. 09/13/18 21:02
[2018-09-13] MEDS: Carbidopa/Levodop CR 50/200(*) TAB.CR PO SCH (23:56)
[2018-09-14] MEDS: Carbidopa/Levodop 25/100 MG TAB(*) PO SCH ×4 (06:32→20:41)
[2018-09-14] MEDS: Amantadine CAP* 100 MG PO SCH ×2 (08:30→16:34)
[2018-09-14] MEDS: Apixaban* 5 MG TAB PO SCH ×2 (09:49→20:41)
[2018-09-14] MEDS: Docusate CAP* 100 MG PO SCH ×2 (09:49→20:41)
[2018-09-14] MEDS: Lacosamide TAB* 50 MG TAB PO SCH ×2 (09:51→20:41)
[2018-09-14] MEDS: Losartan TAB* 25 MG PO SCH (09:51)
[2018-09-14] MEDS: Metoprolol Succinate XL TAB* 100 MG PO SCH (09:52)
[2018-09-14] MEDS: Acetaminophen TAB* 325 MG PO PRN ×2 (11:10→20:44)
[2018-09-14] MEDS: Atorvastatin* 20 MG TAB PO SCH (16:34)
--- NOTE | 2018-09-14 17:09 | PN ---
Progress Note Date of Service: 09/14/18 Note: EBENEZER CLEANING was visited. Therapy notes read and reviewed. A family meeting was held with the patient, his , OT, SW and myself. Discussed that he has made definite progress in mobility but that he still requires 2 people to toilet. Discussed the possibility of needing help after discharge and the need for a plan. Current Medications: Active Medications Generic Name Dose Route Start Last Admin Trade Name Freq PRN Reason Stop Dose Admin Acetaminophen 650 mg 08/27/18 18:00 09/14/18 11:10 Tylenol Tab* PO 325 mg Q4H PRN Administration FEVER/PAIN Amantadine HCl 100 mg 09/09/18 16:00 09/14/18 16:34 Symmetrel Cap* PO 100 mg 0800,1600 SATINDER Administration Apixaban 5 mg 08/26/18 21:00 09/14/18 09:49 Eliquis* PO 5 mg BID SATINDER Administration Atorvastatin Calcium 20 mg 08/27/18 17:00 09/14/18 16:34 Lipitor* PO 20 mg 1700 SATINDER Administration Carbidopa/Levodopa 1 tab.cr 09/08/18 00:00 09/13/18 23:56 Sinemet Cr 50/200(*) PO 1 tab.cr 0000 SATINDER Administration Carbidopa/Levodopa 2 tab 09/07/18 16:00 09/14/18 16:34 Sinemet 25/100 Tab(*) PO 2 tab 0700,1100,1600,2000 SATINDER Administration Docusate Sodium 100 mg 08/26/18 21:00 09/14/18 09:49 Colace Cap* PO 100 mg BID SATINDER Administration Hydrocortisone 1 applic 08/31/18 10:19 09/11/18 20:29 Hytone Cream 1%* TOPICAL 1 applic TID PRN Administration itching Lacosamide 50 mg 08/26/18 21:00 09/14/18 09:51 Vimpat Tab* PO 50 mg BID SATINDER Administration Losartan Potassium 50 mg 08/27/18 09:00 09/14/18 09:51 Cozaar Tab* PO 50 mg DAILY SATINDER Administration Magnesium Hydroxide 30 ml 08/26/18 16:36 09/10/18 08:15 Milk Of Magnesia Liq* PO 30 ml Q6H PRN Administration CONSTIPATION Metoprolol Succinate 100 mg 08/27/18 09:00 09/14/18 09:52 Toprol Xl Tab* PO 100 mg DAILY SATINDER Administration Polyethylene Glycol/Electrolytes 17 gm 08/26/18 16:46 09/09/18 20:18 Miralax* PO 17 gm DAILY PRN Administration CONSTIPATION Senna 2 tab 08/26/18 16:36 09/12/18 20:05 Senokot Tab* PO 2 tab BEDTIME PRN Administration CONSTIPATION Throat Lozenges 1 jolynn 08/30/18 20:20 08/30/18 21:26 Chloraseptic Jolynn* PO 1 jolynn Q2H PRN Administration SORE THROAT Vital Signs: Vital Signs Temp Pulse Resp BP Pulse Ox 97.6 F 68 20 110/50 96 09/14/18 06:37 09/14/18 06:37 09/14/18 12:38 09/14/18 06:37 09/14/18 12:38 Exam: GENERAL: Alert and appropriate LUNGS: Clear to auscultation bilaterally HEART: regular rate and rhythm ABDOMEN: +bowel sounds, soft, non-tender, non-distended EXTREMITIES: Suture line healed. Mild swelling in left operative leg as expected post op. NEUROLOGIC: CN II-XII intact. Resting tremor in arms>legs. Muscle strength bilateral UE/LE 5/5 except left hip and knee due to surgery. Sensation intact. Assessment/Plan: 1. Left Hip Fracture. S/P HAP: WBAT. PT/OT. Dr Platt follow up 2. Parkinson's Disease: Sinemet. Adjusted dose of Sinemet. Adjusted times for Amantadine. Neurology follow up as needed 3. Atrial Fibrillation: Eliquis/Toprol 4. HTN: Cozaar (instead of Avapro) and Toprol 5. DVT Prophylaxis: Eliquis 6. Advance Directives: Full Code. is HCP 7. Macular degeneration/vision: f/u with eye doctor after discharge. 09/14/18 17:09
[2018-09-15] MEDS: Carbidopa/Levodop CR 50/200(*) TAB.CR PO SCH (00:30)
[2018-09-15] MEDS: Carbidopa/Levodop 25/100 MG TAB(*) PO SCH ×4 (06:27→20:20)
[2018-09-15] MEDS: Losartan TAB* 25 MG PO SCH (09:09)
[2018-09-15] MEDS: Amantadine CAP* 100 MG PO SCH ×2 (09:09→16:16)
[2018-09-15] MEDS: Apixaban* 5 MG TAB PO SCH ×2 (09:09→20:23)
[2018-09-15] MEDS: Metoprolol Succinate XL TAB* 100 MG PO SCH (09:09)
[2018-09-15] MEDS: Lacosamide TAB* 50 MG TAB PO SCH ×2 (09:09→20:23)
[2018-09-15] MEDS: Docusate CAP* 100 MG PO SCH ×2 (09:10→20:24)
--- NOTE | 2018-09-15 12:31 | PN ---
Progress Note Date of Service: 09/15/18 Note: EBENEZER CLEANING was visited. Therapy notes read and reviewed. He has no complaints and seems to be doing okay. No longer using EZ stand Current Medications: Active Medications Generic Name Dose Route Start Last Admin Trade Name Freq PRN Reason Stop Dose Admin Acetaminophen 650 mg 08/27/18 18:00 09/14/18 20:44 Tylenol Tab* PO 650 mg Q4H PRN Administration FEVER/PAIN Amantadine HCl 100 mg 09/09/18 16:00 09/15/18 09:09 Symmetrel Cap* PO 100 mg 0800,1600 SATINDER Administration Apixaban 5 mg 08/26/18 21:00 09/15/18 09:09 Eliquis* PO 5 mg BID SATINDER Administration Atorvastatin Calcium 20 mg 08/27/18 17:00 09/14/18 16:34 Lipitor* PO 20 mg 1700 SATINDER Administration Carbidopa/Levodopa 1 tab.cr 09/08/18 00:00 09/15/18 00:30 Sinemet Cr 50/200(*) PO Not Given 0000 SATINDER Carbidopa/Levodopa 2 tab 09/07/18 16:00 09/15/18 10:48 Sinemet 25/100 Tab(*) PO 2 tab 0700,1100,1600,2000 SATINDER Administration Docusate Sodium 100 mg 08/26/18 21:00 09/15/18 09:10 Colace Cap* PO 100 mg BID SATINDER Administration Hydrocortisone 1 applic 08/31/18 10:19 09/11/18 20:29 Hytone Cream 1%* TOPICAL 1 applic TID PRN Administration itching Lacosamide 50 mg 08/26/18 21:00 09/15/18 09:09 Vimpat Tab* PO 50 mg BID SATINDER Administration Losartan Potassium 50 mg 08/27/18 09:00 09/15/18 09:09 Cozaar Tab* PO 50 mg DAILY SATINDER Administration Magnesium Hydroxide 30 ml 08/26/18 16:36 09/10/18 08:15 Milk Of Magnesia Liq* PO 30 ml Q6H PRN Administration CONSTIPATION Metoprolol Succinate 100 mg 08/27/18 09:00 09/15/18 09:09 Toprol Xl Tab* PO 100 mg DAILY SATINDER Administration Polyethylene Glycol/Electrolytes 17 gm 08/26/18 16:46 09/09/18 20:18 Miralax* PO 17 gm DAILY PRN Administration CONSTIPATION Senna 2 tab 08/26/18 16:36 09/12/18 20:05 Senokot Tab* PO 2 tab BEDTIME PRN Administration CONSTIPATION Throat Lozenges 1 jolynn 08/30/18 20:20 08/30/18 21:26 Chloraseptic Jolynn* PO 1 jolynn Q2H PRN Administration SORE THROAT Vital Signs: Vital Signs Temp Pulse Resp BP Pulse Ox 97.4 F 68 18 130/62 96 09/15/18 06:29 09/15/18 06:29 09/15/18 08:00 09/15/18 06:29 09/15/18 08:00 Exam: GENERAL: Alert and appropriate LUNGS: Clear to auscultation bilaterally HEART: regular rate and rhythm ABDOMEN: +bowel sounds, soft, non-tender, non-distended EXTREMITIES: Suture line healed. Mild swelling in left operative leg as expected post op. NEUROLOGIC: CN II-XII intact. Resting tremor in arms>legs. Muscle strength bilateral UE/LE 5/5 except left hip and knee due to surgery. Sensation intact. Assessment/Plan: 1. Left Hip Fracture. S/P HAP: WBAT. PT/OT. Dr Platt follow up 2. Parkinson's Disease: Sinemet. Adjusted dose of Sinemet. Adjusted times for Amantadine. Neurology follow up as needed 3. Atrial Fibrillation: Eliquis/Toprol 4. HTN: Cozaar (instead of Avapro) and Toprol 5. DVT Prophylaxis: Eliquis 6. Advance Directives: Full Code. is HCP 7. Macular degeneration/vision: f/u with eye doctor after discharge. 09/15/18 12:31
[2018-09-15] MEDS: Atorvastatin* 20 MG TAB PO SCH (16:15)
[2018-09-15] MEDS: Acetaminophen TAB* 325 MG PO PRN (20:25)
[2018-09-16] MEDS: Carbidopa/Levodop CR 50/200(*) TAB.CR PO SCH ×2 (01:06→23:48)
[2018-09-16] MEDS: Acetaminophen TAB* 325 MG PO PRN ×3 (01:08→23:48)
[2018-09-16] MEDS: Carbidopa/Levodop 25/100 MG TAB(*) PO SCH ×4 (06:41→20:09)
[2018-09-16] MEDS: Docusate CAP* 100 MG PO SCH ×2 (08:26→20:12)
[2018-09-16] MEDS: Amantadine CAP* 100 MG PO SCH ×2 (08:26→16:19)
[2018-09-16] MEDS: Metoprolol Succinate XL TAB* 100 MG PO SCH (08:26)
[2018-09-16] MEDS: Lacosamide TAB* 50 MG TAB PO SCH ×2 (08:27→20:11)
[2018-09-16] MEDS: Apixaban* 5 MG TAB PO SCH ×2 (08:27→20:11)
[2018-09-16] MEDS: Losartan TAB* 25 MG PO SCH (08:27)
--- NOTE | 2018-09-16 15:23 | PN ---
Progress Note Date of Service: 09/16/18 Note: EBENEZER CLEANING was visited. Nursing notes read and reviewed. He didn't sleep well and feels a little stiff today. Current Medications: Active Medications Generic Name Dose Route Start Last Admin Trade Name Freq PRN Reason Stop Dose Admin Acetaminophen 650 mg 08/27/18 18:00 09/16/18 01:08 Tylenol Tab* PO 325 mg Q4H PRN Administration FEVER/PAIN Amantadine HCl 100 mg 09/09/18 16:00 09/16/18 08:26 Symmetrel Cap* PO 100 mg 0800,1600 SATINDER Administration Apixaban 5 mg 08/26/18 21:00 09/16/18 08:27 Eliquis* PO 5 mg BID SATINDER Administration Atorvastatin Calcium 20 mg 08/27/18 17:00 09/15/18 16:15 Lipitor* PO 20 mg 1700 SATINDER Administration Carbidopa/Levodopa 1 tab.cr 09/08/18 00:00 09/16/18 01:06 Sinemet Cr 50/200(*) PO 1 tab.cr 0000 SATINDER Administration Carbidopa/Levodopa 2 tab 09/07/18 16:00 09/16/18 11:56 Sinemet 25/100 Tab(*) PO 2 tab 0700,1100,1600,2000 SATINDER Administration Docusate Sodium 100 mg 08/26/18 21:00 09/16/18 08:26 Colace Cap* PO 100 mg BID SATINDER Administration Hydrocortisone 1 applic 08/31/18 10:19 09/11/18 20:29 Hytone Cream 1%* TOPICAL 1 applic TID PRN Administration itching Lacosamide 50 mg 08/26/18 21:00 09/16/18 08:27 Vimpat Tab* PO 50 mg BID SATINDER Administration Losartan Potassium 50 mg 08/27/18 09:00 09/16/18 08:27 Cozaar Tab* PO 50 mg DAILY SATINDER Administration Magnesium Hydroxide 30 ml 08/26/18 16:36 09/10/18 08:15 Milk Of Magnesia Liq* PO 30 ml Q6H PRN Administration CONSTIPATION Metoprolol Succinate 100 mg 08/27/18 09:00 09/16/18 08:26 Toprol Xl Tab* PO 100 mg DAILY SATINDER Administration Polyethylene Glycol/Electrolytes 17 gm 08/26/18 16:46 09/09/18 20:18 Miralax* PO 17 gm DAILY PRN Administration CONSTIPATION Senna 2 tab 08/26/18 16:36 09/12/18 20:05 Senokot Tab* PO 2 tab BEDTIME PRN Administration CONSTIPATION Throat Lozenges 1 jolynn 08/30/18 20:20 08/30/18 21:26 Chloraseptic Jolynn* PO 1 jolynn Q2H PRN Administration SORE THROAT Vital Signs: Vital Signs Temp Pulse Resp BP Pulse Ox 97.7 F 80 18 129/61 97 09/16/18 05:51 09/16/18 05:51 09/16/18 08:00 09/16/18 06:43 09/16/18 08:00 Exam: GENERAL: Alert and appropriate LUNGS: Clear to auscultation bilaterally HEART: regular rate and rhythm ABDOMEN: +bowel sounds, soft, non-tender, non-distended EXTREMITIES: Suture line healed. Mild swelling in left operative leg NEUROLOGIC: CN II-XII intact. Resting tremor in arms>legs. Muscle strength bilateral UE/LE 5/5 except left hip and knee due to surgery. Sensation intact. Assessment/Plan: 1. Left Hip Fracture. S/P HAP: WBAT. PT/OT. Dr Platt follow up 2. Parkinson's Disease: Sinemet. Adjusted dose of Sinemet. Adjusted times for Amantadine. Neurology follow up as needed 3. Atrial Fibrillation: Eliquis/Toprol 4. HTN: Cozaar (instead of Avapro) and Toprol 5. DVT Prophylaxis: Eliquis 6. Advance Directives: Full Code. is HCP 7. Macular degeneration/vision: f/u with eye doctor after discharge. 09/16/18 15:23
[2018-09-16] MEDS: Atorvastatin* 20 MG TAB PO SCH (16:19)
[2018-09-16] MEDS: Magnesium Hydroxide LIQ* 30 ML UDC PO PRN (18:52)
[2018-09-16] MEDS: Hydrocortisone 1% CREAM* 30 GM TUBE TOPICAL PRN (20:11)
[2018-09-16] MEDS: Senna TAB PO PRN (20:12)
[2018-09-17 05:01] LABS: ABS Basophils 0.1 10^3/ul (0-0.2); ABS Eosinophils 0.1 10^3/ul (0-0.6); ABS Lymphocytes 1.1 10^3/ul (1.0-4.8); ABS Monocytes 0.5 10^3/ul (0-0.8); ABS Neutrophils 4.7 10^3/ul (1.5-7.7); ABS Nucleated RBC 0 10^3/ul; Eosinophil % 1.9 %; Hematocrit 37 % (36-46); Hemoglobin 11.9 g/dL (14.0-18.0); Lymphocyte % 17.3 %; Mean Corpuscular HGB Conc 32 g/dL (31-36); Mean Corpuscular Hemoglobin 27 pg (27-31); Mean Corpuscular Volume 84 fL (80-94); Mean Platelet Volume 7.9 fL (7.4-10.4); Nucleated Red Blood Cells % 0; Platelet Count 200 10^3/uL (150-450); Red Blood Count 4.41 10^6 /uL (4.18-5.48); Red Cell Distribution Width 17 % (10.5-15); White Blood Count 6.5 10^3/uL (3.5-10.8)
[2018-09-17 05:19] LABS: Albumin 3.6 g/dL (3.2-5.2); Albumin/Globulin Ratio 1.3 (1-3); BUN/Creatinine Ratio 26.4 (8-20); Calcium 9.1 mg/dL (8.6-10.3); EGFR African American 98.8 (>60); EGFR Non-African American 81.7 (>60); Globulin 2.8 g/dL (2-4); Potassium 4.5 mmol/L (3.5-5.0); Total Bilirubin 0.4 mg/dL (0.2-1.0); Total Protein 6.4 g/dL (6.4-8.9)
[2018-09-17] MEDS: Carbidopa/Levodop 25/100 MG TAB(*) PO SCH ×4 (06:47→21:17)
[2018-09-17] MEDS: Metoprolol Succinate XL TAB* 100 MG PO SCH (08:49)
[2018-09-17] MEDS: Lacosamide TAB* 50 MG TAB PO SCH ×2 (08:49→20:57)
[2018-09-17] MEDS: Amantadine CAP* 100 MG PO SCH ×2 (08:49→16:09)
[2018-09-17] MEDS: Losartan TAB* 25 MG PO SCH (08:49)
[2018-09-17] MEDS: Docusate CAP* 100 MG PO SCH ×2 (08:49→20:57)
[2018-09-17] MEDS: Apixaban* 5 MG TAB PO SCH ×2 (08:49→20:57)
[2018-09-17] MEDS: Polyethylene Glycol 3350* 17 GM PACKET PO PRN (08:49)
[2018-09-17] MEDS: Acetaminophen TAB* 325 MG PO PRN (11:47)
[2018-09-17] MEDS: Atorvastatin* 20 MG TAB PO SCH (16:09)
--- NOTE | 2018-09-17 18:19 | PN ---
Progress Note Date of Service: 09/17/18 Note: EBENEZER CLEANING was visited. Therapy notes read and reviewed. Certainly moving better overall. Walked to gym and back Current Medications: Active Medications Generic Name Dose Route Start Last Admin Trade Name Freq PRN Reason Stop Dose Admin Acetaminophen 650 mg 08/27/18 18:00 09/17/18 11:47 Tylenol Tab* PO 650 mg Q4H PRN Administration FEVER/PAIN Amantadine HCl 100 mg 09/09/18 16:00 09/17/18 16:09 Symmetrel Cap* PO 100 mg 0800,1600 SATINDER Administration Apixaban 5 mg 08/26/18 21:00 09/17/18 08:49 Eliquis* PO 5 mg BID SATINDER Administration Atorvastatin Calcium 20 mg 08/27/18 17:00 09/17/18 16:09 Lipitor* PO 20 mg 1700 SATINDER Administration Carbidopa/Levodopa 1 tab.cr 09/08/18 00:00 09/16/18 23:48 Sinemet Cr 50/200(*) PO 1 tab.cr 0000 SATINDER Administration Carbidopa/Levodopa 2 tab 09/07/18 16:00 09/17/18 16:10 Sinemet 25/100 Tab(*) PO 2 tab 0700,1100,1600,2000 SATINDER Administration Docusate Sodium 100 mg 08/26/18 21:00 09/17/18 08:49 Colace Cap* PO 100 mg BID SATINDER Administration Hydrocortisone 1 applic 08/31/18 10:19 09/16/18 20:11 Hytone Cream 1%* TOPICAL 1 applic TID PRN Administration itching Lacosamide 50 mg 08/26/18 21:00 09/17/18 08:49 Vimpat Tab* PO 50 mg BID SATINDER Administration Losartan Potassium 50 mg 08/27/18 09:00 09/17/18 08:49 Cozaar Tab* PO 50 mg DAILY SATINDER Administration Magnesium Hydroxide 30 ml 08/26/18 16:36 09/16/18 18:52 Milk Of Magnesia Liq* PO 30 ml Q6H PRN Administration CONSTIPATION Metoprolol Succinate 100 mg 08/27/18 09:00 09/17/18 08:49 Toprol Xl Tab* PO 100 mg DAILY SATINDER Administration Polyethylene Glycol/Electrolytes 17 gm 08/26/18 16:46 09/17/18 08:49 Miralax* PO 17 gm DAILY PRN Administration CONSTIPATION Senna 2 tab 08/26/18 16:36 09/16/18 20:12 Senokot Tab* PO 2 tab BEDTIME PRN Administration CONSTIPATION Throat Lozenges 1 jolynn 08/30/18 20:20 08/30/18 21:26 Chloraseptic Jolynn* PO 1 jolynn Q2H PRN Administration SORE THROAT Vital Signs: Vital Signs Temp Pulse Resp BP Pulse Ox 97.6 F 61 18 122/58 98 09/17/18 04:47 09/17/18 04:47 09/17/18 04:47 09/17/18 06:57 09/17/18 04:47 Lab Results: Laboratory Results - last 24 hr 09/17/18 09/17/18 04:37 04:37 WBC 6.5 RBC 4.41 Hgb 11.9 L Hct 37 MCV 84 MCH 27 MCHC 32 RDW 17 H Plt Count 200 MPV 7.9 Neut % (Auto) 71.8 Lymph % (Auto) 17.3 [place] % (Auto) 8.1 Eos % (Auto) 1.9 Baso % (Auto) 0.9 Absolute Neuts (auto) 4.7 Absolute Lymphs (auto) 1.1 Absolute Monos (auto) 0.5 Absolute Eos (auto) 0.1 Absolute Basos (auto) 0.1 Absolute Nucleated RBC 0 Nucleated RBC % 0 Sodium 137 Potassium 4.5 Chloride 103 Carbon Dioxide 29 Anion Gap 5 BUN 24 Creatinine 0.91 Est GFR ( Amer) 98.8 Est GFR (Non-Af Amer) 81.7 BUN/Creatinine Ratio 26.4 H Glucose 109 H Calcium 9.1 Total Bilirubin 0.40 AST 12 L ALT 3 L Alkaline Phosphatase 141 H Total Protein 6.4 Albumin 3.6 Globulin 2.8 Albumin/Globulin Ratio 1.3 Exam: GENERAL: Alert and appropriate LUNGS: Clear to auscultation bilaterally HEART: regular rate and rhythm ABDOMEN: +bowel sounds, soft, non-tender, non-distended EXTREMITIES: Suture line healed. Mild swelling in left operative leg NEUROLOGIC: CN II-XII intact. Resting tremor in arms>legs. Muscle strength bilateral UE/LE 5/5 except left hip and knee due to surgery. Sensation intact. Assessment/Plan: 1. Left Hip Fracture. S/P HAP: WBAT. PT/OT. Dr Platt follow up 2. Parkinson's Disease: Sinemet. Adjusted dose of Sinemet. Adjusted times for Amantadine. Neurology follow up as needed 3. Atrial Fibrillation: Eliquis/Toprol 4. HTN: Cozaar (instead of Avapro) and Toprol 5. DVT Prophylaxis: Eliquis 6. Advance Directives: Full Code. is HCP 7. Macular degeneration/vision: f/u with eye doctor after discharge. 09/17/18 18:19
[2018-09-18] MEDS: Carbidopa/Levodop CR 50/200(*) TAB.CR PO SCH (01:11)
[2018-09-18] MEDS: Carbidopa/Levodop 25/100 MG TAB(*) PO SCH ×4 (06:43→20:47)
[2018-09-18] MEDS: Losartan TAB* 25 MG PO SCH (09:44)
[2018-09-18] MEDS: Amantadine CAP* 100 MG PO SCH ×2 (09:44→16:19)
[2018-09-18] MEDS: Lacosamide TAB* 50 MG TAB PO SCH ×2 (09:44→20:48)
[2018-09-18] MEDS: Metoprolol Succinate XL TAB* 100 MG PO SCH (09:44)
[2018-09-18] MEDS: Apixaban* 5 MG TAB PO SCH ×2 (09:44→20:47)
[2018-09-18] MEDS: Docusate CAP* 100 MG PO SCH ×2 (09:44→20:48)
[2018-09-18] MEDS: Acetaminophen TAB* 325 MG PO PRN (09:53)
--- NOTE | 2018-09-18 12:48 | PMRUTEAM ---
PMRU: Team Meeting Current Status: Nursing: Current Status Skin Deviations [buttocks] Other Skin Deviations [left lower Petechiae back] Skin Deviations [L buttock] Abrasion Skin Deviations [torso] Rash Skin Deviations [Coccyx] Other Skin Deviations [Right Other Buttocks] Skin Deviations [Bilateral Other Heel] Skin Deviations [Right Lower Abrasion Leg] Skin Deviations [Left Hip] Incision Skin Deviation Description [ reddened buttocks] Skin Deviation Description [ rash on upper back appears improved from 09/04; left lower back] small optifoam covering small area on lower left back; buttock reddened, no changes in buttock reported by OT this AM Skin Deviation Description [L red buttock] Skin Deviation Description [ cream applied torso] Skin Deviation Description [ red, blanchable Coccyx] Skin Deviation Description [ red, blanchable Right Buttocks] Skin Deviation Description [ Spanko boots in place Bilateral Heel] Skin Deviation Description [ mild red spots Right Lower Leg] Skin Deviation Description [ 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] Drain Type [L buttock] None Physical Therapy: Current Status Bed Mobility Assistance Not Tested Transfer Mobility Assistance Contact Guard Assist Transfer/Bed Mobility Rolling Walker Recommended Devices Ambulation Assistance Contact Guard Assist Ambulation Assistive Devices Rolling Walker Number of Feet Patient 2x120 Ambulated Stairs Assistance Not Tested Stairs Recommended Devices Two Rails Number of Stairs 4 Curb Not Tested Occupational Therapy: Current Status Upper Body Dressing Max Asst Lower Body Dressing Total Assist Bathing Mod Assist,Max Asst Toileting Total Assist Toilet Transfer Mod Assist Shower Transfer Mod Assist Eating Supervision Rec Therapy: Current Status Summary of Assessment and Recreation Therapy assessment complete and pt. is Clinical Impression aware of services. Pt. is pleasant, cooperative and engaged. Pt. has been tired during the afternoons but enjoys visits from staff and his family. Treatment Goals Pt. will engage in leisure activities while on the unit. Treatment Plan Provide RT services and encourage involvement. Social Work: Current Status Discharge Plan return home with home care svs and family support Potential for Family Training pt's is involved and supportive Anticipated Discharge Home Destination Discharge With home care svs and family support Nutrition: Current Status Monitoring pt is consistently eating 90-100% of meals w/set- up and minimal asst toward end of meal (d/t tremors). Regular diet appropriate; no need for texture modifications. Bowel pattern appears regulated, every 1-2 days; last BM 09/12. No new skin issues per nursing assessments; only a mild rash to low back. Serum electrolytes WNL 09/10. No changes to nutrition intervention at this time. Speech: Current Status Assessment Patient is progressing as expected. By use of voice facilitation and loud voice techniques, patient sustained very loud, clear harmonc phonation at mid and especiailly high pitches. When prompted to reduce from very loudest to moderately loud voice, patient demonstrated mild- moderately hoarse vocal quality with high intelligibility. Speech Goal 2 Current Status Within functional limits Goals: Physical Therapy: Initial Goals Bed Mobility Assistance Independent Transfer Mobility Assistance Independent Transfer/Bed Mobility Rolling Walker Recommended Devices Ambulation Independent Ambulation Recommended Devices Rolling Walker Ambulation Distance 150 Stairs Assistance Supervision Stair Recommended Devices Two Rails Number of Stairs 4 Home Exercise Program Independent Assistance Physical Therapy: Updated Goals Bed Mobility Assistance Independent Transfer Mobility Assistance Independent Transfer/Bed Mobility Rolling Walker Recommended Devices Ambulation Assistance Independent Ambulation Assistive Devices Rolling Walker Ambulation Distance (ft) 150 Stairs Assistance Independent Stairs Recommended Devices Two Rails Number of Stairs 5 Occupational Therapy: Initial Goals Goals to be Completed in (Days 28 ) Upper Body Bathing Routine Supervision/Set Up Lower Body Bathing Routine Supervision/Set Up Upper Body Dressing Routine Moderate Assist Lower Body Dressing Routine Moderate Assist Toilet Hygeine and Clothing Minimal Contact Assist Management Routine Toilet Transfer Routine Supervision/Set Up Step-In Shower Transfer Supervision/Set Up Routine Functional Transfers for ADL Modified Independent with Grooming Routine Independent Feeding Routine Independent Nutrition: Goals Intervention Goals 1. Maintain adequate oral intake to support weight maintenance, maintenance of lean body mass, support post op rehab 2. Maintain bowel regularity w/o constipation or diarrhea 3. Pt receives appropriate assistance w/feeding, as needed Speech: Goals Speech Goal 1 Voice Goal 1 Comments Voice Goals: Long-Term Goal: Pt will use compensatory strategies to increase vocal loudness to moderate and speech to intelligibility to 95-100%, in spontaneous conversational speech, Independently, as observed by therapists, nursing and medical staff. Short-Term Goal: Pt will complete loud voice exercises and use compensatory strategies to increase vocal loudness to moderate and speech to intelligibility to 95%, in structured conversational speech, given minimal cueing, as observed by therapists, nursing and medical staff. Status: Progressing as expected, COLLEGE BASKETBALL COACH provided skilled instruction in breath support and voice facilitation exercises for speaking in a loud clear voice. COLLEGE BASKETBALL COACH modified instruction by modeling small adjustments in pitch and vowel quality, to find and use room resonance to enhance vocal production. Given moderate cueing, patent achieved room echo and reverberation that reinforced and guided his voice production, and demonstrated his loudest, most harmonic voice to date. Speech Goal 2 Language Expression Speech Goal 2 Evaluation Mild impairment Status Speech Goal 2 Current Status Within functional limits Speech Goal 2 Discharge Status Within functional limits 08/31/18 Speech Goal 2 Comments Memory Goals: Long-Term Memory Goal: Pt will use compensatory strategies to encode and retrieve 4/4 new items after delay of 30 minutes, Independently, for independence in mobility safety, ADLs and community access. Status: Progressing as expected. Short-term Memory Goal: Pt will use compensatory strategies to encode and retrieve 3/4 new items after delay of 5 minutes, given Moderate skilled instruction and cueing. Status: Goal established. Short-term Memory Goal: Pt will use compensatory strategies to encode and verbally retrieve safety precautions and mobility sequences, including standing from chair to walker, walking with walker , and sitting from walker to chair. Status: Progressing as expected. Prior to session, COLLEGE BASKETBALL COACH observed patient to require maximal verbal and touch cueing to transfer from standing to chair after toileting with aides. COLLEGE BASKETBALL COACH provided verbal, printed, pictorial instruction and demonstration with direct models, to instructed patient to verbally direct this resume writer to stand, walk and sit safely using a walker. Patient required continual moderate cueing and extra processing time to sequence steps . Patient COLLEGE BASKETBALL COACH modified instruction to simplify wording and rehearse fluent verbal sequencing, and patient recuded delay between stesp by half. Speech Goal 3 Memory Speech Goal 3 Comments Memory Goals: Long-Term Memory Goal: Pt will use compensatory strategies to encode and retrieve 4/4 new items after delay of 30 minutes, Independently, for independence in mobility safety, ADLs and community access. Status: Goal established. Short-term Memory Goal: Pt will use compensatory strategies to encode and retrieve 3/4 new items after delay of 5 minutes, given Moderate skilled instruction and cueing. Status: Goal established. Short-term Memory Goal: Pt will use compensatory strategies to encode and verbally retrieve safety precautions and mobility sequences, including standing from chair to walker, walking with walker , and sitting from walker to chair. Status: Progressing as expected. With verbal, printed, pictorial instruction and demonstration with direct models, COLLEGE BASKETBALL COACH instructed patient to direct this resume writer to stand, walk and sit safely using a walker. Patient required continual maximal cueing to observe what this resume writer had down so far and to verbalize the next step at each point for standing. Patient I'ly recalled sequence for sitting initially, but on review required moderate cueing to verbalize steps . Social Work: Goals Discharge Plan return home with home care svs and family support Potential for Family Training pt's is involved and supportive Anticipated Discharge Home Destination Discharge With home care svs and family support Care Plan: Care Plan ADL's - Improve/Maintain Start: 08/28/18 14:52 Freq: DAILY Status: Active Target: Protocol: Activity Type Activity Date Activity User E-Sign Co-Sign Detail Recorded Client Recorded Date Recorded By Document 09/12/18 15:40 [id number] 09/12/18 15:40 [id number] 09/12/18 15:40 PMRU Outcome: ADL's/ADL Transfers Orders/Interventions Occupational Therapy Evaluation & Treatment Communication Tool in Patient Room Patient to receive OT 5x/wk for 60-120 Therex min/day Self Care Management Group Therapy Neuromuscular ReEducation UE/LE ADL's with Assist Yes: MOD A ADL Transfers with Assist Yes: S Toileting: Transfers,Clothing Management Yes: MIN A ,Hygeine w/Assist Light Kitchen/Laundry w/Assist No Progression Toward Outcome/Goals Progressing Outcome/Goals Met Pt participated well in ADL treatment session, continues to require significant assistance for ADL routine due to tremors, EZ stand utilized during treatment session. Communication-Improve/Maintain Start: 08/29/18 16:23 Freq: DAILY Status: Active Target: Protocol: Activity Type Activity Date Activity User E-Sign Co-Sign Detail Recorded Client Recorded Date Recorded By Document 09/17/18 12:27 [id number] 09/17/18 12:27 [id number] 09/17/18 12:27 PMRU Outcome: Communication/Cognitive Status Outcome/Goals Makes Needs Known Effectively Other Outcomes/Goals Voice Goals: Long-Term Goal: Pt will use compensatory strategies to increase vocal loudness to moderate and speech to intelligibility to 95-100%, in spontaneous conversational speech, Independently, as observed by therapists, nursing and medical staff. Short-Term Goal : Pt will complete loud voice exercises and use compensatory strategies to increase vocal loudness to moderate and speech to intelligibility to 95%, in structured conversational speech, given minimal cueing, as observed by therapists, nursing and medical staff. Status: Progressing as expected. Memory Goals: Long-Term Memory Goal: Pt will use compensatory strategies to encode and retrieve 4/4 new items after delay of 30 minutes, Independently, for independence in mobility safety, ADLs and community access. Status: Goal established. Short-term Memory Goal: Pt will use compensatory strategies to encode and retrieve 3/4 new items after delay of 5 minutes, given Moderate skilled instruction and cueing. Status: Goal established. Short-term Memory Goal: Pt will use compensatory strategies to encode and verbally retrieve safety precautions and mobility sequences, including standing from chair to walker , walking with walker, and sitting from walker to chair . Status: Progressing as expected. Progression Toward Outcomes/Goals Progressing Outcome/Goals Met Makes Needs Known Effectively Outcome/Goals Met Comment Patient is progressing as expected. By use of voice facilitation and loud voice techniques, patient sustained very loud, clear harmonc phonation at mid and especiailly high pitches. When prompted to reduce from very loudest to moderately loud voice, patient demonstrated mild-moderately hoarse vocal quality with high intelligibility . Coping/Psych-Improve/Maintain Start: 08/27/18 14:31 Freq: QSHIFT Status: Active Target: Protocol: Activity Type Activity Date Activity User E-Sign Co-Sign Detail Recorded Client Recorded Date Recorded By Document 09/18/18 02:06 [id number] 09/18/18 02:06 [id number] 09/18/18 02:06 PMRU Outcome: Coping/Psychosocial Coping Outcome/Goals Verbalization of Acceptance of Rehab Admit Verbalization of Sense of Control Over Health Status Willingness to Participate in Treatment Plan and Basic Needs Psychosocial Outcome/Goals Maintain/ Improve Emotional Health Cooperate/ Participate in Plan Progression Toward Outcome/Goals - Progressing Coping Progression Toward Outcome/Goals - Progressing Psychosocial DVT Prophylaxis- Improve/Maintain Start: 08/27/18 14:31 Freq: QSHIFT Status: Complete Target: Protocol: Activity Type Activity Date Activity User E-Sign Co-Sign Detail Recorded Client Recorded Date Recorded By Document 09/07/18 20:00 [id number] 09/07/18 22:09 [id number] 09/07/18 20:00 PMRU Outcome: DVT Prophylaxis Outcome/Goals Remains Free of DVT Free of complications from current DVT Complies with DVT Prophylaxis /Treatment Demonstrates Knowledge of DVT Prevention/ Treatment TEDS Stockings on Every AM, Off at HS Outcome/Goals Met Remains Free of DVT Discharge Planning - Improve/Maintain Start: 08/27/18 14:31 Freq: DAILY Status: Active Target: Protocol: Activity Type Activity Date Activity User E-Sign Co-Sign Detail Recorded Client Recorded Date Recorded By Document 09/18/18 02:06 [id number] 09/18/18 02:06 [id number] 09/18/18 02:06 PMRU Outcome: Discharge Planning Update Patient Family No Outcome/Goals Demonstrates Understanding of Discharge Plan Progression Toward Outcome/Goals Progressing Education-Improve/Maintain Start: 08/27/18 14:31 Freq: QSHIFT Status: Active Target: Protocol: Activity Type Activity Date Activity User E-Sign Co-Sign Detail Recorded Client Recorded Date Recorded By Document 09/18/18 02:06 [id number] 09/18/18 02:06 [id number] 09/18/18 02:06 PMRU Outcome: Education Outcome/Goals Encourage Questions Progression Toward Outcome/Goals Progressing /GI-Improve/Maintain Start: 08/27/18 14:31 Freq: QSHIFT Status: Active Target: Protocol: Activity Type Activity Date Activity User E-Sign Co-Sign Detail Recorded Client Recorded Date Recorded By Document 09/18/18 02:06 [id number] 09/18/18 02:06 [id number] 09/18/18 02:06 PMRU Outcome: Genitourinary/ Gastrointestinal Genitourinary- Outcome/Goals Remain Free of Hospital- Acquired UTI Gastrointestinal-Outcome/Goals Maintain/ Achieve Bowel Regularity in Accordance with Pt's Baseline Prevent Constipation Progression Toward Outcome/Goals - Progressing Progression Toward Outcome/Goals - GI Progressing Medication Administration Start: 08/27/18 14:31 Freq: QSHIFT Status: Active Target: Protocol: Activity Type Activity Date Activity User E-Sign Co-Sign Detail Recorded Client Recorded Date Recorded By Document 09/18/18 02:06 [id number] 09/18/18 02:06 [id number] 09/18/18 02:06 PMRU Outcome: Medication Administration Assess Patient Knowledge/Teach Med Yes Education for all Meds Outcome/Goals Family/ Caregiver Administer Medications at Home Demonstrates Understanding Progression Towards Outcome/Goals Progressing Is Patient Going Home on Lovenox? No Neurological- Improve/Maintain Start: 08/27/18 14:31 Freq: QSHIFT Status: Active Target: Protocol: Activity Type Activity Date Activity User E-Sign Co-Sign Detail Recorded Client Recorded Date Recorded By Document 09/18/18 02:06 [id number] 09/18/18 02:06 [id number] 09/18/18 02:06 PMRU Outcome: Neurological Weakness/Aphasia Weakness Outcome/Goals Maintain/ Achieve Baseline Neurological Status Improve Neurological Status Maintain/ Improve Strength/ROM Progression Toward Outcome/Goals Progressing Pain/Comfort- Improve/Maintain Start: 08/27/18 14:31 Freq: QSHIFT Status: Complete Target: Protocol: Activity Type Activity Date Activity User E-Sign Co-Sign Detail Recorded Client Recorded Date Recorded By Document 09/07/18 20:00 [id number] 09/07/18 22:09 [id number] 09/07/18 20:00 PMRU Outcome: Pain/Comfort Outcome/Goals Demonstrates Knowledge and Use of Available Comfort Measures Achieves Acceptable Comfort/Pain Level as Determined by Patient/Condit Maintain Comfort Level Allowing Patient to Fully Participate in Rehab Outcome/Goals Met Maintain Comfort Level Allowing Patient to Fully Participate in Rehab Safety- Improve/Maintain Start: 08/27/18 14:31 Freq: QSHIFT Status: Active Target: Protocol: Activity Type Activity Date Activity User E-Sign Co-Sign Detail Recorded Client Recorded Date Recorded By Document 09/18/18 02:06 [id number] 09/18/18 02:06 [id number] 09/18/18 02:06 PMRU Outcome: Safety Outcome/Goals Remain Free of Injury or Harm Cooperates with Safety Measures for Least Restrictive Environment Prevent Falls/ Injury Progression Toward Outcome/Goals Progressing Outcome/Goals Met Comment PA/BA in use Skin- Improve/Maintain Start: 08/27/18 14:31 Freq: QSHIFT Status: Active Target: Protocol: Activity Type Activity Date Activity User E-Sign Co-Sign Detail Recorded Client Recorded Date Recorded By Document 09/18/18 02:06 [id number] 09/18/18 02:06 [id number] 09/18/18 02:06 PMRU Outcome: Skin Skin Risk Level High Skin Orders Heels Off Bed Turn/Position q2hr While in Bed Dressing Change Comments new bed w pressure relieving mattress Outcome/Goals Maintain/ Improve Skin Intergrity Maintain/ Improve Wound Status Surgical Incisions Healing Progression Toward Outcome/Goals Progressing Medicine Note: Length of Stay: 17 days Anticipated Discharge Destination: Home Tentative Discharge Date: 10/05/18 Discharged to: Home
[2018-09-18] MEDS: Atorvastatin* 20 MG TAB PO SCH (16:19)
--- NOTE | 2018-09-18 18:10 | PN ---
Progress Note Date of Service: 09/18/18 Note: EBENEZER CLEANING was visited. Therapy notes read and reviewed. He was discussed in interdisciplinary team rounds. His would like to take him home. While he is improving, he still needs a lot of help with his toileting Current Medications: Active Medications Generic Name Dose Route Start Last Admin Trade Name Freq PRN Reason Stop Dose Admin Acetaminophen 650 mg 08/27/18 18:00 09/18/18 09:53 Tylenol Tab* PO 650 mg Q4H PRN Administration FEVER/PAIN Amantadine HCl 100 mg 09/09/18 16:00 09/18/18 16:19 Symmetrel Cap* PO 100 mg 0800,1600 SATINDER Administration Apixaban 5 mg 08/26/18 21:00 09/18/18 09:44 Eliquis* PO 5 mg BID SATINDER Administration Atorvastatin Calcium 20 mg 08/27/18 17:00 09/18/18 16:19 Lipitor* PO 20 mg 1700 SATINDER Administration Carbidopa/Levodopa 1 tab.cr 09/08/18 00:00 09/18/18 01:11 Sinemet Cr 50/200(*) PO 1 tab.cr 0000 SATINDER Administration Carbidopa/Levodopa 2 tab 09/07/18 16:00 09/18/18 16:18 Sinemet 25/100 Tab(*) PO 2 tab 0700,1100,1600,2000 SATINDER Administration Docusate Sodium 100 mg 08/26/18 21:00 09/18/18 09:44 Colace Cap* PO 100 mg BID SATINDER Administration Hydrocortisone 1 applic 08/31/18 10:19 09/16/18 20:11 Hytone Cream 1%* TOPICAL 1 applic TID PRN Administration itching Lacosamide 50 mg 08/26/18 21:00 09/18/18 09:44 Vimpat Tab* PO 50 mg BID SATINDER Administration Losartan Potassium 50 mg 08/27/18 09:00 09/18/18 09:44 Cozaar Tab* PO 50 mg DAILY SATINDER Administration Magnesium Hydroxide 30 ml 08/26/18 16:36 09/16/18 18:52 Milk Of Magnesia Liq* PO 30 ml Q6H PRN Administration CONSTIPATION Metoprolol Succinate 100 mg 08/27/18 09:00 09/18/18 09:44 Toprol Xl Tab* PO 100 mg DAILY SATINDER Administration Polyethylene Glycol/Electrolytes 17 gm 08/26/18 16:46 09/17/18 08:49 Miralax* PO 17 gm DAILY PRN Administration CONSTIPATION Senna 2 tab 08/26/18 16:36 09/16/18 20:12 Senokot Tab* PO 2 tab BEDTIME PRN Administration CONSTIPATION Throat Lozenges 1 jolynn 08/30/18 20:20 08/30/18 21:26 Chloraseptic Jolynn* PO 1 jolynn Q2H PRN Administration SORE THROAT Vital Signs: Vital Signs Temp Pulse Resp BP Pulse Ox 97.7 F 250 22 126/102 98 09/18/18 16:08 09/18/18 16:08 09/18/18 16:08 09/18/18 16:08 09/18/18 17:55 Exam: GENERAL: Alert and appropriate LUNGS: Clear to auscultation bilaterally HEART: regular rate and rhythm ABDOMEN: +bowel sounds, soft, non-tender, non-distended EXTREMITIES: Suture line healed. Mild swelling in left operative leg NEUROLOGIC: CN II-XII intact. Resting tremor in arms>legs. Muscle strength bilateral UE/LE 5/5 except left hip and knee due to surgery. Sensation intact. Assessment/Plan: 1. Left Hip Fracture. S/P HAP: WBAT. PT/OT. Dr Platt follow up 2. Parkinson's Disease: Sinemet. Adjusted dose of Sinemet. Adjusted times for Amantadine. Neurology follow up as needed 3. Atrial Fibrillation: Eliquis/Toprol 4. HTN: Cozaar (instead of Avapro) and Toprol 5. DVT Prophylaxis: Eliquis 6. Advance Directives: Full Code. is HCP 7. Possible Seizure Disorder: Vimpat 8. Macular degeneration/vision: f/u with eye doctor after discharge. 09/18/18 18:10
[2018-09-19] MEDS: Carbidopa/Levodop CR 50/200(*) TAB.CR PO SCH (00:10)
[2018-09-19] MEDS: Carbidopa/Levodop 25/100 MG TAB(*) PO SCH ×4 (06:29→20:31)
[2018-09-19] MEDS: Docusate CAP* 100 MG PO SCH ×2 (08:47→20:32)
[2018-09-19] MEDS: Lacosamide TAB* 50 MG TAB PO SCH ×2 (08:47→20:32)
[2018-09-19] MEDS: Metoprolol Succinate XL TAB* 100 MG PO SCH (08:47)
[2018-09-19] MEDS: Losartan TAB* 25 MG PO SCH (08:47)
[2018-09-19] MEDS: Apixaban* 5 MG TAB PO SCH ×2 (08:47→20:32)
[2018-09-19] MEDS: Amantadine CAP* 100 MG PO SCH ×2 (08:47→16:17)
[2018-09-19] MEDS: Atorvastatin* 20 MG TAB PO SCH (16:18)
--- NOTE | 2018-09-19 19:40 | PN ---
Progress Note Date of Service: 09/19/18 Note: EBENEZER CLEANING was visited. Therapy notes read and reviewed. I watched him get out of chair and walk to bathroom and he moved quite well. Current Medications: Active Medications Generic Name Dose Route Start Last Admin Trade Name Freq PRN Reason Stop Dose Admin Acetaminophen 650 mg 08/27/18 18:00 09/18/18 09:53 Tylenol Tab* PO 650 mg Q4H PRN Administration FEVER/PAIN Amantadine HCl 100 mg 09/09/18 16:00 09/19/18 16:17 Symmetrel Cap* PO 100 mg 0800,1600 SATINDER Administration Apixaban 5 mg 08/26/18 21:00 09/19/18 08:47 Eliquis* PO 5 mg BID SATINDER Administration Atorvastatin Calcium 20 mg 08/27/18 17:00 09/19/18 16:18 Lipitor* PO 20 mg 1700 SATINDER Administration Carbidopa/Levodopa 1 tab.cr 09/08/18 00:00 09/19/18 00:10 Sinemet Cr 50/200(*) PO 1 tab.cr 0000 SATINDER Administration Carbidopa/Levodopa 2 tab 09/07/18 16:00 09/19/18 16:18 Sinemet 25/100 Tab(*) PO 2 tab 0700,1100,1600,2000 SATINDER Administration Docusate Sodium 100 mg 08/26/18 21:00 09/19/18 08:47 Colace Cap* PO 100 mg BID SATINDER Administration Hydrocortisone 1 applic 08/31/18 10:19 09/16/18 20:11 Hytone Cream 1%* TOPICAL 1 applic TID PRN Administration itching Lacosamide 50 mg 08/26/18 21:00 09/19/18 08:47 Vimpat Tab* PO 50 mg BID SATINDER Administration Losartan Potassium 50 mg 08/27/18 09:00 09/19/18 08:47 Cozaar Tab* PO 50 mg DAILY SATINDER Administration Magnesium Hydroxide 30 ml 08/26/18 16:36 09/16/18 18:52 Milk Of Magnesia Liq* PO 30 ml Q6H PRN Administration CONSTIPATION Metoprolol Succinate 100 mg 08/27/18 09:00 09/19/18 08:47 Toprol Xl Tab* PO 100 mg DAILY SATINDER Administration Polyethylene Glycol/Electrolytes 17 gm 08/26/18 16:46 09/17/18 08:49 Miralax* PO 17 gm DAILY PRN Administration CONSTIPATION Senna 2 tab 08/26/18 16:36 09/16/18 20:12 Senokot Tab* PO 2 tab BEDTIME PRN Administration CONSTIPATION Throat Lozenges 1 jolynn 08/30/18 20:20 08/30/18 21:26 Chloraseptic Jolynn* PO 1 jolynn Q2H PRN Administration SORE THROAT Vital Signs: Vital Signs Temp Pulse Resp BP Pulse Ox 98.1 F 76 24 120/58 97 09/19/18 17:22 09/19/18 17:22 09/19/18 17:22 09/19/18 17:22 09/19/18 17:22 Exam: GENERAL: Alert and appropriate LUNGS: Clear to auscultation bilaterally HEART: regular rate and rhythm ABDOMEN: +bowel sounds, soft, non-tender, non-distended EXTREMITIES: Suture line healed. Mild swelling in left operative leg NEUROLOGIC: CN II-XII intact. Resting tremor in arms>legs. Muscle strength bilateral UE/LE 5/5 except left hip and knee due to surgery. Sensation intact. Assessment/Plan: 1. Left Hip Fracture. S/P HAP: WBAT. PT/OT. Dr Platt follow up 2. Parkinson's Disease: Sinemet. Adjusted dose of Sinemet. Adjusted times for Amantadine. Neurology follow up as needed 3. Atrial Fibrillation: Eliquis/Toprol 4. HTN: Cozaar (instead of Avapro) and Toprol 5. DVT Prophylaxis: Eliquis 6. Advance Directives: Full Code. is HCP 7. Possible Seizure Disorder: Vimpat 8. Macular degeneration/vision: f/u with eye doctor after discharge. 09/19/18 19:40
[2018-09-20] MEDS: Carbidopa/Levodop CR 50/200(*) TAB.CR PO SCH (00:01)
[2018-09-20] MEDS: Carbidopa/Levodop 25/100 MG TAB(*) PO SCH ×4 (06:48→20:10)
[2018-09-20] MEDS: Docusate CAP* 100 MG PO SCH ×2 (09:35→20:13)
[2018-09-20] MEDS: Metoprolol Succinate XL TAB* 100 MG PO SCH (09:35)
[2018-09-20] MEDS: Losartan TAB* 25 MG PO SCH (09:35)
[2018-09-20] MEDS: Apixaban* 5 MG TAB PO SCH ×2 (09:35→20:11)
[2018-09-20] MEDS: Amantadine CAP* 100 MG PO SCH ×2 (09:35→16:10)
[2018-09-20] MEDS: Lacosamide TAB* 50 MG TAB PO SCH ×2 (09:35→20:11)
[2018-09-20] MEDS: Atorvastatin* 20 MG TAB PO SCH (16:11)
--- NOTE | 2018-09-20 21:14 | PN ---
Progress Note Date of Service: 09/20/18 Note: EBENEZER CLEANING was visited. Therapy notes read and reviewed. He has no complaints and seems to do okay. Current Medications: Active Medications Generic Name Dose Route Start Last Admin Trade Name Freq PRN Reason Stop Dose Admin Acetaminophen 650 mg 08/27/18 18:00 09/18/18 09:53 Tylenol Tab* PO 650 mg Q4H PRN Administration FEVER/PAIN Amantadine HCl 100 mg 09/09/18 16:00 09/20/18 16:10 Symmetrel Cap* PO 100 mg 0800,1600 SATINDER Administration Apixaban 5 mg 08/26/18 21:00 09/20/18 20:11 Eliquis* PO 5 mg BID SATINDER Administration Atorvastatin Calcium 20 mg 08/27/18 17:00 09/20/18 16:11 Lipitor* PO 20 mg 1700 SATINDER Administration Carbidopa/Levodopa 1 tab.cr 09/08/18 00:00 09/20/18 00:01 Sinemet Cr 50/200(*) PO 1 tab.cr 0000 SATINDER Administration Carbidopa/Levodopa 2 tab 09/07/18 16:00 09/20/18 20:10 Sinemet 25/100 Tab(*) PO 2 tab 0700,1100,1600,2000 SATINDER Administration Docusate Sodium 100 mg 08/26/18 21:00 09/20/18 20:13 Colace Cap* PO Not Given BID SATINDER Hydrocortisone 1 applic 08/31/18 10:19 09/16/18 20:11 Hytone Cream 1%* TOPICAL 1 applic TID PRN Administration itching Lacosamide 50 mg 08/26/18 21:00 09/20/18 20:11 Vimpat Tab* PO 50 mg BID SATINDER Administration Losartan Potassium 50 mg 08/27/18 09:00 09/20/18 09:35 Cozaar Tab* PO 50 mg DAILY SATINDER Administration Magnesium Hydroxide 30 ml 08/26/18 16:36 09/16/18 18:52 Milk Of Magnesia Liq* PO 30 ml Q6H PRN Administration CONSTIPATION Metoprolol Succinate 100 mg 08/27/18 09:00 09/20/18 09:35 Toprol Xl Tab* PO 100 mg DAILY SATINDER Administration Polyethylene Glycol/Electrolytes 17 gm 08/26/18 16:46 09/17/18 08:49 Miralax* PO 17 gm DAILY PRN Administration CONSTIPATION Senna 2 tab 08/26/18 16:36 09/16/18 20:12 Senokot Tab* PO 2 tab BEDTIME PRN Administration CONSTIPATION Throat Lozenges 1 jolynn 08/30/18 20:20 08/30/18 21:26 Chloraseptic Jolynn* PO 1 jolynn Q2H PRN Administration SORE THROAT Vital Signs: Vital Signs Temp Pulse Resp BP Pulse Ox 97.6 F 70 20 135/61 99 09/20/18 16:20 09/20/18 16:20 09/20/18 16:20 09/20/18 16:20 09/20/18 16:20 Exam: GENERAL: Alert and appropriate LUNGS: Clear to auscultation bilaterally HEART: regular rate and rhythm ABDOMEN: +bowel sounds, soft, non-tender, non-distended EXTREMITIES: Suture line healed. Mild swelling in left operative leg NEUROLOGIC: CN II-XII intact. Resting tremor in arms>legs. Muscle strength bilateral UE/LE 5/5 except left hip and knee due to surgery. Sensation intact. Assessment/Plan: 1. Left Hip Fracture. S/P HAP: WBAT. PT/OT. Dr Platt follow up 2. Parkinson's Disease: Sinemet/Amantadine. Neurology follow up as needed 3. Atrial Fibrillation: Eliquis/Toprol 4. HTN: Cozaar (instead of Avapro) and Toprol 5. DVT Prophylaxis: Eliquis 6. Advance Directives: Full Code. is HCP 7. Possible Seizure Disorder: Vimpat 8. Macular degeneration/vision: f/u with eye doctor after discharge. 09/20/18 21:15
[2018-09-21] MEDS: Carbidopa/Levodop CR 50/200(*) TAB.CR PO SCH (00:13)
[2018-09-21] MEDS: Carbidopa/Levodop 25/100 MG TAB(*) PO SCH ×4 (07:10→20:00)
[2018-09-21] MEDS: Amantadine CAP* 100 MG PO SCH ×2 (09:40→16:03)
[2018-09-21] MEDS: Apixaban* 5 MG TAB PO SCH ×2 (09:40→20:01)
[2018-09-21] MEDS: Losartan TAB* 25 MG PO SCH (09:40)
[2018-09-21] MEDS: Metoprolol Succinate XL TAB* 100 MG PO SCH (09:40)
[2018-09-21] MEDS: Docusate CAP* 100 MG PO SCH ×2 (09:40→19:55)
[2018-09-21] MEDS: Lacosamide TAB* 50 MG TAB PO SCH ×2 (09:40→20:01)
--- NOTE | 2018-09-21 09:43 | PN ---
Progress Note Date of Service: 09/21/18 Note: EBENEZER CLEANING was visited. Nursing and therapy notes read and reviewed. No chest pain, shortness of breath or abdominal pain. No new issues. Current Medications: Active Medications Generic Name Dose Route Start Last Admin Trade Name Freq PRN Reason Stop Dose Admin Acetaminophen 650 mg 08/27/18 18:00 09/18/18 09:53 Tylenol Tab* PO 650 mg Q4H PRN Administration FEVER/PAIN Amantadine HCl 100 mg 09/09/18 16:00 09/20/18 16:10 Symmetrel Cap* PO 100 mg 0800,1600 SATINDER Administration Apixaban 5 mg 08/26/18 21:00 09/20/18 20:11 Eliquis* PO 5 mg BID SATINDER Administration Atorvastatin Calcium 20 mg 08/27/18 17:00 09/20/18 16:11 Lipitor* PO 20 mg 1700 SATINDER Administration Carbidopa/Levodopa 1 tab.cr 09/08/18 00:00 09/21/18 00:13 Sinemet Cr 50/200(*) PO 1 tab.cr 0000 SATINDER Administration Carbidopa/Levodopa 2 tab 09/07/18 16:00 09/21/18 07:10 Sinemet 25/100 Tab(*) PO 2 tab 0700,1100,1600,2000 SATINDER Administration Docusate Sodium 100 mg 08/26/18 21:00 09/20/18 20:13 Colace Cap* PO Not Given BID SATINDER Hydrocortisone 1 applic 08/31/18 10:19 09/16/18 20:11 Hytone Cream 1%* TOPICAL 1 applic TID PRN Administration itching Lacosamide 50 mg 08/26/18 21:00 09/20/18 20:11 Vimpat Tab* PO 50 mg BID SATINDER Administration Losartan Potassium 50 mg 08/27/18 09:00 09/20/18 09:35 Cozaar Tab* PO 50 mg DAILY SATINDER Administration Magnesium Hydroxide 30 ml 08/26/18 16:36 09/16/18 18:52 Milk Of Magnesia Liq* PO 30 ml Q6H PRN Administration CONSTIPATION Metoprolol Succinate 100 mg 08/27/18 09:00 09/20/18 09:35 Toprol Xl Tab* PO 100 mg DAILY SATINDER Administration Polyethylene Glycol/Electrolytes 17 gm 08/26/18 16:46 09/17/18 08:49 Miralax* PO 17 gm DAILY PRN Administration CONSTIPATION Senna 2 tab 08/26/18 16:36 09/16/18 20:12 Senokot Tab* PO 2 tab BEDTIME PRN Administration CONSTIPATION Throat Lozenges 1 jolynn 08/30/18 20:20 08/30/18 21:26 Chloraseptic Jolynn* PO 1 jolynn Q2H PRN Administration SORE THROAT Vital Signs: Vital Signs Temp Pulse Resp BP Pulse Ox 97.4 F 71 18 135/65 96 09/21/18 05:05 09/21/18 05:05 09/21/18 05:05 09/21/18 05:05 09/21/18 05:05 Exam: GENERAL: Alert and appropriate LUNGS: Clear to auscultation bilaterally HEART: regular rate and rhythm ABDOMEN: +bowel sounds, soft, non-tender, non-distended EXTREMITIES: Suture line healed. No edema NEUROLOGIC: CN II-XII intact. Resting tremor in arms>legs. Muscle strength bilateral UE/LE 5/5. Sensation intact. Assessment/Plan: 1. Left Hip Fracture. S/P HAP: WBAT. PT/OT. Dr Platt follow up 2. Parkinson's Disease: Sinemet/Amantadine. Neurology follow up as needed 3. Atrial Fibrillation: Eliquis/Toprol 4. HTN: Cozaar (instead of Avapro) and Toprol 5. DVT Prophylaxis: Eliquis 6. Advance Directives: Full Code. is HCP 7. Possible Seizure Disorder: Vimpat 8. Macular degeneration/vision: f/u with eye doctor after discharge. 09/21/18 09:42
[2018-09-21] MEDS: Acetaminophen TAB* 325 MG PO PRN ×2 (09:47→20:01)
[2018-09-21] MEDS: Atorvastatin* 20 MG TAB PO SCH (16:04)
[2018-09-22] MEDS: Acetaminophen TAB* 325 MG PO PRN ×3 (00:44→20:21)
[2018-09-22] MEDS: Carbidopa/Levodop CR 50/200(*) TAB.CR PO SCH (00:45)
[2018-09-22] MEDS: Carbidopa/Levodop 25/100 MG TAB(*) PO SCH ×4 (07:42→20:21)
[2018-09-22] MEDS: Docusate CAP* 100 MG PO SCH ×2 (10:08→20:21)
[2018-09-22] MEDS: Amantadine CAP* 100 MG PO SCH ×2 (10:08→17:00)
[2018-09-22] MEDS: Apixaban* 5 MG TAB PO SCH ×2 (10:08→20:21)
[2018-09-22] MEDS: Losartan TAB* 25 MG PO SCH (10:09)
[2018-09-22] MEDS: Metoprolol Succinate XL TAB* 100 MG PO SCH (10:09)
[2018-09-22] MEDS: Lacosamide TAB* 50 MG TAB PO SCH ×2 (10:09→20:21)
--- NOTE | 2018-09-22 10:20 | PN ---
Progress Note Date of Service: 09/22/18 Note: EBENEZER CLEANING was visited. Nursing and therapy notes read and reviewed. No chest pain, shortness of breath or abdominal pain. No new issues. Current Medications: Active Medications Generic Name Dose Route Start Last Admin Trade Name Freq PRN Reason Stop Dose Admin Acetaminophen 650 mg 08/27/18 18:00 09/22/18 10:07 Tylenol Tab* PO 650 mg Q4H PRN Administration FEVER/PAIN Amantadine HCl 100 mg 09/09/18 16:00 09/22/18 10:08 Symmetrel Cap* PO 100 mg 0800,1600 SATINDER Administration Apixaban 5 mg 08/26/18 21:00 09/22/18 10:08 Eliquis* PO 5 mg BID SATINDER Administration Atorvastatin Calcium 20 mg 08/27/18 17:00 09/21/18 16:04 Lipitor* PO 20 mg 1700 SATINDER Administration Carbidopa/Levodopa 1 tab.cr 09/08/18 00:00 09/22/18 00:45 Sinemet Cr 50/200(*) PO 1 tab.cr 0000 SATINDER Administration Carbidopa/Levodopa 2 tab 09/07/18 16:00 09/22/18 07:42 Sinemet 25/100 Tab(*) PO 2 tab 0700,1100,1600,2000 SATINDER Administration Docusate Sodium 100 mg 08/26/18 21:00 09/22/18 10:08 Colace Cap* PO 100 mg BID SATINDER Administration Hydrocortisone 1 applic 08/31/18 10:19 09/16/18 20:11 Hytone Cream 1%* TOPICAL 1 applic TID PRN Administration itching Lacosamide 50 mg 08/26/18 21:00 09/22/18 10:09 Vimpat Tab* PO 50 mg BID SATINDER Administration Losartan Potassium 50 mg 08/27/18 09:00 09/22/18 10:09 Cozaar Tab* PO 50 mg DAILY SATINDER Administration Magnesium Hydroxide 30 ml 08/26/18 16:36 09/16/18 18:52 Milk Of Magnesia Liq* PO 30 ml Q6H PRN Administration CONSTIPATION Metoprolol Succinate 100 mg 08/27/18 09:00 09/22/18 10:09 Toprol Xl Tab* PO 100 mg DAILY SATINDER Administration Polyethylene Glycol/Electrolytes 17 gm 08/26/18 16:46 09/17/18 08:49 Miralax* PO 17 gm DAILY PRN Administration CONSTIPATION Senna 2 tab 08/26/18 16:36 09/16/18 20:12 Senokot Tab* PO 2 tab BEDTIME PRN Administration CONSTIPATION Throat Lozenges 1 jolynn 08/30/18 20:20 08/30/18 21:26 Chloraseptic Jolynn* PO 1 jolynn Q2H PRN Administration SORE THROAT Vital Signs: Vital Signs Temp Pulse Resp BP Pulse Ox 98.4 F 64 18 115/51 96 09/22/18 06:34 09/22/18 06:34 09/22/18 06:34 09/22/18 06:34 09/22/18 06:34 Exam: GENERAL: Alert and appropriate LUNGS: Clear to auscultation bilaterally HEART: regular rate and rhythm ABDOMEN: +bowel sounds, soft, non-tender, non-distended EXTREMITIES: Suture line healed. No edema NEUROLOGIC: CN II-XII intact. Resting tremor in arms>legs. Muscle strength bilateral UE/LE 5/5. Sensation intact. Assessment/Plan: 1. Left Hip Fracture. S/P HAP: WBAT. PT/OT. Dr Platt follow up 2. Parkinson's Disease: Sinemet/Amantadine. Neurology follow up as needed 3. Atrial Fibrillation: Eliquis/Toprol 4. HTN: Cozaar (instead of Avapro) and Toprol 5. DVT Prophylaxis: Eliquis 6. Advance Directives: Full Code. is HCP 7. Possible Seizure Disorder: Vimpat 8. Macular degeneration/vision: f/u with eye doctor after discharge. 09/22/18 10:19
[2018-09-22] MEDS: Atorvastatin* 20 MG TAB PO SCH (17:00)
[2018-09-23] MEDS: Carbidopa/Levodop CR 50/200(*) TAB.CR PO SCH (00:08)
[2018-09-23] MEDS: Carbidopa/Levodop 25/100 MG TAB(*) PO SCH ×4 (07:46→20:19)
[2018-09-23] MEDS: Amantadine CAP* 100 MG PO SCH ×2 (07:46→16:09)
--- NOTE | 2018-09-23 09:14 | PN ---
Progress Note Date of Service: 09/23/18 Note: EBENEZER CLEANING was visited. Nursing notes read and reviewed. No new issues overnight. No chest pain, shortness of breath or abdominal pain. Current Medications: Active Medications Generic Name Dose Route Start Last Admin Trade Name Freq PRN Reason Stop Dose Admin Acetaminophen 650 mg 08/27/18 18:00 09/22/18 20:21 Tylenol Tab* PO 325 mg Q4H PRN Administration FEVER/PAIN Amantadine HCl 100 mg 09/09/18 16:00 09/23/18 07:46 Symmetrel Cap* PO 100 mg 0800,1600 SATINDER Administration Apixaban 5 mg 08/26/18 21:00 09/22/18 20:21 Eliquis* PO 5 mg BID SATINDER Administration Atorvastatin Calcium 20 mg 08/27/18 17:00 09/22/18 17:00 Lipitor* PO 20 mg 1700 SATINDER Administration Carbidopa/Levodopa 1 tab.cr 09/08/18 00:00 09/23/18 00:08 Sinemet Cr 50/200(*) PO 1 tab.cr 0000 SATINDER Administration Carbidopa/Levodopa 2 tab 09/07/18 16:00 09/23/18 07:46 Sinemet 25/100 Tab(*) PO 2 tab 0700,1100,1600,2000 SATINDER Administration Docusate Sodium 100 mg 08/26/18 21:00 09/22/18 20:21 Colace Cap* PO 100 mg BID SATINDER Administration Hydrocortisone 1 applic 08/31/18 10:19 09/16/18 20:11 Hytone Cream 1%* TOPICAL 1 applic TID PRN Administration itching Lacosamide 50 mg 08/26/18 21:00 09/22/18 20:21 Vimpat Tab* PO 50 mg BID SATINDER Administration Losartan Potassium 50 mg 08/27/18 09:00 09/22/18 10:09 Cozaar Tab* PO 50 mg DAILY SATINDER Administration Magnesium Hydroxide 30 ml 08/26/18 16:36 09/16/18 18:52 Milk Of Magnesia Liq* PO 30 ml Q6H PRN Administration CONSTIPATION Metoprolol Succinate 100 mg 08/27/18 09:00 09/22/18 10:09 Toprol Xl Tab* PO 100 mg DAILY SATINDER Administration Polyethylene Glycol/Electrolytes 17 gm 08/26/18 16:46 09/17/18 08:49 Miralax* PO 17 gm DAILY PRN Administration CONSTIPATION Senna 2 tab 08/26/18 16:36 09/16/18 20:12 Senokot Tab* PO 2 tab BEDTIME PRN Administration CONSTIPATION Throat Lozenges 1 jolynn 08/30/18 20:20 08/30/18 21:26 Chloraseptic Jolynn* PO 1 jolynn Q2H PRN Administration SORE THROAT Vital Signs: Vital Signs Temp Pulse Resp BP Pulse Ox 98.4 F 72 18 122/80 98 09/23/18 06:14 09/23/18 06:14 09/23/18 07:52 09/23/18 06:14 09/23/18 07:52 Exam: GENERAL: Alert and appropriate LUNGS: Clear to auscultation bilaterally HEART: regular rate and rhythm ABDOMEN: +bowel sounds, soft, non-tender, non-distended EXTREMITIES: Suture line healed. No edema NEUROLOGIC: CN II-XII intact. Resting tremor in arms>legs. Muscle strength bilateral UE/LE 5/5. Sensation intact. Assessment/Plan: 1. Left Hip Fracture. S/P HAP: WBAT. PT/OT. Dr Platt follow up 2. Parkinson's Disease: Sinemet/Amantadine. Neurology follow up as needed 3. Atrial Fibrillation: Eliquis/Toprol 4. HTN: Cozaar (instead of Avapro) and Toprol 5. DVT Prophylaxis: Eliquis 6. Advance Directives: Full Code. is HCP 7. Possible Seizure Disorder: Vimpat 8. Macular degeneration/vision: f/u with eye doctor after discharge. 09/23/18 09:14
[2018-09-23] MEDS: Apixaban* 5 MG TAB PO SCH ×2 (10:29→20:19)
[2018-09-23] MEDS: Lacosamide TAB* 50 MG TAB PO SCH ×2 (10:29→20:19)
[2018-09-23] MEDS: Losartan TAB* 25 MG PO SCH (10:29)
[2018-09-23] MEDS: Docusate CAP* 100 MG PO SCH ×2 (10:29→20:18)
[2018-09-23] MEDS: Metoprolol Succinate XL TAB* 100 MG PO SCH (10:30)
[2018-09-23] MEDS: Atorvastatin* 20 MG TAB PO SCH (16:09)
[2018-09-24] MEDS: Carbidopa/Levodop CR 50/200(*) TAB.CR PO SCH (00:17)
[2018-09-24 05:27] LABS: Albumin 3.6 g/dL (3.2-5.2); Albumin/Globulin Ratio 1.4 (1-3); BUN/Creatinine Ratio 18.9 (8-20); Calcium 8.9 mg/dL (8.6-10.3); EGFR African American 100.1 (>60); EGFR Non-African American 82.7 (>60); Globulin 2.6 g/dL (2-4); Potassium 4.2 mmol/L (3.5-5.0); Total Bilirubin 0.4 mg/dL (0.2-1.0); Total Protein 6.2 g/dL (6.4-8.9)
[2018-09-24] MEDS: Carbidopa/Levodop 25/100 MG TAB(*) PO SCH ×4 (06:19→19:40)
[2018-09-24] MEDS: Acetaminophen TAB* 325 MG PO PRN (09:10)
[2018-09-24] MEDS: Apixaban* 5 MG TAB PO SCH ×2 (09:10→19:40)
[2018-09-24] MEDS: Losartan TAB* 25 MG PO SCH (09:10)
[2018-09-24] MEDS: Docusate CAP* 100 MG PO SCH ×2 (09:10→19:50)
[2018-09-24] MEDS: Amantadine CAP* 100 MG PO SCH ×2 (09:10→16:15)
[2018-09-24] MEDS: Metoprolol Succinate XL TAB* 100 MG PO SCH (09:10)
[2018-09-24] MEDS: Lacosamide TAB* 50 MG TAB PO SCH ×2 (09:11→19:40)
[2018-09-24 10:17] LABS: ABS Basophils 0.1 10^3/ul (0-0.2); ABS Eosinophils 0.1 10^3/ul (0-0.6); ABS Lymphocytes 0.9 10^3/ul (1.0-4.8); ABS Monocytes 0.5 10^3/ul (0-0.8); ABS Neutrophils 6.2 10^3/ul (1.5-7.7); ABS Nucleated RBC 0 10^3/ul; Eosinophil % 0.9 %; Hematocrit 41 % (36-46); Hemoglobin 13.3 g/dL (14.0-18.0); Lymphocyte % 12.1 %; Mean Corpuscular HGB Conc 32 g/dL (31-36); Mean Corpuscular Hemoglobin 27 pg (27-31); Mean Corpuscular Volume 84 fL (80-94); Mean Platelet Volume 7.6 fL (7.4-10.4); Nucleated Red Blood Cells % 0; Platelet Count 194 10^3/uL (150-450); Red Blood Count 4.89 10^6 /uL (4.18-5.48); Red Cell Distribution Width 17 % (10.5-15); White Blood Count 7.8 10^3/uL (3.5-10.8)
[2018-09-24] MEDS: Atorvastatin* 20 MG TAB PO SCH (16:16)
--- NOTE | 2018-09-24 17:59 | PN ---
Progress Note Date of Service: 09/24/18 Note: EBENEZER CLEANING was visited. Therapy notes read and reviewed. No complaints of pain. Moving better. has hired someone. Getting ready for home. Current Medications: Active Medications Generic Name Dose Route Start Last Admin Trade Name Freq PRN Reason Stop Dose Admin Acetaminophen 650 mg 08/27/18 18:00 09/24/18 09:10 Tylenol Tab* PO 325 mg Q4H PRN Administration FEVER/PAIN Amantadine HCl 100 mg 09/09/18 16:00 09/24/18 16:15 Symmetrel Cap* PO 100 mg 0800,1600 SATINDER Administration Apixaban 5 mg 08/26/18 21:00 09/24/18 09:10 Eliquis* PO 5 mg BID SATINDER Administration Atorvastatin Calcium 20 mg 08/27/18 17:00 09/24/18 16:16 Lipitor* PO 20 mg 1700 SATINDER Administration Carbidopa/Levodopa 1 tab.cr 09/08/18 00:00 09/24/18 00:17 Sinemet Cr 50/200(*) PO 1 tab.cr 0000 SATINDER Administration Carbidopa/Levodopa 2 tab 09/07/18 16:00 09/24/18 16:16 Sinemet 25/100 Tab(*) PO 2 tab 0700,1100,1600,2000 SATINDER Administration Docusate Sodium 100 mg 08/26/18 21:00 09/24/18 09:10 Colace Cap* PO 100 mg BID SATINDER Administration Hydrocortisone 1 applic 08/31/18 10:19 09/16/18 20:11 Hytone Cream 1%* TOPICAL 1 applic TID PRN Administration itching Lacosamide 50 mg 08/26/18 21:00 09/24/18 09:11 Vimpat Tab* PO 50 mg BID SATINDER Administration Losartan Potassium 50 mg 08/27/18 09:00 09/24/18 09:10 Cozaar Tab* PO 50 mg DAILY SATINDER Administration Magnesium Hydroxide 30 ml 08/26/18 16:36 09/16/18 18:52 Milk Of Magnesia Liq* PO 30 ml Q6H PRN Administration CONSTIPATION Metoprolol Succinate 100 mg 08/27/18 09:00 09/24/18 09:10 Toprol Xl Tab* PO 100 mg DAILY SATINDER Administration Polyethylene Glycol/Electrolytes 17 gm 08/26/18 16:46 09/17/18 08:49 Miralax* PO 17 gm DAILY PRN Administration CONSTIPATION Senna 2 tab 08/26/18 16:36 09/16/18 20:12 Senokot Tab* PO 2 tab BEDTIME PRN Administration CONSTIPATION Throat Lozenges 1 jolynn 08/30/18 20:20 08/30/18 21:26 Chloraseptic Jolynn* PO 1 jolynn Q2H PRN Administration SORE THROAT Vital Signs: Vital Signs Temp Pulse Resp BP Pulse Ox 98.8 F 69 18 102/58 99 09/24/18 16:07 09/24/18 16:07 09/24/18 16:07 09/24/18 16:07 09/24/18 16:07 Lab Results: Laboratory Results - last 24 hr 09/24/18 09/24/18 05:03 10:09 WBC 7.8 RBC 4.89 Hgb 13.3 L Hct 41 MCV 84 MCH 27 MCHC 32 RDW 17 H Plt Count 194 MPV 7.6 Neut % (Auto) 80.1 Lymph % (Auto) 12.1 [place] % (Auto) 6.2 Eos % (Auto) 0.9 Baso % (Auto) 0.7 Absolute Neuts (auto) 6.2 Absolute Lymphs (auto) 0.9 L Absolute Monos (auto) 0.5 Absolute Eos (auto) 0.1 Absolute Basos (auto) 0.1 Absolute Nucleated RBC 0 Nucleated RBC % 0 Sodium 137 Potassium 4.2 Chloride 106 Carbon Dioxide 27 Anion Gap 4 BUN 17 Creatinine 0.90 Est GFR ( Amer) 100.1 Est GFR (Non-Af Amer) 82.7 BUN/Creatinine Ratio 18.9 Glucose 104 H Calcium 8.9 Total Bilirubin 0.40 AST 11 L ALT 3 L Alkaline Phosphatase 121 H Total Protein 6.2 L Albumin 3.6 Globulin 2.6 Albumin/Globulin Ratio 1.4 Exam: GENERAL: Alert and appropriate LUNGS: Clear to auscultation bilaterally HEART: regular rate and rhythm ABDOMEN: +bowel sounds, soft, non-tender, non-distended EXTREMITIES: Suture line healed. No edema NEUROLOGIC: CN II-XII intact. Resting tremor in arms>legs. Muscle strength bilateral UE/LE 5/5. Sensation intact. Assessment/Plan: 1. Left Hip Fracture. S/P HAP: WBAT. PT/OT. Dr Platt follow up 2. Parkinson's Disease: Sinemet/Amantadine. Neurology follow up as needed 3. Atrial Fibrillation: Eliquis/Toprol 4. HTN: Cozaar (instead of Avapro) and Toprol 5. DVT Prophylaxis: Eliquis 6. Advance Directives: Full Code. is HCP 7. Possible Seizure Disorder: Vimpat 8. Macular degeneration/vision: f/u with eye doctor after discharge. 09/24/18 18:00
[2018-09-24] MEDS: Senna TAB PO PRN (19:40)
[2018-09-25] MEDS: Acetaminophen TAB* 325 MG PO PRN ×3 (00:25→17:44)
[2018-09-25] MEDS: Carbidopa/Levodop CR 50/200(*) TAB.CR PO SCH (00:26)
[2018-09-25] MEDS: Carbidopa/Levodop 25/100 MG TAB(*) PO SCH ×4 (06:58→19:57)
[2018-09-25] MEDS: Docusate CAP* 100 MG PO SCH ×2 (08:18→19:58)
[2018-09-25] MEDS: Amantadine CAP* 100 MG PO SCH ×2 (08:18→16:14)
[2018-09-25] MEDS: Apixaban* 5 MG TAB PO SCH ×2 (08:18→19:57)
[2018-09-25] MEDS: Losartan TAB* 25 MG PO SCH (08:18)
[2018-09-25] MEDS: Lacosamide TAB* 50 MG TAB PO SCH ×2 (08:19→19:57)
[2018-09-25] MEDS: Metoprolol Succinate XL TAB* 100 MG PO SCH (08:19)
--- NOTE | 2018-09-25 12:45 | PMRUTEAM ---
PMRU: Team Meeting Current Status: Nursing: Current Status Skin Deviations [buttocks] Abrasion Skin Deviations [left lower Rash back] Skin Deviations [L buttock] Abrasion Skin Deviations [torso] Abrasion Skin Deviations [Coccyx] Abrasion,Wound Skin Deviations [Right Other Buttocks] Skin Deviations [Bilateral Other Heel] Skin Deviations [Right Lower Abrasion Leg] Skin Deviations [Left Hip] Incision Skin Deviation Description [ intact buttocks] Skin Deviation Description [ rash on upper back appears improved from 09/04; left lower back] small optifoam covering small area on lower left back; buttock reddened, no changes in buttock reported by OT this AM Skin Deviation Description [L red buttock] Skin Deviation Description [ rash torso] Skin Deviation Description [ red, blanchable Coccyx] Skin Deviation Description [ resolved Right Buttocks] Skin Deviation Description [ Spanko boots in place Bilateral Heel] Skin Deviation Description [ mild red spots Right Lower Leg] Skin Deviation Description [ healed Left Hip] Drain Type [L buttock] None Bladder Current Status uses urinal, toilet occasionally 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 Bowel Current Status up to br as needed last bowel mvmt 09/23; takes bowel meds as ordered Nutrition Current Status meal set-up, foods cut good appetite Medication Current Status understands medical interventions takes medications as ordered requests tylenol 325mg for shoulder pain rated 5/ 10 Physical Therapy: Current Status Bed Mobility Assistance Not Tested Transfer Mobility Assistance Supervision,Contact Guard Assist Transfer/Bed Mobility Rolling Walker Recommended Devices Ambulation Assistance Supervision,Contact Guard Assist Ambulation Assistive Devices Rolling Walker Number of Feet Patient 200' and 100' Ambulated Stairs Assistance Supervision,Contact Guard Assist Stairs Recommended Devices Two Rails Number of Stairs 5 Curb Not Tested Occupational Therapy: Current Status Upper Body Dressing Mod Assist Lower Body Dressing Total Assist Bathing Mod Assist Toileting Total Assist Toilet Transfer Min Assist,Mod Assist Shower Transfer Mod Assist Eating Supervision Rec Therapy: Current Status Summary of Assessment and Recreation Therapy assessment complete and pt. is Clinical Impression aware of services. Pt. is pleasant, cooperative and engaged. Pt. has been tired during the afternoons but enjoys visits from staff and his family. Treatment Goals Pt. will engage in leisure activities while on the unit. Treatment Plan Provide RT services and encourage involvement. Social Work: Current Status Discharge Plan return home with home care svs and family support Potential for Family Training pt's is involved and supportive Anticipated Discharge Home Destination Discharge With home care svs and family support Nutrition: Current Status Monitoring pt consistently consuming 90-100% of meals w/set- up; minimal asst needed toward end of meal (d/t tremors). Regular diet appropriate; no need for texture modifications or thickened liquids. Almost -daily BMs since 09/17; last BM 09/23. He accepts Colace daily and accepts other bowel meds as needed. No new skin issues per nursing assessments. Serum electrolytes WNL 09/24. No changes to suggest at this time. Speech: Current Status Assessment Patient is progressing as expected. Given modified instruction and direct models faded to independence, patient emphasized different words by increasing loudness and intonation in presented phrases and sentences, and in his own ad libs. Speech Goal 2 Current Status Within functional limits Goals: Physical Therapy: Initial Goals Bed Mobility Assistance Independent Transfer Mobility Assistance Independent Transfer/Bed Mobility Rolling Walker Recommended Devices Ambulation Independent Ambulation Recommended Devices Rolling Walker Ambulation Distance 150 Stairs Assistance Supervision Stair Recommended Devices Two Rails Number of Stairs 4 Home Exercise Program Independent Assistance Physical Therapy: Updated Goals Bed Mobility Assistance Independent Transfer Mobility Assistance Independent Transfer/Bed Mobility Rolling Walker Recommended Devices Ambulation Assistance Independent Ambulation Assistive Devices Rolling Walker Ambulation Distance (ft) 150 Stairs Assistance Independent Stairs Recommended Devices Two Rails Number of Stairs 5 Occupational Therapy: Initial Goals Goals to be Completed in (Days 28 ) Upper Body Bathing Routine Supervision/Set Up Lower Body Bathing Routine Supervision/Set Up Upper Body Dressing Routine Moderate Assist Lower Body Dressing Routine Moderate Assist Toilet Hygeine and Clothing Minimal Contact Assist Management Routine Toilet Transfer Routine Supervision/Set Up Step-In Shower Transfer Supervision/Set Up Routine Functional Transfers for ADL Modified Independent with Grooming Routine Independent Feeding Routine Independent Nursing: Goals Bladder Goal independent with urinal; no incontinent episodes Bowel Goal daily bowel movement, free from constipation Nutrition Goal adequate intake, meal set-up Medication Goal take medications as prescribed, with understanding of interventions Nutrition: Goals Intervention Goals 1. Maintain adequate oral intake to support weight maintenance, maintenance of lean body mass, support post op rehab 2. Maintain bowel regularity w/o constipation or diarrhea 3. Pt receives appropriate assistance w/feeding, as needed Speech: Goals Speech Goal 1 Voice Goal 1 Comments Voice Goals: Long-Term Goal: Pt will use compensatory strategies to increase vocal loudness to moderate and speech to intelligibility to 95-100%, in spontaneous conversational speech, Independently, as observed by therapists, nursing and medical staff. Short-Term Goal: Pt will complete loud voice exercises and use compensatory strategies to increase vocal loudness to moderate and speech to intelligibility to 95%, in structured conversational speech, given minimal cueing, as observed by therapists, nursing and medical staff. Status: Met at criteria. Modified goal criteria: 98% intelligibility, Independently. Speech Goal 2 Language Expression Speech Goal 2 Evaluation Mild impairment Status Speech Goal 2 Current Status Within functional limits Speech Goal 2 Discharge Status Within functional limits 08/31/18 Speech Goal 2 Comments Memory Goals: Long-Term Memory Goal: Pt will use compensatory strategies to encode and retrieve 4/4 new items after delay of 30 minutes, Independently, for independence in mobility safety, ADLs and community access. Status: Progressing as expected. Short-term Memory Goal: Pt will use compensatory strategies to encode and retrieve 3/4 new items after delay of 5 minutes, given Moderate skilled instruction and cueing. Status: Goal established. Short-term Memory Goal: Pt will use compensatory strategies to encode and verbally retrieve safety precautions and mobility sequences, including standing from chair to walker, walking with walker , and sitting from walker to chair. Status: Progressing as expected. Prior to session, INSTALLER observed patient to require maximal verbal and touch cueing to transfer from standing to chair after toileting with aides. INSTALLER provided verbal, printed, pictorial instruction and demonstration with direct models, to instructed patient to verbally direct this resume writer to stand, walk and sit safely using a walker. Patient required continual moderate cueing and extra processing time to sequence steps . Patient INSTALLER modified instruction to simplify wording and rehearse fluent verbal sequencing, and patient recuded delay between stesp by half. Speech Goal 3 Memory Speech Goal 3 Comments Memory Goals: Long-Term Memory Goal: Pt will use compensatory strategies to encode and retrieve 4/4 new items after delay of 30 minutes, Independently, for independence in mobility safety, ADLs and community access. Status: Goal established. Short-term Memory Goal: Pt will use compensatory strategies to encode and retrieve 3/4 new items after delay of 5 minutes, given Moderate skilled instruction and cueing. Status: Goal established. Short-term Memory Goal: Pt will use compensatory strategies to encode and verbally retrieve safety precautions and mobility sequences, including standing from chair to walker, walking with walker , and sitting from walker to chair. Status: Progressing as expected. During structured conversation to generalize saba voice after resading aloud, patient recalled major points and information from the reading with 100% accuracy. Social Work: Goals Discharge Plan return home with home care svs and family support Potential for Family Training pt's is involved and supportive Anticipated Discharge Home Destination Discharge With home care svs and family support Care Plan: Care Plan ADL's - Improve/Maintain Start: 08/28/18 14:52 Freq: DAILY Status: Active Target: Protocol: Activity Type Activity Date Activity User E-Sign Co-Sign Detail Recorded Client Recorded Date Recorded By Document 09/25/18 12:03 [id number] 09/25/18 12:03 [id number] 09/25/18 12:03 PMRU Outcome: ADL's/ADL Transfers Orders/Interventions Occupational Therapy Evaluation & Treatment Communication Tool in Patient Room Patient to receive OT 5x/wk for 60-120 Therex min/day Self Care Management Group Therapy Neuromuscular ReEducation UE/LE ADL's with Assist Yes: MOD A ADL Transfers with Assist Yes: S Toileting: Transfers,Clothing Management Yes: MIN A ,Hygeine w/Assist Light Kitchen/Laundry w/Assist No Progression Toward Outcome/Goals Progressing Outcome/Goals Met Pt needed more assistance for STS transfers today and still requires significant physical and verbal cueing for mobility in small spaces. Pt did slightly better with UB dressing. [ End ] Communication-Improve/Maintain Start: 08/29/18 16:23 Freq: DAILY Status: Active Target: Protocol: Activity Type Activity Date Activity User E-Sign Co-Sign Detail Recorded Client Recorded Date Recorded By Document 09/25/18 04:20 [id number] 09/25/18 04:20 [id number] 09/25/18 04:20 PMRU Outcome: Communication/Cognitive Status Outcome/Goals Makes Needs Known Effectively Progression Toward Outcomes/Goals Progressing Coping/Psych-Improve/Maintain Start: 08/27/18 14:31 Freq: QSHIFT Status: Active Target: Protocol: Activity Type Activity Date Activity User E-Sign Co-Sign Detail Recorded Client Recorded Date Recorded By Document 09/25/18 04:20 [id number] 09/25/18 04:20 [id number] 09/25/18 04:20 PMRU Outcome: Coping/Psychosocial Coping Outcome/Goals Verbalization of Acceptance of Rehab Admit Verbalization of Sense of Control Over Health Status Willingness to Participate in Treatment Plan and Basic Needs Psychosocial Outcome/Goals Maintain/ Improve Emotional Health Cooperate/ Participate in Plan Progression Toward Outcome/Goals - Progressing Coping Progression Toward Outcome/Goals - Progressing Psychosocial DVT Prophylaxis- Improve/Maintain Start: 08/27/18 14:31 Freq: QSHIFT Status: Complete Target: Protocol: Activity Type Activity Date Activity User E-Sign Co-Sign Detail Recorded Client Recorded Date Recorded By Document 09/07/18 20:00 [id number] 09/07/18 22:09 [id number] 09/07/18 20:00 PMRU Outcome: DVT Prophylaxis Outcome/Goals Remains Free of DVT Free of complications from current DVT Complies with DVT Prophylaxis /Treatment Demonstrates Knowledge of DVT Prevention/ Treatment TEDS Stockings on Every AM, Off at HS Outcome/Goals Met Remains Free of DVT Discharge Planning - Improve/Maintain Start: 08/27/18 14:31 Freq: DAILY Status: Active Target: Protocol: Activity Type Activity Date Activity User E-Sign Co-Sign Detail Recorded Client Recorded Date Recorded By Document 09/25/18 04:20 [id number] 09/25/18 04:20 [id number] 09/25/18 04:20 PMRU Outcome: Discharge Planning Update Patient Family No Outcome/Goals Demonstrates Understanding of Discharge Plan Progression Toward Outcome/Goals Progressing Education-Improve/Maintain Start: 08/27/18 14:31 Freq: QSHIFT Status: Active Target: Protocol: Activity Type Activity Date Activity User E-Sign Co-Sign Detail Recorded Client Recorded Date Recorded By Document 09/25/18 04:20 [id number] [email or web address] 09/25/18 04:20 [id number] 09/25/18 04:20 PMRU Outcome: Education Outcome/Goals Demonstrates Skills Encourage Questions Progression Toward Outcome/Goals Progressing /GI-Improve/Maintain Start: 08/27/18 14:31 Freq: QSHIFT Status: Active Target: Protocol: Activity Type Activity Date Activity User E-Sign Co-Sign Detail Recorded Client Recorded Date Recorded By Document 09/25/18 04:20 [id number] 09/25/18 04:20 [id number] 09/25/18 04:20 PMRU Outcome: Genitourinary/ Gastrointestinal Genitourinary- Outcome/Goals Maintain/ Achieve Adequate Urinary Output Remain Free of Hospital- Acquired UTI Gastrointestinal-Outcome/Goals Maintain/ Achieve Bowel Regularity in Accordance with Pt's Baseline Prevent Constipation Progression Toward Outcome/Goals - Progressing Progression Toward Outcome/Goals - GI Progressing Outcome/Goals Met Comment pt used urinal x2, brief changed Medication Administration Start: 08/27/18 14:31 Freq: QSHIFT Status: Active Target: Protocol: Activity Type Activity Date Activity User E-Sign Co-Sign Detail Recorded Client Recorded Date Recorded By Document 09/25/18 04:20 [id number] 09/25/18 04:20 [id number] 09/25/18 04:20 PMRU Outcome: Medication Administration Assess Patient Knowledge/Teach Med Yes Education for all Meds Outcome/Goals Demonstrates Understanding Progression Towards Outcome/Goals Progressing Is Patient Going Home on Lovenox? No Neurological- Improve/Maintain Start: 08/27/18 14:31 Freq: QSHIFT Status: Active Target: Protocol: Activity Type Activity Date Activity User E-Sign Co-Sign Detail Recorded Client Recorded Date Recorded By Document 09/25/18 04:20 [id number] 09/25/18 04:20 [id number] 09/25/18 04:20 PMRU Outcome: Neurological Weakness/Aphasia Weakness Outcome/Goals Maintain/ Achieve Baseline Neurological Status Improve Neurological Status Maintain/ Improve Strength/ROM Progression Toward Outcome/Goals Progressing Pain/Comfort- Improve/Maintain Start: 08/27/18 14:31 Freq: QSHIFT Status: Complete Target: Protocol: Activity Type Activity Date Activity User E-Sign Co-Sign Detail Recorded Client Recorded Date Recorded By Document 09/07/18 20:00 [id number] [email or web address] 09/07/18 22:09 [id number] 09/07/18 20:00 PMRU Outcome: Pain/Comfort Outcome/Goals Demonstrates Knowledge and Use of Available Comfort Measures Achieves Acceptable Comfort/Pain Level as Determined by Patient/Condit Maintain Comfort Level Allowing Patient to Fully Participate in Rehab Outcome/Goals Met Maintain Comfort Level Allowing Patient to Fully Participate in Rehab Safety- Improve/Maintain Start: 08/27/18 14:31 Freq: QSHIFT Status: Active Target: Protocol: Activity Type Activity Date Activity User E-Sign Co-Sign Detail Recorded Client Recorded Date Recorded By Document 09/25/18 04:20 [id number] 09/25/18 04:20 [id number] 09/25/18 04:20 PMRU Outcome: Safety Outcome/Goals Remain Free of Injury or Harm Cooperates with Safety Measures for Least Restrictive Environment Prevent Falls/ Injury Progression Toward Outcome/Goals Progressing Outcome/Goals Met Comment BA armed Skin- Improve/Maintain Start: 08/27/18 14:31 Freq: QSHIFT Status: Active Target: Protocol: Activity Type Activity Date Activity User E-Sign Co-Sign Detail Recorded Client Recorded Date Recorded By Document 09/25/18 04:20 [id number] 09/25/18 04:20 [id number] 09/25/18 04:20 PMRU Outcome: Skin Skin Risk Level Medium Skin Orders Heels Off Bed Turn/Position q2hr While in Bed Outcome/Goals Maintain/ Improve Skin Intergrity Maintain/ Improve Wound Status Surgical Incisions Healing Progression Toward Outcome/Goals Progressing Medicine Note: Length of Stay: 10 days Anticipated Discharge Destination: Home Tentative Discharge Date: 10/05/18 Discharged to: Home
[2018-09-25] MEDS: Atorvastatin* 20 MG TAB PO SCH (16:14)
[2018-09-25] MEDS: Polyethylene Glycol 3350* 17 GM PACKET PO PRN (16:24)
--- NOTE | 2018-09-25 17:38 | PN ---
Progress Note Date of Service: 09/25/18 Note: EBENEZER CLEANING was visited. Therapy notes read and reviewed. He was discussed in interdisciplinary team rounds. Concerns remain about his ability to manage ADLs especially toileting. and possibly aide will come in for family training Current Medications: Active Medications Generic Name Dose Route Start Last Admin Trade Name Freq PRN Reason Stop Dose Admin Acetaminophen 650 mg 08/27/18 18:00 09/25/18 11:27 Tylenol Tab* PO 325 mg Q4H PRN Administration FEVER/PAIN Amantadine HCl 100 mg 09/09/18 16:00 09/25/18 16:14 Symmetrel Cap* PO 100 mg 0800,1600 SATINDER Administration Apixaban 5 mg 08/26/18 21:00 09/25/18 08:18 Eliquis* PO 5 mg BID SATINDER Administration Atorvastatin Calcium 20 mg 08/27/18 17:00 09/25/18 16:14 Lipitor* PO 20 mg 1700 SATINDER Administration Carbidopa/Levodopa 1 tab.cr 09/08/18 00:00 09/25/18 00:26 Sinemet Cr 50/200(*) PO 1 tab.cr 0000 SATINDER Administration Carbidopa/Levodopa 2 tab 09/07/18 16:00 09/25/18 16:14 Sinemet 25/100 Tab(*) PO 2 tab 0700,1100,1600,2000 SATINDER Administration Docusate Sodium 100 mg 08/26/18 21:00 09/25/18 08:18 Colace Cap* PO 100 mg BID SATINDER Administration Hydrocortisone 1 applic 08/31/18 10:19 09/16/18 20:11 Hytone Cream 1%* TOPICAL 1 applic TID PRN Administration itching Lacosamide 50 mg 08/26/18 21:00 09/25/18 08:19 Vimpat Tab* PO 50 mg BID SATINDER Administration Losartan Potassium 50 mg 08/27/18 09:00 09/25/18 08:18 Cozaar Tab* PO 50 mg DAILY SATINDER Administration Magnesium Hydroxide 30 ml 08/26/18 16:36 09/16/18 18:52 Milk Of Magnesia Liq* PO 30 ml Q6H PRN Administration CONSTIPATION Metoprolol Succinate 100 mg 08/27/18 09:00 09/25/18 08:19 Toprol Xl Tab* PO 100 mg DAILY SATINDER Administration Polyethylene Glycol/Electrolytes 17 gm 08/26/18 16:46 09/25/18 16:24 Miralax* PO 17 gm DAILY PRN Administration CONSTIPATION Senna 2 tab 08/26/18 16:36 09/24/18 19:40 Senokot Tab* PO 2 tab BEDTIME PRN Administration CONSTIPATION Throat Lozenges 1 jolynn 08/30/18 20:20 08/30/18 21:26 Chloraseptic Jolynn* PO 1 jolynn Q2H PRN Administration SORE THROAT Vital Signs: Vital Signs Temp Pulse Resp BP Pulse Ox 97.6 F 73 18 130/70 96 09/25/18 06:47 09/25/18 06:47 09/25/18 08:00 09/25/18 06:50 09/25/18 08:00 Exam: GENERAL: Alert and appropriate LUNGS: Clear to auscultation bilaterally HEART: regular rate and rhythm ABDOMEN: +bowel sounds, soft, non-tender, non-distended EXTREMITIES: Suture line healed. No edema NEUROLOGIC: CN II-XII intact. Resting tremor in arms>legs. Muscle strength bilateral UE/LE 5/5. Sensation intact. Assessment/Plan: 1. Left Hip Fracture. S/P HAP: WBAT. PT/OT. Dr Platt follow up 2. Parkinson's Disease: Sinemet/Amantadine. Neurology follow up as needed 3. Atrial Fibrillation: Eliquis/Toprol 4. HTN: Cozaar (instead of Avapro) and Toprol 5. DVT Prophylaxis: Eliquis 6. Advance Directives: Full Code. is HCP 7. Possible Seizure Disorder: Vimpat 8. Macular degeneration/vision: f/u with eye doctor after discharge. 09/25/18 17:38
[2018-09-25] MEDS: Senna TAB PO PRN (19:57)
[2018-09-26] MEDS: Carbidopa/Levodop CR 50/200(*) TAB.CR PO SCH (00:19)
[2018-09-26] MEDS: Acetaminophen TAB* 325 MG PO PRN ×2 (00:19→20:13)
[2018-09-26] MEDS: Carbidopa/Levodop 25/100 MG TAB(*) PO SCH ×4 (06:52→20:22)
[2018-09-26] MEDS: Apixaban* 5 MG TAB PO SCH ×2 (09:34→20:12)
[2018-09-26] MEDS: Amantadine CAP* 100 MG PO SCH ×2 (09:34→16:01)
[2018-09-26] MEDS: Lacosamide TAB* 50 MG TAB PO SCH ×2 (09:34→20:13)
[2018-09-26] MEDS: Docusate CAP* 100 MG PO SCH ×2 (09:34→20:15)
[2018-09-26] MEDS: Metoprolol Succinate XL TAB* 100 MG PO SCH (09:34)
[2018-09-26] MEDS: Losartan TAB* 25 MG PO SCH (09:34)
[2018-09-26] MEDS: Magnesium Hydroxide LIQ* 30 ML UDC PO PRN (15:13)
[2018-09-26] MEDS: Atorvastatin* 20 MG TAB PO SCH (16:01)
--- NOTE | 2018-09-26 17:55 | PN ---
Progress Note Date of Service: 09/26/18 Note: EBENEZER CLEANING was visited. Therapy notes read and reviewed.He feels like he is doing well, but he does note he is constipated. Current Medications: Active Medications Generic Name Dose Route Start Last Admin Trade Name Freq PRN Reason Stop Dose Admin Acetaminophen 650 mg 08/27/18 18:00 09/26/18 00:19 Tylenol Tab* PO 325 mg Q4H PRN Administration FEVER/PAIN Amantadine HCl 100 mg 09/09/18 16:00 09/26/18 16:01 Symmetrel Cap* PO 100 mg 0800,1600 SATINDER Administration Apixaban 5 mg 08/26/18 21:00 09/26/18 09:34 Eliquis* PO 5 mg BID SATINDER Administration Atorvastatin Calcium 20 mg 08/27/18 17:00 09/26/18 16:01 Lipitor* PO 20 mg 1700 SATINDER Administration Carbidopa/Levodopa 1 tab.cr 09/08/18 00:00 09/26/18 00:19 Sinemet Cr 50/200(*) PO 1 tab.cr 0000 SATINDER Administration Carbidopa/Levodopa 2 tab 09/07/18 16:00 09/26/18 16:01 Sinemet 25/100 Tab(*) PO 2 tab 0700,1100,1600,2000 SATINDER Administration Docusate Sodium 100 mg 08/26/18 21:00 09/26/18 09:34 Colace Cap* PO 100 mg BID SATINDER Administration Hydrocortisone 1 applic 08/31/18 10:19 09/16/18 20:11 Hytone Cream 1%* TOPICAL 1 applic TID PRN Administration itching Lacosamide 50 mg 08/26/18 21:00 09/26/18 09:34 Vimpat Tab* PO 50 mg BID SATINDER Administration Losartan Potassium 50 mg 08/27/18 09:00 09/26/18 09:34 Cozaar Tab* PO 50 mg DAILY SATINDER Administration Magnesium Hydroxide 30 ml 08/26/18 16:36 09/26/18 15:13 Milk Of Magnesia Liq* PO 30 ml Q6H PRN Administration CONSTIPATION Metoprolol Succinate 100 mg 08/27/18 09:00 09/26/18 09:34 Toprol Xl Tab* PO 100 mg DAILY SATINDER Administration Polyethylene Glycol/Electrolytes 17 gm 08/26/18 16:46 09/25/18 16:24 Miralax* PO 17 gm DAILY PRN Administration CONSTIPATION Senna 2 tab 08/26/18 16:36 09/25/18 19:57 Senokot Tab* PO 2 tab BEDTIME PRN Administration CONSTIPATION Throat Lozenges 1 jolynn 08/30/18 20:20 08/30/18 21:26 Chloraseptic Jolynn* PO 1 jolynn Q2H PRN Administration SORE THROAT Vital Signs: Vital Signs Temp Pulse Resp BP Pulse Ox 98.2 F 64 16 105/46 96 09/26/18 16:01 09/26/18 16:01 09/26/18 16:01 09/26/18 16:01 09/26/18 16:01 Exam: GENERAL: Alert and appropriate LUNGS: Clear to auscultation bilaterally HEART: regular rate and rhythm ABDOMEN: +bowel sounds, soft, non-tender, non-distended EXTREMITIES: Suture line healed. No edema NEUROLOGIC: CN II-XII intact. Resting tremor in arms>legs. Muscle strength bilateral UE/LE 5/5. Sensation intact. Assessment/Plan: 1. Left Hip Fracture. S/P HAP: WBAT. PT/OT. Dr Platt follow up 2. Parkinson's Disease: Sinemet/Amantadine. Neurology follow up as needed 3. Atrial Fibrillation: Eliquis/Toprol 4. HTN: Cozaar (instead of Avapro) and Toprol 5. DVT Prophylaxis: Eliquis 6. Advance Directives: Full Code. is HCP 7. Possible Seizure Disorder: Vimpat 8. Macular degeneration/vision: f/u with eye doctor after discharge. 09/26/18 18:03
[2018-09-26] MEDS: Senna TAB PO PRN (20:13)
[2018-09-27] MEDS: Carbidopa/Levodop CR 50/200(*) TAB.CR PO SCH (00:23)
[2018-09-27] MEDS: Carbidopa/Levodop 25/100 MG TAB(*) PO SCH ×4 (06:34→20:05)
[2018-09-27] MEDS: Docusate CAP* 100 MG PO SCH ×2 (09:35→20:05)
[2018-09-27] MEDS: Amantadine CAP* 100 MG PO SCH ×2 (09:35→16:05)
[2018-09-27] MEDS: Apixaban* 5 MG TAB PO SCH ×2 (09:35→20:05)
[2018-09-27] MEDS: Lacosamide TAB* 50 MG TAB PO SCH ×2 (09:36→20:05)
[2018-09-27] MEDS: Losartan TAB* 25 MG PO SCH (09:36)
[2018-09-27] MEDS: Metoprolol Succinate XL TAB* 100 MG PO SCH (09:36)
--- NOTE | 2018-09-27 17:16 | PN ---
Progress Note Date of Service: 09/27/18 Note: EBENEZER CLEANING was visited. Therapy notes read and reviewed. He has no complaints. Overall feels like he is progressing toward discharge. Current Medications: Active Medications Generic Name Dose Route Start Last Admin Trade Name Freq PRN Reason Stop Dose Admin Acetaminophen 650 mg 08/27/18 18:00 09/26/18 20:13 Tylenol Tab* PO 650 mg Q4H PRN Administration FEVER/PAIN Amantadine HCl 100 mg 09/09/18 16:00 09/27/18 16:05 Symmetrel Cap* PO 100 mg 0800,1600 SATINDER Administration Apixaban 5 mg 08/26/18 21:00 09/27/18 09:35 Eliquis* PO 5 mg BID SATINDER Administration Atorvastatin Calcium 20 mg 08/27/18 17:00 09/26/18 16:01 Lipitor* PO 20 mg 1700 SATINDER Administration Carbidopa/Levodopa 1 tab.cr 09/08/18 00:00 09/27/18 00:23 Sinemet Cr 50/200(*) PO 1 tab.cr 0000 SATINDER Administration Carbidopa/Levodopa 2 tab 09/07/18 16:00 09/27/18 16:06 Sinemet 25/100 Tab(*) PO 2 tab 0700,1100,1600,2000 SATINDER Administration Docusate Sodium 100 mg 08/26/18 21:00 09/27/18 09:35 Colace Cap* PO 100 mg BID SATINDER Administration Hydrocortisone 1 applic 08/31/18 10:19 09/16/18 20:11 Hytone Cream 1%* TOPICAL 1 applic TID PRN Administration itching Lacosamide 50 mg 08/26/18 21:00 09/27/18 09:36 Vimpat Tab* PO 50 mg BID SATINDER Administration Losartan Potassium 50 mg 08/27/18 09:00 09/27/18 09:36 Cozaar Tab* PO 50 mg DAILY SATINDER Administration Magnesium Hydroxide 30 ml 08/26/18 16:36 09/26/18 15:13 Milk Of Magnesia Liq* PO 30 ml Q6H PRN Administration CONSTIPATION Metoprolol Succinate 100 mg 08/27/18 09:00 09/27/18 09:36 Toprol Xl Tab* PO 100 mg DAILY SATINDER Administration Polyethylene Glycol/Electrolytes 17 gm 08/26/18 16:46 09/25/18 16:24 Miralax* PO 17 gm DAILY PRN Administration CONSTIPATION Senna 2 tab 08/26/18 16:36 09/26/18 20:13 Senokot Tab* PO 2 tab BEDTIME PRN Administration CONSTIPATION Throat Lozenges 1 jolynn 08/30/18 20:20 08/30/18 21:26 Chloraseptic Jolynn* PO 1 jolynn Q2H PRN Administration SORE THROAT Vital Signs: Vital Signs Temp Pulse Resp BP Pulse Ox 98.3 F 66 16 100/42 98 09/27/18 16:02 09/27/18 16:02 09/27/18 16:02 09/27/18 16:02 09/27/18 16:02 Exam: GENERAL: Alert and appropriate LUNGS: Clear to auscultation bilaterally HEART: regular rate and rhythm ABDOMEN: +bowel sounds, soft, non-tender, non-distended EXTREMITIES: Suture line healed. No edema NEUROLOGIC: CN II-XII intact. Resting tremor in arms>legs. Muscle strength bilateral UE/LE 5/5. Sensation intact. Assessment/Plan: 1. Left Hip Fracture. S/P HAP: WBAT. PT/OT. Dr Platt follow up 2. Parkinson's Disease: Sinemet/Amantadine. Neurology follow up as needed 3. Atrial Fibrillation: Eliquis/Toprol 4. HTN: Cozaar (instead of Avapro) and Toprol 5. DVT Prophylaxis: Eliquis 6. Advance Directives: Full Code. is HCP 7. Possible Seizure Disorder: Vimpat 8. Macular degeneration/vision: f/u with eye doctor after discharge. 09/27/18 17:16
[2018-09-27] MEDS: Atorvastatin* 20 MG TAB PO SCH (17:55)
[2018-09-27] MEDS: Acetaminophen TAB* 325 MG PO PRN (20:05)
[2018-09-28] MEDS: Carbidopa/Levodop CR 50/200(*) TAB.CR PO SCH (00:30)
[2018-09-28] MEDS: Carbidopa/Levodop 25/100 MG TAB(*) PO SCH ×4 (06:37→20:53)
[2018-09-28] MEDS: Amantadine CAP* 100 MG PO SCH ×2 (07:44→16:23)
[2018-09-28] MEDS: Acetaminophen TAB* 325 MG PO PRN (07:54)
[2018-09-28] MEDS: Apixaban* 5 MG TAB PO SCH ×2 (09:16→19:44)
[2018-09-28] MEDS: Metoprolol Succinate XL TAB* 100 MG PO SCH (09:16)
[2018-09-28] MEDS: Lacosamide TAB* 50 MG TAB PO SCH ×2 (09:16→19:44)
[2018-09-28] MEDS: Losartan TAB* 25 MG PO SCH (09:16)
[2018-09-28] MEDS: Docusate CAP* 100 MG PO SCH ×2 (09:17→19:25)
--- NOTE | 2018-09-28 15:59 | PN ---
Progress Note Date of Service: 09/28/18 Note: EBENEZER CLEANING was visited. Therapy notes read and reviewed. Got MOM on Monday and now has diarrhea. Otherwise no complaints. Current Medications: Active Medications Generic Name Dose Route Start Last Admin Trade Name Freq PRN Reason Stop Dose Admin Acetaminophen 650 mg 08/27/18 18:00 09/28/18 07:54 Tylenol Tab* PO 650 mg Q4H PRN Administration FEVER/PAIN Amantadine HCl 100 mg 09/09/18 16:00 09/28/18 07:44 Symmetrel Cap* PO 100 mg 0800,1600 SAITNDER Administration Apixaban 5 mg 08/26/18 21:00 09/28/18 09:16 Eliquis* PO 5 mg BID SATINDER Administration Atorvastatin Calcium 20 mg 08/27/18 17:00 09/27/18 17:55 Lipitor* PO 20 mg 1700 SATINDER Administration Carbidopa/Levodopa 1 tab.cr 09/08/18 00:00 09/28/18 00:30 Sinemet Cr 50/200(*) PO 1 tab.cr 0000 SATINDER Administration Carbidopa/Levodopa 2 tab 09/07/18 16:00 09/28/18 11:39 Sinemet 25/100 Tab(*) PO 2 tab 0700,1100,1600,2000 SATINDER Administration Docusate Sodium 100 mg 08/26/18 21:00 09/28/18 09:17 Colace Cap* PO 100 mg BID SATINDER Administration Hydrocortisone 1 applic 08/31/18 10:19 09/16/18 20:11 Hytone Cream 1%* TOPICAL 1 applic TID PRN Administration itching Lacosamide 50 mg 08/26/18 21:00 09/28/18 09:16 Vimpat Tab* PO 50 mg BID SATINDER Administration Losartan Potassium 50 mg 08/27/18 09:00 09/28/18 09:16 Cozaar Tab* PO 50 mg DAILY SATINDER Administration Magnesium Hydroxide 30 ml 08/26/18 16:36 09/26/18 15:13 Milk Of Magnesia Liq* PO 30 ml Q6H PRN Administration CONSTIPATION Metoprolol Succinate 100 mg 08/27/18 09:00 09/28/18 09:16 Toprol Xl Tab* PO 100 mg DAILY SATINDER Administration Polyethylene Glycol/Electrolytes 17 gm 08/26/18 16:46 09/25/18 16:24 Miralax* PO 17 gm DAILY PRN Administration CONSTIPATION Senna 2 tab 08/26/18 16:36 09/26/18 20:13 Senokot Tab* PO 2 tab BEDTIME PRN Administration CONSTIPATION Throat Lozenges 1 jolynn 08/30/18 20:20 08/30/18 21:26 Chloraseptic Jolynn* PO 1 jolynn Q2H PRN Administration SORE THROAT Vital Signs: Vital Signs Temp Pulse Resp BP Pulse Ox 97.5 F 58 24 124/66 97 09/28/18 05:00 09/28/18 05:00 09/28/18 08:00 09/28/18 05:00 09/28/18 08:00 Exam: GENERAL: Alert and appropriate LUNGS: Clear to auscultation bilaterally HEART: regular rate and rhythm ABDOMEN: +bowel sounds, soft, non-tender, non-distended EXTREMITIES: Suture line healed. No edema NEUROLOGIC: CN II-XII intact. Resting tremor in arms>legs. Muscle strength bilateral UE/LE 5/5. Sensation intact. Assessment/Plan: 1. Left Hip Fracture. S/P HAP: WBAT. PT/OT. Dr Platt follow up 2. Parkinson's Disease: Sinemet/Amantadine. Neurology follow up as needed 3. Atrial Fibrillation: Eliquis/Toprol 4. HTN: Cozaar (instead of Avapro) and Toprol 5. DVT Prophylaxis: Eliquis 6. Advance Directives: Full Code. is HCP 7. Possible Seizure Disorder: Vimpat 8. Macular degeneration/vision: f/u with eye doctor after discharge. 09/28/18 15:59
[2018-09-28] MEDS: Atorvastatin* 20 MG TAB PO SCH (16:23)
[2018-09-29] MEDS: Carbidopa/Levodop CR 50/200(*) TAB.CR PO SCH (00:02)
[2018-09-29] MEDS: Carbidopa/Levodop 25/100 MG TAB(*) PO SCH ×4 (06:35→20:41)
[2018-09-29] MEDS: Docusate CAP* 100 MG PO SCH ×2 (08:58→20:49)
[2018-09-29] MEDS: Amantadine CAP* 100 MG PO SCH ×2 (08:59→16:14)
[2018-09-29] MEDS: Metoprolol Succinate XL TAB* 100 MG PO SCH (08:59)
[2018-09-29] MEDS: Apixaban* 5 MG TAB PO SCH ×2 (08:59→20:41)
[2018-09-29] MEDS: Losartan TAB* 25 MG PO SCH (08:59)
[2018-09-29] MEDS: Lacosamide TAB* 50 MG TAB PO SCH ×2 (09:00→20:41)
--- NOTE | 2018-09-29 13:59 | PN ---
Progress Note Date of Service: 09/29/18 Note: EBENEZER CLEANING was visited. Therapy notes read and reviewed. He has no complaints today. Current Medications: Active Medications Generic Name Dose Route Start Last Admin Trade Name Freq PRN Reason Stop Dose Admin Acetaminophen 650 mg 08/27/18 18:00 09/28/18 07:54 Tylenol Tab* PO 650 mg Q4H PRN Administration FEVER/PAIN Amantadine HCl 100 mg 09/09/18 16:00 09/29/18 08:59 Symmetrel Cap* PO 100 mg 0800,1600 SATINDER Administration Apixaban 5 mg 08/26/18 21:00 09/29/18 08:59 Eliquis* PO 5 mg BID SATINDER Administration Atorvastatin Calcium 20 mg 08/27/18 17:00 09/28/18 16:23 Lipitor* PO 20 mg 1700 SATINDER Administration Carbidopa/Levodopa 1 tab.cr 09/08/18 00:00 09/29/18 00:02 Sinemet Cr 50/200(*) PO 1 tab.cr 0000 SATINDER Administration Carbidopa/Levodopa 2 tab 09/07/18 16:00 09/29/18 11:13 Sinemet 25/100 Tab(*) PO 2 tab 0700,1100,1600,2000 SATINDER Administration Docusate Sodium 100 mg 08/26/18 21:00 09/29/18 08:58 Colace Cap* PO 100 mg BID SATINDER Administration Hydrocortisone 1 applic 08/31/18 10:19 09/16/18 20:11 Hytone Cream 1%* TOPICAL 1 applic TID PRN Administration itching Lacosamide 50 mg 08/26/18 21:00 09/29/18 09:00 Vimpat Tab* PO 50 mg BID SATINEDR Administration Losartan Potassium 50 mg 08/27/18 09:00 09/29/18 08:59 Cozaar Tab* PO 50 mg DAILY SATINDER Administration Magnesium Hydroxide 30 ml 08/26/18 16:36 09/26/18 15:13 Milk Of Magnesia Liq* PO 30 ml Q6H PRN Administration CONSTIPATION Metoprolol Succinate 100 mg 08/27/18 09:00 09/29/18 08:59 Toprol Xl Tab* PO 100 mg DAILY SATINDER Administration Polyethylene Glycol/Electrolytes 17 gm 08/26/18 16:46 09/25/18 16:24 Miralax* PO 17 gm DAILY PRN Administration CONSTIPATION Senna 2 tab 08/26/18 16:36 09/26/18 20:13 Senokot Tab* PO 2 tab BEDTIME PRN Administration CONSTIPATION Throat Lozenges 1 jolynn 08/30/18 20:20 08/30/18 21:26 Chloraseptic Jolynn* PO 1 jolynn Q2H PRN Administration SORE THROAT Vital Signs: Vital Signs Temp Pulse Resp BP Pulse Ox 98.1 F 69 18 130/62 98 09/29/18 06:40 09/29/18 06:40 09/29/18 08:00 09/29/18 06:40 09/29/18 08:00 Exam: GENERAL: Alert and appropriate LUNGS: Clear to auscultation bilaterally HEART: regular rate and rhythm ABDOMEN: +bowel sounds, soft, non-tender, non-distended EXTREMITIES: Suture line healed. No edema NEUROLOGIC: CN II-XII intact. Resting tremor in arms>legs. Muscle strength bilateral UE/LE 5/5. Sensation intact. Assessment/Plan: 1. Left Hip Fracture. S/P HAP: WBAT. PT/OT. Dr Platt follow up 2. Parkinson's Disease: Sinemet/Amantadine. Neurology follow up as needed 3. Atrial Fibrillation: Eliquis/Toprol 4. HTN: Cozaar (instead of Avapro) and Toprol 5. DVT Prophylaxis: Eliquis 6. Advance Directives: Full Code. is HCP 7. Possible Seizure Disorder: Vimpat 8. Macular degeneration/vision: f/u with eye doctor after discharge. 09/29/18 13:59
[2018-09-29] MEDS: Atorvastatin* 20 MG TAB PO SCH (16:14)
[2018-09-29] MEDS: Acetaminophen TAB* 325 MG PO PRN (20:42)
[2018-09-30] MEDS: Carbidopa/Levodop CR 50/200(*) TAB.CR PO SCH ×2 (00:06→23:57)
[2018-09-30] MEDS: Carbidopa/Levodop 25/100 MG TAB(*) PO SCH ×4 (06:29→21:17)
[2018-09-30] MEDS: Metoprolol Succinate XL TAB* 100 MG PO SCH (08:55)
[2018-09-30] MEDS: Lacosamide TAB* 50 MG TAB PO SCH ×2 (08:56→21:20)
[2018-09-30] MEDS: Docusate CAP* 100 MG PO SCH ×2 (08:56→21:19)
[2018-09-30] MEDS: Losartan TAB* 25 MG PO SCH (08:56)
[2018-09-30] MEDS: Amantadine CAP* 100 MG PO SCH ×2 (08:56→16:20)
[2018-09-30] MEDS: Apixaban* 5 MG TAB PO SCH ×2 (08:56→21:19)
[2018-09-30] MEDS: Atorvastatin* 20 MG TAB PO SCH (16:23)
--- NOTE | 2018-09-30 16:35 | PN ---
Progress Note Date of Service: 09/30/18 Note: EBENEZER CLEANING was visited. Nursing notes read and reviewed. He has no complaints. Was able to walk with nursing staff Current Medications: Active Medications Generic Name Dose Route Start Last Admin Trade Name Freq PRN Reason Stop Dose Admin Acetaminophen 650 mg 08/27/18 18:00 09/29/18 20:42 Tylenol Tab* PO 650 mg Q4H PRN Administration FEVER/PAIN Amantadine HCl 100 mg 09/09/18 16:00 09/30/18 16:20 Symmetrel Cap* PO 100 mg 0800,1600 SATINDER Administration Apixaban 5 mg 08/26/18 21:00 09/30/18 08:56 Eliquis* PO 5 mg BID SATINDER Administration Atorvastatin Calcium 20 mg 08/27/18 17:00 09/30/18 16:23 Lipitor* PO 20 mg 1700 SATINDER Administration Carbidopa/Levodopa 1 tab.cr 09/08/18 00:00 09/30/18 00:06 Sinemet Cr 50/200(*) PO 1 tab.cr 0000 SATINDER Administration Carbidopa/Levodopa 2 tab 09/07/18 16:00 09/30/18 16:23 Sinemet 25/100 Tab(*) PO 2 tab 0700,1100,1600,2000 SATINDER Administration Docusate Sodium 100 mg 08/26/18 21:00 09/30/18 08:56 Colace Cap* PO 100 mg BID SATINDER Administration Hydrocortisone 1 applic 08/31/18 10:19 09/16/18 20:11 Hytone Cream 1%* TOPICAL 1 applic TID PRN Administration itching Lacosamide 50 mg 08/26/18 21:00 09/30/18 08:56 Vimpat Tab* PO 50 mg BID SATINDER Administration Losartan Potassium 50 mg 08/27/18 09:00 09/30/18 08:56 Cozaar Tab* PO 50 mg DAILY SATINDER Administration Magnesium Hydroxide 30 ml 08/26/18 16:36 09/26/18 15:13 Milk Of Magnesia Liq* PO 30 ml Q6H PRN Administration CONSTIPATION Metoprolol Succinate 100 mg 08/27/18 09:00 09/30/18 08:55 Toprol Xl Tab* PO 100 mg DAILY SATINDER Administration Polyethylene Glycol/Electrolytes 17 gm 08/26/18 16:46 09/25/18 16:24 Miralax* PO 17 gm DAILY PRN Administration CONSTIPATION Senna 2 tab 08/26/18 16:36 09/26/18 20:13 Senokot Tab* PO 2 tab BEDTIME PRN Administration CONSTIPATION Throat Lozenges 1 jolynn 08/30/18 20:20 08/30/18 21:26 Chloraseptic Jolynn* PO 1 jolynn Q2H PRN Administration SORE THROAT Vital Signs: Vital Signs Temp Pulse Resp BP Pulse Ox 97.9 F 71 18 103/42 96 09/30/18 15:05 09/30/18 15:05 09/30/18 15:05 09/30/18 15:05 09/30/18 15:05 Exam: GENERAL: Alert and appropriate LUNGS: Clear to auscultation bilaterally HEART: regular rate and rhythm ABDOMEN: +bowel sounds, soft, non-tender, non-distended EXTREMITIES: Suture line healed. No edema NEUROLOGIC: CN II-XII intact. Resting tremor in arms>legs. Muscle strength bilateral UE/LE 5/5. Sensation intact. Assessment/Plan: 1. Left Hip Fracture. S/P HAP: WBAT. PT/OT. Dr Platt follow up 2. Parkinson's Disease: Sinemet/Amantadine. Neurology follow up as needed 3. Atrial Fibrillation: Eliquis/Toprol 4. HTN: Cozaar (instead of Avapro) and Toprol 5. DVT Prophylaxis: Eliquis 6. Advance Directives: Full Code. is HCP 7. Possible Seizure Disorder: Vimpat 8. Macular degeneration/vision: f/u with eye doctor after discharge. 09/30/18 16:35
[2018-10-01 05:32] LABS: Albumin 3.6 g/dL (3.2-5.2); Albumin/Globulin Ratio 1.4 (1-3); BUN/Creatinine Ratio 22.7 (8-20); Calcium 8.9 mg/dL (8.6-10.3); EGFR African American 91.8 (>60); EGFR Non-African American 75.9 (>60); Globulin 2.6 g/dL (2-4); Potassium 4.5 mmol/L (3.5-5.0); Total Bilirubin 0.3 mg/dL (0.2-1.0); Total Protein 6.2 g/dL (6.4-8.9)
[2018-10-01] MEDS: Carbidopa/Levodop 25/100 MG TAB(*) PO SCH ×4 (06:24→20:03)
[2018-10-01] MEDS: Amantadine CAP* 100 MG PO SCH ×2 (08:17→16:15)
[2018-10-01] MEDS: Lacosamide TAB* 50 MG TAB PO SCH ×2 (08:17→20:03)
[2018-10-01] MEDS: Docusate CAP* 100 MG PO SCH ×2 (08:17→20:03)
[2018-10-01] MEDS: Magnesium Hydroxide LIQ* 30 ML UDC PO PRN (08:17)
[2018-10-01] MEDS: Metoprolol Succinate XL TAB* 100 MG PO SCH (08:17)
[2018-10-01] MEDS: Losartan TAB* 25 MG PO SCH (08:17)
[2018-10-01] MEDS: Apixaban* 5 MG TAB PO SCH ×2 (08:17→20:03)
[2018-10-01 15:31] LABS: ABS Basophils 0.1 10^3/ul (0-0.2); ABS Eosinophils 0.1 10^3/ul (0-0.6); ABS Lymphocytes 1.2 10^3/ul (1.0-4.8); ABS Monocytes 0.6 10^3/ul (0-0.8); ABS Nucleated RBC 0 10^3/ul; Eosinophil % 1.3 %; Hematocrit 39 % (36-46); Hemoglobin 12.8 g/dL (14.0-18.0); Lymphocyte % 14.5 %; Mean Corpuscular HGB Conc 33 g/dL (31-36); Mean Corpuscular Hemoglobin 27 pg (27-31); Mean Corpuscular Volume 83 fL (80-94); Mean Platelet Volume 7.9 fL (7.4-10.4); Nucleated Red Blood Cells % 0; Platelet Count 184 10^3/uL (150-450); Red Blood Count 4.76 10^6 /uL (4.18-5.48); Red Cell Distribution Width 17 % (10.5-15)
[2018-10-01] MEDS: Atorvastatin* 20 MG TAB PO SCH (16:15)
--- NOTE | 2018-10-01 16:59 | PN ---
Progress Note Date of Service: 10/01/18 Note: EBENEZER CLEANING was visited. Therapy notes read and reviewed. He is transferring better but can still vary. Does still need help toileting Current Medications: Active Medications Generic Name Dose Route Start Last Admin Trade Name Freq PRN Reason Stop Dose Admin Acetaminophen 650 mg 08/27/18 18:00 09/29/18 20:42 Tylenol Tab* PO 650 mg Q4H PRN Administration FEVER/PAIN Amantadine HCl 100 mg 09/09/18 16:00 10/01/18 16:15 Symmetrel Cap* PO 100 mg 0800,1600 SATINDER Administration Apixaban 5 mg 08/26/18 21:00 10/01/18 08:17 Eliquis* PO 5 mg BID SATINDER Administration Atorvastatin Calcium 20 mg 08/27/18 17:00 10/01/18 16:15 Lipitor* PO 20 mg 1700 SATINDER Administration Carbidopa/Levodopa 1 tab.cr 09/08/18 00:00 09/30/18 23:57 Sinemet Cr 50/200(*) PO 1 tab.cr 0000 SATINDER Administration Carbidopa/Levodopa 2 tab 09/07/18 16:00 10/01/18 16:15 Sinemet 25/100 Tab(*) PO 2 tab 0700,1100,1600,2000 SATINDER Administration Docusate Sodium 100 mg 08/26/18 21:00 10/01/18 08:17 Colace Cap* PO 100 mg BID SATINDER Administration Hydrocortisone 1 applic 08/31/18 10:19 09/16/18 20:11 Hytone Cream 1%* TOPICAL 1 applic TID PRN Administration itching Lacosamide 50 mg 08/26/18 21:00 10/01/18 08:17 Vimpat Tab* PO 50 mg BID SATINDER Administration Losartan Potassium 50 mg 08/27/18 09:00 10/01/18 08:17 Cozaar Tab* PO 50 mg DAILY SATINDER Administration Magnesium Hydroxide 30 ml 08/26/18 16:36 10/01/18 08:17 Milk Of Magnesia Liq* PO 30 ml Q6H PRN Administration CONSTIPATION Metoprolol Succinate 100 mg 08/27/18 09:00 10/01/18 08:17 Toprol Xl Tab* PO 100 mg DAILY SATINDER Administration Polyethylene Glycol/Electrolytes 17 gm 08/26/18 16:46 09/25/18 16:24 Miralax* PO 17 gm DAILY PRN Administration CONSTIPATION Senna 2 tab 08/26/18 16:36 09/26/18 20:13 Senokot Tab* PO 2 tab BEDTIME PRN Administration CONSTIPATION Throat Lozenges 1 jolynn 08/30/18 20:20 08/30/18 21:26 Chloraseptic Jolynn* PO 1 jolynn Q2H PRN Administration SORE THROAT Vital Signs: Vital Signs Temp Pulse Resp BP Pulse Ox 97.7 F 71 18 120/64 97 10/01/18 16:16 10/01/18 16:16 10/01/18 05:09 10/01/18 16:16 10/01/18 16:23 Lab Results: Laboratory Results - last 24 hr 10/01/18 10/01/18 04:46 15:21 WBC 8.0 RBC 4.76 Hgb 12.8 L Hct 39 MCV 83 MCH 27 MCHC 33 RDW 17 H Plt Count 184 MPV 7.9 Neut % (Auto) 75.2 Lymph % (Auto) 14.5 Beadle % (Auto) 7.8 Eos % (Auto) 1.3 Baso % (Auto) 1.2 Absolute Neuts (auto) 6.0 Absolute Lymphs (auto) 1.2 Absolute Monos (auto) 0.6 Absolute Eos (auto) 0.1 Absolute Basos (auto) 0.1 Absolute Nucleated RBC 0 Nucleated RBC % 0 Sodium 136 Potassium 4.5 Chloride 104 Carbon Dioxide 25 Anion Gap 7 BUN 22 Creatinine 0.97 Est GFR ( Amer) 91.8 Est GFR (Non-Af Amer) 75.9 BUN/Creatinine Ratio 22.7 H Glucose 115 H Calcium 8.9 Total Bilirubin 0.30 AST 12 L ALT 3 L Alkaline Phosphatase 123 H Total Protein 6.2 L Albumin 3.6 Globulin 2.6 Albumin/Globulin Ratio 1.4 Exam: GENERAL: Alert and appropriate LUNGS: Clear to auscultation bilaterally HEART: regular rate and rhythm ABDOMEN: +bowel sounds, soft, non-tender, non-distended EXTREMITIES: Suture line healed. No edema NEUROLOGIC: CN II-XII intact. Resting tremor in arms>legs. Muscle strength bilateral UE/LE 5/5. Sensation intact. Assessment/Plan: 1. Left Hip Fracture. S/P HAP: WBAT. PT/OT. Dr Lc follow up 2. Parkinson's Disease: Sinemet/Amantadine. Neurology follow up as needed 3. Atrial Fibrillation: Eliquis/Toprol 4. HTN: Cozaar (instead of Avapro) and Toprol 5. DVT Prophylaxis: Eliquis 6. Advance Directives: Full Code. is HCP 7. Possible Seizure Disorder: Vimpat 8. Macular degeneration/vision: f/u with eye doctor after discharge. 10/01/18 17:00
[2018-10-01] MEDS: Senna TAB PO PRN (20:03)
[2018-10-01] MEDS: Carbidopa/Levodop CR 50/200(*) TAB.CR PO SCH (23:44)
[2018-10-02] MEDS: Carbidopa/Levodop 25/100 MG TAB(*) PO SCH ×4 (06:28→20:24)
[2018-10-02] MEDS: Amantadine CAP* 100 MG PO SCH ×2 (08:07→16:33)
[2018-10-02] MEDS: Losartan TAB* 25 MG PO SCH (08:08)
[2018-10-02] MEDS: Apixaban* 5 MG TAB PO SCH ×2 (08:08→20:23)
[2018-10-02] MEDS: Metoprolol Succinate XL TAB* 100 MG PO SCH (08:08)
[2018-10-02] MEDS: Lacosamide TAB* 50 MG TAB PO SCH ×2 (08:08→20:23)
[2018-10-02] MEDS: Docusate CAP* 100 MG PO SCH ×2 (08:08→20:23)
[2018-10-02] MEDS: Acetaminophen TAB* 325 MG PO PRN (08:11)
--- NOTE | 2018-10-02 12:35 | PMRUTEAM ---
PMRU: Team Meeting Current Status: Nursing: Current Status Skin Deviations [buttocks] Other Skin Deviations [left lower Rash back] Skin Deviations [L buttock] Abrasion Skin Deviations [torso] Rash Skin Deviations [Coccyx] Abrasion,Wound Skin Deviations [Right Other Buttocks] Skin Deviations [Bilateral Other Heel] Skin Deviations [Right Lower Abrasion Leg] Skin Deviations [Left Hip] Incision Skin Deviation Description [ sl reddened buttocks] Skin Deviation Description [ rash on upper back appears improved from 09/04; left lower back] small optifoam covering small area on lower left back; buttock reddened, no changes in buttock reported by OT this AM Skin Deviation Description [L red buttock] Skin Deviation Description [ rash torso] Skin Deviation Description [ red, blanchable Coccyx] Skin Deviation Description [ healed Right Buttocks] Skin Deviation Description [ Spanko boots in place Bilateral Heel] Skin Deviation Description [ mild red spots Right Lower Leg] Skin Deviation Description [ 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] Drain Type [L buttock] None Bladder Current Status uses urinal, 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 Bowel Current Status up to br as needed last bowel mvmt 09/23; takes bowel meds as ordered Nutrition Current Status meal set-up, foods cut good appetite Medication Current Status understands medical interventions takes medications as ordered requests tylenol 325mg for shoulder pain rated 5/ 10 Physical Therapy: Current Status Bed Mobility Assistance Supervision Transfer Mobility Assistance Contact Guard Assist Transfer/Bed Mobility Rolling Walker Recommended Devices Ambulation Assistance Supervision,Contact Guard Assist Ambulation Assistive Devices Rolling Walker Number of Feet Patient 200' and 100' Ambulated Stairs Assistance Contact Guard Assist Stairs Recommended Devices Two Rails Number of Stairs 5 Curb Not Tested Occupational Therapy: Current Status Upper Body Dressing Mod Assist Lower Body Dressing Total Assist,2 Person Assist Bathing Mod Assist Toileting Max Asst Toilet Transfer Min Assist,Mod Assist Shower Transfer Mod Assist Eating Supervision Rec Therapy: Current Status Summary of Assessment and Recreation Therapy assessment complete and pt. is Clinical Impression aware of services. Pt. is pleasant, cooperative and engaged. Pt. has been tired during the afternoons but enjoys visits from staff and his family. Treatment Goals Pt. will engage in leisure activities while on the unit. Treatment Plan Provide RT services and encourage involvement. Social Work: Current Status Discharge Plan return home with home care svs and family support Potential for Family Training pt's is involved and supportive Anticipated Discharge Home Destination Discharge With home care svs and family support Nutrition: Current Status Monitoring Continues to eat well consistently (100%) and meet needs. Tolerating regular diet w/o texture adjustments. Intermittent constipation (BMs 09/22, 09/23, 09/26, 09/28, 09/29) but this is addressed. BG acceptable levels and no intervention. No changes in intervention. Speech: Current Status Assessment Patient is progressing as expected. Patient with increasing intelligibility and ability to recall safety procedures to sit and stand with walker. Speech Goal 2 Current Status Within functional limits Goals: Physical Therapy: Initial Goals Bed Mobility Assistance Independent Transfer Mobility Assistance Independent Transfer/Bed Mobility Rolling Walker Recommended Devices Ambulation Independent Ambulation Recommended Devices Rolling Walker Ambulation Distance 150 Stairs Assistance Supervision Stair Recommended Devices Two Rails Number of Stairs 4 Home Exercise Program Independent Assistance Physical Therapy: Updated Goals Bed Mobility Assistance Independent Transfer Mobility Assistance Independent Transfer/Bed Mobility Rolling Walker Recommended Devices Ambulation Assistance Independent Ambulation Assistive Devices Rolling Walker Ambulation Distance (ft) 150 Stairs Assistance Independent Stairs Recommended Devices Two Rails Number of Stairs 5 Occupational Therapy: Initial Goals Goals to be Completed in (Days 28 ) Upper Body Bathing Routine Supervision/Set Up Lower Body Bathing Routine Supervision/Set Up Upper Body Dressing Routine Moderate Assist Lower Body Dressing Routine Moderate Assist Toilet Hygeine and Clothing Minimal Contact Assist Management Routine Toilet Transfer Routine Supervision/Set Up Step-In Shower Transfer Supervision/Set Up Routine Functional Transfers for ADL Modified Independent with Grooming Routine Independent Feeding Routine Independent Nursing: Goals Bladder Goal independent with urinal; no incontinent episodes Bowel Goal daily bowel movement, free from constipation Nutrition Goal adequate intake, meal set-up Medication Goal take medications as prescribed, with understanding of interventions Nutrition: Goals Intervention Goals 1. Maintain adequate oral intake to support weight maintenance, maintenance of lean body mass, support post op rehab 2. Achieve/maintain bowel regularity w/o constipation or diarrhea 3. Pt receives appropriate assistance w/tray set up if needed Speech: Goals Speech Goal 1 Voice Goal 1 Comments Voice Goals: Long-Term Goal: Pt will use compensatory strategies to increase vocal loudness to moderate and speech to intelligibility to 95-100%, in spontaneous conversational speech, Independently, as observed by therapists, nursing and medical staff. Short-Term Goal: Pt will complete loud voice exercises and use compensatory strategies to increase vocal loudness to moderate and speech to intelligibility to 95%, in structured conversational speech, given minimal cueing, as observed by therapists, nursing and medical staff. Status: Met at criteria. Modified goal criteria: 98% intelligibility, Independently. Status: Ongoing; Patient at 95% intelligibility, minimal verbal cues. Speech Goal 2 Language Expression Speech Goal 2 Evaluation Mild impairment Status Speech Goal 2 Current Status Within functional limits Speech Goal 2 Discharge Status Within functional limits 08/31/18 Speech Goal 2 Comments Memory Goals: Long-Term Memory Goal: Pt will use compensatory strategies to encode and retrieve 4/4 new items after delay of 30 minutes, Independently, for independence in mobility safety, ADLs and community access. Status: Progressing as expected. Short-term Memory Goal: Pt will use compensatory strategies to encode and retrieve 3/4 new items after delay of 5 minutes, given Moderate skilled instruction and cueing. Status: Goal established. Short-term Memory Goal: Pt will use compensatory strategies to encode and verbally retrieve safety precautions and mobility sequences, including standing from chair to walker, walking with walker , and sitting from walker to chair. Status: Progressing as expected. Prior to session, TOOLSMITH observed patient to require maximal verbal and touch cueing to transfer from standing to chair after toileting with aides. TOOLSMITH provided verbal, printed, pictorial instruction and demonstration with direct models, to instructed patient to verbally direct this software writer to stand, walk and sit safely using a walker. Patient required continual moderate cueing and extra processing time to sequence steps . Patient TOOLSMITH modified instruction to simplify wording and rehearse fluent verbal sequencing, and patient recuded delay between stesp by half. Speech Goal 3 Memory Speech Goal 3 Comments Memory Goals: Long-Term Memory Goal: Pt will use compensatory strategies to encode and retrieve 4/4 new items after delay of 30 minutes, Independently, for independence in mobility safety, ADLs and community access. Status: Progressing as expected. Short-term Memory Goal: Pt will use compensatory strategies to encode and retrieve 3/4 new items after delay of 5 minutes, given Moderate skilled instruction and cueing. Status: Goal established. Short-term Memory Goal: Pt will use compensatory strategies to encode and verbally retrieve safety precautions and mobility sequences, including standing from chair to walker, walking with walker , and sitting from walker to chair. Status: Progressing as expected. Patient read instructions using loud voice, repeated instructions given a direct model and then provided instructions from memory with 80% accuracy; moderate verbal cues. Social Work: Goals Discharge Plan return home with home care svs and family support Potential for Family Training pt's is involved and supportive Anticipated Discharge Home Destination Discharge With home care svs and family support Care Plan: Care Plan ADL's - Improve/Maintain Start: 08/28/18 14:52 Freq: DAILY Status: Active Target: Protocol: Activity Type Activity Date Activity User E-Sign Co-Sign Detail Recorded Client Recorded Date Recorded By Document 10/01/18 15:03 [id number] 10/01/18 15:03 [id number] 10/01/18 15:03 PMRU Outcome: ADL's/ADL Transfers Orders/Interventions Occupational Therapy Evaluation & Treatment Communication Tool in Patient Room Patient to receive OT 5x/wk for 60-120 Therex min/day Self Care Management Group Therapy Neuromuscular ReEducation UE/LE ADL's with Assist Yes: MOD A ADL Transfers with Assist Yes: S Toileting: Transfers,Clothing Management Yes: MIN A ,Hygeine w/Assist Light Kitchen/Laundry w/Assist No Progression Toward Outcome/Goals Progressing Outcome/Goals Met Pt has been consistently needing one min /mod A for ADL sessions. He requires significant assistance for showers and will need help from a CANDY MAKER for these. was updated today. Communication-Improve/Maintain Start: 08/29/18 16:23 Freq: DAILY Status: Active Target: Protocol: Activity Type Activity Date Activity User E-Sign Co-Sign Detail Recorded Client Recorded Date Recorded By Document 10/02/18 11:43 [id number] 10/02/18 11:43 [id number] 10/02/18 11:43 PMRU Outcome: Communication/Cognitive Status Outcome/Goals Makes Needs Known Effectively Other Outcomes/Goals Voice Goals: Long-Term Goal: Pt will use compensatory strategies to increase vocal loudness to moderate and speech to intelligibility to 95-100%, in spontaneous conversational speech, Independently, as observed by therapists, nursing and medical staff. Short-Term Goal : Pt will complete loud voice exercises and use compensatory strategies to increase vocal loudness to moderate and speech to intelligibility to 95%, in structured conversational speech, given minimal cueing, as observed by therapists, nursing and medical staff. Status: Met at criteria. Modified goal criteria: 98% intelligibility , Independently . Status: Ongoing ; Patient at 95 % intelligibility , minimal verbal cues. Memory Goals: Long-Term Memory Goal: Pt will use compensatory strategies to encode and retrieve 4/4 new items after delay of 30 minutes, Independently, for independence in mobility safety, ADLs and community access. Status: Progressing as expected. Short-term Memory Goal: Pt will use compensatory strategies to encode and retrieve 3/4 new items after delay of 5 minutes, given Moderate skilled instruction and cueing. Status: Goal established. Short-term Memory Goal: Pt will use compensatory strategies to encode and verbally retrieve safety precautions and mobility sequences, including standing from chair to walker , walking with walker, and sitting from walker to chair . Status: Progressing as expected. Patient read instructions using loud voice, repeated instructions given a direct model and then provided instructions from memory with 80% accuracy; moderate verbal cues Progression Toward Outcomes/Goals Progressing Outcome/Goals Met Comment Patient is progressing as expected. Patient with increasing intelligibility and ability to recall safety procedures to sit and stand with walker. Coping/Psych-Improve/Maintain Start: 08/27/18 14:31 Freq: QSHIFT Status: Active Target: Protocol: Activity Type Activity Date Activity User E-Sign Co-Sign Detail Recorded Client Recorded Date Recorded By Document 10/01/18 17:46 [id number] [id number] 10/01/18 17:48 [id number] 10/01/18 17:46 PMRU Outcome: Coping/Psychosocial Coping Outcome/Goals Verbalization of Acceptance of Rehab Admit Verbalization of Sense of Control Over Health Status Willingness to Participate in Treatment Plan and Basic Needs Psychosocial Outcome/Goals Maintain/ Improve Emotional Health Cooperate/ Participate in Plan Progression Toward Outcome/Goals - Progressing Coping Progression Toward Outcome/Goals - Progressing Psychosocial DVT Prophylaxis- Improve/Maintain Start: 08/27/18 14:31 Freq: QSHIFT Status: Complete Target: Protocol: Activity Type Activity Date Activity User E-Sign Co-Sign Detail Recorded Client Recorded Date Recorded By Document 09/07/18 20:00 [id number] 09/07/18 22:09 [id number] 09/07/18 20:00 PMRU Outcome: DVT Prophylaxis Outcome/Goals Remains Free of DVT Free of complications from current DVT Complies with DVT Prophylaxis /Treatment Demonstrates Knowledge of DVT Prevention/ Treatment TEDS Stockings on Every AM, Off at HS Outcome/Goals Met Remains Free of DVT Discharge Planning - Improve/Maintain Start: 08/27/18 14:31 Freq: DAILY Status: Active Target: Protocol: Activity Type Activity Date Activity User E-Sign Co-Sign Detail Recorded Client Recorded Date Recorded By Document 10/01/18 23:56 [id number] 10/01/18 23:56 [id number] 10/01/18 23:56 PMRU Outcome: Discharge Planning Update Patient Family No Outcome/Goals Demonstrates Understanding of Discharge Plan Progression Toward Outcome/Goals Progressing Education-Improve/Maintain Start: 08/27/18 14:31 Freq: QSHIFT Status: Active Target: Protocol: Activity Type Activity Date Activity User E-Sign Co-Sign Detail Recorded Client Recorded Date Recorded By Document 10/01/18 17:46 [id number] 10/01/18 17:48 [id number] 10/01/18 17:46 PMRU Outcome: Education Outcome/Goals Demonstrates Skills Encourage Questions Progression Toward Outcome/Goals Progressing /GI-Improve/Maintain Start: 08/27/18 14:31 Freq: QSHIFT Status: Active Target: Protocol: Activity Type Activity Date Activity User E-Sign Co-Sign Detail Recorded Client Recorded Date Recorded By Document 10/01/18 17:46 [id number] 10/01/18 17:48 [id number] 10/01/18 17:46 PMRU Outcome: Genitourinary/ Gastrointestinal Genitourinary- Outcome/Goals Maintain/ Achieve Adequate Urinary Output Remain Free of Hospital- Acquired UTI Gastrointestinal-Outcome/Goals Maintain/ Achieve Bowel Regularity in Accordance with Pt's Baseline Prevent Constipation Progression Toward Outcome/Goals - Progressing Progression Toward Outcome/Goals - GI Progressing Medication Administration Start: 08/27/18 14:31 Freq: QSHIFT Status: Active Target: Protocol: Activity Type Activity Date Activity User E-Sign Co-Sign Detail Recorded Client Recorded Date Recorded By Document 10/01/18 17:46 [id number] 10/01/18 17:48 [id number] 10/01/18 17:46 PMRU Outcome: Medication Administration Assess Patient Knowledge/Teach Med Yes Education for all Meds Outcome/Goals Demonstrates Understanding Progression Towards Outcome/Goals Progressing Is Patient Going Home on Lovenox? No Neurological- Improve/Maintain Start: 08/27/18 14:31 Freq: QSHIFT Status: Active Target: Protocol: Activity Type Activity Date Activity User E-Sign Co-Sign Detail Recorded Client Recorded Date Recorded By Document 10/01/18 17:46 [id number] 10/01/18 17:48 [id number] 10/01/18 17:46 PMRU Outcome: Neurological Weakness/Aphasia Weakness Outcome/Goals Maintain/ Achieve Baseline Neurological Status Improve Neurological Status Maintain/ Improve Strength/ROM Progression Toward Outcome/Goals Progressing Pain/Comfort- Improve/Maintain Start: 08/27/18 14:31 Freq: QSHIFT Status: Complete Target: Protocol: Activity Type Activity Date Activity User E-Sign Co-Sign Detail Recorded Client Recorded Date Recorded By Document 09/07/18 20:00 [id number] 09/07/18 22:09 [id number] 09/07/18 20:00 PMRU Outcome: Pain/Comfort Outcome/Goals Demonstrates Knowledge and Use of Available Comfort Measures Achieves Acceptable Comfort/Pain Level as Determined by Patient/Condit Maintain Comfort Level Allowing Patient to Fully Participate in Rehab Outcome/Goals Met Maintain Comfort Level Allowing Patient to Fully Participate in Rehab Safety- Improve/Maintain Start: 08/27/18 14:31 Freq: QSHIFT Status: Active Target: Protocol: Activity Type Activity Date Activity User E-Sign Co-Sign Detail Recorded Client Recorded Date Recorded By Document 10/01/18 17:46 [id number] 10/01/18 17:48 [id number] 10/01/18 17:46 PMRU Outcome: Safety Outcome/Goals Remain Free of Injury or Harm Cooperates with Safety Measures for Least Restrictive Environment Prevent Falls/ Injury Progression Toward Outcome/Goals Progressing Skin- Improve/Maintain Start: 08/27/18 14:31 Freq: QSHIFT Status: Active Target: Protocol: Activity Type Activity Date Activity User E-Sign Co-Sign Detail Recorded Client Recorded Date Recorded By Document 10/01/18 17:46 [id number] 10/01/18 17:48 [id number] 10/01/18 17:46 PMRU Outcome: Skin Skin Risk Level Medium Skin Orders Heels Off Bed Turn/Position q2hr While in Bed Outcome/Goals Maintain/ Improve Skin Intergrity Maintain/ Improve Wound Status Surgical Incisions Healing Progression Toward Outcome/Goals Progressing Medicine Note: Length of Stay: 3 days Anticipated Discharge Destination: Home Tentative Discharge Date: 10/05/18 Discharged to: Home
[2018-10-02] MEDS: Atorvastatin* 20 MG TAB PO SCH (16:33)
--- NOTE | 2018-10-02 18:43 | PN ---
Progress Note Date of Service: 10/02/18 Note: EBENEZER CLEANING was visited. Therapy notes read and reviewed. He was discussed in interdisciplinary team rounds. Family training went ok, was informed that he may need a bit of help when toileting or a lot of help. Current Medications: Active Medications Generic Name Dose Route Start Last Admin Trade Name Freq PRN Reason Stop Dose Admin Acetaminophen 650 mg 08/27/18 18:00 10/02/18 08:11 Tylenol Tab* PO 650 mg Q4H PRN Administration FEVER/PAIN Amantadine HCl 100 mg 09/09/18 16:00 10/02/18 16:33 Symmetrel Cap* PO 100 mg 0800,1600 SATINDER Administration Apixaban 5 mg 08/26/18 21:00 10/02/18 08:08 Eliquis* PO 5 mg BID SATINDER Administration Atorvastatin Calcium 20 mg 08/27/18 17:00 10/02/18 16:33 Lipitor* PO 20 mg 1700 SATINDER Administration Carbidopa/Levodopa 1 tab.cr 09/08/18 00:00 10/01/18 23:44 Sinemet Cr 50/200(*) PO 1 tab.cr 0000 SATINDER Administration Carbidopa/Levodopa 2 tab 09/07/18 16:00 10/02/18 16:33 Sinemet 25/100 Tab(*) PO 2 tab 0700,1100,1600,2000 SATINDER Administration Docusate Sodium 100 mg 08/26/18 21:00 10/02/18 08:08 Colace Cap* PO 100 mg BID SATINDER Administration Hydrocortisone 1 applic 08/31/18 10:19 09/16/18 20:11 Hytone Cream 1%* TOPICAL 1 applic TID PRN Administration itching Lacosamide 50 mg 08/26/18 21:00 10/02/18 08:08 Vimpat Tab* PO 50 mg BID SATINDER Administration Losartan Potassium 50 mg 08/27/18 09:00 10/02/18 08:08 Cozaar Tab* PO 50 mg DAILY SATINDER Administration Magnesium Hydroxide 30 ml 08/26/18 16:36 10/01/18 08:17 Milk Of Magnesia Liq* PO 30 ml Q6H PRN Administration CONSTIPATION Metoprolol Succinate 100 mg 08/27/18 09:00 10/02/18 08:08 Toprol Xl Tab* PO 100 mg DAILY SATINDER Administration Polyethylene Glycol/Electrolytes 17 gm 08/26/18 16:46 09/25/18 16:24 Miralax* PO 17 gm DAILY PRN Administration CONSTIPATION Senna 2 tab 08/26/18 16:36 10/01/18 20:03 Senokot Tab* PO 2 tab BEDTIME PRN Administration CONSTIPATION Throat Lozenges 1 jolynn 08/30/18 20:20 08/30/18 21:26 Chloraseptic Jolynn* PO 1 jolynn Q2H PRN Administration SORE THROAT Vital Signs: Vital Signs Temp Pulse Resp BP Pulse Ox 97.5 F 63 20 120/60 98 10/02/18 05:00 10/02/18 05:00 10/02/18 08:00 10/02/18 05:00 10/02/18 17:31 Exam: GENERAL: Alert and appropriate LUNGS: Clear to auscultation bilaterally HEART: regular rate and rhythm ABDOMEN: +bowel sounds, soft, non-tender, non-distended EXTREMITIES: Suture line healed. No edema NEUROLOGIC: CN II-XII intact. Resting tremor in arms>legs. Muscle strength bilateral UE/LE 5/5. Sensation intact. Assessment/Plan: 1. Left Hip Fracture. S/P HAP: WBAT. PT/OT. Dr Platt follow up 2. Parkinson's Disease: Sinemet/Amantadine. Neurology follow up as needed 3. Atrial Fibrillation: Eliquis/Toprol 4. HTN: Cozaar (instead of Avapro) and Toprol 5. DVT Prophylaxis: Eliquis 6. Advance Directives: Full Code. is HCP 7. Possible Seizure Disorder: Vimpat 8. Macular degeneration/vision: f/u with eye doctor after discharge. 10/02/18 18:43
[2018-10-02] MEDS: Carbidopa/Levodop CR 50/200(*) TAB.CR PO SCH (23:46)
[2018-10-03] MEDS: Carbidopa/Levodop 25/100 MG TAB(*) PO SCH ×4 (06:51→20:01)
[2018-10-03] MEDS: Metoprolol Succinate XL TAB* 100 MG PO SCH (08:05)
[2018-10-03] MEDS: Lacosamide TAB* 50 MG TAB PO SCH ×2 (08:05→20:01)
[2018-10-03] MEDS: Amantadine CAP* 100 MG PO SCH ×2 (08:05→16:15)
[2018-10-03] MEDS: Docusate CAP* 100 MG PO SCH ×2 (08:05→20:01)
[2018-10-03] MEDS: Losartan TAB* 25 MG PO SCH (08:05)
[2018-10-03] MEDS: Apixaban* 5 MG TAB PO SCH ×2 (08:05→20:02)
[2018-10-03] MEDS: Acetaminophen TAB* 325 MG PO PRN (08:09)
[2018-10-03] MEDS: Atorvastatin* 20 MG TAB PO SCH (16:15)
--- NOTE | 2018-10-03 18:24 | PN ---
Progress Note Date of Service: 10/03/18 Note: EBENEZER CLEANING was visited. Therapy notes read and reviewed. Observed patient in therapy. Had a lot of trouble figuring out how to maneuver to sit in a chair. He will need supervision at home. Current Medications: Active Medications Generic Name Dose Route Start Last Admin Trade Name Freq PRN Reason Stop Dose Admin Acetaminophen 650 mg 08/27/18 18:00 10/03/18 08:09 Tylenol Tab* PO 650 mg Q4H PRN Administration FEVER/PAIN Amantadine HCl 100 mg 09/09/18 16:00 10/03/18 16:15 Symmetrel Cap* PO 100 mg 0800,1600 SATINDER Administration Apixaban 5 mg 08/26/18 21:00 10/03/18 08:05 Eliquis* PO 5 mg BID SATINDER Administration Atorvastatin Calcium 20 mg 08/27/18 17:00 10/03/18 16:15 Lipitor* PO 20 mg 1700 SATINDER Administration Carbidopa/Levodopa 1 tab.cr 09/08/18 00:00 10/02/18 23:46 Sinemet Cr 50/200(*) PO 1 tab.cr 0000 SATINDER Administration Carbidopa/Levodopa 2 tab 09/07/18 16:00 10/03/18 16:15 Sinemet 25/100 Tab(*) PO 2 tab 0700,1100,1600,2000 SATINDER Administration Docusate Sodium 100 mg 08/26/18 21:00 10/03/18 08:05 Colace Cap* PO 100 mg BID SATINDER Administration Hydrocortisone 1 applic 08/31/18 10:19 09/16/18 20:11 Hytone Cream 1%* TOPICAL 1 applic TID PRN Administration itching Lacosamide 50 mg 08/26/18 21:00 10/03/18 08:05 Vimpat Tab* PO 50 mg BID SATINDER Administration Losartan Potassium 50 mg 08/27/18 09:00 10/03/18 08:05 Cozaar Tab* PO 50 mg DAILY SATINDER Administration Magnesium Hydroxide 30 ml 08/26/18 16:36 10/01/18 08:17 Milk Of Magnesia Liq* PO 30 ml Q6H PRN Administration CONSTIPATION Metoprolol Succinate 100 mg 08/27/18 09:00 10/03/18 08:05 Toprol Xl Tab* PO 100 mg DAILY SATINDER Administration Polyethylene Glycol/Electrolytes 17 gm 08/26/18 16:46 09/25/18 16:24 Miralax* PO 17 gm DAILY PRN Administration CONSTIPATION Senna 2 tab 08/26/18 16:36 10/01/18 20:03 Senokot Tab* PO 2 tab BEDTIME PRN Administration CONSTIPATION Throat Lozenges 1 jolynn 08/30/18 20:20 08/30/18 21:26 Chloraseptic Jolynn* PO 1 jolynn Q2H PRN Administration SORE THROAT Vital Signs: Vital Signs Temp Pulse Resp BP Pulse Ox 98 F 76 16 124/52 98 10/03/18 14:52 10/03/18 14:52 10/03/18 14:52 10/03/18 14:52 10/03/18 14:52 Exam: GENERAL: Alert and appropriate LUNGS: Clear to auscultation bilaterally HEART: regular rate and rhythm ABDOMEN: +bowel sounds, soft, non-tender, non-distended EXTREMITIES: Suture line healed. No edema NEUROLOGIC: CN II-XII intact. Resting tremor in arms>legs. Muscle strength bilateral UE/LE 5/5. Sensation intact. Assessment/Plan: 1. Left Hip Fracture. S/P HAP: WBAT. PT/OT. Dr Platt follow up 2. Parkinson's Disease: Sinemet/Amantadine. Neurology follow up as needed 3. Atrial Fibrillation: Eliquis/Toprol 4. HTN: Cozaar (instead of Avapro) and Toprol 5. DVT Prophylaxis: Eliquis 6. Advance Directives: Full Code. is HCP 7. Possible Seizure Disorder: Vimpat 8. Macular degeneration/vision: f/u with eye doctor after discharge. 10/03/18 18:24
[2018-10-03] MEDS: Hydrocortisone 1% CREAM* 30 GM TUBE TOPICAL PRN (20:00)
[2018-10-03 22:12] LABS: Urine Appearance Cloudy; Urine Bilirubin Negative (Negative); Urine Blood Negative (Negative); Urine Color Yellow; Urine Glucose Negative (Negative); Urine Ketones Trace (Negative); Urine Nitrite Negative (Negative); Urine Protein Negative (Negative); Urine Specific Gravity 1.026 (1.010-1.030); Urine Urobilinogen Negative (Negative)
[2018-10-04] MEDS: Carbidopa/Levodop CR 50/200(*) TAB.CR PO SCH (00:11)
[2018-10-04] MEDS: Carbidopa/Levodop 25/100 MG TAB(*) PO SCH ×4 (06:52→20:48)
[2018-10-04] MEDS: Metoprolol Succinate XL TAB* 100 MG PO SCH (10:18)
[2018-10-04] MEDS: Apixaban* 5 MG TAB PO SCH ×2 (10:18→20:49)
[2018-10-04] MEDS: Amantadine CAP* 100 MG PO SCH ×2 (10:18→16:09)
[2018-10-04] MEDS: Losartan TAB* 25 MG PO SCH (10:18)
[2018-10-04] MEDS: Lacosamide TAB* 50 MG TAB PO SCH ×2 (10:18→20:49)
[2018-10-04] MEDS: Docusate CAP* 100 MG PO SCH ×2 (10:18→20:49)
[2018-10-04] MEDS: Atorvastatin* 20 MG TAB PO SCH (16:10)
--- NOTE | 2018-10-04 18:21 | PN ---
Progress Note Date of Service: 10/04/18 Note: EBENEZER CLEANING was visited. Therapy notes read and reviewed. He and his are ready for discharge. There do not appear to be any new medications. Current Medications: Active Medications Generic Name Dose Route Start Last Admin Trade Name Freq PRN Reason Stop Dose Admin Acetaminophen 650 mg 08/27/18 18:00 10/03/18 08:09 Tylenol Tab* PO 650 mg Q4H PRN Administration FEVER/PAIN Amantadine HCl 100 mg 09/09/18 16:00 10/04/18 16:09 Symmetrel Cap* PO 100 mg 0800,1600 SATINDER Administration Apixaban 5 mg 08/26/18 21:00 10/04/18 10:18 Eliquis* PO 5 mg BID SATINDER Administration Atorvastatin Calcium 20 mg 08/27/18 17:00 10/04/18 16:10 Lipitor* PO 20 mg 1700 SATINDER Administration Carbidopa/Levodopa 1 tab.cr 09/08/18 00:00 10/04/18 00:11 Sinemet Cr 50/200(*) PO 1 tab.cr 0000 SATINDER Administration Carbidopa/Levodopa 2 tab 09/07/18 16:00 10/04/18 16:08 Sinemet 25/100 Tab(*) PO 2 tab 0700,1100,1600,2000 SATINDER Administration Docusate Sodium 100 mg 08/26/18 21:00 10/04/18 10:18 Colace Cap* PO 100 mg BID SATINDER Administration Hydrocortisone 1 applic 08/31/18 10:19 10/03/18 20:00 Hytone Cream 1%* TOPICAL 1 applic TID PRN Administration itching Lacosamide 50 mg 08/26/18 21:00 10/04/18 10:18 Vimpat Tab* PO 50 mg BID SATINDER Administration Losartan Potassium 50 mg 08/27/18 09:00 10/04/18 10:18 Cozaar Tab* PO 50 mg DAILY SATINDER Administration Magnesium Hydroxide 30 ml 08/26/18 16:36 10/01/18 08:17 Milk Of Magnesia Liq* PO 30 ml Q6H PRN Administration CONSTIPATION Metoprolol Succinate 100 mg 08/27/18 09:00 10/04/18 10:18 Toprol Xl Tab* PO 100 mg DAILY SATINDER Administration Polyethylene Glycol/Electrolytes 17 gm 08/26/18 16:46 09/25/18 16:24 Miralax* PO 17 gm DAILY PRN Administration CONSTIPATION Senna 2 tab 08/26/18 16:36 10/01/18 20:03 Senokot Tab* PO 2 tab BEDTIME PRN Administration CONSTIPATION Throat Lozenges 1 jolynn 08/30/18 20:20 08/30/18 21:26 Chloraseptic Jolynn* PO 1 jolynn Q2H PRN Administration SORE THROAT Vital Signs: Vital Signs Temp Pulse Resp BP Pulse Ox 98.2 F 71 16 124/60 99 10/04/18 14:45 10/04/18 14:45 10/04/18 14:45 10/04/18 14:45 10/04/18 14:45 Lab Results: Laboratory Results - last 24 hr 10/03/18 22:00 Urine Color Yellow Urine Appearance Cloudy Urine pH 5.0 Ur Specific [place] 1.026 Urine Protein Negative Urine Ketones Trace A Urine Blood Negative Urine Nitrate Negative Urine Bilirubin Negative Urine Urobilinogen Negative Ur Leukocyte Esterase Negative Urine Glucose Negative Exam: GENERAL: Alert and appropriate LUNGS: Clear to auscultation bilaterally HEART: regular rate and rhythm ABDOMEN: +bowel sounds, soft, non-tender, non-distended EXTREMITIES: Suture line healed. No edema NEUROLOGIC: CN II-XII intact. Resting tremor in arms>legs. Muscle strength bilateral UE/LE 5/5. Sensation intact. Assessment/Plan: 1. Left Hip Fracture. S/P HAP: WBAT. PT/OT. Dr Platt follow up 2. Parkinson's Disease: Sinemet/Amantadine. Neurology follow up as needed 3. Atrial Fibrillation: Eliquis/Toprol 4. HTN: Cozaar (instead of Avapro) and Toprol 5. DVT Prophylaxis: Eliquis 6. Advance Directives: Full Code. is HCP 7. Possible Seizure Disorder: Vimpat 8. Macular degeneration/vision: f/u with eye doctor after discharge. 10/04/18 18:21
[2018-10-05] MEDS: Carbidopa/Levodop CR 50/200(*) TAB.CR PO SCH (00:21)
[2018-10-05] MEDS: Acetaminophen TAB* 325 MG PO PRN ×2 (00:29→06:53)
[2018-10-05] MEDS: Carbidopa/Levodop 25/100 MG TAB(*) PO SCH ×2 (06:53→11:02)
[2018-10-05 07:33] VITALS: BP 125/64
[2018-10-05] MEDS: Metoprolol Succinate XL TAB* 100 MG PO SCH (09:19)
[2018-10-05] MEDS: Apixaban* 5 MG TAB PO SCH (09:19)
[2018-10-05] MEDS: Amantadine CAP* 100 MG PO SCH (09:19)
[2018-10-05] MEDS: Lacosamide TAB* 50 MG TAB PO SCH (09:19)
[2018-10-05] MEDS: Docusate CAP* 100 MG PO SCH (09:19)
[2018-10-05] MEDS: Losartan TAB* 25 MG PO SCH (09:19)
--- NOTE | 2018-10-05 09:44 | PN ---
Progress Note Date of Service: 10/05/18 Note: EBENEZER CLEANING was visited. Nursing and therapy notes read and reviewed. No chest pain, shortness of breath or abdominal pain. He feels ready to go home. He and appreciate fluctuation in mobility due to parkinsons disease. Current Medications: Active Medications Generic Name Dose Route Start Last Admin Trade Name Freq PRN Reason Stop Dose Admin Acetaminophen 650 mg 08/27/18 18:00 10/05/18 06:53 Tylenol Tab* PO 650 mg Q4H PRN Administration FEVER/PAIN Amantadine HCl 100 mg 09/09/18 16:00 10/05/18 09:19 Symmetrel Cap* PO 100 mg 0800,1600 SATINDER Administration Apixaban 5 mg 08/26/18 21:00 10/05/18 09:19 Eliquis* PO 5 mg BID SATINDER Administration Atorvastatin Calcium 20 mg 08/27/18 17:00 10/04/18 16:10 Lipitor* PO 20 mg 1700 SATINDER Administration Carbidopa/Levodopa 1 tab.cr 09/08/18 00:00 10/05/18 00:21 Sinemet Cr 50/200(*) PO 1 tab.cr 0000 SATINDER Administration Carbidopa/Levodopa 2 tab 09/07/18 16:00 10/05/18 06:53 Sinemet 25/100 Tab(*) PO 2 tab 0700,1100,1600,2000 SATINDER Administration Docusate Sodium 100 mg 08/26/18 21:00 10/05/18 09:19 Colace Cap* PO Not Given BID SATINDER Hydrocortisone 1 applic 08/31/18 10:19 10/03/18 20:00 Hytone Cream 1%* TOPICAL 1 applic TID PRN Administration itching Lacosamide 50 mg 08/26/18 21:00 10/05/18 09:19 Vimpat Tab* PO 50 mg BID SATINDER Administration Losartan Potassium 50 mg 08/27/18 09:00 10/05/18 09:19 Cozaar Tab* PO 50 mg DAILY SATINDER Administration Magnesium Hydroxide 30 ml 08/26/18 16:36 10/01/18 08:17 Milk Of Magnesia Liq* PO 30 ml Q6H PRN Administration CONSTIPATION Metoprolol Succinate 100 mg 08/27/18 09:00 10/05/18 09:19 Toprol Xl Tab* PO 100 mg DAILY SATINDER Administration Polyethylene Glycol/Electrolytes 17 gm 08/26/18 16:46 09/25/18 16:24 Miralax* PO 17 gm DAILY PRN Administration CONSTIPATION Senna 2 tab 08/26/18 16:36 10/01/18 20:03 Senokot Tab* PO 2 tab BEDTIME PRN Administration CONSTIPATION Throat Lozenges 1 jolynn 08/30/18 20:20 08/30/18 21:26 Chloraseptic Jolynn* PO 1 jolynn Q2H PRN Administration SORE THROAT Vital Signs: Vital Signs Temp Pulse Resp BP Pulse Ox 97.5 F 65 20 125/64 95 10/05/18 06:44 10/05/18 06:44 10/05/18 06:44 10/05/18 06:44 10/05/18 06:44 Exam: GENERAL: Alert and appropriate LUNGS: Clear to auscultation bilaterally HEART: regular rate and rhythm ABDOMEN: +bowel sounds, soft, non-tender, non-distended EXTREMITIES: Suture line healed. No edema NEUROLOGIC: CN II-XII intact. Resting tremor in arms>legs. Muscle strength bilateral UE/LE 5/5. Sensation intact. Assessment/Plan: 1. Left Hip Fracture. S/P HAP: WBAT. Dr Platt follow up 2. Parkinson's Disease: Sinemet/Amantadine. Neurology follow up as needed 3. Atrial Fibrillation: Eliquis/Toprol 4. HTN: Irbesartan at discharge at home dose and Toprol 5. DVT Prophylaxis: Eliquis 6. Advance Directives: Full Code. is HCP 7. Possible Seizure Disorder: Vimpat. Neurology follow up 8. Macular degeneration/vision: f/u with eye doctor after discharge. 9. Dispo: Family training completed earlier in the week. He will need assistance which the is willing and able to give with assistance of drill rig operator helper. His level of assistance varies with his Parkinsons disease. Home today. 10/05/18 09:42
--- NOTE | 2018-10-05 11:18 | DS ---
CC: Dr. Beaulieu; Dr. Jeronimo; Dr. Grady REHABILITATION DISCHARGE SUMMARY: DATE OF ADMISSION: 08/26/18 DATE OF DISCHARGE: 10/05/18 REASON FOR ADMISSION: Left hip fracture and Parkinson's disease. PRIMARY CARE PROVIDER: Dr. Beaulieu. ORTHOPEDIC SURGEON: Dr. Jeronimo. NEUROLOGIST: Dr. Grady. HISTORY OF PRESENT ILLNESS: For full details of his acute hospitalization at [facility] as well as [facility], please see the history and physical admission note dictated by Dr. Martinez on 08/26/18 as well as the respective admission, progress and discharge summaries and notes from the acute care service at [facility] and [facility]. Very briefly, Mr. Monge is a 73-year-old man with Parkinson's disease as well as a history of seizure disorder, on low-dose Vimpat, who slipped and fell on ice and fractured his left hip on 08/14/18. He was originally at [facility] and was later transferred to [facility] for more specialized Neurology evaluation with concerns of potential seizure activity. He also had fevers and was on acyclovir for questionable viral meningitis. He was seen by Dr. Gutierrez at [facility] and acyclovir was discontinued. His Parkinson's medications were restarted and he seemed to have some improvement. He was taken to the OR on 08/22/[address] Jeronimo. Postoperatively, there was some confusion. His Sinemet was increased to 1-1/2 tablets 4 times per day because of increased tremors. REHABILITATION COURSE: During his time on the [facility], he continued to have significant issues with tremors. Ultimately, his Sinemet was increased to 2 tablets 4 times per day and Sinemet CR 50/200 was added scheduled at bedtime. He was slow to mobilize because of the severity of his Parkinson's disease, but throughout his stay, he participated with physical therapy, occupational therapy , as well as speech therapy. With speech therapy, he was noted to have mild impairment of language expression as well as with his memory. He worked on compensatory strategies to increase the loudness of his voice as well as his speech intelligibility. With occupational therapy, he initially was requiring an EZ Stand for mobilization. At the time of discharge, he varies depending on his Parkinson's disease from supervision to max assist for bed mobility. His transfers vary from contact guard assistance of one using a 2-wheeled walked to moderate assist if he is fatigued. For ambulation, he can ambulate with contact guard assistance for 150 feet using a 2-wheeled walker. For stairs, he requires contact guard to a minimal amount of assistance and [id number] directions for 5 steps. He has followed his hip precautions. Of note, he can lose balance when he is backing up to sit. His came in for family training and plans to take him home and will be able to assist him along with truck crane operator helper. He also participated well with occupational therapy. At the time of discharge, he requires setup assistance and extra time for feeding. For grooming, he requires setup assistance and extra time and he may need touch up for shaving. For bathing, he requires assistance for his lower legs, gita-area , and buttocks. He needs cues to be thurough. For upper extremity dressing, he needs assistance for his right arm due to some chronic shoulder pain that he has had and to pull down his shirt over his trunk. For lower extremity dressing , he is total assistance for all tasks. For toileting, he requires assistance for hygiene including management. For a shower transfer, this should only occur with a home therapist. For toileting, he requires a minimal amount assistance for standing off the toilet with the walker and needs assistance for clothes management. He is total assistance for home management. He has remained on his anticoagulation of Eliquis for atrial fibrillation as well as DVT prophylaxis. Although initially he needed oxycodone for pain management, he currently is only using acetaminophen on an as-needed basis. DISCHARGE CONDITION: Fair. DISCHARGE DISPOSITION: Home with and hired assistance. DISCHARGE MEDICATIONS: 1. Amantadine 100 mg b.i.d. 2. Eliquis 5 mg b.i.d. 3. Metoprolol XL 100 mg q. day. 4. MiraLAX 17 g q. day p.r.n. constipation. 5. Acetaminophen 650 mg q.4 hours p.r.n. pain. 6. Docusate 100 mg b.i.d. 7. Hydrocortisone 1% cream t.i.d. p.r.n. itching. 8. Senna 2 tablets q.h.s. p.r.n. 9. Carbidopa/levodopa 25/100 at 0700, 1100, 1600, and 2000. 10. Carbidopa/levodopa CR 50/200 one tablet at bedtime. 11. Simvastatin 40 mg q.h.s. 12. Irbesartan 150 mg q. day. 13. Vimpat 50 mg b.i.d. FOLLOWUP: 1. A referral has been sent to visiting nurse services for ongoing nursing care , PT/OT, and speech if it is available as well as home health aides. 2. Follow up with Dr. Jeronimo in 1 to 2 weeks. 3. Follow up with Dr. Beaulieu in 1 to 2 weeks. 4. Follow up with Dr. Grady in approximately 1 month. 5. He has some chronic visual issues and has been advised to follow up with his eye doctor as well after discharge. DISCHARGE DIAGNOSES: 1. Left hip fracture, status post hemiarthroplasty. 2. Parkinson's disease. 3. Atrial fibrillation. 4. Cerebrovascular accident in 2007. 5. Hypertension. 6. Hyperlipidemia. 7. Seizure disorder. 8. Right shoulder pain. [id number]/[facility] #: [id number] [facility]
== END 2018-10-05 11:15 | disposition home health service (06) | DRG 561 ==
LOC: PMRU 16:06
PROVIDERS: ADMIT Physical Medicine & Rehabilitation; ATTEND Physical Medicine & Rehabilitation
PROC: F07Z5ZZ Bed Mobility Treatment (ICD-10-PCS; principal; 2018-08-26)
PROC: F07Z9ZZ Gait Training/Functional Ambulation Treatment (ICD-10-PCS; 2018-08-26)
PROC: F07Z8ZZ Transfer Training Treatment (ICD-10-PCS; 2018-08-26)
PROC: F08Z0ZZ Bathing/Showering Techniques Treatment (ICD-10-PCS; 2018-08-26)
PROC: F08Z1ZZ Dressing Techniques Treatment (ICD-10-PCS; 2018-08-26)
PROC: F08Z3ZZ Feeding/Eating Treatment (ICD-10-PCS; 2018-08-26)
PROC: F06Z8ZZ Motor Speech Treatment (ICD-10-PCS; 2018-08-26)
PROC: F06ZBZZ Receptive/Expressive Language Treatment (ICD-10-PCS; 2018-08-26)
DX: S72.002D Fracture of unspecified part of neck of left femur, subsequent encounter for closed fracture with routine healing (principal); W00.2XXD Other fall from one level to another due to ice and snow, subsequent encounter; G20 Parkinson's disease; Z47.1 Aftercare following joint replacement surgery; Z96.642 Presence of left artificial hip joint; I48.91 Unspecified atrial fibrillation; I10 Essential (primary) hypertension; E78.5 Hyperlipidemia, unspecified; G40.909 Epilepsy, unspecified, not intractable, without status epilepticus; H35.30 Unspecified macular degeneration; M25.511 Pain in right shoulder; K59.00 Constipation, unspecified; R19.7 Diarrhea, unspecified; R23.8 Other skin changes; Z91.81 History of falling; Z86.73 Personal history of transient ischemic attack (TIA), and cerebral infarction without residual deficits; Z79.01 Long term (current) use of anticoagulants; Z79.1 Long term (current) use of non-steroidal anti-inflammatories (NSAID); Z79.891 Long term (current) use of opiate analgesic; Z79.899 Other long term (current) drug therapy
CPT/HCPCS: 36415; 80053; 81003; 85025; A9270-GY; G0515-GO